=== PATIENT | female | born 1970 | race Caucasian/White ===

== ENCOUNTER 2020-01-25 12:21 | Outpatient (CLI) | payer SELFPAY ==
--- NOTE | 2020-01-25 12:45 | USCV_ITS ---
Oscar Nita Age: 49 Gender: F : 1970 Exam Date: 01/25/2020 13:13 Ordering Phys: Gerardo Zepeda Technologist: MARIAMA PARK [place]am [place] [facility] [place] Indication: right calf pain PROCEDURES: Venous duplex imaging was performed in only the right lower extremity. The following venous structures were evaluated: common femoral vein, profunda vein, proximal portion of the greater saphenous vein, superficial femoral vein, and the popliteal vein. In addition, the posterior tibial and peroneal trunk were evaluated. Serial compression, augmentation maneuvers, and spectral Doppler flow evaluation were performed. FINDINGS: Normal 2-D Doppler and augmentation and compressibility throughout the lower extremity venous structures. Additional imaging through the proximal calf veins also reveals no thrombus. Limited evaluation of the greater saphenous vein is patent with no thrombus.. A fluid appearing area is noted on the medial right calf. No increased vascularity to this area is visualized at this time. CONCLUSIONS Negative right lower extremity deep venous ultrasound. Dr. Roxanne Nolasco MD (Electronically Signed) Final Date: 26 January 2020 09:36 S
== END 2020-01-25 12:22 | disposition home or self-care (01) ==
LOC: RAD 12:29
PROVIDERS: Family Provider Nurse Practitioner; PCP Nurse Practitioner; Visit Provider Nurse Practitioner
DX: M79.661 Pain in right lower leg (principal)
CPT/HCPCS: 93971

== ENCOUNTER → 2020-02-10 10:07 | Outpatient (BNVA) | payer SELFPAY | PROVIDERS: Family Provider Nurse Practitioner; PCP Nurse Practitioner; Visit Provider Nurse Practitioner Family | DX: L03.115 Cellulitis of right lower limb (principal); R60.0 Localized edema; M79.604 Pain in right leg; M79.89 Other specified soft tissue disorders; S89.91XD Unspecified injury of right lower leg, subsequent encounter | CPT/HCPCS: 80053 ==

== ENCOUNTER → 2020-06-18 11:38 | Outpatient (BNVA) | payer OTHER, SELFPAY | PROVIDERS: Family Provider Nurse Practitioner; PCP Nurse Practitioner; Visit Provider Nurse Practitioner Family | DX: Z11.59 Encounter for screening for other viral diseases (principal) | CPT/HCPCS: 87635 ==

== ENCOUNTER → 2020-09-05 10:09 | Outpatient (BNVA) | payer OTHER, SELFPAY | PROVIDERS: Family Provider Nurse Practitioner; PCP Nurse Practitioner; Visit Provider Nurse Practitioner Family | DX: N95.0 Postmenopausal bleeding (principal); N30.01 Acute cystitis with hematuria; R60.0 Localized edema; J30.89 Other allergic rhinitis | CPT/HCPCS: 81003 ==

== ENCOUNTER → 2021-02-28 11:00 | Outpatient (BNVA) | payer OTHER, SELFPAY | PROVIDERS: Family Provider Nurse Practitioner; PCP Nurse Practitioner; Visit Provider Nurse Practitioner Family | DX: Z20.822 Contact with and (suspected) exposure to COVID-19 (principal) | CPT/HCPCS: 87635 ==

== ENCOUNTER → 2021-04-08 10:51 | Outpatient (BNVA) | payer MEDICAID, SELFPAY | PROVIDERS: Family Provider Nurse Practitioner; PCP Nurse Practitioner; Visit Provider Nurse Practitioner | DX: R60.0 Localized edema (principal); Z87.891 Personal history of nicotine dependence | CPT/HCPCS: 80053; 85025 ==

== ENCOUNTER → 2021-04-10 13:45 | Outpatient (BNVA) | payer MEDICAID, SELFPAY | PROVIDERS: Family Provider Nurse Practitioner; PCP Nurse Practitioner; Visit Provider Nurse Practitioner | DX: R05 Cough (principal); R60.0 Localized edema; Z87.891 Personal history of nicotine dependence; J98.01 Acute bronchospasm | CPT/HCPCS: 71046 ==

== ENCOUNTER 2021-04-25 14:01 | Outpatient (CLI) | payer OTHER, MEDICAID, SELFPAY ==
--- NOTE | 2021-04-25 14:30 | CT_ITS ---
WS: [id number] CT CHEST WITH INTRAVENOUS CONTRAST HISTORY: R91.8 - Other nonspecific abnormal finding of lung field, short of breath and pain. TECHNIQUE: Contiguous 5 mm axial imaging performed on the thorax. Coronal and sagittal reformats are submitted. All CT scans at [facility] use at least one of these dose optimization techniques: automated exposure control; mA and/or kV adjustment per patient size (includes targeted exams where dose is matched to clinical indication); or iterative reconstruction. CONTRAST: Omnipaque 300; 95 mL IV. DLP: 923.09 mGycm COMPARISON: None available. Lungs and central airway: Lung volumes are decreased. Diffuse haziness over both lungs probably from respiratory bronchiolitis related to smoking. Emphysema is moderate. Solid mass in the posterior RIGH T upper lobe abuts the superior major fissure. Mass extends over length of 3.2 cm. Transverse diamete r 3.9 and interposed in diameter 2.9 cm. There is central cavitation. Margins are irregular. Pleura: Normal. No pleural effusion. Heart and pericardium: Normal size heart with no pericardial effusion. Mediastinum and [place]: Small bilateral axillary lymph nodes. Confluent cluster of adenopathy begins in the RIGHT paratracheal location and extends contiguously inferior to the RIGHT hilum. Low-attenuatio n cluster of lymph nodes extends over length of 5.6 cm and transversely by 3.6 cm anterior posterior by 3.2 cm. Lymph nodes extend along the RIGHT central bronchus. Smaller subcarinal lymph node. No con tralateral nodes identified. Vessels: Normal size aortic and pulmonary artery. No coronary artery calcifications. Chest wall and lower neck: No soft tissue masses. Upper abdomen: Marked low attenuation throughout the liver from hepatic steatosis. No bile duct dilat ation. Slightly contracted gallbladder. No adrenal mass. Osseous structures: Mild thoracic spondylosis. CT/CT chest w con* [id number] IMPRESSION: 1. Solid mass with central cavitation in the posterior RIGHT upper lobe measur es 3.9 x 2.9 cm and extends over a length of 3.2 cm. Highly suspicious for prim bridget pulmonary neoplasm. 2. Confluent cluster of contiguous lymph nodes along the RIGHT paratracheal an d RIGHT hilum. Consistent with adenopathy. No contralateral lymphadenopathy cathleen ntified. 3. No adrenal mass. 4. Hepatic steatosis. The entire liver is not imaged but in the visualized por tion no metastatic sites are identified. 5. Moderate emphysema.
[2021-04-25] MEDS: iohexol 300 mg/mL 100 mL Btl IV (14:42)
== END 2021-04-25 14:02 | disposition home or self-care (01) ==
PROVIDERS: PCP Nurse Practitioner; Visit Provider Nurse Practitioner
DX: R91.8 Other nonspecific abnormal finding of lung field (principal); J43.9 Emphysema, unspecified; K76.0 Fatty (change of) liver, not elsewhere classified
CPT/HCPCS: 71260; Q9967

== ENCOUNTER → 2021-05-03 11:09 | Outpatient (BNVA) | payer OTHER, SELFPAY | PROVIDERS: PCP Nurse Practitioner; Visit Provider Internal Medicine Pulmonary Disease | DX: Z20.822 Contact with and (suspected) exposure to COVID-19 (principal); R91.8 Other nonspecific abnormal finding of lung field | CPT/HCPCS: 87635 ==

== ENCOUNTER 2021-05-10 06:00 | Day surgery (SDC) | payer OTHER, MEDICAID, SELFPAY ==
[2021-05-06 11:38] VITALS: BMI 32.5
[2021-05-10] VITALS (15 sets, daily range): BP systolic 97–128; BP diastolic 65–92; PULSE 86–112; RESP 16–26; TEMP 36.1–36.4; O2SAT 88–100
[2021-05-10] MEDS: sodium chloride 0.9% 1,000 ML 30 ML IV (06:24)
--- NOTE | 2021-05-10 06:55 | ANES.PREANE2 ---
Pre-Anesthetic Assessment Pre-Anesthetic Assessment: Height/Weight: Height 1.57 m Weight 80.739 kg Temp Pulse Resp BP Pulse Ox 97.5 F L 97 18 118/92 94 05/10/21 06:23 05/10/21 06:23 05/10/21 06:23 05/10/21 06:23 05/10/21 06:23 Preop Diagnosis: lung mass Proposed Procedure: Operation Date: 05/10/21 07:10 Proposed Procedures p Ebus 57322 [id number] R91.8(Not Applicable) - Mohamud Sr MD Was Beta Julio C taken within 24 hours: N/A Was Clonidine taken within 24 hours: N/A Last intake: Intake Last Liquid Date 05/09/21 Last Liquid Time 20:00 Last Solid Date 05/09/21 Last Solid Time 23:45 Last Intake: 22:00 Social: Social History: Tobacco Packs per day: 1-2 Pack years: 30+ Exam: Pre-Anes Outpt Exam: alert, oriented x 3, clear to auscultation bilaterally and regular rate & rhythm Airway: Submandibular: WNL Cervical ROM: WNL MP: 2 Dentition: Loose (very poor decayed loose on bottom) and False (upper) Pulmonary: Pulmonary: COPD, Cough, HOLLOWAY and SOB CV/HEM: CV/HEM: None reported : : None reported Hepatic: Hepatic: None reported GI: GI: GERD (food related) Metabolic: Metabolic: None reported Musc/skel: Musc/skel: Lower Back Pain Neuropsych: Neuropsych: None reported Anesthetic Plan: ASA status: 3 Anesthesia: General Risk of > 500 ml blood loss (7ml/kg in children): No Meds/Allergies Current Medications: Current Medications Generic Name Dose Route Start Last Admin Trade Name Freq PRN Reason Stop Dose Admin Sodium Chloride 1,000 mls @ 30 ml s/hr 05/10/21 06:15 05/10/21 06:24 Sodium Chloride 0.9% IV 05/11/21 06:14 30 mls/hr .Q24H ROSSANA Administration PFSH Anesthesia PFSH: Medical History Anxiety and depression Cigarette smoker Edema, unspecified Personal history of smoking Vitamin D insufficiency Surgical History History of tubal ligation Social History Smoking and tobacco status: current every day smoker cigarettes Packs smoked per day: 2.5 Years cigarettes smoked: 25 Second hand smoke exposure: Yes Smoking risk assessment/counseling performed?: Yes Alcohol intake: unknown Desire information about alcohol rehabilitation?: No Counseling given: No Desire information about substance/drug rehabilitation?: No Counseling given: No Adopted: No Caregiver/support person: No Lives independently: Yes Household members: family Housing: House Marital status: / Number of children: 5 service: No Current occupational status: employed 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
--- NOTE | 2021-05-10 06:59 | W.PM.OPSUD ---
Surgery/Procedure H&P Update DATE OF PROCEDURE: May 10, 2021 DATE H&P PERFORMED: 04/30/21 PLANNED PROCEDURE: Operation Date: 05/10/21 07:10 Proposed Procedures p Ebus [id number] R91.8(Not Applicable) - Mohamud Sr MD CHIEF COMPLAINT/INDICATIONFOR SURGICAL PROCEDURE: Right upper lobe cavitary mass and right paratracheal and hilar lymphadenopathy in a chronic smoker PREOP DIAGNOSIS: Lung cancer PLANNED PROCEDRUE: Bronchoscopy with inspection of the airway, possible endobronchial biopsy, endobronchial ultrasound-guided transbronchial needle aspiration of lymph nodes and control of bleeding This is a 50-year-old female with past medical history of post COVID-04 March 2021, anxiety, depression, cigarette smoker, COPD, referred by Marya Zepeda [facility] for lung mass on 04/25/[address] 04/25/2021 showed solid mass with central cavitation and posterior right upper lobe measuring 3.9 x 2.9 cm and complaint cluster of contiguous lymph nodes along the right paratracheal and right hilum consistent with adenopathy and no contralateral lymphadenopathy identified. The patient currently smoking cigarettes 2-2.5 ppd for last 20 to 25 years. Pertinent Exam Findings General: alert, NAD HEENT: conj clear, EOMI, PERRL, mmm, Neck: supple, no meningismus Heme: no cervical LAP Pulmonary: CTAB, no wheezing, rhonchi, crackles Cardiovascular: rrr, nl s1s2, no mrg Abdomen: soft, nt, nd, no r/g, bs+ Extremities: pulses +, no edema, no c/c : no CVA tenderness Skin: intact, no rash MSK: no back or neck pain Neurologic: grossly intact # 4cm cavitary right upper lobe lesion with right paratracheal and hilar lymphadenopathy on CT 04/25/2021-highly suspicious for lung cancer in patient with significant smoking history 2 to 3 packs/day for last 20 to 25 years - Schedule for EBUS 05/10/2021 and will do bronchoscopic examination of airways for endobronchial lesions and obtaining BAL samples from right upper posterior lobe. Followed by Endobronchial ultrasound guided FNA C samples of right paratracheal and hilar lymph nodes - Scheduled to obtain PET/CT on 05/04/2021 - but pt did not go. -completed course of Augmentin
[2021-05-10] MEDS: lidocaine 1% INJ 20 mL XX (07:13)
--- NOTE | 2021-05-10 08:29 | PM.OP ---
Operative Report Date of procedure: Date of procedure: May 10, 2021 Pre-op Diagnosis: Lung cancer Post-op diagnosis: same Brief History: This is a 50-year-old female with past medical history of post COVID-04 March 2021, anxiety, depression, cigarette smoker, COPD, referred by Marya Zepeda [employer]ACH[employer]PER[employer] for lung mass on 04/25/[address] 04/25/2021 showed solid mass with central cavitation and posterior right upper lobe measuring 3.9 x 2.9 cm and complaint cluster of contiguous lymph nodes along the right paratracheal and right hilum consistent with adenopathy and no contralateral lymphadenopathy identified. The patient currently smoking cigarettes 2-2.5 ppd for last 20 to 25 years. Procedure: Name of the procedure: Bronchoscopy with inspection of the airway, bronchoalveolar lavage, endobronchial biopsies, endobronchial ultrasound-guided transbronchial needle aspiration of lymph nodes and control of bleeding. Indication: Suspected lung cancer Anesthesia: General anesthesia. Local anesthesia: The aniya in the right and left mainstem bronchi were anesthetized with 1% lidocaine, 3 mL. Description of the procedure: The procedure was explained to the patient and the consent was obtained. The patient was brought to the OR. The patient underwent LMA placement for general anesthesia. Following induction of general anesthesia, the bronchoscope was advanced through the LMA. The lower trachea appeared to be normal. the aniya was sharp. The aniya, the right and left mainstem bronchi are anesthetized with 1% lidocaine. In a systematic manner bilateral bronchial tree was then examined. The bronchoscope was advanced into the Right mainstem bronchus. The anterior segment of the right upper lobe revealed complete occlusion from possible external compression. Bronchoscope could not be advanced into the anterior segment of the right upper lobe. The other subsegmental bronchi nad right middle lobe and right lower lobe were examined and noted to have edematous mucosa. The bronchoscope was then introduced into the left mainstem bronchus. The left upper lobe, lingula and left lower lobe bronchi were examined up to the third subsegmental level and no abnormalities were identified. Endobronchial biopsies were performed from the right upper lobe. 5 specimens were obtained. Bronchoalveolar lavage was performed from the right upper lobe. 60 mL of saline was instilled, fluid return was 10 mL. The fluid was bloody. The endobronchial ultrasound was introduced through the ET tube. Mediastinal and hilar lymphadenopathy was identified with the ultrasound. TB NA was performed from station 4R and 7. Samples: 1. Bronchoalveolar lavage specimen from right upper lobe was sent for cytology, Gram stain and microbiology culture, MARTHA prep and fungal cultures, AFB and mycobacterial cultures. 2. The endobronchial biopsies from right upper lobe are sent for histopathology. 3. The transbronchial needle aspiration of the aforementioned lymph node groups (station 4R and station 7) were sent for histopathology. Complications: There was no immediate complications. Pre-op Diagnosis: lung mass Associated Problem List Diagnoses (1) Cigarette smoker: (2) Mass of right lung: (3) Mediastinal lymphadenopathy:
--- NOTE | 2021-05-10 08:38 | XR_ITS ---
WS: [id number] Portable AP upright chest, 05/10/2021 Clinical Data: post bronchoscopy and Ebus Comparison: PA and lateral chest, 04/10/2021. Findings: The right hilar mass has increased slightly in size compared to the previous study. Left ashwin ng is clear. The pulmonary vascularity is not increased. No pneumonia or pneumothorax is seen. The he art is normal. There are monitor leads on the chest wall. XR/XR chest 1V portable [id number] Impression: 1. Slight increase in size of right hilar mass consistent with cancer of the ashwin ng. 2. No other masses or nodules are seen.
--- NOTE | 2021-05-10 10:11 | ANE.PACU2 ---
Inpatient post-anesthesia follow up: Airway intact: Yes Vital signs: Temperature 97.2 F Pulse Rate 94 Respiratory Rate 19 Blood Pressure 109/65 Pulse Oximetry 96 Oxygen Delivery Me thod Room Air Oxygen Flow Rate 1 Fraction of Inspir ed Oxygen Hydration adequate: Yes Nausea and vomiting: No Pain level: 2 Mental status: Baseline
[2021-05-16 09:08] LABS: PD-L1 (Clone 22C3) by IHC BBPL See Report
[2021-05-17 18:38] LABS: Aspergillus AG,EIA NOT DETECTED; Aspergillus AG,EIA, Index <0.50
== END 2021-05-10 10:11 | disposition home or self-care (01) ==
PROVIDERS: PCP Nurse Practitioner; Visit Provider Internal Medicine Pulmonary Disease
PROC: BB4BZZZ Ultrasonography of Pleura (ICD-10-PCS; principal; 2021-05-10 07:00)
PROC: 0BJ08ZZ Inspection of Tracheobronchial Tree, Via Natural or Artificial Opening Endoscopic (ICD-10-PCS; CPT 31622; 2021-05-10 07:00)
DX: C34.90 Malignant neoplasm of unspecified part of unspecified bronchus or lung (principal); Z86.16 Personal history of COVID-19; F41.9 Anxiety disorder, unspecified; F32.9 Major depressive disorder, single episode, unspecified; F17.210 Nicotine dependence, cigarettes, uncomplicated; J44.9 Chronic obstructive pulmonary disease, unspecified
CPT/HCPCS: 31624; 31625; 31652; 71045; 80500; 87015; 87070; 87102; 87116; 87205; 87206; 87305; 87801; 88112; 88305; 88309; 88342; 94640; 96360; 96361; J1100; J2405; J2704; J3010; J7030; J7611

== ENCOUNTER 2021-05-15 10:13 | Outpatient (CLI) | payer OTHER, MEDICAID, SELFPAY ==
--- NOTE | 2021-05-15 12:26 | ONC CON_ITS ---
Dr. Lilly New Patient Note Patient: Nita Moore Unit #: [id number]: 1970 Dicatated By: Braulio Lilly M.D.Date of Visit: May 15, 2021 Onc MED New Patient/Consult Referring Physician: Mohamud Sr Chief Complaint: Lung cancer. 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 She was diagnosed with COVID-19 virus infection in February 2021. She noted some increase in pre-existing cough with that illness, and she also became more short of breath. Chest x-ray on 04/10/2021 showed us 4 cm suprahilar pulmonary density consistent with focal pneumonia or a mass. Further evaluation with chest CT on 04/25/2021 showed a solid mass with central cavitation in the posterior right upper lobe measuring 3.9 x 2.9 x 3.2 cm. The appearance was highly suspicious for primary pulmonary neoplasm. A confluent cluster of lymph nodes along the right paratracheal and right hilar region measured 5.6 x 3.6 x 3.2 cm. Lymph nodes were also noted to extend along the right central bronchus. Also noted were smaller subcarinal lymph nodes. There were no contralateral nodes identified. Marked low attenuation throughout the liver appeared consistent with hepatic steatosis. There is no adrenal mass identified. She had pulmonary consultation with Dr. Sr. Her bronchoscopy/EBUS on 05/10/2021 showed complete occlusion of the anterior segment right upper lobe bronchus from suspected external compression. Right upper lobe endobronchial biopsy was positive for squamous cell carcinoma. Mediastinal and hilar lymphadenopathy was identified by endobronchial ultrasound. FNA biopsy of station 4R lymph node was positive for metastatic squamous cell carcinoma. FNA biopsy of station 7 lymph node was negative. She is seen now for further management. At this point she continues to have some shortness of breath and cough productive of clear sputum. She has had a little pain in her chest which goes through to her back. She has had no hemoptysis other than transiently following the bronchoscopy procedure. She has fatigue, but she is on the go all the time, and she is still working. ECOG score is 0. Her appetite has been okay. Her weight has been stable. She has not had fever. She occasionally has sweating at night. She reports having some sinus congestion. She has not had sore throat or difficulty swallowing. She has no GI or complaints. She has no significant joint or bone pain. She has had some pain on the right side of her neck rating up to the back of her head. She has no focal neurologic symptoms. Past Medical History: Her medical history includes anxiety, chronic obstructive pulmonary disease, depression, Viamin D insufficiency, and COVID-19 virus infection in 2020. Past Surgical History: She underwent bronchoscopy/EBUS on 05/10/2021. Her only other surgery was a tubal ligation. Medications: Albuterol Sulfate 1 Inhalation (of (2.5 mg/3ml) 0.083%) Nebulization solution Inhalation q 6 hours, Amoxicillin-Pot Clavulanate 1 Tablet (of 875-125 mg) Oral b.i.d., Aspirin 1 Tablet (of 325 mg) Tablet, enteric coated Oral daily, Budesonide-Formoterol Fumarate 2 Puff(s) (of 160-4.5 mcg/act) Aerosol Inhalation b.i.d., Furosemide 1 Tablet (of 20 mg) Oral daily, Potassium Chloride Jessica ER 1 Tablet (of 10 meq) Tablet, controlled release Oral daily, Vitamin D2 1 Tablet (of 10 mcg ) Oral daily Allergies: Codeine Sulfate and Sulfa Antibiotics. Social History: Ms. Moore is . She has a history of smoking 1-1/2 to 2 packs of cigarettes daily for more than 30 years. She does not drink alcohol. Family History: She does not know what happened to her father. Her mother with heart disease. One sister is , cause unknown to the patient. Four other siblings are living, but she does not know about their health. A son with SIDS. Review Of Symptoms: Constitutional - She has some fatigue, but she is on the go all the time, and she is still working. Her appetite has been okay. Her weight is stable. She has not had fever. She occasionally has sweating at night. ECOG score is 0, Eyes - No change in vision, ENMT - No hearing loss or tinnitus. She has sinus congestion. No mouth sores. No sore throat or difficulty swallowing, Hematologic/Lymphatic - No abnormal bruising or bleeding, Respiratory - She has shortness of breath. She has cough productive of clear sputum. No pleuritic pain or hemoptysis, Cardiovascular - She has had a little bit of chest pain which radiates through to the back. No palpitations, Gastrointestinal - No nausea or vomiting. No heartburn or acid reflux. No diarrhea or constipation. No blood in the stool or black stools, Genitourinary (F) - No dysuria or hematuria. No urinary frequency. No urgency or incontinence, Musculoskeletal - No joint or bone pain, Integumentary - No skin rash or other skin changes, Neurologic - She has been having some pain in the right neck rating up to the back of her head. No dizziness. No numbness or tingling. No other focal neurologic symptoms, Psychiatric - She has a history of anxiety and depression, but currently not requiring medication. No insomnia. Vital Signs: Height is 62 inches and weight 177 pounds. Blood pressure 118/78, pulse 101, respirations 18, temp 98.2 degrees, and oxygen saturation 95%. Physical Examination: Constitutional - She appears to be in good general health, Eyes - Sclerae nonicteric. Conjunctivae clear, ENMT - Teeth are in poor repair, but there are no lesions noted in the oral cavity, Neck - No mass or thyromegaly, Hematologic/Lymphatic - No cervical, clavicular, or axillary adenopathy, Respiratory - Lungs sound clear with diminished air movement bilaterally, Cardiovascular - Heart rhythm is regular. There is no murmur, gallop, or rub noted, Abdomen - Soft and non-tender. Liver and spleen are not enlarged. There is no abdominal mass or ascites noted and there is no inguinal adenopathy, Back/Spine - No spine or CVA tenderness noted, Extremities - Mild edema. Pedal pulses are palpable bilaterally, Integumentary - No rashes. No suspicious skin lesions noted, Neurologic - No focal neurologic deficits noted. Problem List: 1. Squamous cell carcinoma involving the upper lobe of the right lung by clinical evaluation stage IIIA (T2a, N2, M0). 2. COPD. 3. Anxiety/depression, currently not requiring medication. 4. Vitamin D deficiency. 5. History of COVID-19 virus infection in February 2021. Problems Addressed with this Encounter and Plan: Patient with squamous cell carcinoma involving the upper lobe of the right lung by clinical evaluation stage IIIA (T2a, N2, M0). She underwent bronchoscopy/EBUS on 05/10/2021. Endobronchial biopsy from the right upper lobe and FNA biopsy of station 4R lymph node were both positive for squamous cell carcinoma. She was supposed to have a staging PET/CT, but that apparently never got scheduled. The CT findings and images were reviewed with the patient and her daughter, and we also discussed the pathology results and clinical implications. 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 With the lymph node involvement, her disease is inoperable. In the absence of any other metastatic disease, the recommended treatment will be radiation concurrently with weekly carboplatin/paclitaxel chemotherapy with the potential for maintenance immunotherapy, depending on her response to the chemoradiation. She does need to complete her staging evaluation with PET/CT and with brain MRI, and those will both be scheduled now. She will also be scheduled to see Dr. Wallace for radiation oncology consultation, and I will arrange for her to see one of the surgeons for placement of Port-A-Cath venous access device. She will have a follow-up visit prior to starting chemotherapy. In the meantime, she also has advised that she needs to stop smoking, as statistically it does improve treatment outcomes. I offered her the option to try nicotine patch or Chantix. She is going to discuss it with her daughter. Signed By: Braulio Lilly M.D. <<Signature on File>>
== END 2021-05-15 10:14 | disposition home or self-care (01) ==
LOC: ONCMED 10:15
PROVIDERS: PCP Nurse Practitioner; Visit Provider Internal Medicine Medical Oncology
DX: C34.11 Malignant neoplasm of upper lobe, right bronchus or lung (principal); C77.1 Secondary and unspecified malignant neoplasm of intrathoracic lymph nodes; J44.9 Chronic obstructive pulmonary disease, unspecified; F41.8 Other specified anxiety disorders; E55.9 Vitamin D deficiency, unspecified; Z86.16 Personal history of COVID-19; F17.210 Nicotine dependence, cigarettes, uncomplicated; Z79.899 Other long term (current) drug therapy
CPT/HCPCS: 99205

== ENCOUNTER 2021-05-24 14:34 | Outpatient (CLI) | payer OTHER, SELFPAY ==
--- NOTE | 2021-05-24 14:30 | MR_ITS ---
WS: [id number] MRI HEAD WITH CONTRAST TECHNIQUE: Sagittal T1, T2 axial, T2 axial FLAIR, axial susceptibility weighted imaging, axial diffus ion weighted images, and coronal T2 images were obtained. Pre and post-T1 axial and post T1 coronal i mages. ADC and FSPGR images. CLINICAL INFORMATION: EVALUATION OF NEW SYMPTOMS;LUNG CANCER COMPARISON: None. FINDINGS: No evidence of restricted diffusion to suggest acute ischemia. Ventricular system and basal cisterns are patent. Mild small vessel changes. Mild parenchymal volume loss. Normal posterior fossa. Normal v ascular flow voids at the skull base. No extra-axial fluid collections. No evidence of mass or mass e ffect. Paranasal sinuses and mastoid air cells are well aerated. No hemosiderin on the susceptibly weighted images. Normal optic chiasm and pituitary infundibulum. Mi ld symmetric atrophy temporal lobes and hippocampal formations. Normal optic chiasm and pituitary inf undibulum. Normal cavernous sinuses and Meckel's cave. No evidence of enhancing intracranial metastatic disease. Incidental enhancing venous angioma in the left frontal lobe. Normal dural venous sinuses. MR/MR head wo/w con [id number] IMPRESSION: 1. No evidence of restricted diffusion to suggest acute ischemia. 2. No evidence of enhancing intracranial metastatic disease. 3. Incidental venous angioma left frontal lobe. 4. Mild small vessel changes with mild parenchymal volume loss. 5. No hemosiderin on susceptibly weighted images.
[2021-05-24] MEDS: gadobenate dimeglumine 20 mL vial IV (15:59)
== END 2021-05-24 14:35 | disposition home or self-care (01) ==
PROVIDERS: PCP Nurse Practitioner; Visit Provider Internal Medicine Medical Oncology
DX: C34.11 Malignant neoplasm of upper lobe, right bronchus or lung (principal); Q28.3 Other malformations of cerebral vessels
CPT/HCPCS: 70553; A9577

== ENCOUNTER 2021-05-30 13:29 | Outpatient (CLI) | payer OTHER, MEDICAID, SELFPAY ==
--- NOTE | 2021-05-30 15:19 | N.ONRAD NP_ITS ---
(Radiation Oncology Consultation Patient Name: Nita Moore Date of : 1970 Date of Service: 05/30/2021 Attending Physician: Prateek Wallace M.D. Nita Moore was seen in consultation this afternoon at the request of Braulio Lilly M.D. for consideration of thoracic radiotherapy in the management of a recently diagnosed non-small cell lung cancer. She was evaluated by her primary care physician in late March for a persistent cough and wheezing. A chest radiograph revealed a 4 cm suprahilar mass. A thoracic CT scan ordered on April 25, 2021 demonstrated a 3.9 cm x 2.9 cm x 3.2 cm posterior right upper lobe mass with central cavitation. Right paratracheal and hilar lymphadenopathy measuring 3.6 cm x 3.2 cm x 5.6 cm were present. A bronchoscopy with endobronchial ultrasound-guided transbronchial needle biopsy was performed by Mohamud Sr M.D. on May 10, 2021. The anterior segment of the right upper lobe was occluded secondary to external compression. Biopsies (the pathology report was personally reviewed in [facility]) obtained from the right upper lobe lesion and station 4R lymph node were positive for squamous cell carcinoma. PD???L1 TPS was more than 5%. A PET CT (independently visualized in [facility]) obtained on May 21, 2021 confirmed metabolic activity within the right upper lobe mass (SUV 17.8), right hilar and mediastinal lymphadenopathy (SUV 23.3), splenic flexure (SUV 20.4), and uterine fundus (SUV 23.7). A MRI of the head did not identify metastatic disease. The patient was evaluated for definitive thoracic radiotherapy. I discussed with Ms. Moore the AJCC clinical stage IIIA (T2bN2) lung cancer corresponding to her disease. I also reviewed the National Comprehensive Cancer Network Guidelines recommending concurrent chemoradiotherapy for the management of locally advanced lung cancer and the classic study, RTOG 9410, comparing sequential versus concurrent chemoradiotherapy that demonstrated an overall survival advantage for the concurrent chemoradiotherapy regimen and established the standard of care. I would endorse a six week course of thoracic radiotherapy. A computed tomographic radiotherapy planning scan with contrast in the treatment position will be acquired and co-registered to the patient's staging PET CT scan to identify the gross tumor volume. The potential toxicities of thoracic radiotherapy were reviewed. The patient has verbalized understanding would like to proceed as recommended. I will also request a colonoscopy and gynecological evaluation to evaluate the PET findings. The patient???s treatment plan was discussed with Braulio Lilly M.D. Signed by: Dr. Prateek Wallace 07/16/2021 1:32:59 PM
== END 2021-05-30 13:30 | disposition home or self-care (01) ==
PROVIDERS: PCP Nurse Practitioner; Visit Provider Radiology Radiation Oncology
DX: C34.11 Malignant neoplasm of upper lobe, right bronchus or lung (principal); C77.8 Secondary and unspecified malignant neoplasm of lymph nodes of multiple regions; Z79.899 Other long term (current) drug therapy
CPT/HCPCS: 87635; 99205

== ENCOUNTER → 2021-05-31 16:01 | Outpatient (BNVA) | payer OTHER, SELFPAY | PROVIDERS: PCP Nurse Practitioner; Visit Provider Obstetrics & Gynecology | DX: N93.9 Abnormal uterine and vaginal bleeding, unspecified (principal) | CPT/HCPCS: 88305; 88341; 88342 ==

== ENCOUNTER 2021-06-04 07:14 | Day surgery (SDC) | payer OTHER, SELFPAY ==
[2021-06-03 12:28] VITALS: BMI 30.5
[2021-06-04] VITALS (9 sets, daily range): BP systolic 101–117; BP diastolic 65–77; PULSE 85–114; RESP 13–24; TEMP 36.2–36.9; O2SAT 85–96
--- NOTE | 2021-06-04 | SCC_ITS ---
Procedure Done: 1-Right internal jugular vein PowerPort placement 2. Fluoroscopic guidance and interpretation for placement of catheter 3. Ultrasound guidance to access the right internal jugular vein 27.9 seconds of fluoroscopic guidance, for a cumulative dose of 5.81 mGy, was provided to Dr. Ramirez by the radiology department. C-arm images of the chest were saved for the patient's permanent record. [facility]
--- NOTE | 2021-06-04 07:17 | SC_ITS ---
WS: [id number] INTRAOPERATIVE TECHNIQUE: 2 Spot fluoroscopic images for intraoperative purposes. FLUOROSCOPY TIME: 27.9 seconds CLINICAL INFORMATION: Powerport Placement COMPARISON: None. FINDINGS: Right Port-A-Cath with tip in the distal SVC. No visualized pneumothorax. SC/C-arm FL for CVA [id number] IMPRESSION: Images obtained for intraoperative purposes.
[2021-06-04] MEDS: sodium chloride 0.9% 1,000 ML 30 ML IV (07:43)
--- NOTE | 2021-06-04 08:14 | ANES.PREANE2 ---
Pre-Anesthetic Assessment Pre-Anesthetic Assessment: Height/Weight: Height 1.57 m Weight 75.75 kg Temp Pulse Resp BP Pulse Ox 98.5 F 114 H 20 H 113/73 93 06/04/21 07:21 06/04/21 07:21 06/04/21 07:21 06/04/21 07:21 06/04/21 07:21 Preop Diagnosis: Lung cancer Proposed Procedure: Operation Date: 06/04/21 08:45 Proposed Procedures p Portacath Placement 31349 R59.0(Not Applicable) - Santos Ramirez MD Was Beta Julio C taken within 24 hours: N/A Was Clonidine taken within 24 hours: N/A Last intake: Intake Last Liquid Date 06/03/21 Last Liquid Time 21:30 Last Solid Date 06/03/21 Last Solid Time 20:00 Social: Social History: Tobacco and No alcohol Exam: Pre-Anes Outpt Exam: alert, oriented x 3 and regular rate & rhythm Additional Exam Findings (including area of procedure): Rhonchi Airway: Submandibular: WNL Cervical ROM: WNL MP: 2 Dentition: Chipped and Loose Additional comments: Very poor dentition Pulmonary: Pulmonary: COPD GI: GI: GERD Neuropsych: Neuropsych: Anxiety and Depression Anesthetic Plan: ASA status: 3 Anesthesia: MAC Risk of > 500 ml blood loss (7ml/kg in children): No Meds/Allergies Current Medications: Current Medications Generic Name Dose Route Start Last Admin Trade Name Freq PRN Reason Stop Dose Admin Sodium Chloride 1,000 mls @ 30 ml s/hr 06/04/21 07:30 06/04/21 07:43 Sodium Chloride 0.9% IV 06/05/21 07:29 30 mls/hr .Q24H ROSSANA Administration PFSH Anesthesia PFSH: Medical History Anxiety and depression Cigarette smoker Edema, unspecified Personal history of smoking Vitamin D insufficiency Surgical History History of tubal ligation Family History (Updated 05/31/21 @ 15:32 by Ekta Mendez LPN) Sister Diabetes Mother Diabetes Hypertension Stroke Daughter Thyroid disease Denies family history of CAD (coronary artery disease) Clotting disorder Hyperlipidemia Chronic kidney disease (CKD) Bleeding disorder Cancer Social History Smoking and tobacco status: current every day smoker cigarettes Packs smoked per day: 2.5 Years cigarettes smoked: 25 Second hand smoke exposure: Yes Smoking risk assessment/counseling performed?: Yes Alcohol intake: unknown Desire information about alcohol rehabilitation?: No Counseling given: No Desire information about substance/drug rehabilitation?: No Counseling given: No Adopted: No Caregiver/support person: No Lives independently: Yes Household members: family Housing: House Marital status: / Number of children: 5 service: No Current occupational status: employed 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
--- NOTE | 2021-06-04 08:57 | W.PM.OPSUD ---
Surgery/Procedure H&P Update DATE OF PROCEDURE: June 04, 2021 DATE H&P PERFORMED: 05/23/21 H&P UPDATE INFORMATION: I have reviewed H&P completed within last 30 days, I have examined patient prior to procedure and No changes to prior documentation PREOP DIAGNOSIS: Lung cancer PRIMARY INDICATION FOR PROCEDURE: The same PLANNED PROCEDURE: Operation Date: 06/04/21 08:45 Proposed Procedures p Portacath Placement 32077 R59.0(Not Applicable) - Santos Ramirez MD
[2021-06-04] MEDS: lidocaine 2% INJ 20 mL INJECTION (09:40)
[2021-06-04] MEDS: heparin, porcine 1,000 unit/mL INJ 10 mL 10000 UNIT INJECTION (09:45)
--- NOTE | 2021-06-04 10:07 | PM.OP ---
Operative Report Date of procedure: June 04, 2021 Pre-op Diagnosis: Lung cancer Post-op diagnosis: same Procedure Done: 1. Right internal jugular vein PowerPort placement 2. Fluoroscopic guidance and interpretation for placement of catheter 3. Ultrasound guidance to access the right internal jugular vein Implants: Right internal jugular vein PowerPort placed Surgeon: Santos Ramirez Emergency Room Physician Assistant: Surgical jesus Dubose Circulating nurse Chela Downey Anesthesia: MAC (line runner José Miguel) Estimated blood loss (mL): 10 Condition: stable Brief History: Lung cancer Procedure: Patient was identified in the holding area and taken to the operative room and placed in supine position IV propofol was given by the anesthesia provider ,both arms were tucked,Time-out was done verifying the patient's name/date of /planned procedure and destination after the procedure, all were in agreement. SCDs confirmed to be functioning, preoperative antibiotics administered per protocol, and beta zhou protocol was confirmed, appropriate positioning of the patient was done by me. Medications were reviewed to assess for anticoagulant usage. Risks and benefits and prevention of central line associated blood stream infection (CLABSI) were discussed with the patient/CPOA, and a consent was obtained. Monitors were in place and monitored throughout the procedure. All necessary supplies were available prior to start. Hand hygiene was completed prior to starting. Maximum barrier technique was utilized including a sterile gown, sterile gloves with a hat and mask. Site was was prepped with [chlorhexidine] and a full body drape was placed. 5 mL of 2% lidocaine was injected into the skin with a 25 gauge needle. Prep& drape was done under the usual sterile technique, lidocaine 2% was injected at the site of the stick, started by right subclavian vein and a wire was threaded but tended to go towards the right internal jugular vein. After couple of attempts I aborted and I did deviate my attention towards the right internal jugular vein. Right internal Juglar vein stick that retrieved venous blood was obtained from the first stick under ultrasound guidance and there was no evidence of intraluminal thrombosis, interpretation was done by me through the whole entire procedure, a guidewire was then threaded and under the guidance of fluoroscopy position was confirmed to be in the IVC and my interpretation, there was no PVC changes, at that point the guidewire was secured to the drapes with a hemostat and the needle was taken out. Attention was then deviated towards creation of a pocket for the port were lidocaine 2% was injected using an 15 blade knife skin incision was created at the right upper Chest ,dissection using the Bovie to create a pocket for the Port-A-Cath to be accommodated, hemostasis was secured, after the port being appropriately flushed it was inserted into the pocket and a tunneler was used to accommodate the catheter of the port cath to be delivered through the incision first created at the site of the stick. I was able to retrieve the catheter at the index site of the stick. At that point under fluoroscopy an estimated length was measured for the catheter and was cut at the designed level, followed by that a dilator with the sheath introduced onto the guidewire the dilator and the wire were retrieved and the catheter of the port was introduced via the sheath where it was peeled off and the catheter maintained to be in the SVC that was confirmed with fluoroscopy, and the fluoroscopy interpretation was done by me throughout the entire procedure. Multiple flushes of the port was done by diluted heparin and I was able to retrieve without difficulty venous blood as well as appropriate flushing was achieved. The port was kept in its pocket.3-0 Vicryl deep subdermal interrupted sutures, skin was then closed by 4-0 Monocryl as subcuticular closure. The port was appropriately flushed with heparin and venous blood was withdrawn without difficulty The stick site was closed by 4-0 Monocryl and Dermabond was used followed by dressing. Patient tolerated the procedure well was taken to the recovery area Count was correct at the end of the procedure I was present for the whole entire procedure
--- NOTE | 2021-06-04 10:20 | XRR_ITS ---
PROCEDURE INFORMATION: Exam: XR Chest Exam date and time: 06/04/2021 10:20 AM Age: 50 years old Clinical indication: Device placement; Other: Right internal jugular vein powerport; Additional info: Status post right internal jugular vein powerport TECHNIQUE: Imaging protocol: XR of the chest. Views: 1 view. COMPARISON: CR XR chest 1V portable [id number] 05/10/2021 8:41 AM FINDINGS: Tubes, catheters and devices: Chest port/Mediport has been placed via the right jugular approach with the tip in the superior vena cava. Lungs: Lungs are well aerated without a focal area of consolidation. Pleural spaces: Unremarkable. No pleural effusion. No pneumothorax. Heart/Mediastinum: Unremarkable. No cardiomegaly. Dense right hilum Bones/joints: Unremarkable. XR/XR chest 1V portable [id number] IMPRESSION: Lungs are well aerated without a focal area of consolidation. Dense right hilum Radiation Dose CTDIVOL = (mGy): DLP = (mGy-cm)
--- NOTE | 2021-06-04 10:23 | P.PCN_ITS ---
PACU note PACU note: VSS, Good respiratory effort, report to ICING AND GLAZE MAKER Post-Anesthesia Exam: awake
--- NOTE | 2021-06-04 10:23 | PM.PACU ---
PACU note PACU note: VSS, Good respiratory effort, report to FRANCHISE SALES REPRESENTATIVE Post-Anesthesia Exam: awake
--- NOTE | 2021-06-04 10:44 | SUR.PHASEI ---
1038 PT AWAKES TO VOICE HOB AT 40 DEGREES DRESSING D/I X RAY DONE AT BEDSIDE PT TAKING ICE CHIPS PT TO OPS HANDOFF AT BEDSIDE PT REQUESTS COKE TO DRINK.
--- NOTE | 2021-06-04 14:22 | ANE.PACU2 ---
Inpatient post-anesthesia follow up: Airway intact: Yes Vital signs: Temperature 97.1 F Pulse Rate 93 Respiratory Rate 18 Blood Pressure 101/72 Pulse Oximetry 93 Oxygen Delivery Me thod Room Air Oxygen Flow Rate 3 Fraction of Inspir ed Oxygen Hydration adequate: Yes Nausea and vomiting: No Pain level: 2 Mental status: Baseline
== END 2021-06-04 11:55 | disposition home or self-care (01) ==
PROVIDERS: PCP Nurse Practitioner; Visit Provider Surgery
PROC: (CPT 36561; principal; 2021-06-04 08:45)
DX: C34.90 Malignant neoplasm of unspecified part of unspecified bronchus or lung (principal); J44.9 Chronic obstructive pulmonary disease, unspecified; K21.9 Gastro-esophageal reflux disease without esophagitis; F41.9 Anxiety disorder, unspecified; F32.9 Major depressive disorder, single episode, unspecified; E55.9 Vitamin D deficiency, unspecified; Z82.49 Family history of ischemic heart disease and other diseases of the circulatory system; Z83.3 Family history of diabetes mellitus; F17.210 Nicotine dependence, cigarettes, uncomplicated
CPT/HCPCS: 36561; 71045; 77001; 94640; C1788; J1644; J2704; J3010; J7030

== ENCOUNTER 2021-06-05 07:55 | Outpatient (CLI) | payer OTHER, SELFPAY ==
--- NOTE | 2021-06-05 10:44 | PFTS_ITS ---
Date of Study:06/05/21 Date of Dictation: MECHANICS: Forced vital capacity (FVC) is reduced. Forced expiratory volume in one second (FEV1) is reduced. FEV1/FVC is reduced. FLOW VOLUME LOOP: Reduced flow at all lung volumes with scooping. LUNG VOLUMES: Total lung capacity (TLC) is normal. Residual volume (RV) is increased. DIFFUSING CAPACITY FOR CARBON MONOXIDE: Moderately reduced. INTERPRETATION: The postbronchodilator spirometry is consistent with moderate airflow obstruction. There is a significant postbronchodilator response. Lung volumes are consistent with air trapping. Gas exchange (DLCO) is moderately reduced. MTDD
== END 2021-06-05 07:56 | disposition home or self-care (01) ==
PROVIDERS: PCP Nurse Practitioner; Visit Provider Internal Medicine Pulmonary Disease
DX: J44.9 Chronic obstructive pulmonary disease, unspecified (principal)
CPT/HCPCS: 94060; 94618; 94726; 94729; J7611

== ENCOUNTER 2021-06-06 06:29 | Outpatient (RCR) | payer OTHER, SELFPAY ==
[2021-06-05 09:21] LABS: Basophils % 0.3 %; Eosinophils # 0.1 10^3/uL (0.0-0.8); Eosinophils % 0.9 %; Hematocrit 40.4 % (37.0-47.0); Hemoglobin 13.1 g/dL (11.5-15.3); Lymphocytes % 21.8 %; Mean Corpuscular HGB Conc 32.4 g/dL (30.0-36.0); Mean Corpuscular Hemoglobin 31.3 pg (28.0-34.0); Mean Corpuscular Volume 96.7 fl (81-99); Mean Platelet Volume 9.7 fL (7.4-10.4); Monocytes # 0.6 10^3/uL (0.2-0.9); Monocytes % 6.2 %; Neutrophils # 6.56 10^3/uL (1.8-7.7); Neutrophils % 70.4 %; Nucleated Red Blood Cells % 0 %; Platelet Count 300 10^3/cmm (130-400); Red Blood Count 4.18 10^6/uL (4.1-5.3); Red Cell Distribution Width 12.3 % (12.1-15.1); White Blood Count 9.3 10^3/uL (4.0-10.0)
[2021-06-05 09:40] LABS: Alanine Aminotransferase 20 U/L (0-33); Albumin Level 3.7 g/dL (3.5-5.2); Alkaline Phosphatase 94 IU/L (35-105); Anion Gap 13.2 (5-19); Aspartate Amino Transferase 20 U/L (0-32); Blood Urea Nitrogen 10 mg/dL (6-20); Calcium 9.2 mg/dL (8.5-10.5); Carbon Dioxide 28 mmol/L (22-29); Chloride 99 mmol/L (98-107); Globulin 3.6 g/dL (1.3-4.6); Glomerular Filtration Rate 105.4 mL/min (90-130); Glucose 101 mg/dL (65-115); Osmolality Calculated 281 mOsm/kg (285-295); Potassium 4.2 mmol/L (3.5-5.1); Sodium 136 mmol/L (136-145); Total Bilirubin 0.3 mg/dL (0.15-1.2); Total Protein 7.3 g/dL (6.6-8.7)
--- NOTE | 2021-06-06 | CT_ITS ---
Radiation Therapy Planning CT images; total exam DLP: 728.75 mGy-cm MTDD
== END 2021-06-16 23:59 | disposition home or self-care (01) ==
LOC: ONCMED 06:29
PROVIDERS: PCP Nurse Practitioner; Visit Provider Radiology Radiation Oncology
DX: Z51.0 Encounter for antineoplastic radiation therapy (principal); C34.11 Malignant neoplasm of upper lobe, right bronchus or lung
CPT/HCPCS: 36415; 77300; 77301; 77334; 77338; 77470; 80053; 85025; Q9967

== ENCOUNTER → 2021-06-07 09:36 | Outpatient (BNVA) | payer OTHER, SELFPAY | PROVIDERS: PCP Nurse Practitioner; Visit Provider Obstetrics & Gynecology | DX: N95.0 Postmenopausal bleeding (principal) | CPT/HCPCS: 76830 ==

== ENCOUNTER → 2021-06-10 11:17 | Outpatient (BNVA) | payer OTHER, SELFPAY | PROVIDERS: PCP Nurse Practitioner; Visit Provider Surgery | DX: Z11.52 Encounter for screening for COVID-19 (principal); Z20.822 Contact with and (suspected) exposure to COVID-19 | CPT/HCPCS: 87635 ==

== ENCOUNTER 2021-06-12 09:56 | Day surgery (SDC) | payer OTHER, MEDICAID, SELFPAY ==
[2021-06-10 09:19] VITALS: BMI 32.1
--- NOTE | 2021-06-12 10:09 | P.ANESASSM_ITS ---
Pre-Anesthetic Assessment Pre-Anesthetic Assessment: Height/Weight: Height 1.57 m Weight 79.832 kg Preop Diagnosis: Lung cancer Proposed Procedure: Operation Date: 06/12/21 11:15 Proposed Procedures p Colonoscopy 74126 Z12.11(Not Applicable) - Santos Ramirez MD Was Beta Julio C taken within 24 hours: N/A Was Clonidine taken within 24 hours: N/A Social: Social History: Tobacco and No alcohol Exam: Pre-Anes Outpt Exam: alert, oriented x 3 and regular rate & rhythm Airway: Submandibular: WNL Cervical ROM: WNL MP: 2 Dentition: Loose Additional comments: Very poor dentition, missing most Pulmonary: Pulmonary: COPD Comments: Lung mass CV/HEM: CV/HEM: HTN GI: GI: GERD Metabolic: Metabolic: Morbid obesity Neuropsych: Neuropsych: Anxiety and Depression Anesthetic Plan: ASA status: 3 Anesthesia: MAC Risk of > 500 ml blood loss (7ml/kg in children): No PFSH Anesthesia PFSH: Medical History Anxiety and depression Cigarette smoker Edema, unspecified Personal history of smoking Vitamin D insufficiency Surgical History History of tubal ligation Family History Sister Diabetes Mother Diabetes Hypertension Stroke Daughter Thyroid disease Denies family history of CAD (coronary artery disease) Clotting disorder Hyperlipidemia Chronic kidney disease (CKD) Bleeding disorder Cancer Social History Smoking and tobacco status: current every day smoker cigarettes Packs smoked per day: 2.5 Years cigarettes smoked: 25 Second hand smoke exposure: Yes Smoking risk assessment/counseling performed?: Yes Alcohol intake: unknown Desire information about alcohol rehabilitation?: No Counseling given: No Desire information about substance/drug rehabilitation?: No Counseling given: No Adopted: No Caregiver/support person: No Lives independently: Yes Household members: family Housing: House Marital status: / Number of children: 5 service: No Current occupational status: employed 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
[2021-06-12 10:52] VITALS: BP 109/86; PULSE 95; RESP 18; TEMP 36.6; O2SAT 95
[2021-06-12] MEDS: sodium chloride 0.9% 1,000 ML 30 ML IV (11:16)
--- NOTE | 2021-06-12 11:30 | W.PM.OPSUD ---
Surgery/Procedure H&P Update DATE OF PROCEDURE: June 12, 2021 DATE H&P PERFORMED: 05/23/21 H&P UPDATE INFORMATION: I have reviewed H&P completed within last 30 days, I have examined patient prior to procedure and Changes to prior documentation as noted here CHANGES TO PREVIOUS DOCUMENTATION: Appearance of activity at the splenic flexure on PET CT scan. PREOP DIAGNOSIS: Lung cancer/abnormal PET CT/endometrial cancer PRIMARY INDICATION FOR PROCEDURE: The same PLANNED PROCEDURE: Operation Date: 06/12/21 11:15 Proposed Procedures p Colonoscopy 09550 Z12.11(Not Applicable) - Santos Ramirez MD
[2021-06-12 14:35] VITALS: BP 106/68; PULSE 86; RESP 18; TEMP 36.1; O2SAT 98
== END 2021-06-12 15:25 | disposition home or self-care (01) ==
PROVIDERS: PCP Nurse Practitioner; Visit Provider Surgery
PROC: 0DJD8ZZ Inspection of Lower Intestinal Tract, Via Natural or Artificial Opening Endoscopic (ICD-10-PCS; CPT 45378; principal; 2021-06-12 11:15)
DX: Z12.11 Encounter for screening for malignant neoplasm of colon (principal); D12.4 Benign neoplasm of descending colon; K57.30 Diverticulosis of large intestine without perforation or abscess without bleeding; J44.9 Chronic obstructive pulmonary disease, unspecified; I10 Essential (primary) hypertension; K21.9 Gastro-esophageal reflux disease without esophagitis; E66.01 Morbid (severe) obesity due to excess calories; Z68.32 Body mass index [BMI] 32.0-32.9, adult; F41.9 Anxiety disorder, unspecified; F32.9 Major depressive disorder, single episode, unspecified; F17.210 Nicotine dependence, cigarettes, uncomplicated; Z82.49 Family history of ischemic heart disease and other diseases of the circulatory system; Z83.3 Family history of diabetes mellitus; Z82.3 Family history of stroke; Z79.82 Long term (current) use of aspirin
CPT/HCPCS: 45381; 45385; 88305; 96360; 96361; J2704; J7030

== ENCOUNTER 2021-06-28 06:17 | Outpatient (RCR) | payer OTHER, SELFPAY ==
[2021-06-17 08:23] LABS: Basophils % 0.1 %; Hematocrit 41.8 % (37.0-47.0); Hemoglobin 13.5 g/dL (11.5-15.3); Lymphocytes # 1.4 10^3/uL (0.8-4.8); Lymphocytes % 16.9 %; Mean Corpuscular HGB Conc 32.3 g/dL (30.0-36.0); Mean Corpuscular Hemoglobin 30.6 pg (28.0-34.0); Mean Corpuscular Volume 94.8 fl (81-99); Mean Platelet Volume 9.7 fL (7.4-10.4); Monocytes # 0.1 10^3/uL (0.2-0.9); Monocytes % 1.6 %; Neutrophils # 6.67 10^3/uL (1.8-7.7); Neutrophils % 81.2 %; Nucleated Red Blood Cells % 0 %; Platelet Count 404 10^3/cmm (130-400); Red Blood Count 4.41 10^6/uL (4.1-5.3); Red Cell Distribution Width 12.3 % (12.1-15.1); White Blood Count 8.2 10^3/uL (4.0-10.0)
[2021-06-17 08:42] LABS: Anion Gap 13.9 (5-19); Blood Urea Nitrogen 12 mg/dL (6-20); Carbon Dioxide 28 mmol/L (22-29); Chloride 100 mmol/L (98-107); Potassium 3.9 mmol/L (3.5-5.1); Sodium 138 mmol/L (136-145)
[2021-06-17 08:43] LABS: Alanine Aminotransferase 25 U/L (0-33); Albumin Level 3.7 g/dL (3.5-5.2); Alkaline Phosphatase 98 IU/L (35-105); Aspartate Amino Transferase 22 U/L (0-32); Calcium 9.7 mg/dL (8.5-10.5); Glomerular Filtration Rate 88.2 mL/min (90-130); Glucose 175 mg/dL (65-115); Osmolality Calculated 290 mOsm/kg (285-295); Total Bilirubin 0.2 mg/dL (0.15-1.2); Total Protein 7.7 g/dL (6.6-8.7)
[2021-06-17] MEDS: sodium chloride 0.9% 250 ML 75 ML IV (09:55)
[2021-06-17] MEDS: palonosetron 0.25 mg/5 mL SDV IV (09:55)
[2021-06-17] MEDS: famotidine 20 mg/2 mL INJ IVP (09:56)
[2021-06-17] MEDS: diphenhydrAMINE 50 mg/mL SDV 1mL 25 MG IV (09:58)
--- NOTE | 2021-06-17 14:18 | ONCRAD TMN_ITS ---
Radiation Oncology Weekly Treatment Management Patient: Oscar Moya> MR#: [id number] : 1970> Attending Physician: Dr. Hammad Lange Date of Service: 06/17/2021 Referring Physician(s) : Braulio Lilly M.D. Diagnosis: C34.11 - Malignant neoplasm of upper lobe, right bronchus or lung, Diagnosed 05/15/2021 (Active) Stage IIIA, T2a, N2, M0 Radiotherapy to date: None. Treatment delayed until 06/18/2021. Reason for visit: The patient is being seen today as part of their regularly scheduled weekly on treatment visits to assess for acute toxicities from radiotherapy. Review of Systems: She did well with chemo today. Eating ok. Living with brother and [id number]. She was smoking 2ppd now less than 1 ppd. Vital Signs: Performed on 06/17/2021 9:14 AM Height - 62.00 in, Weight - 168.6 lbs (low), BSA - 1.78 sq.m, BMI - 30.84 (high), Temperature - 97.5 f (low), Pulse - 88 /min, Respiration - 20 /min, O2 Sat - 93 % (low), Pain - 6, Fatigue - 8 and BP - 113/ 74 mm(hg). Physical Exam: omitted Imaging: Radiation therapy imaging related to accurate target localization (i.e. KV, MV and CBCT) was reviewed. Appropriate changes, if any, were made to ensure treatment accuracy. Plan: Good tolerance of initial chemo. Will begin chest treatment 06/18/2021. Following this she will also undergo hysterectomy for incidentally noted uterine carcinoma. Discussed value of complete smoking cessation. Signed by: Dr. Hammad Lange 06/17/2021 2:17:08 PM
--- NOTE | 2021-06-21 06:50 | ONC FU_ITS ---
Dr. Lilly Patient Follow-Up Note Patient: Nita Moore Unit #: [id number]: 1970 Dicatated By: Braulio Lilly M.D.Date of Visit:Jun 17, 2021 Onc Med Follow-up/Prog Note Chief Complaint: Lung cancer. 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 She was diagnosed with COVID-19 virus infection in February 2021. She noted some increase in pre-existing cough with that illness, and she also became more short of breath. Chest x-ray on 04/10/2021 showed a 4 cm suprahilar pulmonary density consistent with focal pneumonia or a mass. Further evaluation with chest CT on 04/25/2021 showed a solid mass with central cavitation in the posterior right upper lobe measuring 3.9 x 2.9 x 3.2 cm. The appearance was highly suspicious for primary pulmonary neoplasm. A confluent cluster of lymph nodes along the right paratracheal and right hilar region measured 5.6 x 3.6 x 3.2 cm. Lymph nodes were also noted to extend along the right central bronchus. Also noted were smaller subcarinal lymph nodes. There were no contralateral nodes identified. Marked low attenuation throughout the liver appeared consistent with hepatic steatosis. There was no adrenal mass identified. She had pulmonary consultation with Dr. Sr. Her bronchoscopy/EBUS on 05/10/2021 showed complete occlusion of the anterior segment right upper lobe bronchus from suspected external compression. Right upper lobe endobronchial biopsy was positive for squamous cell carcinoma. Mediastinal and hilar lymphadenopathy was identified by endobronchial ultrasound. FNA biopsy of station 4R lymph node was positive for metastatic squamous cell carcinoma. FNA biopsy of station 7 lymph node was negative. I had seen her initially on 05/15/2021. Staging PET/CT on 05/21/2021 showed FDG avid posterior right upper lobe lung mass with SUV 17.84, consistent with malignancy. There was associated FDG adenopathy in the right hilum with extension into the contiguous mediastinum, SUV up to 23.33. Adenopathy was noted to extend superiorly into the mediastinum to the right to above the level of the aortic arch, SUV 21.06. There was no FDG adenopathy noted in the left hilum or AP window or prevascular space. There was diffuse hepatic steatosis, no metastatic involvement was noted in the liver or adrenal glands. There was a relatively intense focus of increased activity in the colon at the splenic flexure, SUV 20.44, possibly representing malignancy. Also noted with intense activity in the uterine fundus with maximum SUV 23.74, also suspicious for malignancy. Abdominal and pelvic lymph nodes demonstrated physiologic levels of activity. Her head MRI on 05/24/2021 showed no evidence of metastatic disease. With those findings, she had [facility] evaluation with Dr. Deepti Estevez, and she underwent endometrial sampling on 05/31/2021. Pathology showed endometrial adenocarcinoma, FIGO grade 2. Analysis of mismatch repair proteins showed loss of nuclear expression of PMS2 with intact nuclear expression of MLH1, MSH2, and MSH6. In the meantime, she also had been seen seen by Dr. Ramirez, and she underwent placement of PowerPort on 06/04/2021. Her colonoscopy on 06/12/2021 showed an adenomatous appearing semipedunculated polyp in the proximal descending colon measuring 7 x 7 mm and a semipedunculated polyp measuring 8 x 6 mm in the distal descending colon. Also noted was a 5 mm lipoma in the mid ascending colon. Pathology on the distal descending colon polyp showed tubular adenoma with no high-grade dysplasia identified. The proximal descending colon polyp showed tubular adenoma with focal high-grade dysplasia. There is no evidence of invasive carcinoma. In the setting of stage IIIA non-small cell lung carcinoma, she was recommended to proceed with standard chemoradiation utilizing weekly carboplatin/paclitaxel for chemosensitization. On further pathologic evaluation, her lung tumor was found to be positive for PD-L1 expression at 5%. Her other medical illnesses include COPD, vitamin D deficiency, and anxiety/depression. She has a history of smoking 1-1/2 to 2 packs of cigarettes daily for more than 30 years. INTERIM HISTORY: She is seen today for her week 1 chemotherapy. Since her initial visit, there has been decline in her performance status. She complains that she is tired all the time. Her ECOG score is 2. Her appetite is not good, which she is eating. Her weight is down 8 or 9 pounds. She does not have fever. She sometimes has sweating at night. She has a little bit of sore throat. She continues to have cough. She reports having some shortness of breath and she is having some pain on the right side of her chest. She is having some pain in the lower abdominal area with coughing. She does not complain of nausea or acid reflux. Bowel and bladder function remain adequate. She has no other joint or bone pain. She does report having some headaches. She occasionally has dizziness. She has no focal neurologic symptoms. Medications: Albuterol Sulfate 1 Inhalation (of (2.5 mg/3ml) 0.083%) Nebulization solution Inhalation q 6 hours, Aspirin 1 Tablet (of 325 mg) Tablet, enteric coated Oral daily, Budesonide-Formoterol Fumarate 2 Puff(s) (of 160-4.5 mcg/act) Aerosol Inhalation b.i.d., Cholecalciferol 1 Tablet (of 125 mcg ) Oral daily, Dexamethasone (4 mg) Tablet Oral Take as Directed, Furosemide 1 Tablet (of 20 mg) Oral daily, Omeprazole 1 Tablet (of 20 mg) Capsule Delayed Release Oral daily, Potassium Chloride Jessica ER 1 Tablet (of 10 meq) Tablet, controlled release Oral daily Allergies: Codeine Sulfate and Sulfa Antibiotics. Vital Signs: Performed on Jun 17, 2021 13:16 Height - 62.00 in Weight - 168.6 lbs Temperature - 97.5 F Pulse - 85 /min Respiration - 20 /min BP - 113/74 mm(hg) O2 Sat - 95 % (LOW) Pain - 2 Performed on Jun 17, 2021 13:16 BMI - 30.838 kg/m2 (HIGH) Performed on Jun 17, 2021 09:14 Height - 62.00 in Weight - 168.6 lbs (LOW) BSA - 1.78 sq.m BMI - 30.84 (HIGH) Temperature - 97.5 F (LOW) Pulse - 88 /min Respiration - 20 /min BP - 113/74 mm(hg) O2 Sat - 93 % (LOW) Pain - 6 Fatigue - 8 Physical Examination: Constitutional - She appears somewhat weak generally, Eyes - Sclerae nonicteric. Conjunctivae clear, ENMT - Teeth are in poor repair, but there are no lesions noted in the oral cavity, Hematologic/Lymphatic - No cervical, clavicular, or axillary adenopathy, Respiratory - Lungs sound clear with diminished air movement bilaterally, Cardiovascular - Heart rhythm is regular. There is no murmur, gallop, or rub noted, Abdomen - Soft. Liver and spleen are not enlarged. There is no abdominal mass or ascites noted and there is no inguinal adenopathy, Extremities - No edema, Neurologic - No focal neurologic deficits noted. Lab/Imaging: Test performed on Jun 17, 2021 09:17 Creatinine 0.7 mg/dL Cr Clearance (Est) 114.79 mL/min Test performed on Jun 17, 2021 08:15 Sodium 138 mmol/L Potassium 3.9 mmol/L Chloride 100 mmol/L CO2 28 mmol/L Anion Gap 13.9 BUN 12 mg/dL eGFR 88.2 mL/min Glucose 175 mg/dL Osmolality - Calculated 290 mOsm/kg Calcium 9.7 mg/dL Protein, Total 7.7 g/dL Albumin 3.7 g/dL Globulin 4.0 g/dL Bilirubin, Total 0.2 mg/dL ALT (SGPT) 25 U/L AST (SGOT) 22 U/L Alkaline Phosphatase 98 IU/L WBC 8.2 10 3/uL RBC 4.41 10 6/uL HGB 13.5 g/dL HCT 41.8 % MCV 94.8 fl MCH 30.6 pg MCHC 32.3 g/dL RDW 12.3 % Platelet Count 404 10 3/cmm MPV 9.7 fL Neutrophils 6.67 10 3/uL Lymphocytes 1.4 10 3/uL Monocytes 0.1 10 3/uL Eosinophils 0.0 10 3/uL Basophils 0.0 10 3/uL Neutrophil % 81.2 % Lymphocyte % 16.9 % Monocyte % 1.6 % Eosinophil % 0.0 % Basophils % 0.1 % NRBC % 0 % Problem List: 1. Squamous cell carcinoma involving the upper lobe of the right lung, by clinical evaluation stage IIIA (T2a, N2, M0). 2. Adenocarcinoma of the endometrium, FIGO grade 2, MMR deficient. 3. Multiple colonic polyps, including an adenomatous polyp in the proximal descending colon with focal high-grade dysplasia. 4. COPD. 5. Anxiety/depression, currently not requiring medication. 6. Vitamin D deficiency. 7. History of COVID-19 virus infection in February 2021. Problems Addressed with this Encounter and Plan: 1. Patient with squamous cell carcinoma involving the upper lobe of the right lung by clinical evaluation stage IIIA (T2a, N2, M0). She underwent bronchoscopy/EBUS on 05/10/2021. Endobronchial biopsy from the right upper lobe and FNA biopsy of station 4R lymph node were both positive for squamous cell carcinoma.\ By staging PET/CT her lung cancer appeared to be confined to the primary lesion in the right upper lobe and involved hilar/mediastinal lymph nodes, but there were focal sites of uptake noted in the uterus and colon which were suspicious for other sites of primary malignancy. The setting of stage IIIA non-small cell lung carcinoma, she is recommended to proceed with standard chemoradiation utilizing weekly carboplatin/paclitaxel for chemosensitization. She will begin her week 1 chemotherapy today. I reviewed potential side effects including nausea/vomiting, alopecia, fatigue, low blood counts, and neuropathy, among others. She is scheduled to begin radiation today. She will have a follow-up visit in 1 week. 2. Her endometrial sampling on 05/31/2021 showed FIGO grade 2 adenocarcinoma of the endometrium, MMR deficient. She has been referred to [facility] and she will presumably be undergoing hysterectomy, but I think that should be deferred until after she completes primary treatment for the lung cancer. She also will require genetic screening. 3. She was found on colonoscopy to have multiple adenomatous polyps, including an adenomatous polyp with high-grade dysplasia involving the distal descending colon. It is being managed by Dr. Ramirez. Signed By: Braulio Lilly M.D. <<Signature on File>>
[2021-06-24 08:44] LABS: Basophils % 0.2 %; Hematocrit 39.8 % (37.0-47.0); Hemoglobin 12.9 g/dL (11.5-15.3); Lymphocytes # 0.5 10^3/uL (0.8-4.8); Lymphocytes % 9.6 %; Mean Corpuscular HGB Conc 32.4 g/dL (30.0-36.0); Mean Corpuscular Hemoglobin 30.3 pg (28.0-34.0); Mean Corpuscular Volume 93.4 fl (81-99); Mean Platelet Volume 10.1 fL (7.4-10.4); Monocytes # 0.1 10^3/uL (0.2-0.9); Monocytes % 1.4 %; Nucleated Red Blood Cells % 0 %; Platelet Count 341 10^3/cmm (130-400); Red Blood Count 4.26 10^6/uL (4.1-5.3); Red Cell Distribution Width 12.2 % (12.1-15.1)
[2021-06-24 08:59] LABS: Alanine Aminotransferase 29 U/L (0-33); Albumin Level 3.7 g/dL (3.5-5.2); Alkaline Phosphatase 98 IU/L (35-105); Anion Gap 14.8 (5-19); Aspartate Amino Transferase 24 U/L (0-32); Blood Urea Nitrogen 12 mg/dL (6-20); Calcium 9.5 mg/dL (8.5-10.5); Carbon Dioxide 28 mmol/L (22-29); Chloride 97 mmol/L (98-107); Globulin 4.1 g/dL (1.3-4.6); Glomerular Filtration Rate 105.4 mL/min (90-130); Glucose 181 mg/dL (65-115); Osmolality Calculated 286 mOsm/kg (285-295); Potassium 3.8 mmol/L (3.5-5.1); Sodium 136 mmol/L (136-145); Total Bilirubin 0.3 mg/dL (0.15-1.2); Total Protein 7.8 g/dL (6.6-8.7)
[2021-06-24] MEDS: sodium chloride 0.9% 250 ML 75 ML IV (10:40)
[2021-06-24] MEDS: palonosetron 0.25 mg/5 mL SDV IV (10:40)
[2021-06-24] MEDS: famotidine 20 mg/2 mL INJ IVP (10:41)
[2021-06-24] MEDS: diphenhydrAMINE 50 mg/mL SDV 1mL 25 MG IV (10:43)
--- NOTE | 2021-06-24 18:11 | ONC FU_ITS ---
Dr. Lilly Patient Follow-Up Note Patient: Nita Moore Unit #: [id number]: 1970 Dicatated By: Braulio Lilly M.D.Date of Visit:Jun 24, 2021 Onc Med Follow-up/Prog Note Chief Complaint: Lung cancer. 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 She was diagnosed with COVID-19 virus infection in February 2021. She noted some increase in pre-existing cough with that illness, and she also became more short of breath. Chest x-ray on 04/10/2021 showed a 4 cm suprahilar pulmonary density consistent with focal pneumonia or a mass. Further evaluation with chest CT on 04/25/2021 showed a solid mass with central cavitation in the posterior right upper lobe measuring 3.9 x 2.9 x 3.2 cm. The appearance was highly suspicious for primary pulmonary neoplasm. A confluent cluster of lymph nodes along the right paratracheal and right hilar region measured 5.6 x 3.6 x 3.2 cm. Lymph nodes were also noted to extend along the right central bronchus. Also noted were smaller subcarinal lymph nodes. There were no contralateral nodes identified. Marked low attenuation throughout the liver appeared consistent with hepatic steatosis. There was no adrenal mass identified. She had pulmonary consultation with Dr. Sr. Her bronchoscopy/EBUS on 05/10/2021 showed complete occlusion of the anterior segment right upper lobe bronchus from suspected external compression. Right upper lobe endobronchial biopsy was positive for squamous cell carcinoma. Mediastinal and hilar lymphadenopathy was identified by endobronchial ultrasound. FNA biopsy of station 4R lymph node was positive for metastatic squamous cell carcinoma. FNA biopsy of station 7 lymph node was negative. I had seen her initially on 05/15/2021. Staging PET/CT on 05/21/2021 showed FDG avid posterior right upper lobe lung mass with SUV 17.84, consistent with malignancy. There was associated FDG adenopathy in the right hilum with extension into the contiguous mediastinum, SUV up to 23.33. Adenopathy was noted to extend superiorly into the mediastinum to the right to above the level of the aortic arch, SUV 21.06. There was no FDG adenopathy noted in the left hilum or AP window or prevascular space. There was diffuse hepatic steatosis, no metastatic involvement was noted in the liver or adrenal glands. There was a relatively intense focus of increased activity in the colon at the splenic flexure, SUV 20.44, possibly representing malignancy. Also noted with intense activity in the uterine fundus with maximum SUV 23.74, also suspicious for malignancy. Abdominal and pelvic lymph nodes demonstrated physiologic levels of activity. Her head MRI on 05/24/2021 showed no evidence of metastatic disease. With those findings, she had [facility] evaluation with Dr. Deepti Estevez, and she underwent endometrial sampling on 05/31/2021. Pathology showed endometrial adenocarcinoma, FIGO grade 2. Analysis of mismatch repair proteins showed loss of nuclear expression of PMS2 with intact nuclear expression of MLH1, MSH2, and MSH6. In the meantime, she also had been seen seen by Dr. Ramirez, and she underwent placement of PowerPort on 06/04/2021. Her colonoscopy on 06/12/2021 showed an adenomatous appearing semipedunculated polyp in the proximal descending colon measuring 7 x 7 mm and a semipedunculated polyp measuring 8 x 6 mm in the distal descending colon. Also noted was a 5 mm lipoma in the mid ascending colon. Pathology on the distal descending colon polyp showed tubular adenoma with no high-grade dysplasia identified. The proximal descending colon polyp showed tubular adenoma with focal high-grade dysplasia. There is no evidence of invasive carcinoma. In the setting of stage IIIA non-small cell lung carcinoma, she was recommended to proceed with standard chemoradiation utilizing weekly carboplatin/paclitaxel for chemosensitization. On further pathologic evaluation, her lung tumor was found to be positive for PD-L1 expression at 5%. Her other medical illnesses include COPD, vitamin D deficiency, and anxiety/depression. She has a history of smoking 1-1/2 to 2 packs of cigarettes daily for more than 30 years. INTERIM HISTORY: She began week 1 carboplatin/paclitaxel on 06/17/2021. She tolerated the initial infusion with no acute toxicity. She is seen for a scheduled visit. She has had some further decline in her energy/activity tolerance. Some of that may just be due to depression. Her ECOG score is 2. Her appetite is not very good. She has not had fever or night sweats. She occasionally has sore throat. She has not had any mouth sores. She has cough and she continues to have some shortness of breath, though she says her breathing is usually okay. She does not complain of chest pain. She occasionally has nausea. She has had some constipation. Bladder function remains adequate. She does complain of having pain in both legs, and she also has been having some pain in the area behind her right ear. She does not complain of dizziness. She has no numbness/paresthesia or other focal neurologic symptoms. Medications: Albuterol Sulfate 1 Inhalation (of (2.5 mg/3ml) 0.083%) Nebulization solution Inhalation q 6 hours, Aspirin 1 Tablet (of 325 mg) Tablet, enteric coated Oral daily, Budesonide-Formoterol Fumarate 2 Puff(s) (of 160-4.5 mcg/act) Aerosol Inhalation b.i.d., Cholecalciferol 1 Tablet (of 125 mcg ) Oral daily, Dexamethasone (4 mg) Tablet Oral Take as Directed, Furosemide 1 Tablet (of 20 mg) Oral daily, Omeprazole 1 Tablet (of 20 mg) Capsule Delayed Release Oral daily, Potassium Chloride Jessica ER 1 Tablet (of 10 meq) Tablet, controlled release Oral daily Allergies: Codeine Sulfate and Sulfa Antibiotics. Vital Signs: Performed on Jun 24, 2021 10:13 Height - 62.00 in Weight - 165.6 lbs (LOW) BSA - 1.76 sq.m BMI - 30.29 (HIGH) Temperature - 97.3 F (LOW) Pulse - 87 /min Respiration - 18 /min BP - 119/83 mm(hg) O2 Sat - 95 % (LOW) Pain - 1 Fatigue - 7 Physical Examination: Constitutional - She appears somewhat weak generally. She is emotionally labile, Eyes - Sclerae nonicteric. Conjunctivae clear, ENMT - There are no lesions noted in the oral cavity. TMs are noninflamed, Hematologic/Lymphatic - No cervical, clavicular, or axillary adenopathy, Respiratory - Lungs sound clear with diminished air movement bilaterally, Cardiovascular - Heart rhythm is regular. There is no murmur, gallop, or rub noted, Abdomen - Soft. Liver and spleen are not enlarged. There is no abdominal mass or ascites noted and there is no inguinal adenopathy, Extremities - Mild edema, Neurologic - No focal neurologic deficits noted. Lab/Imaging: Test performed on Jun 24, 2021 10:24 Creatinine 0.6 mg/dL Cr Clearance (Est) 133.92 mL/min Test performed on Jun 24, 2021 08:20 Sodium 136 mmol/L Potassium 3.8 mmol/L Chloride 97 mmol/L CO2 28 mmol/L Anion Gap 14.8 BUN 12 mg/dL eGFR 105.4 mL/min Glucose 181 mg/dL Osmolality - Calculated 286 mOsm/kg Calcium 9.5 mg/dL Protein, Total 7.8 g/dL Albumin 3.7 g/dL Globulin 4.1 g/dL Bilirubin, Total 0.3 mg/dL ALT (SGPT) 29 U/L AST (SGOT) 24 U/L Alkaline Phosphatase 98 IU/L WBC 5.0 10 3/uL RBC 4.26 10 6/uL HGB 12.9 g/dL HCT 39.8 % MCV 93.4 fl MCH 30.3 pg MCHC 32.4 g/dL RDW 12.2 % Platelet Count 341 10 3/cmm MPV 10.1 fL Neutrophils 4.40 10 3/uL Lymphocytes 0.5 10 3/uL Monocytes 0.1 10 3/uL Eosinophils 0.0 10 3/uL Basophils 0.0 10 3/uL Neutrophil % 88.0 % Lymphocyte % 9.6 % Monocyte % 1.4 % Eosinophil % 0.0 % Basophils % 0.2 % NRBC % 0 % Problem List: 1. Squamous cell carcinoma involving the upper lobe of the right lung, by clinical evaluation stage IIIA (T2a, N2, M0). 2. Adenocarcinoma of the endometrium, FIGO grade 2, MMR deficient. 3. Multiple colonic polyps, including an adenomatous polyp in the proximal descending colon with focal high-grade dysplasia. 4. COPD. 5. Anxiety/depression, currently not requiring medication. 6. Vitamin D deficiency. 7. History of COVID-19 virus infection in February 2021. Problems Addressed with this Encounter and Plan: 1. Patient with squamous cell carcinoma involving the upper lobe of the right lung by clinical evaluation stage IIIA (T2a, N2, M0). She underwent bronchoscopy/EBUS on 05/10/2021. Endobronchial biopsy from the right upper lobe and FNA biopsy of station 4R lymph node were both positive for squamous cell carcinoma. By staging PET/CT her lung cancer appeared to be confined to the primary lesion in the right upper lobe and involved hilar/mediastinal lymph nodes, but there were focal sites of uptake noted in the uterus and colon which were suspicious for other sites of primary malignancy. In the setting of stage IIIA non-small cell lung carcinoma, she was recommended to proceed with standard chemoradiation. She began week 1 of carboplatin/paclitaxel on 06/17/2021. She tolerated it with no significant adverse effects. She will proceed now with week 2 carboplatin/paclitaxel. The dosages remain the same. She is also continuing her radiation. She will be scheduled for a return visit in 1 week. 2. She is having significant depression. She will start citalopram 20 mg daily. 3. Her endometrial sampling on 05/31/2021 showed FIGO grade 2 adenocarcinoma of the endometrium, MMR deficient. She has been referred to [facility] and she will presumably be undergoing hysterectomy, but I think that should be deferred until after she completes primary treatment for the lung cancer. She also will require genetic screening. 4. She was found on colonoscopy to have multiple adenomatous polyps, including an adenomatous polyp with high-grade dysplasia involving the distal descending colon. It is being managed by Dr. Ramirez. Signed By: Braulio Lilly M.D. <<Signature on File>>
--- NOTE | 2021-06-25 13:40 | ONCRAD TMN_ITS ---
Radiation Oncology Treatment Management Note Patient Name: Nita Moore Date of : 1970 Date of Service: 06/25/2021 Attending Physician: Prateke Wallace M.D. 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 She was evaluated by her primary care physician in late March for a persistent cough and wheezing. A chest radiograph revealed a 4 cm suprahilar mass. A thoracic CT scan ordered on April 25, 2021 demonstrated a 3.9 cm x 2.9 cm x 3.2 cm posterior right upper lobe mass with central cavitation. Right paratracheal and hilar lymphadenopathy measuring 3.6 cm x 3.2 cm x 5.6 cm was present. A bronchoscopy with endobronchial ultrasound-guided transbronchial needle biopsy was performed by Mohamud Sr M.D. on May 10, 2021. The anterior segment of the right upper lobe was occluded secondary to external compression. Biopsies obtained from the right upper lobe lesion and station 4R lymph node were positive for squamous cell carcinoma. PD???L1 TPS was more than 5%. A PET CT obtained on May 21, 2021 confirmed metabolic activity within the right upper lobe mass (SUV 17.8), right hilar and mediastinal lymphadenopathy (SUV 23.3), splenic flexure (SUV 20.4), and uterine fundus (SUV 23.7). A MRI of the head did not identify metastatic disease. The patient has received 10 Gy of a prescribed 60 Tobias with an intensity modulated radiotherapy plan utilizing a step and shoot treatment technique. She has been prescribed carboplatin (AUC 2) and paclitaxel (50 mg/m???) weekly during therapy. Upon review of systems, she denied pulmonary symptoms. On physical examination, the patient weighed 169 lbs. Her temperature was 98.7 ???F and the blood pressure was 117/77 mmHg. The pulse was 92 bpm and her respiratory rate was 20. Oxygen saturation while breathing room air was 99%. There was no erythema within the treatment hammond. Auscultation of the posterior lung hammond identified bilateral decreased breath sounds. Continue thoracic radiotherapy as prescribed. Signed by: Dr. Prateek Wallace 06/25/2021 1:37:58 PM
[2021-06-27] MEDS: sodium chloride 0.9% 1,000 ML 999 ML IV (15:00)
[2021-06-28 10:59] LABS: Basophils % 0.2 %; Eosinophils % 0.2 %; Hematocrit 35.5 % (37.0-47.0); Hemoglobin 11.6 g/dL (11.5-15.3); Lymphocytes # 0.6 10^3/uL (0.8-4.8); Lymphocytes % 12.5 %; Mean Corpuscular HGB Conc 32.7 g/dL (30.0-36.0); Mean Corpuscular Hemoglobin 30.1 pg (28.0-34.0); Mean Platelet Volume 9.8 fL (7.4-10.4); Monocytes # 0.3 10^3/uL (0.2-0.9); Neutrophils # 3.72 10^3/uL (1.8-7.7); Neutrophils % 80.2 %; Nucleated Red Blood Cells % 0 %; Platelet Count 231 10^3/cmm (130-400); Red Blood Count 3.86 10^6/uL (4.1-5.3); Red Cell Distribution Width 12.1 % (12.1-15.1); White Blood Count 4.6 10^3/uL (4.0-10.0)
[2021-06-28 11:09] LABS: Alanine Aminotransferase 15 U/L (0-33); Albumin Level 3.4 g/dL (3.5-5.2); Alkaline Phosphatase 76 IU/L (35-105); Anion Gap 12.8 (5-19); Aspartate Amino Transferase 10 U/L (0-32); Blood Urea Nitrogen 10 mg/dL (6-20); Calcium 8.5 mg/dL (8.5-10.5); Carbon Dioxide 30 mmol/L (22-29); Chloride 93 mmol/L (98-107); Globulin 3.3 g/dL (1.3-4.6); Glomerular Filtration Rate 105.4 mL/min (90-130); Glucose 102 mg/dL (65-115); Osmolality Calculated 273 mOsm/kg (285-295); Potassium 3.8 mmol/L (3.5-5.1); Sodium 132 mmol/L (136-145); Total Bilirubin 0.7 mg/dL (0.15-1.2); Total Protein 6.7 g/dL (6.6-8.7)
[2021-06-28 11:48] LABS: Bilirubin Urine 1+ (Negative); Blood Urine 2+ (Negative); Glucose Urine UA Norm (Normal); Ketones Urine Negative (Negative); Nitrate Urine Negative (Negative); Protein Urine 1+ (Negative); Specific Gravity, Urine 1.005 (1.005-1.030); Urine Appearance SL Hazy (CLEAR); Urine Color Yellow (Yellow); pH Urine 5 (5-7)
[2021-06-28 11:49] LABS: Add Urine Culture? Yes; Add Urine Microscopic? YES; Bacteria Urine 1+ /hpf; Leukocyte Esterase Urine 1+ (Negative); Squamous Epithelial Cell Urine 0-4 /hpf (0-5); Urobilinogen Urine 4 mg/dL (Negative); WBC Urine 15-25 /hpf (0-5)
== END 2021-06-29 21:00 | disposition home or self-care (01) ==
LOC: ONCMED 06:17
PROVIDERS: Internal Medicine Medical Oncology; Absent Provider Radiology Radiation Oncology; PCP Nurse Practitioner; Visit Provider Radiology Radiation Oncology
DX: Z51.0 Encounter for antineoplastic radiation therapy (principal); Z51.11 Encounter for antineoplastic chemotherapy; C34.11 Malignant neoplasm of upper lobe, right bronchus or lung; C79.82 Secondary malignant neoplasm of genital organs; C78.5 Secondary malignant neoplasm of large intestine and rectum; K63.5 Polyp of colon; J44.9 Chronic obstructive pulmonary disease, unspecified; F41.9 Anxiety disorder, unspecified; F32.9 Major depressive disorder, single episode, unspecified; E55.9 Vitamin D deficiency, unspecified; Z86.16 Personal history of COVID-19; Z79.899 Other long term (current) drug therapy
CPT/HCPCS: 36591; 77336; 77386; 80053; 81001; 85025; 87086; 96360; 96367; 96375; 96413; 96417; 99215; J1100; J1200; J2469; J3490; J7030; J7040; J7050; J9045; J9267

== ENCOUNTER 2021-06-29 22:23 | Emergency (ER) | payer OTHER, SELFPAY ==
[2021-06-29 22:43] VITALS: BP 113/63; PULSE 94; RESP 18; TEMP 36.7; O2SAT 95; BMI 30.2
--- NOTE | 2021-06-29 22:44 | W.ED.ABDPA2 ---
HPI - Abdominal Pain General: Chief Complaint: Abdominal Pain Stated Complaint: Abdominal pain, poss dehydration Time Seen by Provider: 06/29/21 22:43 History of Present Illness: HPI narrative: 50-year-old female comes in tonight with complaints of nausea and vomiting starting yesterday. Patient reports poor appetite and oral intake. Patient does have lung cancer and presently under chemotherapy. Patient states she takes chemotherapy weekly. Patient appears mildly unwell but not toxic. Patient appears in no pain. Associated Symptoms: Reports nausea and vomiting Review of Systems General: Reports: 10 or more systems reviewed and unremarkable except in HPI and below GI: Reports: nausea and vomiting PFSH ED PFSH: Medical History Anxiety and depression Cigarette smoker Edema, unspecified Personal history of smoking Vitamin D insufficiency Surgical History History of tubal ligation Family History Sister Diabetes Mother Diabetes Hypertension Stroke Daughter Thyroid disease Denies family history of CAD (coronary artery disease) Clotting disorder Hyperlipidemia Chronic kidney disease (CKD) Bleeding disorder Cancer Social History Second hand smoke exposure: Yes Smoking risk assessment/counseling performed?: Yes Alcohol intake: unknown Desire information about alcohol rehabilitation?: No Counseling given: No Desire information about substance/drug rehabilitation?: No Counseling given: No Adopted: No Caregiver/support person: No Lives independently: Yes Household members: family Housing: House Marital status: / Number of children: 5 service: No Current occupational status: employed 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 History of recent travel: No Current gender identity: Female Physical Exam Const: COMMON NORMALS: no acute distress and patient oriented x3 GENERAL APPEARANCE: cooperative HENMT: COMMON NORMALS: normocephalic and Normal external nose present HEAD & SCALP: normal to inspection and normocephalic NOSE: Normal external nose present MOUTH: Normal oral and palatal mucosa present THROAT: posterior oropharynx normal Eye: GENERAL EYE: appearance normal, both eyes and all related structures Neck/C-Spine: COMMON NORMALS: full ROM Lymph: LYMPHATIC: no lymphadenopathy noted Chest: COMMONS NORMALS: normal inspection of the chest Resp: COMMON NORMALS: normal respiratory effort EFFORT & INSPECTION: Yes able to speak in complete sentences Cardio: COMMON NORMALS: regular rate and regular rhythm RATE: regular rate RHYTHM: regular rhythm GI: COMMON NORMALS: non-tender : COMMON NORMALS: Yes no CVA tenderness BLADDER/KIDNEY EXAM: Yes no CVA tenderness Back/Pelvis: COMMON NORMALS: no CVA tenderness and thoracic and lumbar spine normal to inspection Extremity: COMMON NORMALS: normal to inspection Neuro: COMMON NORMALS: patient oriented x3 and moves all extremities Psych: COMMON NORMALS: mental status grossly normal and cooperative Skin: COMMON NORMALS: no rashes or lesions noted GENERAL SKIN EXAM: no rashes or lesions noted Course ED course: 0250. Patient was given a GI cocktail was able to hold it down without any difficulty. Reviewed labs with patient recommended continuing with a clear liquid diet. Patient was written for some Zofran dissolvable tablets to help with nausea and vomiting. Patient was recommended to follow-up with primary care in 2 days or return to the ER for worsening symptoms such as high fever, blood in vomit or stool, or new concerns. Vital Signs: Vital signs: Vital Signs Temperature 98.0 F 06/29/21 22:43 Pulse Rate 88 06/30/21 00:15 Respiratory Rate 18 06/30/21 00:15 Blood Pressure 97/56 06/30/21 00:15 Pulse Oximetry 96 06/30/21 00:15 MDM - Abdominal Pain MDM Narrative: Medical decision making narrative: Patient comes in today for complaints of nausea and vomiting. On exam abdomen is soft and bowel sounds were present. Skin was warm and dry. Vital signs were normal. Differential diagnosis include gastritis, gastroenteritis, adverse effect of chemotherapy. CBC noted some mild anemia with a 10 hemoglobin, mild leukopenia with white blood cell count 3.2, CMP noted a sodium 133 and chloride of 95, and urinalysis had some red blood cells noted and that was remarkable. Patient is on amoxicillin at this time for urinary tract infection. I think patient's nausea and vomiting is more related to her chemotherapy treatment. Patient was treated for some mild dehydration with 2 L of IV fluid. Patient was recommended to go home and continue with clear liquid diet until pain and nausea is improved. Patient was recommended to use ondansetron disintegrating tablets to help with her nausea and vomiting better. Recommended patient talk with her oncologist regarding further treatment for nausea and vomiting. Patient should return to the ER for worsening symptoms. Patient reported understanding of care plan and need for follow-up or return to the ER. Lab Data: Labs: Lab Results 06/29/21 06/29/21 06/30/21 23:55 23:55 01:45 WBC 3.2 10^3/uL L 10^ 3/uL (4.0-10.0) RBC 3.59 10^6/uL L 10 ^6/uL (4.1-5.3) Hgb 10.9 g/dL L g/dL (11.5-15.3) Hct 33.4 % L % (37.0-47.0) MCV 93.0 fl fl (81-99) MCH 30.4 pg pg (28.0-34.0) MCHC 32.6 g/dL g/dL (30.0-36.0) RDW 12.3 % % (12.1-15.1) Plt Count 209 10^3/cmm 10^3 /cmm (130-400) MPV 9.9 fL fL (7.4-10.4) Neut % (Auto) 73.3 % % Lymph % (Auto) 14.0 % % Weston % (Auto) 11.5 % % Eos % (Auto) 0.3 % % Baso % (Auto) 0.3 % % Neut # (Auto) 2.36 10^3/uL 10^3 /uL (1.8-7.7) Lymph # (Auto) 0.5 10^3/uL L 10^ 3/uL (0.8-4.8) Weston # (Auto) 0.4 10^3/uL 10^3/ uL (0.2-0.9) Eos # (Auto) 0.0 10^3/uL 10^3/ uL (0.0-0.8) Baso # (Auto) 0.0 10^3/uL 10^3/ uL (0.0-0.1) Nucleated RBC % (a uto) 0 % % Nucleated RBCs # 0.0 /100WBC /100W BC Sodium 133 mmol/L L mmol /L (136-145) Potassium 3.5 mmol/L mmol/L (3.5-5.1) Chloride 95 mmol/L L mmol/ L (98-107) Carbon Dioxide 27 mmol/L mmol/L (22-29) Anion Gap 14.5 (5-19) BUN 10 mg/dL mg/dL (6-20) Creatinine 0.5 mg/dL mg/dL (0.5-0.9) GFR Calculation 130.1 mL/min H mL /min (90-130) Glucose 98 mg/dL mg/dL (65-115) Calculated Osmolal ity 275 mOsm/kg L mOs m/kg (285-295) Calcium 8.6 mg/dL mg/dL (8.5-10.5) Total Bilirubin 0.4 mg/dL mg/dL (0.15-1.2) AST 12 U/L U/L (0-32) ALT 17 U/L U/L (0-33) Alkaline Phosphata se 85 IU/L IU/L (35-105) Total Protein 6.6 g/dL g/dL (6.6-8.7) Albumin 3.0 g/dL L g/dL (3.5-5.2) Globulin 3.6 g/dL g/dL (1.3-4.6) Lipase 19 U/L U/L (13-60) Urine Color Yellow (Yellow) Urine Appearance Clear (CLEAR) Urine pH 5 (5-7) Ur Specific Gravit y 1.020 (1.005-1.030) Urine Protein Neg (Negative) Urine Glucose (UA) Norm (Normal) Urine Ketones 2+ H (Negative) Urine Blood 2+ H (Negative) Urine Nitrate Negative (Negative) Urine Bilirubin Neg (Negative) Urine Urobilinogen 1 mg/dL H mg/dL (Negative) Ur Leukocyte [place] ase Negative (Negative) Urine RBC 10-15 /hpf H /hpf (0-2) Urine WBC 0-4 /hpf H /hpf (0-5) Ur Squamous Epith Cells 0-4 /hpf H /hpf (0-5) Amorphous Sediment Not Reportable Urine Bacteria Trace /hpf /hpf (NONE) Urine Mucus 4+ /hpf /hpf Discharge Plan Discharge Patient Disposition: Home Clinical Impression: Nausea & vomiting Qualifiers: Vomiting type: unspecified Vomiting Intractability: non-intractable Qualified Code(s): R11.2 - Nausea with vomiting, unspecified Condition: Stable Prescriptions: New ondansetron 4 mg tablet,disintegrating 4 mg PO Q8H PRN (Reason: nausea and vomiting) Qty: 10 RF: 0 No Action nicotine 21-14-7 mg/24 hr patch, TD daily, sequential See Rx Instructions transdermal .COMPLEX Qty: 56 RF: 0 omeprazole 20 mg capsule,delayed release(DR/EC) 20 mg PO DAILY RF: 0 ergocalciferol (vitamin D2) 50,000 unit tablet 1 unit PO DAILY RF: 0 aspirin 325 mg tablet,delayed release (DR/EC) 325 mg PO DAILY Qty: 30 RF: 0 Hold Instructions: Resume on 06/17/21. furosemide [Lasix] 20 mg tablet 20 mg PO DAILY Qty: 90 RF: 1 potassium chloride 10 mEq capsule, extended release 10 meq PO DAILY Qty: 90 RF: 1 Trelegy Ellipta 100-62.5-25 mcg blister with device 1 inh inhalation DAILY Qty: 60 RF: 3 hydrocodone-acetaminophen 5-325 mg tablet 1 tab PO Q6H PRN (Reason: pain) Qty: 14 RF: 0 albuterol sulfate 2.5 mg /3 mL (0.083 %) solution for nebulization 2.5 mg INHALATION Q6H PRN (Reason: Shortness Of Breath) RF: 0 Discharge Orders: Discharge ED (Routine); Ordered 06/30/21 Ordered By: Jerardo Grullon Referrals: Gerardo Zepeda, [employer] [Primary Care Provider] - Discharge Diet: Advance as tolerated Discharge Activity: Increase activity as tolerated Patient Instructions: Acute Nausea and Vomiting (ED), Opioid Safety Activity Restrictions/Additional Instructions: Home and rest. Encourage plenty of fluids. Drink sips of fluid frequently. Use Zofran as needed for nausea and vomiting. Follow-up with primary care in 2 days for recheck. Return to the ER for worsening symptoms such as high fever greater than 100.4, blood in vomit and stool, or uncontrolled abdominal pain. Coding Level of Care Code ED Pulmonologist Intensivist for [place] Fwd Exam Comprehensive
[2021-06-29] MEDS: ondansetron 2 mg/ML SDV 2 mL 4 MG IVP (23:10)
[2021-06-29] MEDS: sodium chloride 0.9% 1,000 ML 999 ML IV (23:10)
[2021-06-30 00:08] LABS: Basophils % 0.3 %; Eosinophils % 0.3 %; Hematocrit 33.4 % (37.0-47.0); Hemoglobin 10.9 g/dL (11.5-15.3); Lymphocytes # 0.5 10^3/uL (0.8-4.8); Mean Corpuscular HGB Conc 32.6 g/dL (30.0-36.0); Mean Corpuscular Hemoglobin 30.4 pg (28.0-34.0); Mean Platelet Volume 9.9 fL (7.4-10.4); Monocytes # 0.4 10^3/uL (0.2-0.9); Monocytes % 11.5 %; Neutrophils # 2.36 10^3/uL (1.8-7.7); Neutrophils % 73.3 %; Nucleated Red Blood Cells % 0 %; Platelet Count 209 10^3/cmm (130-400); Red Blood Count 3.59 10^6/uL (4.1-5.3); Red Cell Distribution Width 12.3 % (12.1-15.1); White Blood Count 3.2 10^3/uL (4.0-10.0)
[2021-06-30 00:15] VITALS: BP 97/56; PULSE 88; RESP 18; O2SAT 96
[2021-06-30 00:28] LABS: Alanine Aminotransferase 17 U/L (0-33); Alkaline Phosphatase 85 IU/L (35-105); Anion Gap 14.5 (5-19); Aspartate Amino Transferase 12 U/L (0-32); Blood Urea Nitrogen 10 mg/dL (6-20); Calcium 8.6 mg/dL (8.5-10.5); Carbon Dioxide 27 mmol/L (22-29); Chloride 95 mmol/L (98-107); Globulin 3.6 g/dL (1.3-4.6); Glomerular Filtration Rate 130.1 mL/min (90-130); Glucose 98 mg/dL (65-115); Lipase 19 U/L (13-60); Osmolality Calculated 275 mOsm/kg (285-295); Potassium 3.5 mmol/L (3.5-5.1); Sodium 133 mmol/L (136-145); Total Bilirubin 0.4 mg/dL (0.15-1.2); Total Protein 6.6 g/dL (6.6-8.7)
[2021-06-30] MEDS: metoclopramide 5 mg/mL SDV 2 mL 10 MG IVP (01:20)
[2021-06-30] MEDS: sodium chloride 0.9% 1,000 ML 999 ML IV (01:20)
[2021-06-30 02:36] LABS: Glucose Urine UA Norm (Normal); Ketones Urine 2+ (Negative); Protein Urine Neg (Negative); Urine Appearance Clear (CLEAR); Urine Color Yellow (Yellow); pH Urine 5 (5-7)
[2021-06-30 02:37] LABS: Add Urine Microscopic? YES; Bacteria Urine TRACE /hpf; Bilirubin Urine Neg (Negative); Blood Urine 2+ (Negative); Leukocyte Esterase Urine Negative (Negative); Mucus Urine 4+ /hpf; Nitrate Urine Negative (Negative); Squamous Epithelial Cell Urine 0-4 /hpf (0-5); Urobilinogen Urine 1 mg/dL (Negative); WBC Urine 0-4 /hpf (0-5)
[2021-06-30 02:38] LABS: Add Urine Culture? Yes
[2021-06-30] MEDS: lidocaine 2% viscous 15 ML, aluminum-mag hydrox-simethicon 30 ML, sucralfate oral liq 1 GM PO (02:42)
[2021-06-30 03:13] VITALS: BP 117/84; PULSE 96; RESP 16; O2SAT 92
== END 2021-06-30 03:14 | disposition home or self-care (01) ==
PROVIDERS: Emergency Provider Nurse Practitioner Family; PCP Nurse Practitioner
DX: R11.2 Nausea with vomiting, unspecified (principal); Z79.82 Long term (current) use of aspirin; Z77.22 Contact with and (suspected) exposure to environmental tobacco smoke (acute) (chronic)
CPT/HCPCS: 80053; 81001; 83690; 85025; 87086; 96361; 96374; 96375; 99283; J2405; J2765; J7030

== ENCOUNTER 2021-07-16 12:47 | Outpatient (RCR) | payer OTHER, MEDICAID, SELFPAY ==
[2021-07-01 08:20] LABS: Hemoglobin 11.2 g/dL (11.5-15.3); Lymphocytes # 0.2 10^3/uL (0.8-4.8); Lymphocytes % 10.1 %; Mean Corpuscular HGB Conc 32.9 g/dL (30.0-36.0); Mean Corpuscular Hemoglobin 30.8 pg (28.0-34.0); Mean Corpuscular Volume 93.4 fl (81-99); Mean Platelet Volume 9.7 fL (7.4-10.4); Monocytes # 0.1 10^3/uL (0.2-0.9); Neutrophils # 1.72 10^3/uL (1.8-7.7); Neutrophils % 86.4 %; Nucleated Red Blood Cells % 0 %; Platelet Count 271 10^3/cmm (130-400); Red Blood Count 3.64 10^6/uL (4.1-5.3); Red Cell Distribution Width 12.3 % (12.1-15.1)
[2021-07-01 08:41] LABS: Alanine Aminotransferase 24 U/L (0-33); Albumin Level 3.1 g/dL (3.5-5.2); Alkaline Phosphatase 92 IU/L (35-105); Anion Gap 13.6 (5-19); Aspartate Amino Transferase 19 U/L (0-32); Blood Urea Nitrogen 9 mg/dL (6-20); Calcium 8.6 mg/dL (8.5-10.5); Carbon Dioxide 29 mmol/L (22-29); Chloride 98 mmol/L (98-107); Globulin 3.8 g/dL (1.3-4.6); Glomerular Filtration Rate 130.1 mL/min (90-130); Glucose 191 mg/dL (65-115); Osmolality Calculated 288 mOsm/kg (285-295); Potassium 3.6 mmol/L (3.5-5.1); Sodium 137 mmol/L (136-145); Total Bilirubin 0.2 mg/dL (0.15-1.2); Total Protein 6.9 g/dL (6.6-8.7)
[2021-07-01] MEDS: famotidine 20 mg/2 mL INJ IVP (10:14)
[2021-07-01] MEDS: ondansetron 2 mg/ML SDV 2 mL 8 MG IV (10:16)
[2021-07-01] MEDS: sodium chloride 0.9% 1,000 ML 999 ML IV (10:37)
--- NOTE | 2021-07-02 13:36 | ONCRAD TMN_ITS ---
Radiation Oncology Treatment Management Note Patient Name: Nita Moore Date of : 1970 Date of Service: 07/02/2021 Attending Physician: Prateek Wallace M.D. 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 She was evaluated by her primary care physician in late March for a persistent cough and wheezing. A chest radiograph revealed a 4 cm suprahilar mass. A thoracic CT scan ordered on April 25, 2021 demonstrated a 3.9 cm x 2.9 cm x 3.2 cm posterior right upper lobe mass with central cavitation. Right paratracheal and hilar lymphadenopathy measuring 3.6 cm x 3.2 cm x 5.6 cm was present. A bronchoscopy with endobronchial ultrasound-guided transbronchial needle biopsy was performed by Mohamud Sr M.D. on May 10, 2021. The anterior segment of the right upper lobe was occluded secondary to external compression. Biopsies obtained from the right upper lobe lesion and station 4R lymph node were positive for squamous cell carcinoma. PD???L1 TPS was more than 5%. A PET CT obtained on May 21, 2021 confirmed metabolic activity within the right upper lobe mass (SUV 17.8), right hilar and mediastinal lymphadenopathy (SUV 23.3), splenic flexure (SUV 20.4), and uterine fundus (SUV 23.7). A MRI of the head did not identify metastatic disease. The patient has received 20 Gy of a prescribed 60 Tobias with an intensity modulated radiotherapy plan utilizing a step and shoot treatment technique. She has been prescribed carboplatin (AUC 2) and paclitaxel (50 mg/m???) weekly during therapy. Upon review of systems, she denied pulmonary symptoms but did describe diarrhea. On physical examination, the patient weighed 168 lbs. Her temperature was 97.5 ???F and the blood pressure was 103/69 mmHg. The pulse was 78 bpm and her respiratory rate was 20. Oxygen saturation while breathing room air was 97%. There was no erythema within the treatment hammond. Auscultation of the posterior lung hammond identified bilateral decreased expiratory breath sounds. Continue thoracic radiotherapy as planned. I will prescribe Lomotil for her complaint of diarrhea. Signed by: Dr. Prateek Wallace 07/02/2021 1:35:55 PM
[2021-07-08 08:39] LABS: Basophils % 0.3 %; Hemoglobin 13.4 g/dL (11.5-15.3); Lymphocytes # 0.3 10^3/uL (0.8-4.8); Lymphocytes % 7.9 %; Mean Corpuscular HGB Conc 34.4 g/dL (30.0-36.0); Mean Corpuscular Hemoglobin 30.9 pg (28.0-34.0); Mean Corpuscular Volume 89.9 fl (81-99); Mean Platelet Volume 9.8 fL (7.4-10.4); Monocytes # 0.1 10^3/uL (0.2-0.9); Monocytes % 1.3 %; Neutrophils # 3.43 10^3/uL (1.8-7.7); Neutrophils % 89.7 %; Nucleated Red Blood Cells % 0 %; Platelet Count 236 10^3/cmm (130-400); Red Blood Count 4.34 10^6/uL (4.1-5.3); White Blood Count 3.8 10^3/uL (4.0-10.0)
[2021-07-08 09:08] LABS: Alanine Aminotransferase 19 U/L (0-33); Albumin Level 3.8 g/dL (3.5-5.2); Alkaline Phosphatase 93 IU/L (35-105); Aspartate Amino Transferase 16 U/L (0-32); Blood Urea Nitrogen 14 mg/dL (6-20); Carbon Dioxide 28 mmol/L (22-29); Chloride 100 mmol/L (98-107); Globulin 3.6 g/dL (1.3-4.6); Glomerular Filtration Rate 105.4 mL/min (90-130); Glucose 210 mg/dL (65-115); Osmolality Calculated 295 mOsm/kg (285-295); Sodium 139 mmol/L (136-145); Total Bilirubin 0.2 mg/dL (0.15-1.2); Total Protein 7.4 g/dL (6.6-8.7)
[2021-07-08] MEDS: sodium chloride 0.9% 250 ML 75 ML IV (10:30)
[2021-07-08] MEDS: palonosetron 0.25 mg/5 mL SDV IV (10:30)
[2021-07-08] MEDS: diphenhydrAMINE 50 mg/mL SDV 1mL 25 MG IV (10:31)
[2021-07-08] MEDS: famotidine 20 mg/2 mL INJ IVP (10:33)
--- NOTE | 2021-07-09 07:15 | ONC FU_ITS ---
Dr. Lilly Patient Follow-Up Note Patient: Nita Moore Unit #: [id number]: 1970 Dicatated By: Braulio Lilly M.D.Date of Visit:Jul 08, 2021 Onc Med Follow-up/Prog Note Chief Complaint: Lung cancer. 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 She was diagnosed with COVID-19 virus infection in February 2021. She noted some increase in pre-existing cough with that illness, and she also became more short of breath. Chest x-ray on 04/10/2021 showed a 4 cm suprahilar pulmonary density consistent with focal pneumonia or a mass. Further evaluation with chest CT on 04/25/2021 showed a solid mass with central cavitation in the posterior right upper lobe measuring 3.9 x 2.9 x 3.2 cm. The appearance was highly suspicious for primary pulmonary neoplasm. A confluent cluster of lymph nodes along the right paratracheal and right hilar region measured 5.6 x 3.6 x 3.2 cm. Lymph nodes were also noted to extend along the right central bronchus. Also noted were smaller subcarinal lymph nodes. There were no contralateral nodes identified. Marked low attenuation throughout the liver appeared consistent with hepatic steatosis. There was no adrenal mass identified. She had pulmonary consultation with Dr. Sr. Her bronchoscopy/EBUS on 05/10/2021 showed complete occlusion of the anterior segment right upper lobe bronchus from suspected external compression. Right upper lobe endobronchial biopsy was positive for squamous cell carcinoma. Mediastinal and hilar lymphadenopathy was identified by endobronchial ultrasound. FNA biopsy of station 4R lymph node was positive for metastatic squamous cell carcinoma. FNA biopsy of station 7 lymph node was negative. I had seen her initially on 05/15/2021. Staging PET/CT on 05/21/2021 showed FDG avid posterior right upper lobe lung mass with SUV 17.84, consistent with malignancy. There was associated FDG adenopathy in the right hilum with extension into the contiguous mediastinum, SUV up to 23.33. Adenopathy was noted to extend superiorly into the mediastinum to the right to above the level of the aortic arch, SUV 21.06. There was no FDG adenopathy noted in the left hilum or AP window or prevascular space. There was diffuse hepatic steatosis, no metastatic involvement was noted in the liver or adrenal glands. There was a relatively intense focus of increased activity in the colon at the splenic flexure, SUV 20.44, possibly representing malignancy. Also noted with intense activity in the uterine fundus with maximum SUV 23.74, also suspicious for malignancy. Abdominal and pelvic lymph nodes demonstrated physiologic levels of activity. Her head MRI on 05/24/2021 showed no evidence of metastatic disease. With those findings, she had [employer] evaluation with Dr. Deepti Estevez, and she underwent endometrial sampling on 05/31/2021. Pathology showed endometrial adenocarcinoma, FIGO grade 2. Analysis of mismatch repair proteins showed loss of nuclear expression of PMS2 with intact nuclear expression of MLH1, MSH2, and MSH6. In the meantime, she also had been seen seen by Dr. Ramirez, and she underwent placement of PowerPort on 06/04/2021. Her colonoscopy on 06/12/2021 showed an adenomatous appearing semipedunculated polyp in the proximal descending colon measuring 7 x 7 mm and a semipedunculated polyp measuring 8 x 6 mm in the distal descending colon. Also noted was a 5 mm lipoma in the mid ascending colon. Pathology on the distal descending colon polyp showed tubular adenoma with no high-grade dysplasia identified. The proximal descending colon polyp showed tubular adenoma with focal high-grade dysplasia. There is no evidence of invasive carcinoma. In the setting of stage IIIA non-small cell lung carcinoma, she was recommended to proceed with standard chemoradiation utilizing weekly carboplatin/paclitaxel for chemosensitization. On further pathologic evaluation, her lung tumor was found to be positive for PD-L1 expression at 5%. Her other medical illnesses include COPD, vitamin D deficiency, and anxiety/depression. She has a history of smoking 1-1/2 to 2 packs of cigarettes daily for more than 30 years. INTERIM HISTORY: She began week 1 carboplatin/paclitaxel on 06/17/2021. She tolerated the initial infusion with no acute toxicity. She continued with week 2 on 06/24/2021. Her week 3 treatment was deferred due to neutropenia, ANC 1700. She did continue with her radiation. She is seen for a scheduled visit. She has been feeling okay. Following her last visit, she had started citalopram for depression, and had does seem to be helping. She continues, though, to have very limited activity. Her ECOG score is 2. She does not have good appetite, but she does eat. She does not have fever or night sweats. She has had no mouth sores, and she has sore throat just occasionally. She also has just occasional cough. She does have shortness of breath, but she says her breathing is not too bad. She does not complain of chest pain. She occasionally has nausea, usually in association with coughing. Bowel and bladder function remain adequate. She has no significant joint or bone pain. She occasionally has headache. She has no numbness/paresthesia or other neuropathy symptoms. Medications: Albuterol Sulfate 1 Inhalation (of (2.5 mg/3ml) 0.083%) Nebulization solution Inhalation q 6 hours, Aspirin 1 Tablet (of 325 mg) Tablet, enteric coated Oral daily, Budesonide-Formoterol Fumarate 2 Puff(s) (of 160-4.5 mcg/act) Aerosol Inhalation b.i.d., Cholecalciferol 1 Tablet (of 125 mcg ) Oral daily, Dexamethasone (4 mg) Tablet Oral Take as Directed, Furosemide 1 Tablet (of 20 mg) Oral daily, Omeprazole 1 Tablet (of 20 mg) Capsule Delayed Release Oral daily, Potassium Chloride Jessica ER 1 Tablet (of 10 meq) Tablet, controlled release Oral daily Allergies: Codeine Sulfate and Sulfa Antibiotics. Vital Signs: Performed on Jul 08, 2021 13:38 Height - 62.00 in Temperature - 97.3 F (LOW) Pulse - 94 /min Respiration - 18 /min BP - 114/75 mm(hg) O2 Sat - 91 % (LOW) Performed on Jul 08, 2021 11:38 Height - 62.00 in Weight - 160.4 lbs (LOW) BSA - 1.74 sq.m BMI - 29.34 Temperature - 97.5 F (LOW) Pulse - 92 /min Respiration - 18 /min BP - 117/75 mm(hg) O2 Sat - 93 % (LOW) Pain - 0 Fatigue - 3 Physical Examination: Constitutional - She appears somewhat weak generally, Eyes - Sclerae nonicteric. Conjunctivae clear, ENMT - There are no lesions noted in the oral cavity, but her lower teeth are in very poor repair, Hematologic/Lymphatic - No cervical, clavicular, or axillary adenopathy, Respiratory - Lungs sound clear with diminished air movement bilaterally, Cardiovascular - Heart rhythm is regular. There is no murmur, gallop, or rub noted, Abdomen - Mildly distended. Liver and spleen are not enlarged. There is no abdominal mass or ascites noted and there is no inguinal adenopathy, Extremities - No edema, Neurologic - No focal neurologic deficits noted. Lab/Imaging: Test performed on Jul 08, 2021 08:15 Sodium 139 mmol/L Potassium 4.0 mmol/L Chloride 100 mmol/L CO2 28 mmol/L Anion Gap 15.0 BUN 14 mg/dL Creatinine 0.6 mg/dL Cr Clearance (Est) 133.9200 mL/min eGFR 105.4 mL/min Glucose 210 mg/dL Osmolality - Calculated 295 mOsm/kg Calcium 9.0 mg/dL Protein, Total 7.4 g/dL Albumin 3.8 g/dL Globulin 3.6 g/dL Bilirubin, Total 0.2 mg/dL ALT (SGPT) 19 U/L AST (SGOT) 16 U/L Alkaline Phosphatase 93 IU/L WBC 3.8 10 3/uL RBC 4.34 10 6/uL HGB 13.4 g/dL HCT 39.0 % MCV 89.9 fl MCH 30.9 pg MCHC 34.4 g/dL RDW 13.0 % Platelet Count 236 10 3/cmm MPV 9.8 fL Neutrophils 3.43 10 3/uL Lymphocytes 0.3 10 3/uL Monocytes 0.1 10 3/uL Eosinophils 0.0 10 3/uL Basophils 0.0 10 3/uL Neutrophil % 89.7 % Lymphocyte % 7.9 % Monocyte % 1.3 % Eosinophil % 0.0 % Basophils % 0.3 % NRBC % 0 % Problem List: 1. Squamous cell carcinoma involving the upper lobe of the right lung, by clinical evaluation stage IIIA (T2a, N2, M0). 2. Adenocarcinoma of the endometrium, FIGO grade 2, MMR deficient. 3. Multiple colonic polyps, including an adenomatous polyp in the proximal descending colon with focal high-grade dysplasia. 4. COPD. 5. Anxiety/depression, currently not requiring medication. 6. Vitamin D deficiency. 7. History of COVID-19 virus infection in February 2021. Problems Addressed with this Encounter and Plan: 1. Patient with squamous cell carcinoma involving the upper lobe of the right lung by clinical evaluation stage IIIA (T2a, N2, M0). She underwent bronchoscopy/EBUS on 05/10/2021. Endobronchial biopsy from the right upper lobe and FNA biopsy of station 4R lymph node were both positive for squamous cell carcinoma. By staging PET/CT her lung cancer appeared to be confined to the primary lesion in the right upper lobe and involved hilar/mediastinal lymph nodes, but there were focal sites of uptake noted in the uterus and colon which were suspicious for other sites of primary malignancy. In the setting of stage IIIA non-small cell lung carcinoma, she was recommended to proceed with standard chemoradiation. She began week 1 of carboplatin/paclitaxel on 06/17/2021. She tolerated it with no significant adverse effects. She continued with week 2 chemotherapy on 06/24/2021. Her further chemotherapy was delayed due to neutropenia. At this point she has had adequate recovery, though she remains mildly neutropenic. She will proceed now with week 3 carboplatin/paclitaxel. Dosages remain the same. I will see her again in 1 week. 2. She was having significant depression, but she does appear to be showing improvement with citalopram. 3. Her endometrial sampling on 05/31/2021 showed FIGO grade 2 adenocarcinoma of the endometrium, MMR deficient. She has been referred to [facility] oncology and she will presumably be undergoing hysterectomy, but I think that should be deferred until after she completes primary treatment for the lung cancer. She also will require genetic screening. 4. She was found on colonoscopy to have multiple adenomatous polyps, including an adenomatous polyp with high-grade dysplasia involving the distal descending colon. It is being managed by Dr. Ramirez. Signed By: Braulio Lilly M.D. <<Signature on File>>
--- NOTE | 2021-07-09 13:47 | ONCRAD TMN_ITS ---
Radiation Oncology Treatment Management Note Patient Name: Nita Moore Date of : 1970 Date of Service: 07/09/2021 Attending Physician: Prateek Wallace M.D. 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 She was evaluated by her primary care physician in late March for a persistent cough and wheezing. A chest radiograph revealed a 4 cm suprahilar mass. A thoracic CT scan ordered on April 25, 2021 demonstrated a 3.9 cm x 2.9 cm x 3.2 cm posterior right upper lobe mass with central cavitation. Right paratracheal and hilar lymphadenopathy measuring 3.6 cm x 3.2 cm x 5.6 cm was present. A bronchoscopy with endobronchial ultrasound-guided transbronchial needle biopsy was performed by Mohamud Sr M.D. on May 10, 2021. The anterior segment of the right upper lobe was occluded secondary to external compression. Biopsies obtained from the right upper lobe lesion and station 4R lymph node were positive for squamous cell carcinoma. PD???L1 TPS was more than 5%. A PET CT obtained on May 21, 2021 confirmed metabolic activity within the right upper lobe mass (SUV 17.8), right hilar and mediastinal lymphadenopathy (SUV 23.3), splenic flexure (SUV 20.4), and uterine fundus (SUV 23.7). A MRI of the head did not identify metastatic disease. The patient has received 30 Gy of a prescribed 60 Tobias with an intensity modulated radiotherapy plan utilizing a step and shoot treatment technique. She has been prescribed carboplatin (AUC 2) and paclitaxel (50 mg/m???) weekly during therapy. Upon review of systems, she denied pulmonary symptoms On physical examination, the patient weighed 163 lbs. Her temperature was 97.8 ???F and the blood pressure was 103/73 mmHg. The pulse was 82 bpm and her respiratory rate was 18. Oxygen saturation while breathing room air was 97%. There was no erythema within the treatment hammond. Decreased breath sounds were auscultated. Continue thoracic radiotherapy as prescribed. Signed by: Dr. Prateek Wallace 07/09/2021 1:45:29 PM
--- NOTE | 2021-07-14 18:41 | ONC FU_ITS ---
[facility] Patient Note Patient: Nita Moore Unit #: [id number]: 1970 Dictated By: Saeid YoussefDate of Visit: Jul 01, 2021 Onc MED Follow-Up/Prog Note Chief Complaint: Lung cancer. 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 She was diagnosed with COVID-19 virus infection in February 2021. She noted some increase in pre-existing cough with that illness, and she also became more short of breath. Chest x-ray on 04/10/2021 showed a 4 cm suprahilar pulmonary density consistent with focal pneumonia or a mass. Further evaluation with chest CT on 04/25/2021 showed a solid mass with central cavitation in the posterior right upper lobe measuring 3.9 x 2.9 x 3.2 cm. The appearance was highly suspicious for primary pulmonary neoplasm. A confluent cluster of lymph nodes along the right paratracheal and right hilar region measured 5.6 x 3.6 x 3.2 cm. Lymph nodes were also noted to extend along the right central bronchus. Also noted were smaller subcarinal lymph nodes. There were no contralateral nodes identified. Marked low attenuation throughout the liver appeared consistent with hepatic steatosis. There was no adrenal mass identified. She had pulmonary consultation with Dr. Sr. Her bronchoscopy/EBUS on 05/10/2021 showed complete occlusion of the anterior segment right upper lobe bronchus from suspected external compression. Right upper lobe endobronchial biopsy was positive for squamous cell carcinoma. Mediastinal and hilar lymphadenopathy was identified by endobronchial ultrasound. FNA biopsy of station 4R lymph node was positive for metastatic squamous cell carcinoma. FNA biopsy of station [address] Lilly had seen her initially on 05/15/2021. Staging PET/CT on 05/21/2021 showed FDG avid posterior right upper lobe lung mass with SUV 17.84, consistent with malignancy. There was associated FDG adenopathy in the right hilum with extension into the contiguous mediastinum, SUV up to 23.33. Adenopathy was noted to extend superiorly into the mediastinum to the right to above the level of the aortic arch, SUV 21.06. There was no FDG adenopathy noted in the left hilum or AP window or prevascular space. There was diffuse hepatic steatosis, no metastatic involvement was noted in the liver or adrenal glands. There was a relatively intense focus of increased activity in the colon at the splenic flexure, SUV 20.44, possibly representing malignancy. Also noted with intense activity in the uterine fundus with maximum SUV 23.74, also suspicious for malignancy. Abdominal and pelvic lymph nodes demonstrated physiologic levels of activity. Her head MRI on 05/24/2021 showed no evidence of metastatic disease. With those findings, she had [facility] [employer] [facility] evaluation with Dr. Deepti Estevez, and she underwent endometrial sampling on 05/31/2021. Pathology showed endometrial adenocarcinoma, FIGO grade 2. Analysis of mismatch repair proteins showed loss of nuclear expression of PMS2 with intact nuclear expression of MLH1, MSH2, and MSH6. In the meantime, she also had been seen seen by Dr. Ramirez, and she underwent placement of PowerPort on 06/04/2021. Her colonoscopy on 06/12/2021 showed an adenomatous appearing semipedunculated polyp in the proximal descending colon measuring 7 x 7 mm and a semipedunculated polyp measuring 8 x 6 mm in the distal descending colon. Also noted was a 5 mm lipoma in the mid ascending colon. Pathology on the distal descending colon polyp showed tubular adenoma with no high-grade dysplasia identified. The proximal descending colon polyp showed tubular adenoma with focal high-grade dysplasia. There is no evidence of invasive carcinoma. In the setting of stage IIIA non-small cell lung carcinoma, she was recommended to proceed with standard chemoradiation utilizing weekly carboplatin/paclitaxel for chemosensitization. On further pathologic evaluation, her lung tumor was found to be positive for PD-L1 expression at 5%. Her other medical illnesses include COPD, vitamin D deficiency, and anxiety/depression. She has a history of smoking 1-1/2 to 2 packs of cigarettes daily for more than 30 years. INTERIM HISTORY: She began week 1 carboplatin/paclitaxel on 06/17/2021. She tolerated the initial infusion with no acute toxicity. She continued with week 2 on 06/24/2021. Her week 3 treatment was deferred due to neutropenia, ANC 1700. She did continue with her radiation. Ms. Moore is here today for follow-up and consideration of delayed week 3 carboplatin paclitaxel. She has taken her steroids for premeds. She states overall she is feeling better. She states that she cannot tell if her UTI is better or not but recently was evaluated in the emergency room and was told it was better . She states her appetite just are getting better last night. She states she has not been drinking well overall just because she just does not have taste for it. She states she has been more draggy and little bit more tired overall. She denies any fever or chills. She states she has not had any nausea or vomiting. Her peripheral neuropathy has not been an issue. She states overall it is a little numbness and tingling right after treatment but that subsides within a couple of days. She had some intermittent headaches but cannot associate them particularly with treatment. My concern would be the palonosetron premed if she is having persistent headaches treatment related. She denies any new pain. She denies any vaginal or rectal bleeding. Her ECOG is 1. Past Medical History: Anxiety Chronic obstructive pulmonary disease Depression Viamin D insufficiency COVID-19 virus infection in 2020 Past Surgical History: Colonoscopy Tubal ligation Bronchoscopy/EBUS in 2020 Allergies: Codeine Sulfate and Sulfa Antibiotics. Medications: Albuterol Sulfate 1 Inhalation (of (2.5 mg/3ml) 0.083%) Nebulization solution Inhalation q 6 hours Aspirin 1 Tablet (of 325 mg) Tablet, enteric coated Oral daily Budesonide-Formoterol Fumarate 2 Puff(s) (of 160-4.5 mcg/act) Aerosol Inhalation b.i.d. Cholecalciferol 1 Tablet (of 125 mcg ) Oral daily Dexamethasone (4 mg) Tablet Oral Take as Directed Furosemide 1 Tablet (of 20 mg) Oral daily Omeprazole 1 Tablet (of 20 mg) Capsule Delayed Release Oral daily Potassium Chloride Jessica ER 1 Tablet (of 10 meq) Tablet, controlled release Oral daily Family History: She does not know what happened to her father. Her mother with heart disease. One sister is , cause unknown to the patient. Four other siblings are living, but she does not know about their health. A son with SIDS. Social History: Ms. Moore is . She is a daily smoker who has smoked 2.0 packs/day for 23 years. She has indicated exposure to the following products: cigarettes. She has a history of smoking 1-1/2 to 2 packs of cigarettes daily for more than 30 years. She does not drink alcohol. Review Of Symptoms: <See Above> Vital Signs: Performed on Jul 01, 2021 09:17 Height - 62.00 in Weight - 165 lbs (LOW) BSA - 1.76 sq.m BMI - 30.18 (HIGH) Temperature - 96.9 F (LOW) Pulse - 92 /min Respiration - 18 /min BP - 119/78 mm(hg) O2 Sat - 96 % Pain - 5 Fatigue - 4,1 - No physically strenuous activity, but ambulatory and able to carry out light or sedentary work (e.g. office work, light house work). (ECOG) Physical Examination: Constitutional Alert, oriented, no acute distress. Skin pink, warm and dry. Head Normocephalic; atraumatic. Eyes Conjunctivae and sclerae are clear and without icterus. Pupils are reactive and equal. ENMT No oral exudates, ulcers, masses, thrush or mucositis. Oropharynx clear. Tongue normal. Neck Supple without masses or thyromegaly. No jugular venous distension. Hematologic/Lymphatic No petechiae or purpura. No tender or palpable lymph nodes in the cervical or supraclavicular areas. Respiratory Lungs are clear to auscultation without rhonchi or wheezing. Cardiovascular Regular rate and rhythm of heart without murmurs,clicks, gallops or rubs. Abdomen Non-tender, non-distended, no masses or ascites. Good bowel sounds noted in all quads. No guarding or rebound tenderness. No pulsatile masses. Back/Spine Non-tender to palpation. Extremities No visible deformities, no cyanosis, clubbing or edema. Musculoskeletal No tenderness or swelling, normal range of motion without obvious weakness. Integumentary No rashes or lesions. Neurologic No sensory or motor deficits, normal cerebellar function, normal gait. Psychiatric Alert and oriented times three. Coherent speech. Verbalizes understanding of our discussions today. Laboratory:Test performed on Jul 08, 2021 08:15 Sodium 139 mmol/L Potassium 4.0 mmol/L Chloride 100 mmol/L CO2 28 mmol/L Anion Gap 15.0 BUN 14 mg/dL Creatinine 0.6 mg/dL Cr Clearance (Est) 133.9200 mL/min eGFR 105.4 mL/min Glucose 210 mg/dL Osmolality - Calculated 295 mOsm/kg Calcium 9.0 mg/dL Protein, Total 7.4 g/dL Albumin 3.8 g/dL Globulin 3.6 g/dL Bilirubin, Total 0.2 mg/dL ALT (SGPT) 19 U/L AST (SGOT) 16 U/L Alkaline Phosphatase 93 IU/L WBC 3.8 10 3/uL RBC 4.34 10 6/uL HGB 13.4 g/dL HCT 39.0 % MCV 89.9 fl MCH 30.9 pg MCHC 34.4 g/dL RDW 13.0 % Platelet Count 236 10 3/cmm MPV 9.8 fL Neutrophils 3.43 10 3/uL Lymphocytes 0.3 10 3/uL Monocytes 0.1 10 3/uL Eosinophils 0.0 10 3/uL Basophils 0.0 10 3/uL Neutrophil % 89.7 % Lymphocyte % 7.9 % Monocyte % 1.3 % Eosinophil % 0.0 % Basophils % 0.3 % NRBC % 0 % Test performed on Jun 28, 2021 10:51 Ua Color Yellow Ua Appearance SL Hazy Ua Glucose Norm Ua Bilirubin 1+ Ua Ketones Negative Ua Specific [place] 1.005 Ua Blood 2+ Ua pH 5 Ua Protein 1+ Ua Urobilinogen 4 mg/dL Ua Nitrites Negative Ua Leukocyte Esterase 1+ Ua Micro: WBC 15-25 /hpf Urine Culture 10,000-20,000 COLS/ML MIXED SUPERFICIAL KARELY ON DAY 2. PROBABLE CONTAMINANTS. Ua Micro: RBC 5-10 /hpf Ua Micro: Squam Epith Cells 0-4 /hpf Ua Micro: Bacteria 1+ /hpf Impression: 1. Squamous cell carcinoma involving the upper lobe of the right lung, by clinical evaluation stage IIIA (T2a, N2, M0). 2. Adenocarcinoma of the endometrium, FIGO grade 2, MMR deficient. 3. Multiple colonic polyps, including an adenomatous polyp in the proximal descending colon with focal high-grade dysplasia. 4. COPD. 5. Anxiety/depression, currently not requiring medication. 6. Vitamin D deficiency. 7. History of COVID-19 virus infection in February 2021. Plan/Problems Addressed at this Visit: 1. Squamous cell carcinoma involving the upper lobe of the right lung by clinical evaluation stage IIIA (T2a, N2, M0). She underwent bronchoscopy/EBUS on 05/10/2021. Endobronchial biopsy from the right upper lobe and FNA biopsy of station 4R lymph node were both positive for squamous cell carcinoma. By staging PET/CT her lung cancer appeared to be confined to the primary lesion in the right upper lobe and involved hilar/mediastinal lymph nodes, but there were focal sites of uptake noted in the uterus and colon which were suspicious for other sites of primary malignancy. In the setting of stage IIIA non-small cell lung carcinoma, she was recommended to proceed with standard chemoradiation. She began week 1 of carboplatin/paclitaxel on 06/17/2021. She tolerated it with no significant adverse effects. She continued with week 2 chemotherapy on 06/24/2021. Her further chemotherapy was delayed due to neutropenia. A. We will hold her chemotherapy again this week due to an ANC today of 1700. She also has marginal performance status and was in the emergency room on 06/29/2021. She is not eating or drinking well and states I do started getting better today . B. She may have supportive care as needed with hydration and antiemetics as warranted. C. Today's labs reviewed in detail discussed with Ms. Moore and we did discuss them in comparison with her June 28, 2021 labs. Her WBC today is 2.0, hemoglobin 11.2, platelets 20 71,000, ANC is 1720. Potassium 3.9 glucose 191 steroid-induced, creatinine 0.5 and LFTs are normal weight is stable at 165 pounds. D. We will plan to see her back in 1 week with CBC CMP for reassessment of continuation of her chemotherapy. She continues with daily radiation. E. Mrs. Moore was instructed to contact us in interim should questions or problems arise. 2. She was having significant depression, but she does appear to be showing improvement with citalopram. 3. Her endometrial sampling on 05/31/2021 showed FIGO grade 2 adenocarcinoma of the endometrium, MMR deficient. She has been referred to [facility] oncology and she will presumably be undergoing hysterectomy, but I think that should be deferred until after she completes primary treatment for the lung cancer. She also will require genetic screening. 4. She was found on colonoscopy to have multiple adenomatous polyps, including an adenomatous polyp with high-grade dysplasia involving the distal descending colon. It is being managed by Dr. Ramirez. Signed By: Saeid Youssef-, AOCNP Braulio Lilly MD <<Signature on File>>
[2021-07-15] MEDS: alteplase 1 mg/mL SDV 2 mL 2 MG IV (09:10)
[2021-07-15 09:45] LABS: Basophils % 0.3 %; Hematocrit 36.9 % (37.0-47.0); Hemoglobin 12.7 g/dL (11.5-15.3); Lymphocytes # 0.2 10^3/uL (0.8-4.8); Lymphocytes % 6.2 %; Mean Corpuscular HGB Conc 34.4 g/dL (30.0-36.0); Mean Corpuscular Hemoglobin 30.6 pg (28.0-34.0); Mean Corpuscular Volume 88.9 fl (81-99); Mean Platelet Volume 10.2 fL (7.4-10.4); Monocytes # 0.1 10^3/uL (0.2-0.9); Monocytes % 1.6 %; Neutrophils # 2.94 10^3/uL (1.8-7.7); Neutrophils % 91.3 %; Nucleated Red Blood Cells % 0 %; Platelet Count 148 10^3/cmm (130-400); Red Blood Count 4.15 10^6/uL (4.1-5.3); Red Cell Distribution Width 12.9 % (12.1-15.1); White Blood Count 3.2 10^3/uL (4.0-10.0)
[2021-07-15 10:05] LABS: Alanine Aminotransferase 25 U/L (0-33); Alkaline Phosphatase 95 IU/L (35-105); Anion Gap 17.3 (5-19); Aspartate Amino Transferase 18 U/L (0-32); Blood Urea Nitrogen 13 mg/dL (6-20); Calcium 8.9 mg/dL (8.5-10.5); Carbon Dioxide 23 mmol/L (22-29); Chloride 101 mmol/L (98-107); Glomerular Filtration Rate 105.4 mL/min (90-130); Glucose 159 mg/dL (65-115); Osmolality Calculated 287 mOsm/kg (285-295); Potassium 4.3 mmol/L (3.5-5.1); Sodium 137 mmol/L (136-145); Total Bilirubin 0.3 mg/dL (0.15-1.2)
[2021-07-15] MEDS: sodium chloride 0.9% 250 ML 75 ML IV (11:20)
[2021-07-15] MEDS: famotidine 20 mg/2 mL INJ IVP (11:21)
[2021-07-15] MEDS: diphenhydrAMINE 50 mg/mL SDV 1mL 25 MG IV (11:23)
[2021-07-15] MEDS: palonosetron 0.25 mg/5 mL SDV IV (11:25)
--- NOTE | 2021-07-16 13:43 | ONCRAD TMN_ITS ---
Radiation Oncology Treatment Management Note Patient Name: Nita Moore Date of : 1970 Date of Service: 07/16/2021 Attending Physician: Prateek Wallace M.D. 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 She was evaluated by her primary care physician in late March for a persistent cough and wheezing. A chest radiograph revealed a 4 cm suprahilar mass. A thoracic CT scan ordered on April 25, 2021 demonstrated a 3.9 cm x 2.9 cm x 3.2 cm posterior right upper lobe mass with central cavitation. Right paratracheal and hilar lymphadenopathy measuring 3.6 cm x 3.2 cm x 5.6 cm were present. A bronchoscopy with endobronchial ultrasound-guided transbronchial needle biopsy was performed by Mohamud Sr M.D. on May 10, 2021. The anterior segment of the right upper lobe was occluded secondary to external compression. Biopsies obtained from the right upper lobe lesion and station 4R lymph node were positive for squamous cell carcinoma. PD???L1 TPS was more than 5%. A PET CT obtained on May 21, 2021 confirmed metabolic activity within the right upper lobe mass (SUV 17.8), right hilar and mediastinal lymphadenopathy (SUV 23.3), splenic flexure (SUV 20.4), and uterine fundus (SUV 23.7). A MRI of the head did not identify metastatic disease. The patient has received 36 Gy of a prescribed 60 Tobias with an intensity modulated radiotherapy plan utilizing a step and shoot treatment technique. She has been prescribed carboplatin (AUC 2) and paclitaxel (50 mg/m???) weekly during therapy. Upon review of systems, she denied pulmonary symptoms On physical examination, the patient weighed 165 lbs. Her temperature was 97.4 ???F and the blood pressure was 111/77 mmHg. The pulse was 78 bpm and her respiratory rate was 18. Oxygen saturation while breathing room air was 98%. There was no erythema within the treatment hammond. Bronchial breath sounds were auscultated. Continue thoracic radiotherapy as planned. Signed by: Dr. Prateek Wallace 07/16/2021 1:41:16 PM
--- NOTE | 2021-07-19 17:30 | ONC FU_ITS ---
Dr. Lilly Patient Follow-Up Note Patient: Nita Moore Unit #: [id number]: 1970 Dicatated By: Braulio Lilly M.D.Date of Visit:Jul 15, 2021 Onc Med Follow-up/Prog Note Chief Complaint: Lung cancer. 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 She was diagnosed with COVID-19 virus infection in February 2021. She noted some increase in pre-existing cough with that illness, and she also became more short of breath. Chest x-ray on 04/10/2021 showed a 4 cm suprahilar pulmonary density consistent with focal pneumonia or a mass. Further evaluation with chest CT on 04/25/2021 showed a solid mass with central cavitation in the posterior right upper lobe measuring 3.9 x 2.9 x 3.2 cm. The appearance was highly suspicious for primary pulmonary neoplasm. A confluent cluster of lymph nodes along the right paratracheal and right hilar region measured 5.6 x 3.6 x 3.2 cm. Lymph nodes were also noted to extend along the right central bronchus. Also noted were smaller subcarinal lymph nodes. There were no contralateral nodes identified. Marked low attenuation throughout the liver appeared consistent with hepatic steatosis. There was no adrenal mass identified. She had pulmonary consultation with Dr. Sr. Her bronchoscopy/EBUS on 05/10/2021 showed complete occlusion of the anterior segment right upper lobe bronchus from suspected external compression. Right upper lobe endobronchial biopsy was positive for squamous cell carcinoma. Mediastinal and hilar lymphadenopathy was identified by endobronchial ultrasound. FNA biopsy of station 4R lymph node was positive for metastatic squamous cell carcinoma. FNA biopsy of station 7 lymph node was negative. I had seen her initially on 05/15/2021. Staging PET/CT on 05/21/2021 showed FDG avid posterior right upper lobe lung mass with SUV 17.84, consistent with malignancy. There was associated FDG adenopathy in the right hilum with extension into the contiguous mediastinum, SUV up to 23.33. Adenopathy was noted to extend superiorly into the mediastinum to the right to above the level of the aortic arch, SUV 21.06. There was no FDG adenopathy noted in the left hilum or AP window or prevascular space. There was diffuse hepatic steatosis, no metastatic involvement was noted in the liver or adrenal glands. There was a relatively intense focus of increased activity in the colon at the splenic flexure, SUV 20.44, possibly representing malignancy. Also noted with intense activity in the uterine fundus with maximum SUV 23.74, also suspicious for malignancy. Abdominal and pelvic lymph nodes demonstrated physiologic levels of activity. Her head MRI on 05/24/2021 showed no evidence of metastatic disease. With those findings, she had [employer] evaluation with Dr. Deepti Estevez, and she underwent endometrial sampling on 05/31/2021. Pathology showed endometrial adenocarcinoma, FIGO grade 2. Analysis of mismatch repair proteins showed loss of nuclear expression of PMS2 with intact nuclear expression of MLH1, MSH2, and MSH6. In the meantime, she also had been seen seen by Dr. Ramirez, and she underwent placement of PowerPort on 06/04/2021. Her colonoscopy on 06/12/2021 showed an adenomatous appearing semipedunculated polyp in the proximal descending colon measuring 7 x 7 mm and a semipedunculated polyp measuring 8 x 6 mm in the distal descending colon. Also noted was a 5 mm lipoma in the mid ascending colon. Pathology on the distal descending colon polyp showed tubular adenoma with no high-grade dysplasia identified. The proximal descending colon polyp showed tubular adenoma with focal high-grade dysplasia. There is no evidence of invasive carcinoma. In the setting of stage IIIA non-small cell lung carcinoma, she was recommended to proceed with standard chemoradiation utilizing weekly carboplatin/paclitaxel for chemosensitization. On further pathologic evaluation, her lung tumor was found to be positive for PD-L1 expression at 5%. Her other medical illnesses include COPD, vitamin D deficiency, and anxiety/depression. She has a history of smoking 1-1/2 to 2 packs of cigarettes daily for more than 30 years. INTERIM HISTORY: She began week 1 carboplatin/paclitaxel on 06/17/2021. She tolerated the initial infusion with no acute toxicity. She continued with week 2 on 06/24/2021. Her week 3 treatment was delayed due to neutropenia, ANC 1700. She continued with her radiation and she was then able to proceed with week 3 carboplatin/paclitaxel on 07/08/2021. She is seen for a scheduled visit. She has limited activity tolerance. She is able to do very little bit of light work at home. ECOG score is 2. Appetite is variable, but generally not good. She has not had fever. She has a little bit of sweating. She has not had mouth sores, she sometimes has sore throat. She has cough and she also has shortness of breath with activity. She does not complain of chest pain. She has nausea occasionally, mainly in association with coughing. Bowel and bladder function remain adequate. She has no significant joint or bone pain. She has been having some headaches, but lately not as many. She sometimes has lightheadedness, usually in the mornings. She has no numbness/paresthesia or other neuropathy symptoms. Her anxiety/depression has improved with medication. Medications: Albuterol Sulfate 1 Inhalation (of (2.5 mg/3ml) 0.083%) Nebulization solution Inhalation q 6 hours, Aspirin 1 Tablet (of 325 mg) Tablet, enteric coated Oral daily, Budesonide-Formoterol Fumarate 2 Puff(s) (of 160-4.5 mcg/act) Aerosol Inhalation b.i.d., Cholecalciferol 1 Tablet (of 125 mcg ) Oral daily, Dexamethasone (4 mg) Tablet Oral Take as Directed, Furosemide 1 Tablet (of 20 mg) Oral daily, Omeprazole 1 Tablet (of 20 mg) Capsule Delayed Release Oral daily, Potassium Chloride Jessica ER 1 Tablet (of 10 meq) Tablet, controlled release Oral daily Allergies: Codeine Sulfate and Sulfa Antibiotics. Vital Signs: Performed on Jul 15, 2021 11:08 Height - 62.00 in Weight - 159.6 lbs (LOW) BSA - 1.74 sq.m BMI - 29.19 Temperature - 97.2 F (LOW) Pulse - 96 /min Respiration - 18 /min BP - 121/80 mm(hg) O2 Sat - 96 % Pain - 0 Fatigue - 2 Physical Examination: Constitutional - She appears somewhat weak generally, Eyes - Sclerae nonicteric. Conjunctivae clear, ENMT - No lesions noted in the oral cavity, Hematologic/Lymphatic - No cervical, clavicular, or axillary adenopathy, Respiratory - Lungs sound clear with diminished air movement bilaterally, Cardiovascular - Heart rhythm is regular. There is no murmur, gallop, or rub noted, Abdomen - Mildly distended. Liver and spleen are not enlarged. There is no abdominal mass or ascites noted and there is no inguinal adenopathy, Extremities - No edema, Neurologic - No focal neurologic deficits noted. Lab/Imaging: Test performed on Jul 15, 2021 10:43 Creatinine 0.6 mg/dL Cr Clearance (Est) 126.7700 mL/min Test performed on Jul 15, 2021 09:03 Sodium 137 mmol/L Potassium 4.3 mmol/L Chloride 101 mmol/L CO2 23 mmol/L Anion Gap 17.3 BUN 13 mg/dL eGFR 105.4 mL/min Glucose 159 mg/dL Osmolality - Calculated 287 mOsm/kg Calcium 8.9 mg/dL Protein, Total 7.0 g/dL Albumin 4.0 g/dL Globulin 3.0 g/dL Bilirubin, Total 0.3 mg/dL ALT (SGPT) 25 U/L AST (SGOT) 18 U/L Alkaline Phosphatase 95 IU/L WBC 3.2 10 3/uL RBC 4.15 10 6/uL HGB 12.7 g/dL HCT 36.9 % MCV 88.9 fl MCH 30.6 pg MCHC 34.4 g/dL RDW 12.9 % Platelet Count 148 10 3/cmm MPV 10.2 fL Neutrophils 2.94 10 3/uL Lymphocytes 0.2 10 3/uL Monocytes 0.1 10 3/uL Eosinophils 0.0 10 3/uL Basophils 0.0 10 3/uL Neutrophil % 91.3 % Lymphocyte % 6.2 % Monocyte % 1.6 % Eosinophil % 0.0 % Basophils % 0.3 % NRBC % 0 % Problem List: 1. Squamous cell carcinoma involving the upper lobe of the right lung, by clinical evaluation stage IIIA (T2a, N2, M0). 2. Adenocarcinoma of the endometrium, FIGO grade 2, MMR deficient. 3. Multiple colonic polyps, including an adenomatous polyp in the proximal descending colon with focal high-grade dysplasia. 4. COPD. 5. Anxiety/depression, currently not requiring medication. 6. Vitamin D deficiency. 7. History of COVID-19 virus infection in February 2021. Problems Addressed with this Encounter and Plan: 1. Patient with squamous cell carcinoma involving the upper lobe of the right lung by clinical evaluation stage IIIA (T2a, N2, M0). She underwent bronchoscopy/EBUS on 05/10/2021. Endobronchial biopsy from the right upper lobe and FNA biopsy of station 4R lymph node were both positive for squamous cell carcinoma. By staging PET/CT her lung cancer appeared to be confined to the primary lesion in the right upper lobe and involved hilar/mediastinal lymph nodes, but there were focal sites of uptake noted in the uterus and colon which were suspicious for other sites of primary malignancy. In the setting of stage IIIA non-small cell lung carcinoma, she was recommended to proceed with standard chemoradiation. She began week 1 of carboplatin/paclitaxel on 06/17/2021. She tolerated it with no significant adverse effects. She continued with week 2 chemotherapy on 06/24/2021. Her further chemotherapy was delayed due to neutropenia, but she was able to continue with week 3 carboplatin/paclitaxel on 07/08/2021. At this point she still has mild neutropenia, but she otherwise appears to be tolerating treatment well. She will proceed now with week 4 carboplatin/paclitaxel. Dosages remain the same. She will be scheduled for a follow-up visit in 1 week. 2. Her endometrial sampling on 05/31/2021 showed FIGO grade 2 adenocarcinoma of the endometrium, MMR deficient. She has been referred to [facility] [employer] oncology and she will presumably be undergoing hysterectomy, but I think that should be deferred until after she completes primary treatment for the lung cancer. She also will require genetic screening. 3. She was found on colonoscopy to have multiple adenomatous polyps, including an adenomatous polyp with high-grade dysplasia involving the distal descending colon. It is being managed by Dr. Ramirez. Signed By: Braulio Llily M.D. <<Signature on File>>
== END 2021-07-16 23:59 | disposition home or self-care (01) ==
LOC: ONCMED 12:47
PROVIDERS: Nurse Practitioner; Absent Provider Radiology Radiation Oncology; PCP Nurse Practitioner; Visit Provider Internal Medicine Medical Oncology
DX: Z51.0 Encounter for antineoplastic radiation therapy (principal); Z51.11 Encounter for antineoplastic chemotherapy; C34.11 Malignant neoplasm of upper lobe, right bronchus or lung; C54.1 Malignant neoplasm of endometrium; K63.5 Polyp of colon; J44.9 Chronic obstructive pulmonary disease, unspecified; F41.9 Anxiety disorder, unspecified; F32.9 Major depressive disorder, single episode, unspecified; E55.9 Vitamin D deficiency, unspecified; Z86.16 Personal history of COVID-19; Z79.899 Other long term (current) drug therapy
CPT/HCPCS: 36593; 77336; 77386; 80053; 85025; 96361; 96365; 96367; 96375; 96413; 96417; 99215; J1100; J1200; J2405; J2469; J2997; J3490; J7030; J7040; J7050; J9045; J9267

== ENCOUNTER 2021-08-01 06:26 | Outpatient (RCR) | payer OTHER, MEDICAID, SELFPAY ==
[2021-07-22 09:46] LABS: Alanine Aminotransferase 23 U/L (0-33); Alkaline Phosphatase 100 IU/L (35-105); Anion Gap 20.7 (5-19); Aspartate Amino Transferase 17 U/L (0-32); Blood Urea Nitrogen 10 mg/dL (6-20); Calcium 8.6 mg/dL (8.5-10.5); Carbon Dioxide 24 mmol/L (22-29); Chloride 99 mmol/L (98-107); Globulin 2.7 g/dL (1.3-4.6); Glomerular Filtration Rate 87.9 mL/min (90-130); Glucose 194 mg/dL (65-115); Osmolality Calculated 294 mOsm/kg (285-295); Potassium 3.7 mmol/L (3.5-5.1); Sodium 140 mmol/L (136-145); Total Bilirubin 0.3 mg/dL (0.15-1.2); Total Protein 6.7 g/dL (6.6-8.7)
[2021-07-22 09:49] LABS: Basophils % 0.7 %; Hemoglobin 12.2 g/dL (11.5-15.3); Lymphocytes # 0.3 10^3/uL (0.8-4.8); Lymphocytes % 18.3 %; Mean Corpuscular HGB Conc 34.9 g/dL (30.0-36.0); Mean Corpuscular Hemoglobin 31.9 pg (28.0-34.0); Mean Corpuscular Volume 91.4 fl (81-99); Mean Platelet Volume 10.4 fL (7.4-10.4); Monocytes % 2.1 %; Neutrophils # 1.11 10^3/uL (1.8-7.7); Neutrophils % 78.2 %; Nucleated Red Blood Cells % 0 %; Platelet Count 160 10^3/cmm (130-400); Red Blood Count 3.83 10^6/uL (4.1-5.3); Red Cell Distribution Width 13.3 % (12.1-15.1); White Blood Count 1.4 10^3/uL (4.0-10.0)
--- NOTE | 2021-07-23 10:02 | ONCRAD TMN_ITS ---
Radiation Oncology Treatment Management Note Patient Name: Nita Moore Date of : 1970 Date of Service: 07/23/2021 Attending Physician: Prateek Wallace M.D. 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 She was evaluated by her primary care physician in late March for a persistent cough and wheezing. A chest radiograph revealed a 4 cm suprahilar mass. A thoracic CT scan ordered on April 25, 2021 demonstrated a 3.9 cm x 2.9 cm x 3.2 cm posterior right upper lobe mass with central cavitation. Right paratracheal and hilar lymphadenopathy measuring 3.6 cm x 3.2 cm x 5.6 cm were present. A bronchoscopy with endobronchial ultrasound-guided transbronchial needle biopsy was performed by Mohamud Sr M.D. on May 10, 2021. The anterior segment of the right upper lobe was occluded secondary to external compression. Biopsies obtained from the right upper lobe lesion and station 4R lymph node were positive for squamous cell carcinoma. PD???L1 TPS was more than 5%. A PET CT obtained on May 21, 2021 confirmed metabolic activity within the right upper lobe mass (SUV 17.8), right hilar and mediastinal lymphadenopathy (SUV 23.3), splenic flexure (SUV 20.4), and uterine fundus (SUV 23.7). A MRI of the head did not identify metastatic disease. The patient has received 46 Gy of a prescribed 60 Tobias with an intensity modulated radiotherapy plan utilizing a step and shoot treatment technique. She has been prescribed carboplatin (AUC 2) and paclitaxel (50 mg/m???) weekly during therapy. Upon review of systems, she denied pulmonary symptoms. On physical examination, the patient weighed 159 lbs. Her temperature was 97.8 ???F and the blood pressure was 105/73 mmHg. The pulse was 85 bpm and her respiratory rate was 18. Oxygen saturation while breathing room air was 98%. There was no erythema within the treatment hammond. Bronchial breath sounds were noted. Continue thoracic radiotherapy as prescribed. Signed by: Dr. Prateek Wallace 07/23/2021 10:00:29 AM
[2021-07-29 08:33] LABS: Hemoglobin 12.2 g/dL (11.5-15.3); Lymphocytes # 0.2 10^3/uL (0.8-4.8); Lymphocytes % 11.6 %; Mean Corpuscular HGB Conc 33.9 g/dL (30.0-36.0); Mean Corpuscular Hemoglobin 31.1 pg (28.0-34.0); Mean Corpuscular Volume 91.8 fl (81-99); Mean Platelet Volume 9.8 fL (7.4-10.4); Monocytes # 0.1 10^3/uL (0.2-0.9); Monocytes % 5.6 %; Neutrophils # 1.62 10^3/uL (1.8-7.7); Neutrophils % 81.8 %; Nucleated Red Blood Cells % 0 %; Platelet Count 199 10^3/cmm (130-400); Red Blood Count 3.92 10^6/uL (4.1-5.3); Red Cell Distribution Width 14.5 % (12.1-15.1)
[2021-07-29 08:46] LABS: Alanine Aminotransferase 26 U/L (0-33); Albumin Level 4.1 g/dL (3.5-5.2); Alkaline Phosphatase 95 IU/L (35-105); Anion Gap 15.3 (5-19); Aspartate Amino Transferase 23 U/L (0-32); Blood Urea Nitrogen 11 mg/dL (6-20); Calcium 8.9 mg/dL (8.5-10.5); Carbon Dioxide 27 mmol/L (22-29); Chloride 98 mmol/L (98-107); Globulin 2.9 g/dL (1.3-4.6); Glucose 151 mg/dL (65-115); Osmolality Calculated 284 mOsm/kg (285-295); Potassium 4.3 mmol/L (3.5-5.1); Sodium 136 mmol/L (136-145); Total Bilirubin 0.3 mg/dL (0.15-1.2)
[2021-07-29] MEDS: palonosetron 0.25 mg/5 mL SDV IV (09:55)
[2021-07-29] MEDS: sodium chloride 0.9% 250 ML 75 ML IV (09:55)
[2021-07-29] MEDS: famotidine 20 mg/2 mL INJ IVP (09:56)
[2021-07-29] MEDS: diphenhydrAMINE 50 mg/mL SDV 1mL 25 MG IV (09:58)
--- NOTE | 2021-07-30 13:33 | ONCRAD TMN_ITS ---
Radiation Oncology Treatment Management Note Patient Name: Nita Moore Date of : 1970 Date of Service: 07/30/2021 Attending Physician: Prateek Wallace M.D. 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 She was evaluated by her primary care physician in late March for a persistent cough and wheezing. A chest radiograph revealed a 4 cm suprahilar mass. A thoracic CT scan ordered on April 25, 2021 demonstrated a 3.9 cm x 2.9 cm x 3.2 cm posterior right upper lobe mass with central cavitation. Right paratracheal and hilar lymphadenopathy measuring 3.6 cm x 3.2 cm x 5.6 cm were present. A bronchoscopy with endobronchial ultrasound-guided transbronchial needle biopsy was performed by Mohamud Sr M.D. on May 10, 2021. The anterior segment of the right upper lobe was occluded secondary to external compression. Biopsies obtained from the right upper lobe lesion and station 4R lymph node were positive for squamous cell carcinoma. PD???L1 TPS was more than 5%. A PET CT obtained on May 21, 2021 confirmed metabolic activity within the right upper lobe mass (SUV 17.8), right hilar and mediastinal lymphadenopathy (SUV 23.3), splenic flexure (SUV 20.4), and uterine fundus (SUV 23.7). A MRI of the head did not identify metastatic disease. The patient has received 56 Gy of a prescribed 60 Tobias with an intensity modulated radiotherapy plan utilizing a step and shoot treatment technique. She has been prescribed carboplatin (AUC 2) and paclitaxel (50 mg/m???) weekly during therapy. Upon review of systems, she denied pulmonary symptoms but reported odynophagia. On physical examination, the patient weighed 156 lbs. Her temperature was 98 ???F and the blood pressure was 98/66 mmHg. The pulse was 97 bpm and her respiratory rate was 20. Oxygen saturation while breathing room air was 97%. There was no erythema within the treatment hammond. Bronchial breath sounds were auscultated. Continue thoracic radiotherapy as planned. Signed by: Dr. Prateek Wallace 07/30/2021 1:31:37 PM
--- NOTE | 2021-08-01 13:04 | N.ONRD TS_ITS ---
Radiation OncologyTreatment Summary Patient Name: Nita Moore Date of : 1970 Date of Service: 08/01/2021 Attending Physician: Prateek Wallace M.D. Nita Moore has completed definitive thoracic radiotherapy for the management of a clinical stage IIIA (T2bN2) squamous cell carcinoma of the right upper-lobe of the lung. She was evaluated by her primary care physician in late March for a persistent cough and wheezing. A chest radiograph revealed a 4 cm suprahilar mass. A thoracic CT scan ordered on April 25, 2021 demonstrated a 3.9 cm x 2.9 cm x 3.2 cm posterior right upper lobe mass with central cavitation. Right paratracheal and hilar lymphadenopathy measuring 3.6 cm x 3.2 cm x 5.6 cm were present. A bronchoscopy with endobronchial ultrasound-guided transbronchial needle biopsy was performed by Mohamud Sr M.D. on May 10, 2021. The anterior segment of the right upper lobe was occluded secondary to external compression. Biopsies obtained from the right upper lobe lesion and station 4R lymph node were positive for squamous cell carcinoma. PD???L1 TPS was more than 5%. A PET CT obtained on May 21, 2021 confirmed metabolic activity within the right upper lobe mass (SUV 17.8), right hilar and mediastinal lymphadenopathy (SUV 23.3), splenic flexure (SUV 20.4), and uterine fundus (SUV 23.7). A MRI of the head did not identify metastatic disease. Thoracic radiation therapy was delivered between the dates of June 19, 2021 through August 01, 2021. A prescribed dose of 60 Gy was delivered in 30 fractions encompassing 43 elapsed days. The left lower-lobe mass and thoracic lymphadenopathy were treated utilizing an intensity modulated radiotherapy plan with a step and shoot treatment technique. The plan required seven gantry angles (0???, 35???, 185???, 220???, 255???, 290???, and 325???) replicating a partial arc. The collimator rotation 0???. The field sizes spanned between 12.5 cm x 13 cm to 17.1 cm x 13.5 cm. The SSDs measured a minimum of 82.7 cm to a maximum of 89.4 cm. The ports delivered 226 MU, 137 MU, 229 MU, 116 MU, 199 MU, 195 MU, and 250 MU corresponding to the gantry angles described. All treatments were performed with the [employer] linear accelerator and an isocentric technique. The dose was calculated by Anisotropic Analytic Algorithm. A photon energy of 6 MV was prescribed with the plan normalized to deliver 100% of the prescription dose to 95% of the planning target volume. She was prescribed Carboplatin (AUC 2) and Paclitaxel (50 mg/m???) weekly (June 17, 2021 through July 29, 2021) during radiotherapy under the supervision of Braulio Lilly M.D Signed by: Dr. Prateek Wallace 08/01/2021 1:03:02 PM
== END 2021-08-16 23:59 | disposition home or self-care (01) ==
LOC: ONCMED 06:26
PROVIDERS: Internal Medicine Medical Oncology; Absent Provider Radiology Radiation Oncology; PCP Nurse Practitioner; Visit Provider Radiology Radiation Oncology
DX: Z51.0 Encounter for antineoplastic radiation therapy (principal); Z51.11 Encounter for antineoplastic chemotherapy; C34.11 Malignant neoplasm of upper lobe, right bronchus or lung; C54.1 Malignant neoplasm of endometrium; D12.4 Benign neoplasm of descending colon; J44.9 Chronic obstructive pulmonary disease, unspecified; F41.9 Anxiety disorder, unspecified; F32.9 Major depressive disorder, single episode, unspecified; E55.9 Vitamin D deficiency, unspecified; D70.1 Agranulocytosis secondary to cancer chemotherapy; T45.1X5A Adverse effect of antineoplastic and immunosuppressive drugs, initial encounter; Z86.16 Personal history of COVID-19; Z79.899 Other long term (current) drug therapy
CPT/HCPCS: 36591; 77014; 77336; 77386; 77427; 80053; 85025; 96367; 96375; 96413; 96417; 99215; J1100; J1200; J2469; J3490; J7030; J7040; J7050; J9045; J9267

== ENCOUNTER 2021-08-03 21:48 | Observation (INO) | payer OTHER, MEDICAID, SELFPAY ==
[2021-08-03 21:52] VITALS: BP 114/88; PULSE 107; RESP 18; TEMP 36.6; O2SAT 92; BMI 27.6
--- NOTE | 2021-08-03 22:08 | ED_ITS ---
HPI - Weakness General: Chief complaint: Weakness Stated complaint: WEAKNESS Time Seen by Provider: 08/03/21 21:57 History of Present Illness: HPI Narrative: 51-year-old female presenting with generalized weakness. She has a history of lung cancer for which she has been getting chemotherapy and radiation therapy. Her last chemotherapy treatment she says was on 07/29. She denies any fever. She has a cough. No sputum production. No vomiting. No diarrhea. She has been having a headache when she coughs especially. Complaint: generalized weakness Onset (ago): day(s) Duration: constant and progressively worsening Location: generalized Migration: none Quality: aching Relieving factors: none Exacerbating factors: none Context: recent illness and other Associated symptoms: Reports decreased appetite, headache(s), myalgias, nausea and short of breath; Denies chest pain, chills, confusion, diaphoresis, dysuria, fever(s), rash or vomiting Review of Systems Const: Denies: fever(s), chills or diaphoresis Card: Denies: chest pain GI: Reports: nausea; Denies: vomiting : Denies: dysuria Neuro: Reports: headache(s); Denies: confusion PFSH ED PFSH: Medical History Anxiety and depression Cigarette smoker Edema, unspecified Personal history of smoking Vitamin D insufficiency Surgical History History of tubal ligation Family History Sister Diabetes Mother Diabetes Hypertension Stroke Daughter Thyroid disease Denies family history of CAD (coronary artery disease) Clotting disorder Hyperlipidemia Chronic kidney disease (CKD) Bleeding disorder Cancer Social History Smoking and tobacco status: current every day smoker cigarettes Packs smoked per day: 2.5 Years cigarettes smoked: 25 Second hand smoke exposure: Yes Smoking risk assessment/counseling performed?: Yes Alcohol intake: unknown Desire information about alcohol rehabilitation?: No Counseling given: No Desire information about substance/drug rehabilitation?: No Counseling given: No Adopted: No Caregiver/support person: No Lives independently: Yes Household members: family Housing: House Marital status: / Number of children: 5 service: No Current occupational status: employed 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 History of recent travel: No Current gender identity: Female Physical Exam Const: COMMON NORMALS: patient oriented x3 and alert GENERAL APPEARANCE: ill appearing and frail appearing ORIENTATION/CONSCIOUSNESS: Yes awake, Yes oriented to person, Yes oriented to place and Yes oriented to time HENMT: COMMON NORMALS: normocephalic HEAD & SCALP: normocephalic Eye: COMMON NORMALS: Equal, round and reactive pupils present and EOMs intact bilaterally PUPIL: Yes Equal, round and reactive pupils present Chest: COMMONS NORMALS: normal inspection of the chest Resp: EFFORT & INSPECTION: Yes symmetric chest movement and Yes tachypneic AUSCULTATION: rhonchi, wheezes and diminished lung sounds Cardio: COMMON NORMALS: regular rhythm RATE: tachycardic RHYTHM: regular rhythm GI: COMMON NORMALS: Normal to inspection, nondistended, normoactive bowel sounds present and Soft to palpation PALPATION: Yes Soft to palpation Neuro: COMMON NORMALS: patient oriented x3 SENSORIUM/ORIENTATION: Yes alert, Yes oriented to person, Yes oriented to place and Yes oriented to time Course Consultations: Consultation #1: trena Time: 02:17 Vital Signs: Vital signs: Vital Signs Temperature 97.8 F 08/03/21 21:52 Pulse Rate 93 08/04/21 00:28 Respiratory Rate 18 08/04/21 00:28 Blood Pressure 103/57 08/04/21 00:28 Pulse Oximetry 94 08/04/21 00:28 MDM - Weakness MDM Narrative: Medical decision making narrative: 51-year-old female with generalized weakness and shortness of breath. She has a history of COPD. She is hypoxic, requiring oxygen. Her white blood cell count is 2.2, which is similar to prior. Her sodium is 134 creatinine 0.6. Her D-dimer is elevated. CTA of the chest shows some lessening of tumor load in the chest, but more diffuse infiltrative process. Does not necessarily appear to be infectious. Considering radiation pneumonitis to some degree. She has gotten steroids and duo nebs with some improvement, but still requiring oxygen. She'll be observed. Lab Data: Labs: Lab Results 08/03/21 08/03/21 08/03/21 23:00 23:00 23:00 WBC 2.2 10^3/uL L 10^ 3/uL (4.0-10.0) RBC 3.82 10^6/uL L 10 ^6/uL (4.1-5.3) Hgb 11.9 g/dL g/dL (11.5-15.3) Hct 34.7 % L % (37.0-47.0) MCV 90.8 fl fl (81-99) MCH 31.2 pg pg (28.0-34.0) MCHC 34.3 g/dL g/dL (30.0-36.0) RDW 14.6 % % (12.1-15.1) Plt Count 160 10^3/cmm 10^3 /cmm (130-400) MPV 10.1 fL fL (7.4-10.4) Neut % (Auto) 81.4 % % Lymph % (Auto) 7.7 % % [place] % (Auto) 8.1 % % Eos % (Auto) 0.5 % % Baso % (Auto) 0.5 % % Neut # (Auto) 1.80 10^3/uL 10^3 /uL (1.8-7.7) Lymph # (Auto) 0.2 10^3/uL L 10^ 3/uL (0.8-4.8) [place] # (Auto) 0.2 10^3/uL 10^3/ uL (0.2-0.9) Eos # (Auto) 0.0 10^3/uL 10^3/ uL (0.0-0.8) Baso # (Auto) 0.0 10^3/uL 10^3/ uL (0.0-0.1) Nucleated RBC % (a uto) 0 % % Nucleated RBCs # 0.0 /100WBC /100W BC PT 13.30 SECONDS SEC ONDS (12.1-14.9) INR 0.98 (0.8-1.2) APTT 28.0 SECONDS SECO NDS (23.9-36.7) D-Dimer 2.15 ug/mIFEU H u g/mIFEU (0-0.59) Specimen Type Sample Site ABG pH ABG pCO2 ABG pO2 ABG HCO3 ABG Base Excess Sunil Test Hematocrit O2 Delivery Device O2 Liters/Min Putty Glazer ID Sodium 134 mmol/L L mmol /L (136-145) Potassium 3.5 mmol/L mmol/L (3.5-5.1) Chloride 92 mmol/L L mmol/ L (98-107) Carbon Dioxide 24 mmol/L mmol/L (22-29) Anion Gap 21.5 H (5-19) BUN 17 mg/dL mg/dL (6-20) Creatinine 0.6 mg/dL mg/dL (0.5-0.9) GFR Calculation 105.0 mL/min mL/m in (90-130) Glucose 81 mg/dL mg/dL (65-115) Calculated Osmolal ity 279 mOsm/kg L mOs m/kg (285-295) Lactate Calcium 8.9 mg/dL mg/dL (8.5-10.5) Total Bilirubin 0.4 mg/dL mg/dL (0.15-1.2) AST 20 U/L U/L (0-32) ALT 23 U/L U/L (0-33) Alkaline Phosphata se 79 IU/L IU/L (35-105) C-Reactive Protein 192.0 mg/L H mg/L (0.0-4.9) NT-Pro-B Natriuret Pep 76 pg/mL pg/mL (0-125) Total Protein 7.1 g/dL g/dL (6.6-8.7) Albumin 4.0 g/dL g/dL (3.5-5.2) Globulin 3.1 g/dL g/dL (1.3-4.6) Procalcitonin 0.23 ng/mL ng/mL (0-0.5) Urine Color Urine Appearance Urine pH Ur Specific Gravit y Urine Protein Urine Glucose (UA) Urine Ketones Urine Blood Urine Nitrate Urine Bilirubin Urine Urobilinogen Ur Leukocyte [place] ase Urine RBC Urine WBC Ur Squamous Epith Cells Amorphous Sediment Urine Bacteria Urine Mucus Blood Type Rho(D) Type Antibody Screen 08/03/21 08/03/21 08/03/21 23:00 23:10 23:12 WBC RBC Hgb Hct MCV MCH MCHC RDW Plt Count MPV Neut % (Auto) Lymph % (Auto) [place] % (Auto) Eos % (Auto) Baso % (Auto) Neut # (Auto) Lymph # (Auto) [place] # (Auto) Eos # (Auto) Baso # (Auto) Nucleated RBC % (a uto) Nucleated RBCs # PT INR APTT D-Dimer Specimen Type Arterial Sample Site Radial, left ABG pH 7.44 (7.35-7.45) ABG pCO2 43.1 mmHg mmHg (35-45) ABG pO2 63.6 mmHg L mmHg (80.0-100.0) ABG HCO3 29.3 mmol/L H mmo l/L (22-26) ABG Base Excess 4.7 mmol/L H mmol /L (-2.0-2.0) Sunil Test Pos Hematocrit 34.5 % L % (37-47) O2 Delivery Device Nc O2 Liters/Min 2.0 % % Putty Glazer ID [email or web address] Sodium Potassium Chloride Carbon Dioxide Anion Gap BUN Creatinine GFR Calculation Glucose Calculated Osmolal ity Lactate 0.9 mmol/L mmol/L (0.5-2.2) Calcium Total Bilirubin AST ALT Alkaline Phosphata se C-Reactive Protein NT-Pro-B Natriuret Pep Total Protein Albumin Globulin Procalcitonin Urine Color Urine Appearance Urine pH Ur Specific Gravit y Urine Protein Urine Glucose (UA) Urine Ketones Urine Blood Urine Nitrate Urine Bilirubin Urine Urobilinogen Ur Leukocyte [place] ase Urine RBC Urine WBC Ur Squamous Epith Cells Amorphous Sediment Urine Bacteria Urine Mucus Blood Type B Positive Rho(D) Type Positive Antibody Screen Negative 08/03/21 23:45 WBC RBC Hgb Hct MCV MCH MCHC RDW Plt Count MPV Neut % (Auto) Lymph % (Auto) [place] % (Auto) Eos % (Auto) Baso % (Auto) Neut # (Auto) Lymph # (Auto) [place] # (Auto) Eos # (Auto) Baso # (Auto) Nucleated RBC % (a uto) Nucleated RBCs # PT INR APTT D-Dimer Specimen Type Sample Site ABG pH ABG pCO2 ABG pO2 ABG HCO3 ABG Base Excess Sunil Test Hematocrit O2 Delivery Device O2 Liters/Min Putty Glazer ID Sodium Potassium Chloride Carbon Dioxide Anion Gap BUN Creatinine GFR Calculation Glucose Calculated Osmolal ity Lactate Calcium Total Bilirubin AST ALT Alkaline Phosphata se C-Reactive Protein NT-Pro-B Natriuret Pep Total Protein Albumin Globulin Procalcitonin Urine Color Yellow (Yellow) Urine Appearance Clear (CLEAR) Urine pH 5 (5-7) Ur Specific Gravit y 1.020 (1.005-1.030) Urine Protein Neg (Negative) Urine Glucose (UA) Norm (Normal) Urine Ketones 2+ H (Negative) Urine Blood 2+ H (Negative) Urine Nitrate Negative (Negative) Urine Bilirubin 1+ H (Negative) Urine Urobilinogen 1 mg/dL H mg/dL (Negative) Ur Leukocyte [place] a[place] Negative (Negative) Urine RBC 5-10 /hpf H /hpf (0-2) Urine WBC 0-4 /hpf H /hpf (0-5) Ur Squamous Epith Cells 25-40 /hpf H /hpf (0-5) Amorphous Sediment Not Reportable Urine Bacteria 2+ /hpf H /hpf (NONE) Urine Mucus 4+ /hpf /hpf Blood Type Rho(D) Type Antibody Screen Discharge Plan Discharge Patient Disposition: Placed in Observation Clinical Impression: Acute exacerbation of chronic obstructive pulmonary disease Coding Level of Care Code ED [employer] Professional for Lashawn Fwd Exam Detailed
[2021-08-03 22:19] VITALS: BP 103/80; PULSE 100; RESP 18; O2SAT 93
--- NOTE | 2021-08-03 22:28 | XRR_ITS ---
PROCEDURE INFORMATION: Exam: XR Chest Exam date and time: 08/03/2021 10:28 PM Age: 51 years old Clinical indication: Other: Weakness; Prior surgery; Surgery date: 1-6 months; Surgery type: Port TECHNIQUE: Imaging protocol: XR of the chest. Views: 1 view. COMPARISON: CR XR chest 1V portable [id number] 06/04/2021 10:16 AM FINDINGS: Tubes, catheters and devices: Right chest tunneled Port-A-Cath terminates mid SVC. Lungs: Mild diffuse reticular interstitial changes. No consolidation. Pleural spaces: Unremarkable. No pleural effusion. No pneumothorax. Heart/Mediastinum: Unremarkable. No cardiomegaly. Bones/joints: Unremarkable. XR/XR chest 1V portable [id number] IMPRESSION: No acute chest abnormality.
--- NOTE | 2021-08-03 22:29 | ECG_ITS ---
[facility] Test Date: 2021-08-03 Pat Name: Nita Moore Department: Room: Gender: Female Talent Acquisition Manager: : 1970 Requested By: Tyson Zavala Order Number: [id number] Kj MD: CANDE PEÑA Measurements Intervals [place] Rate: 98 P: 62 MT: 173 QRS: 53 QRSD: 71 T: 63 QT: 326 QTc: 417 Interpretive Statements SINUS RHYTHM POSSIBLE LEFT ATRIAL ENLARGEMENT [-0.1mV P-WAVE IN V1/V2] No previous ECG available for comparison Electronically Signed On 08-04-2021 19:58:32 HOGSHEAD INSPECTOR by CANDE PEÑA [id number]
[2021-08-03] MEDS: sodium chloride 0.9% 1,000 ML 999 ML IV (22:30)
[2021-08-03] MEDS: ondansetron 2 mg/ML SDV 2 mL 4 MG IVP (22:30)
[2021-08-03 23:07] VITALS: BP 94/54; PULSE 103; RESP 18; O2SAT 93
[2021-08-03 23:08] LABS: Basophils % 0.5 %; Eosinophils % 0.5 %; Hematocrit 34.7 % (37.0-47.0); Hemoglobin 11.9 g/dL (11.5-15.3); Lymphocytes # 0.2 10^3/uL (0.8-4.8); Lymphocytes % 7.7 %; Mean Corpuscular HGB Conc 34.3 g/dL (30.0-36.0); Mean Corpuscular Hemoglobin 31.2 pg (28.0-34.0); Mean Corpuscular Volume 90.8 fl (81-99); Mean Platelet Volume 10.1 fL (7.4-10.4); Monocytes # 0.2 10^3/uL (0.2-0.9); Monocytes % 8.1 %; Neutrophils % 81.4 %; Nucleated Red Blood Cells % 0 %; Platelet Count 160 10^3/cmm (130-400); Red Blood Count 3.82 10^6/uL (4.1-5.3); Red Cell Distribution Width 14.6 % (12.1-15.1); White Blood Count 2.2 10^3/uL (4.0-10.0)
[2021-08-03 23:18] LABS: INR 0.98 (0.8-1.2)
[2021-08-03 23:21] LABS: D Dimer 2.15 ug/mIFEU (0-0.59)
[2021-08-03 23:24] LABS: ABG PCO2 43.1 mmHg (35-45); ABG PH Result 7.44 (7.35-7.45); Arterial Blood Gas Hematocrit 34.5 % (37-47); Base Excess ABG 4.7 mmol/L (-2.0-2.0); Blood Gas Allen Test Pos; Blood Gas Sample Site Radial, left; Blood Gas Sample Type Arterial; HCO3 ABG 29.3 mmol/L (22-26); Oxygen Device NC; PO2 ABG 63.6 mmHg (80.0-100.0)
[2021-08-03 23:25] LABS: Lactate (Lactic Acid level) 0.9 mmol/L (0.5-2.2)
[2021-08-03 23:35] LABS: NT Pro B Type Natriuretic Pept 76 pg/mL (0-125); Procalcitonin 0.23 ng/mL (0-0.5)
[2021-08-03 23:46] LABS: Alanine Aminotransferase 23 U/L (0-33); Alkaline Phosphatase 79 IU/L (35-105); Anion Gap 21.5 (5-19); Aspartate Amino Transferase 20 U/L (0-32); Blood Urea Nitrogen 17 mg/dL (6-20); Calcium 8.9 mg/dL (8.5-10.5); Carbon Dioxide 24 mmol/L (22-29); Chloride 92 mmol/L (98-107); Globulin 3.1 g/dL (1.3-4.6); Glucose 81 mg/dL (65-115); Osmolality Calculated 279 mOsm/kg (285-295); Potassium 3.5 mmol/L (3.5-5.1); Sodium 134 mmol/L (136-145); Total Bilirubin 0.4 mg/dL (0.15-1.2); Total Protein 7.1 g/dL (6.6-8.7)
--- NOTE | 2021-08-03 23:46 | CTR_ITS ---
PROCEDURE INFORMATION: Exam: CTA Chest With Contrast Exam date and time: 08/03/2021 11:46 PM Age: 51 years old Clinical indication: Cough and shortness of breath; Chest pressure; Prior surgery; Surgery type: Chest port; Patient HX: Chest pain with SOB and general weakness. Elevated d dimer. History of lung cancer. On active chemotherapy; Additional info: Chest pain weakness TECHNIQUE: Imaging protocol: Computed tomographic angiography of the chest with contrast. 3D rendering (Not supervised by radiologist): MIP and/or 3D reconstructed images were created by the technologist. Radiation optimization: All CT scans at this facility use at least one of these dose optimization techniques: automated exposure control; mA and/or kV adjustment per patient size (includes targeted exams where dose is matched to clinical indication); or iterative reconstruction. Contrast material: OMNI 350; Contrast volume: 52 ml; Contrast route: INTRAVENOUS (IV); COMPARISON: CT chest w con* [id number] 04/25/2021 2:35 PM RADIATION DOSE METRICS: Total DLP (mGy-cm): 512 FINDINGS: Tubes, catheters and devices: Right chest tunnel Port-A-Cath terminates in the distal superior vena cava. Pulmonary arteries: Normal. No pulmonary emboli. Aorta: Unremarkable. No aortic aneurysm. No aortic dissection. Lungs: Severe centrilobular emphysema. Left upper lobe calcified granuloma. Hyperinflated lungs. Pleural spaces: Spiculated mass spans the superior margin of the right major fissure involves both posterior right upper lobe and anterior lower lobe. Significant reduction in volume of mass. Difficult to accurately measure. Central areas of cavitation redemonstrated. Heart: Unremarkable. No cardiomegaly. No pericardial effusion. Mediastinal space: Infiltrative mass of the right mediastinum. Decrease in size of right paratracheal lymphadenopathy. However, increased soft tissue density of right hilum and soft tissue density surrounding right mainstem bronchus and right upper lobe bronchus. Lymph nodes: Mild right paratracheal lymphadenopathy reduced from comparison. Bones/joints: Unremarkable. No acute fracture. Soft tissues: Unremarkable. CT/CT angio chest PE protcl [id number] IMPRESSION: 1. Negative for pulmonary embolism. 2. Reduced size of right lung mass. 3. Reduced size of right paratracheal lymphadenopathy. 4. There is some general increase in infiltrative soft tissue density of the right lateral mediastinum and hilum encasing the right mainstem bronchus and right upper lobe bronchus.
[2021-08-04] VITALS (13 sets, daily range): BP systolic 93–112; BP diastolic 52–74; PULSE 75–101; RESP 16–20; TEMP 36.7; O2SAT 89–97; BMI 27.6
[2021-08-04] MEDS: iohexol 350 mg/mL 100 mL Btl IV (00:02)
[2021-08-04 00:15] LABS: Add Urine Microscopic? YES; Bilirubin Urine 1+ (Negative); Blood Urine 2+ (Negative); Glucose Urine UA Norm (Normal); Ketones Urine 2+ (Negative); Leukocyte Esterase Urine Negative (Negative); Nitrate Urine Negative (Negative); Protein Urine Neg (Negative); Urine Appearance Clear (CLEAR); Urine Color Yellow (Yellow); Urobilinogen Urine 1 mg/dL (Negative); pH Urine 5 (5-7)
[2021-08-04 00:20] LABS: Add Urine Culture? No; Bacteria Urine 2+ /hpf; Mucus Urine 4+ /hpf; Squamous Epithelial Cell Urine 25-40 /hpf (0-5); WBC Urine 0-4 /hpf (0-5)
[2021-08-04] MEDS: ipratropium-albuterol 3 mL Neb INHALATION ×3 (02:40→20:33)
[2021-08-04] MEDS: enoxaparin 40 mg/0.4 mL Syringe SUBCUT (04:27)
[2021-08-04] MEDS: cefTRIAXone 1,000 MG in sodium chloride 0.9% (plus) 50 ML 100 MG IV (04:27)
[2021-08-04 04:34] LABS: Procalcitonin 0.18 ng/mL (0-0.5)
--- NOTE | 2021-08-04 06:46 | P.HP_ITS ---
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 No URI symptoms, no Nausea, vomitng, diarrhea. NEw 02 requirement of 3lpm today. New 02 requirement of 3lpm. Right side chest pain+ Review of Systems General: Reports: 10 or more systems reviewed and unremarkable except in HPI and below Const: Denies: fever(s), chills or body aches Eyes: Denies: change in vision, blurry vision or photophobia ENMT: Reports: hoarseness; Denies: throat pain, enlarged tonsils, odynophagia or nasal congestion Card: Denies: chest pain, palpitations, irregular heart rhythm, edema, swelling of feet/ankles, lightheadedness, pre-syncope, dyspnea on exertion or orthopnea Resp: Denies: dyspnea, productive cough, non-productive cough, wheezing, stridor, pain on inspiration, change in phlegm color, hemoptysis or chest c ongestion GI: Denies: abdominal pain, nausea, vomiting, hematemesis, coffee ground emesis, dysphagia, heartburn, diarrhea, constipation, GI cramping, change in stool character, hematochezia or melena : Denies: flank pain, difficulty voiding, dysuria, urinary frequency, urinary urgency, urinary hesitancy or hematuria Musc: Denies: neck pain, back pain, extremity pain, joint swelling, joint warmth or deformity Neuro: Denies: headache(s), numbness in extremities, weakness in extremities, sensory changes, difficulty walking, frequent falls, dizziness, vertigo, behavioral changes, Slurred speech present or seizure-like activity Psych: Denies: anxiety, depression, suicidal ideation or homicidal ideation Endo: Denies: polyuria, polydipsia, tired all the time, cold intolerance or hot flashes [place]/Lymph: Denies: easy bruising or easy bleeding Medications/Allergies Home Medications Medication Instructions Recorded Confirmed Last Taken Type ergocalciferol (vitamin D2) 50,000 1 unit PO DAILY 11/07/19 07/25/21 06/07/21 History unit tablet aspirin 325 mg tablet,delayed 325 mg PO DAILY #30 tab 01/27/20 07/25/21 06/07/21 Rx release furosemide 20 mg tablet 20 mg PO DAILY #90 tab 04/08/21 07/25/21 06/07/21 Rx potassium chloride 10 mEq 10 meq PO DAILY #90 cap 04/08/21 07/25/21 06/07/21 Rx capsule,extended release nicotine See Rx Instructions TRANSDERMAL 05/29/21 07/25/21 Unknown Rx 21mg/24hr-14mg/24hr-7mg/24hr daily .COMPLEX #56 patch transderm patches,sequentl omeprazole 20 mg capsule,delayed 20 mg PO DAILY 05/31/21 07/25/21 06/07/21 History release fluticasone fur. 100 mcg-umeclid 1 inh INHALATION DAILY #60 ea 06/04/21 07/25/21 06/08/21 Rx 62.5 mcg-vilant 25 mcg inhalat.powder hydrocodone-acetaminophen 1 tab PO Q6H PRN #14 tab 06/04/21 07/25/21 06/06/21 Rx albuterol sulfate 2.5 mg INHALATION Q6H PRN 06/10/21 07/25/21 06/09/21 History ondansetron 4 mg PO Q8H PRN #10 tab 06/30/21 07/25/21 Unknown Rx Allergies Allergy/AdvReac Type Severity Reaction Status Date / Time codeine Allergy Unknown Verified 08/03/21 21:59 Sulfa (Sulfonamide Allergy Unknown Verified 08/03/21 21:59 Antibiotics) PFSH Acute PFSH: Medical History Anxiety and depression Cigarette smoker Edema, unspecified Personal history of smoking Vitamin D insufficiency Surgical History History of tubal ligation Family History Sister Diabetes Mother Diabetes Hypertension Stroke Daughter Thyroid disease Denies family history of CAD (coronary artery disease) Clotting disorder Hyperlipidemia Chronic kidney disease (CKD) Bleeding disorder Cancer Social History Smoking and tobacco status: current every day smoker cigarettes Packs smoked per day: 2.5 Years cigarettes smoked: 25 Second hand smoke exposure: Yes Smoking risk assessment/counseling performed?: Yes Alcohol intake: unknown Desire information about alcohol rehabilitation?: No Counseling given: No Desire information about substance/drug rehabilitation?: No Counseling given: No Adopted: No Caregiver/support person: No Lives independently: Yes Household members: family Housing: House Marital status: / Number of children: 5 service: No Current occupational status: employed 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 History of recent travel: No Current gender identity: Female Vitals/I&O/Wt Last Vital Signs Temp 97.8 F 08/03/21 21:52 Pulse 93 08/04/21 04:30 Resp 18 08/04/21 02:52 BP 93/59 08/04/21 04:30 Pulse Ox 92 08/04/21 04:30 08/03/21 08/03/21 08/04/21 14:59 22:59 06:59 Intake Total 1050 / 1050 Balance 1050 / 1050 Weight last 48 hrs Weight 68.492 kg Physical Exam Narrative: EXAM NARRATIVE: General: No acute distress, AO x3 HEENT: PERRLA, pupils bilaterally equal and reactive, pallors not present Chest: wheezing to auscultation B/L CVS: S1-S2 regular, no murmurs, no tachycardia, no gallops, no rubs Abdomen: Soft, nontender, no organomegaly, bowel sounds present Neuro: No focal deficits, no facial deformity, AO x3, power 5/5 in all limbs Data : 08/03/21 23:00 08/03/21 23:00 Micro: Microbiology 08/03/21 23:00 Blood Culture - Preliminary Blood SPECIMEN COLLECTED 08/03/21 23:00 Blood Culture - Preliminary Blood SPECIMEN COLLECTED Attestation for Other Data: I personally reviewed and interpreted the following: Other data: Laboratory Results WBC 2.2 10^3/uL (4.0-10.0) L 08/03/21 23:00 RBC 3.82 10^6/uL (4.1-5.3) L 08/03/21 23:00 Hgb 11.9 g/dL (11.5-15.3) 08/03/21 23:00 Hct 34.7 % (37.0-47.0) L 08/03/21 23:00 MCV 90.8 fl (81-99) 08/03/21 23:00 MCH 31.2 pg (28.0-34.0) 08/03/21 23:00 MCHC 34.3 g/dL (30.0-36.0) 08/03/21 23:00 RDW 14.6 % (12.1-15.1) 08/03/21 23:00 Plt Count 160 10^3/cmm (130-400) 08/03/21 23:00 MPV 10.1 fL (7.4-10.4) 08/03/21 23:00 Neut % (Auto) 81.4 % 08/03/21 23:00 Lymph % (Auto) 7.7 % 08/03/21 23:00 [place] % (Auto) 8.1 % 08/03/21 23:00 Eos % (Auto) 0.5 % 08/03/21 23:00 Baso % (Auto) 0.5 % 08/03/21 23:00 Neut # (Auto) 1.80 10^3/uL (1.8-7.7) 08/03/21 23:00 Lymph # (Auto) 0.2 10^3/uL (0.8-4.8) L 08/03/21 23:00 [place] # (Auto) 0.2 10^3/uL (0.2-0.9) 08/03/21 23:00 Eos # (Auto) 0.0 10^3/uL (0.0-0.8) 08/03/21 23:00 Baso # (Auto) 0.0 10^3/uL (0.0-0.1) 08/03/21 23:00 Nucleated RBC % (auto) 0 % 08/03/21 23:00 Nucleated RBCs # 0.0 /100WBC 08/03/21 23:00 PT 13.30 SECONDS (12.1-14.9) 08/03/21 23:00 INR 0.98 (0.8-1.2) 08/03/21 23:00 APTT 28.0 SECONDS (23.9-36.7) 08/03/21 23:00 D-Dimer 2.15 ug/mIFEU (0-0.59) H 12/18/21 23:00 Specimen Type Arterial 08/03/21 23:12 Sample Site Radial, left 08/03/21 23:12 ABG pH 7.44 (7.35-7.45) 08/03/21 23:12 ABG pCO2 43.1 mmHg (35-45) 08/03/21 23:12 ABG pO2 63.6 mmHg (80.0-100.0) L 08/03/21 23:12 ABG HCO3 29.3 mmol/L (22-26) H 08/03/21 23:12 ABG Base Excess 4.7 mmol/L (-2.0-2.0) H 08/03/21 23:12 Sunil Test Pos 08/03/21 23:12 Hematocrit 34.5 % (37-47) L 08/03/21 23:12 O2 Delivery Device Nc 08/03/21 23:12 O2 Liters/Min 2.0 % 08/03/21 23:12 Pharmacy Affairs Assistant ID [email or web address] 08/03/21 23:12 Sodium 134 mmol/L (136-145) L 08/03/21 23:00 Potassium 3.5 mmol/L (3.5-5.1) 08/03/21 23:00 Chloride 92 mmol/L (98-107) L 08/03/21 23:00 Carbon Dioxide 24 mmol/L (22-29) 08/03/21 23:00 Anion Gap 21.5 (5-19) H 08/03/21 23:00 BUN 17 mg/dL (6-20) 08/03/21 23:00 Creatinine 0.6 mg/dL (0.5-0.9) 08/03/21 23:00 GFR Calculation 105.0 mL/min (90-130) 08/03/21 23:00 Glucose 81 mg/dL (65-115) 08/03/21 23:00 Calculated Osmolality 279 mOsm/kg (285-295) L 08/03/21 23:00 Lactate 0.9 mmol/L (0.5-2.2) 08/03/21 23:00 Calcium 8.9 mg/dL (8.5-10.5) 08/03/21 23:00 Total Bilirubin 0.4 mg/dL (0.15-1.2) 08/03/21 23:00 AST 20 U/L (0-32) 08/03/21 23:00 ALT 23 U/L (0-33) 08/03/21 23:00 Alkaline Phosphatase 79 IU/L (35-105) 08/03/21 23:00 C-Reactive Protein 192.0 mg/L (0.0-4.9) H 08/03/21 23:00 NT-Pro-B Natriuret Pep 76 pg/mL (0-125) 08/03/21 23:00 Total Protein 7.1 g/dL (6.6-8.7) 08/03/21 23:00 Albumin 4.0 g/dL (3.5-5.2) 08/03/21 23:00 Globulin 3.1 g/dL (1.3-4.6) 08/03/21 23:00 Procalcitonin 0.18 ng/mL (0-0.5) 08/04/21 03:51 Urine Color Yellow (Yellow) 08/03/21 23:45 Urine Appearance Clear (CLEAR) 08/03/21 23:45 Urine pH 5 (5-7) 08/03/21 23:45 Ur Specific [place] 1.020 (1.005-1.030) 08/03/21 23:45 Urine Protein Neg (Negative) 08/03/21 23:45 Urine Glucose (UA) Norm (Normal) 08/03/21 23:45 Urine Ketones 2+ (Negative) H 08/03/21 23:45 Urine Blood 2+ (Negative) H 08/03/21 23:45 Urine Nitrate Negative (Negative) 08/03/21 23:45 Urine Bilirubin 1+ (Negative) H 08/03/21 23:45 Urine Urobilinogen 1 mg/dL (Negative) H 08/03/21 23:45 Ur Leukocyte Esterase Negative (Negative) 08/03/21 23:45 Urine RBC 5-10 /hpf (0-2) H 08/03/21 23:45 Urine WBC 0-4 /hpf (0-5) H 08/03/21 23:45 Ur Squamous Epith Cells 25-40 /hpf (0-5) H 08/03/21 23:45 Amorphous Sediment Not Reportable 08/03/21 23:45 Urine Bacteria 2+ /hpf (NONE) H 08/03/21 23:45 Urine Mucus 4+ /hpf 08/03/21 23:45 Blood Type B Positive 08/03/21 23:10 Rho(D) Type Positive 08/03/21 23:10 Antibody Screen Negative 08/03/21 23:10 Impressions Chest X-Ray 08/03/21 22:28 IMPRESSION: No acute chest abnormality. Chest CTA 08/03/21 23:46 IMPRESSION: 1. Negative for pulmonary embolism. 2. Reduced size of right lung mass. 3. Reduced size of right paratracheal lymphadenopathy. 4. There is some general increase in infiltrative soft tissue density of the right lateral mediastinum and hilum encasing the right mainstem bronchus and right upper lobe bronchus. A&P Assessment and plan (1) Acute exacerbation of chronic obstructive pulmonary disease: Status: Acute (2) Metastatic squamous cell carcinoma: Status: Acute Additional A&P Information 51F with sq cell ca of lung currently on chemoradiation, p/w dyspnea, cough likely related to COPD exacerbation and known lung malignancy Duoneb and budesonide scheduled inhalation Methylprednisone 40mg iv q8h supplemental 02 to keep sat >92% leukopenia likely related to ongoing chemotherapy, no consolidation on CT chest CTA negative for PE Attestations Medical Necessity Statement*: less than 2 midnight admission anticipated for COPD exacerbation Coding Level of Care Code Acute Tennis Coach for Lashawn Hines Diagnoses Acute exacerbation of chronic obstructive pulmonary disease J44.1 Metastatic squamous cell carcinoma C79.9
[2021-08-04 07:24] LABS: SARS Covid-2 Antigen Negative (Negative)
--- NOTE | 2021-08-04 08:24 | PC.NURSE ---
Recieved report form RN, rounded on pt and brought a breakfast tray. Pt assisted with sitting up in bed, denies any further needs
--- NOTE | 2021-08-04 08:39 | PC.NURSE ---
Daughter Crystal calling for update, will check back a little later. [phone]
[2021-08-04] MEDS: aspirin 325 mg EC Tablet PO (08:53)
[2021-08-04] MEDS: pantoprazole DR 40 mg Tablet PO (08:54)
[2021-08-04] MEDS: piperacillin-tazobactam 3.375 GM in sodium chloride 0.9% (plus) 50 ML IV ×2 (08:58→16:53)
[2021-08-04] MEDS: budesonide 0.5 mg/2 mL Neb INHALATION ×2 (09:30→20:33)
[2021-08-04] MEDS: FUROsemide 20 mg Tablet PO (09:45)
[2021-08-04] MEDS: FUROsemide 40 mg Tablet 20 MG PO (10:37)
--- NOTE | 2021-08-04 14:31 | P.PN_ITS ---
Subjective Subjective: Interval history: Patient was seen this morning, she tells me she is feeling better, no chest pain, palpitations, no shortness of breath, is on 3 L Vitals/I&O/Wt Last Vital Signs Temp 97.8 F 08/03/21 21:52 Pulse 101 H 08/04/21 09:40 Resp 18 08/04/21 09:40 BP 108/72 08/04/21 08:23 Pulse Ox 92 08/04/21 09:40 08/03/21 08/04/21 08/04/21 22:59 06:59 14:59 Intake Total 1050 / 1050 6.667 / 6.667 Balance 1050 / 1050 6.667 / 6.667 Weight last 48 hrs Weight 68.492 kg Physical Exam Const: COMMON NORMALS: no acute distress and patient oriented x3 Resp: COMMON NORMALS: normal respiratory effort, No retractions and No use of accessory muscles AUSCULTATION: wheezes Cardio: COMMON NORMALS: regular rate, regular rhythm, S1 normal heart sound present and S2 normal heart sound present RATE: regular rate RHYTHM: regular rhythm HEART SOUNDS: S1 normal heart sound present and S2 normal heart sound present GI: COMMON NORMALS: Normal to inspection, nondistended, normoactive bowel so unds present, Soft to palpation and non-tender PALPATION: Yes Soft to palpation Extremity: COMMON NORMALS: no pedal edema Neuro: COMMON NORMALS: patient oriented x3 Psych: COMMON NORMALS: mental status grossly normal Data : 08/03/21 23:00 08/03/21 23:00 Micro: Microbiology 08/03/21 23:00 Blood Culture - Preliminary Blood SPECIMEN COLLECTED 08/03/21 23:00 Blood Culture - Preliminary Blood SPECIMEN COLLECTED A&P Assessment and plan (1) Acute exacerbation of chronic obstructive pulmonary disease: Status: Acute (2) Metastatic squamous cell carcinoma: Status: Acute Additional A&P Information 51F with sq cell ca of lung currently on chemoradiation, p/w dyspnea, cough likely related to COPD exacerbation and known lung malignancy Duoneb and budesonide scheduled inhalation Methylprednisone 40mg iv q8h Zosyn for antibiotic coverage, given leukopenia supplemental 02 to keep sat >92% leukopenia likely related to ongoing chemotherapy CTA negative for PE Covid PCR pending Attestations Medical Necessity Statement*: Patient requires hospitalization for COPD exacerbation Coding Level of Care Code Acute Convenience Store Manager for g Fwd Diagnoses Acute exacerbation of chronic obstructive pulmonary disease J44.1 Metastatic squamous cell carcinoma C79.9
--- NOTE | 2021-08-04 15:55 | PC.NURSE ---
Report called to floor, given to Sergei Royal.
[2021-08-05] VITALS (10 sets, daily range): BP systolic 96–106; BP diastolic 62–69; PULSE 84–99; RESP 14–20; TEMP 36.6–36.9; O2SAT 93–95
[2021-08-05] MEDS: piperacillin-tazobactam 3.375 GM in sodium chloride 0.9% (plus) 50 ML IV ×2 (01:08→07:54)
[2021-08-05] MEDS: ipratropium-albuterol 3 mL Neb INHALATION ×2 (02:58→09:55)
[2021-08-05] MEDS: enoxaparin 40 mg/0.4 mL Syringe SUBCUT (04:12)
[2021-08-05] MEDS: FUROsemide 40 mg Tablet 20 MG PO (07:53)
[2021-08-05] MEDS: aspirin 325 mg EC Tablet PO (07:53)
[2021-08-05] MEDS: pantoprazole DR 40 mg Tablet PO (07:54)
--- NOTE | 2021-08-05 09:33 | PC.CHAP ---
Pastoral Care Encounter/Spiritual Assessment Type of Contact [] Declined adjunct professor of voice visit [] Patient/Family/Request visit [] Outpatient visit [] Follow-up visit [] Physician referral [] Code/Alert [x] Routine visit [] Staff referral [] Actively dying [] Patient sleeping [] Family support [] [] Out of room [] Palliative care [] [] Receiving care in room [] Pre-surgical visit [] Trauma [] Long length of stay [] ICU visit [] Other: Relational/Emotional Strength [x] Patient feels connected with others/family/visitors/staff [] Distress [] Loneliness/isolation [] Abandonment Spirituality of Patient []x Person of Aleksandra [] Attends Jainism of their Aleksandra [x] Believes in Prayer [] Reads Bible or Oriental Orthodox materials [] There are Spiritual issues to be addressed School Aide Interventions [x] Prayer x] Active listening x[] Non-anxious presence [] Spiritual/emotional support [] Crisis/trauma care [] Spiritual counseling [] Bereavement support [] Provided bereavement packet [] Provided Bible/devotional materials [] Provided toy/stuffed animal, coloring book to patient or family member [] Provided Communion [] Anointing/[place] [] Salvation [x] Completed spiritual assessment [] Other: Impact on Illness or Injury [] Angry [] Fearful [] Anxious [] Often cries [] Exhaustion [] Unable to work [] Unable to attend zoroastrianism [] Unable to walk/stand [] Unable to read [] Unable to drive [] Unable to eat/drink [] Unable to sleep [] Unable to be with family [] Patient intubated [] Other: Summary Time spent with patient 10 mi n
[2021-08-05] MEDS: budesonide 0.5 mg/2 mL Neb INHALATION (09:58)
--- NOTE | 2021-08-05 12:32 | PC.NURSE ---
Called patient's daughter Jazmine [phone], left message. Called patient's daughter Sera [phone], she said she will get ahold of Jazmine or come get patient.
--- NOTE | 2021-08-05 14:32 | PC.NURSE ---
discharge instructions given to patient and patient verbalized understanding of instructions. patient taken to private vehicle via wheelchair by staff.
[2021-08-05 15:00] LABS: Coronavirus Test Green County Not Detected
--- NOTE | 2021-08-05 15:45 | PM.DCS ---
Discharge Providers Date of Admission: 08/04/21 02:22 Date of Discharge: August 05, 2021 Attending Provider at Admission: Heaven Sevilla MD Attending Provider at Discharge: Servando Yip MD Primary Care Provider: TAPAN Marcus Diagnoses at Discharge Discharge Diagnosis (1) Acute exacerbation of chronic obstructive pulmonary disease: Status: Acute (2) Metastatic squamous cell carcinoma: Status: Acute Reason for Visit Reason for Visit: WEAKNESS Hospital Course Hospital Course 51 year old female squamous cell carcinoma of the right upper-lobe of the lung, COPD, p/w cough and shortness of breath over the past 4-5 days. Upon arrival in the ER she was worked up for above-mentioned complaint CTA chest: Negative for pulmonary embolism. Reduced size of right lung mass. Reduced size of right paratracheal lymphadenopathy. There is some general increase in infiltrative soft tissue density of the right lateral mediastinum and hilum encasing the right mainstem bronchus and right upper lobe bronchus. She was admitted for the management of COPD exacerbation: She was kept on nebs Solu-Medrol, inhalers, empirically on antibiotics, Covid PCR was negative ,she responded well to above medical management, she was discharged on p.o. Augmentin as well as levofloxacin given her immunocompromised status, and possibility of underlying pneumonia, as well as on prednisone. At the time of discharge she did not qualified for any home oxygen.She responded well to above medical management and was discharged in stable condition to home. She will continue to follow with her primary care physician as an outpatient. Physical Exam Const: COMMON NORMALS: patient oriented x3 HENMT: COMMON NORMALS: normocephalic and atraumatic HEAD & SCALP: normocephalic and atraumatic Resp: COMMON NORMALS: clear to auscultation bilaterally EFFORT & INSPECTION: Yes symmetric chest movement AUSCULTATION: clear to auscultation bilaterally Cardio: COMMON NORMALS: regular rate, regular rhythm, S1 normal heart sound present, S2 normal heart sound present, No gallops present (Cardio), No murmurs present (Cardio), No rub (Cardio) and Peripheral pulses 2+ throughout RATE: regular rate RHYTHM: regular rhythm HEART SOUNDS: S1 normal heart sound present and S2 normal heart sound present PERIPHERAL PULSES: Peripheral pulses 2+ throughout GI: COMMON NORMALS: Normal to inspection, nondistended, normoactive bowel sounds present, Soft to palpation, non-tender, No hepatosplenomegaly present and no masses AUSCULTATION: Yes normoactive bowel sounds PALPATION: Yes Soft to palpation and Yes No hepatosplenomegaly present RECTAL EXAM: deferred Extremity: COMMON NORMALS: no clubbing, cyanosis or edema and no pedal edema Neuro: COMMON NORMALS: patient oriented x3 Discharge Data Data Completed and Pending: Completed Studies During Hospitalization Category Date Time Status CT angio chest PE protcl [id number] Urge nt Cat Scan 08/03/21 23:46 Completed XR chest 1V sagrario ble [id number] Urgent Exams 08/03/21 22:28 Completed Pending at discharge Category Date Time Status Blood Culture Sta t Lab 08/03/21 23:00 Results Labs from last 24 hours 08/05/21 04:15 Nasal/Oral COVID-1 9 PCR Not detected Vitals: Last Vital Signs Temp 98.0 F 08/05/21 14:33 Pulse 99 08/05/21 14:33 Resp 16 08/05/21 14:33 BP 103/69 08/05/21 14:33 Pulse Ox 94 08/05/21 14:33 Discharge Plan Discharge Patient Disposition: Home Condition: Stable Prescriptions: New levofloxacin 750 mg tablet 750 mg PO DAILY 10 Days Qty: 10 RF: 0 Augmentin 500-125 mg tablet 1 tab PO BID 7 Days Qty: 14 RF: 0 prednisone 20 mg tablet 40 mg PO DAILY Qty: 5 RF: 0 Continued nicotine 21-14-7 mg/24 hr patch, TD daily, sequential See Rx Instructions transdermal .COMPLEX Qty: 56 RF: 0 omeprazole 20 mg capsule,delayed release(DR/EC) 20 mg PO DAILY RF: 0 aspirin 325 mg tablet,delayed release (DR/EC) 325 mg PO DAILY Qty: 30 RF: 0 Hold Instructions: Resume on 06/08/21. potassium chloride 10 mEq capsule, extended release 10 meq PO DAILY Qty: 90 RF: 1 Trelegy Ellipta 100-62.5-25 mcg blister with device 1 inh inhalation DAILY Qty: 60 RF: 3 hydrocodone-acetaminophen 5-325 mg tablet 1 tab PO Q6H PRN (Reason: pain) Qty: 14 RF: 0 albuterol sulfate 2.5 mg /3 mL (0.083 %) solution for nebulization 2.5 mg INHALATION Q6H PRN (Reason: Shortness Of Breath) RF: 0 ondansetron 4 mg tablet,disintegrating 4 mg PO Q8H PRN (Reason: nausea and vomiting) Qty: 10 RF: 0 citalopram 20 mg Tablet 20 mg PO DAILY RF: 0 dexamethasone 4 mg Tablet See Rx Instructions .ROUTE .COMPLEX RF: 0 Vitamin D3 25 mcg (1,000 unit) Capsule 25 mcg PO DAILY RF: 0 Held furosemide [Lasix] 20 mg tablet 20 mg PO DAILY Qty: 90 RF: 1 Hold Instructions: Resume on 08/12/21. Discharge Orders: Discharge Order (Routine); Ordered 08/05/21 Ordered By: Servando Yip Referrals: Gerardo Zepeda, DAIRY FARMWORKERAudeliaC [Primary Care Provider] - 1 week (Follow up appointment scheduled August 08 at 9:30am.) Patient Instructions: COPD, Prednisone (By mouth), Amoxicillin/Clavulanate Potassium (By mouth), Levofloxacin (By mouth), COPD Stoplight, Opioid Safety Discharge Attestations Time Spent in Discharge Care*: less than 30 min Specific Discharge Activities: educating patient, educating and/or supporting family/caregiver, discussing with pcp/other providers, discussing with human services case manager/social workers/dc planners, documenting/other paperwork and evaluating patient/reviewing data Status at Discharge: Cognitive status at discharge: cognitively intact, Behavioral status at discharge: cooperative, Functional status at discharge: independent ambulation Overall status at discharge: patient is back to baseline Quality Metrics Clinical Quality Measures During this hospital stay, did patient experience: None Coding Level of Care Code Acute Chg FW DC note Exam Detailed Diagnoses Acute exacerbation of chronic obstructive pulmonary disease J44.1 Metastatic squamous cell carcinoma C79.9
== END 2021-08-05 14:34 | disposition home or self-care (01) ==
LOC: ER 08-04 02:17 → ER IP 08-04 03:00 → MEDSURG 08-04 15:51
PROVIDERS: Family Medicine; Admitting Provider Student in an Organized Health Care Education/Training Program; Emergency Provider Emergency Medicine; PCP Nurse Practitioner; Visit Provider Internal Medicine
DX: J44.1 Chronic obstructive pulmonary disease with (acute) exacerbation (principal); C79.9 Secondary malignant neoplasm of unspecified site; Z79.82 Long term (current) use of aspirin; F41.9 Anxiety disorder, unspecified; F32.9 Major depressive disorder, single episode, unspecified; F17.210 Nicotine dependence, cigarettes, uncomplicated; E55.9 Vitamin D deficiency, unspecified; Z82.49 Family history of ischemic heart disease and other diseases of the circulatory system; Z83.3 Family history of diabetes mellitus; Z82.3 Family history of stroke
CPT/HCPCS: 36415; 71045; 71275; 80053; 81001; 82803; 83605; 83880; 84145; 85025; 85378; 85610; 85730; 86140; 86850; 86900; 87040; 87426; 87635; 93005; 94640; 96365; 96366; 96367; 96372; 96375; 96376; 99291; G0378; J0696; J1650; J2405; J2543; J2920; J2930; J7030; J7626; Q9967

== ENCOUNTER 2021-08-27 07:50 | Outpatient (CLI) | payer OTHER, MEDICAID, SELFPAY ==
--- NOTE | 2021-08-27 | CT_ITS ---
WS: [id number] CT CHEST WITH INTRAVENOUS CONTRAST HISTORY: MALIGNANT NEOPLASM LUNG, RIGHT upper lobe cancer. Persistent cough. TECHNIQUE: Contiguous 5 mm axial imaging performed on the thorax. Coronal and sagittal reformats are submitted. All CT scans at [facility] use at least one of these dose optimization techniques: automated exposure control; mA and/or kV adjustment per patient size (includes targeted exams where dose is matched to clinical indication); or iterative reconstruction. CONTRAST: Omnipaque 300; 95 mL IV. DLP: 852.94 mGycm COMPARISON: 08/04/2021 Lungs and central airway: Soft tissue mass with central cavitation and adjacent interstitial thickeni ng and stranding in the RIGHT upper lobe measures 3.7 x 1.3 cm. Not significantly changed since 08/04 but decreased in size as compared to 04/25/2021. There is mild thickening along the superior RIGH T major fissure which is unchanged. There is interstitial thickening towards the RIGHT apex and a dif fuse manner which is unchanged. There are a few nodular components to the interstitial thickening. Th lauren are also unchanged. Benign granuloma LEFT upper lobe. Pleura: Normal. No pleural effusion. Heart and pericardium: Normal size heart. Very small amount of pericardial thickening is unchanged. Mediastinum and [place]: There is extensive low attenuation, cystic appearing lymph nodes in the RIGHT p aratracheal and RIGHT hilar distributions. These lymph nodes have improved in size and appearance sin ce 04/25/2021 but are unchanged as compared to 08/04/2021. Largest RIGHT paratracheal lymph node is 2.2 cm in diameter. Confluent adenopathy extends into the RIGHT hilar region with the largest lymph node s measuring up to 2.0 cm. There is bronchial thickening and encasement on the RIGHT extending into th e proximal RIGHT upper lower lobe bronchi. Smaller subcarinal lymph node. Vessels: Pulmonary arteries equal size to the aorta. Mild atherosclerosis aorta. Chest wall and lower neck: No soft tissue masses. Upper abdomen: Diffuse mild hepatic steatosis. Adrenal glands are normal. Visualized liver and upper abdominal structures are negative for acute process. No adenopathy. Osseous structures: No destructive process. CT/CT chest w con* [id number] IMPRESSION: 1. Solid mass RIGHT upper lobe with partial cavitation measures 3.7 x 1.3 cm a nd has not significantly changed since 08/04/2021 but moderately improved since 04/25/2021. There is additional interstitial reticular nodular thickening in the RIGHT upper lobe. This may be post radiation change. Lymphangitic spread of tu mor is a consideration but unchanged since the most recent study. 2. RIGHT paratracheal and RIGHT hilar lymphadenopathy stable since 08/04/2021 but improved since 04/25/2021. 3. No metastatic disease within the liver or adrenal glands.
[2021-08-27] MEDS: iohexol 300 mg/mL 100 mL Btl IV (14:35)
== END 2021-08-27 07:51 | disposition home or self-care (01) ==
PROVIDERS: PCP Nurse Practitioner; Visit Provider Nurse Practitioner Family
DX: C34.11 Malignant neoplasm of upper lobe, right bronchus or lung (principal); R05.9 Cough, unspecified
CPT/HCPCS: 71260; Q9967

== ENCOUNTER 2021-08-30 09:55 | Outpatient (CLI) | payer MEDICAID, SELFPAY | END 2021-08-30 09:56 | disposition home or self-care (01) | LOC: ONCMED 10:05 | PROVIDERS: PCP Nurse Practitioner; Visit Provider Radiology Radiation Oncology | DX: C34.11 Malignant neoplasm of upper lobe, right bronchus or lung (principal); Z92.21 Personal history of antineoplastic chemotherapy; Z92.3 Personal history of irradiation | CPT/HCPCS: 99024 ==

== ENCOUNTER → 2021-09-09 00:01 | Outpatient (BNVA) | payer MEDICAID, SELFPAY | PROVIDERS: PCP Nurse Practitioner; Visit Provider Internal Medicine Pulmonary Disease | DX: Z20.822 Contact with and (suspected) exposure to COVID-19 (principal) | CPT/HCPCS: 87635 ==

== ENCOUNTER 2021-09-11 08:50 | Outpatient (RCR) | payer MEDICAID, SELFPAY ==
--- NOTE | 2021-08-30 10:32 | ONCRAD EPV_ITS ---
Radiation Oncology Follow-Up Note Patient Name: Nita Moore Date of : 1970 Date of Service: 08/30/2021 Attending Physician: Prateek Wallace M.D. Nita Moore returned to my office this morning for a routinely scheduled follow-up appointment. She completed thoracic radiotherapy in July for the management of a clinical stage IIIA (T2bN2) squamous cell carcinoma of the right upper-lobe of the lung. She was evaluated by her primary care physician in late March for a persistent cough and wheezing. A chest radiograph revealed a 4 cm suprahilar mass. A thoracic CT scan ordered on April 25, 2021 demonstrated a 3.9 cm x 2.9 cm x 3.2 cm posterior right upper lobe mass with central cavitation. Right paratracheal and hilar lymphadenopathy measuring 3.6 cm x 3.2 cm x 5.6 cm were present. A bronchoscopy with endobronchial ultrasound-guided transbronchial needle biopsy was performed by Mohamud Sr M.D. on May 10, 2021. The anterior segment of the right upper lobe was occluded secondary to external compression. Biopsies obtained from the right upper lobe lesion and station 4R lymph node were positive for squamous cell carcinoma. PD???L1 TPS was more than 5%. A PET CT obtained on May 21, 2021 confirmed metabolic activity within the right upper lobe mass (SUV 17.8), right hilar and mediastinal lymphadenopathy (SUV 23.3), splenic flexure (SUV 20.4), and uterine fundus (SUV 23.7). A MRI of the head did not identify metastatic disease. Thoracic radiation therapy was delivered between the dates of June 19, 2021 through August 01, 2021. A prescribed dose of 60 Gy was delivered in 30 fractions encompassing 43 elapsed days. She was prescribed Carboplatin (AUC 2) and Paclitaxel (50 mg/m???) weekly (June 17, 2021 through July 29, 2021) during radiotherapy under the supervision of Braulio Lilly M.D On review of systems, she described a cough. On physical examination, she weighed 153 lbs and her temperature was 97.1???F. Her blood pressure was 107/72 mmHg. The pulse was 89 bpm and the respiratory rate was 19 breaths per minute. Her oxygen saturation while breathing ambient air was 95%. Auscultation of the posterior lung hammond identified bronchial breath sounds. In summary, Ms. Moore returned for a routine post-radiotherapy follow-up. There were no significant sequelae from radiotherapy. She will continue follow-up as scheduled with her medical oncologist. I will prescribe Tessalon for the complaint of cough. Signed by: Dr. Prateek Wallace 08/30/2021 10:31:21 AM
[2021-09-11 09:26] LABS: Basophils % 0.3 %; Eosinophils # 0.1 10^3/uL (0.0-0.8); Eosinophils % 4.2 %; Hematocrit 31.4 % (37.0-47.0); Hemoglobin 10.6 g/dL (11.5-15.3); Lymphocytes # 0.7 10^3/uL (0.8-4.8); Lymphocytes % 23.1 %; Mean Corpuscular HGB Conc 33.8 g/dL (30.0-36.0); Mean Corpuscular Hemoglobin 33.2 pg (28.0-34.0); Mean Corpuscular Volume 98.4 fl (81-99); Mean Platelet Volume 9.6 fL (7.4-10.4); Monocytes # 0.4 10^3/uL (0.2-0.9); Monocytes % 12.3 %; Neutrophils # 1.84 10^3/uL (1.8-7.7); Neutrophils % 59.8 %; Nucleated Red Blood Cells % 0 %; Platelet Count 244 10^3/cmm (130-400); Red Blood Count 3.19 10^6/uL (4.1-5.3); Red Cell Distribution Width 15.9 % (12.1-15.1); White Blood Count 3.1 10^3/uL (4.0-10.0)
[2021-09-11 09:59] LABS: Alanine Aminotransferase 16 U/L (0-33); Albumin Level 3.9 g/dL (3.5-5.2); Alkaline Phosphatase 87 IU/L (35-105); Anion Gap 14.8 (5-19); Aspartate Amino Transferase 16 U/L (0-32); Blood Urea Nitrogen 11 mg/dL (6-20); Calcium 9.5 mg/dL (8.5-10.5); Carbon Dioxide 24 mmol/L (22-29); Chloride 102 mmol/L (98-107); Glucose 85 mg/dL (65-115); Osmolality Calculated 283 mOsm/kg (285-295); Potassium 3.8 mmol/L (3.5-5.1); Sodium 137 mmol/L (136-145); Thyroid Stimulating Hormone 3.03 uIU/mL (0.27-4.20); Total Bilirubin 0.3 mg/dL (0.15-1.2); Total Protein 6.9 g/dL (6.6-8.7)
[2021-09-11 13:34] LABS: Hepatitis A Antibody IgM Non-Reactive (Nonreactive); Hepatitis B Core AB, Total Equivocal (Nonreactive); Hepatitis B Surface AB 3.5 (11.5-1000); Hepatitis B Surface Antigen Non-Reactive (Nonreactive); Hepatitis C Virus Antibody Non-Reactive (Nonreactive)
== END 2021-09-16 23:59 | disposition home or self-care (01) ==
LOC: ONCMED 08:50
PROVIDERS: PCP Nurse Practitioner; Visit Provider Nurse Practitioner Family
DX: Z51.12 Encounter for antineoplastic immunotherapy (principal); C34.11 Malignant neoplasm of upper lobe, right bronchus or lung; C77.8 Secondary and unspecified malignant neoplasm of lymph nodes of multiple regions; C54.1 Malignant neoplasm of endometrium; D12.4 Benign neoplasm of descending colon; J44.9 Chronic obstructive pulmonary disease, unspecified; F41.9 Anxiety disorder, unspecified; F32.9 Major depressive disorder, single episode, unspecified; E55.9 Vitamin D deficiency, unspecified; Z86.16 Personal history of COVID-19; Z79.899 Other long term (current) drug therapy; Z20.5 Contact with and (suspected) exposure to viral hepatitis; Z01.89 Encounter for other specified special examinations
CPT/HCPCS: 80053; 84443; 85025; 86705; 86706; 86709; 86803; 87340; 96413; 99215; J7050; J9173

== ENCOUNTER 2021-09-17 13:08 | Outpatient (CLI) | payer MEDICAID, SELFPAY ==
--- NOTE | 2021-09-17 14:07 | PFTS_ITS ---
Date of Study:09/17/21 Date of Dictation: 09/17/21 MECHANICS: Postbronchodilator forced vital capacity (FVC) is normal . Postbronchodilator forced expiratory volume in one second (FEV1) is moderately reduced. FEV1/FVC is reduced. There is no no significant response to bronchodilators FLOW VOLUME LOOP: Sloping of expiratory limb suggestive of airway obstruction . LUNG VOLUMES: Total lung capacity (TLC) is . Residual volume (RV) is increased suggestive of air trapping DIFFUSING CAPACITY FOR CARBON MONOXIDE: Moderately reduced 58% . INTERPRETATION: The spirometry consistent with moderate obstruction. Lung volumes suggestive of moderate air trapping. Gas transfer moderately reduced. Constellation of findings consistent with obstructive lung disease such as emphysema. However clinical correlation recommended. MTDD
== END 2021-09-17 13:09 | disposition home or self-care (01) ==
LOC: RT 13:10
PROVIDERS: PCP Nurse Practitioner; Visit Provider Internal Medicine Pulmonary Disease
DX: J44.9 Chronic obstructive pulmonary disease, unspecified (principal)
CPT/HCPCS: 94060; 94618; 94726; 94729; J7611

== ENCOUNTER 2021-10-09 08:23 | Outpatient (RCR) | payer MEDICAID, SELFPAY ==
[2021-10-09] MEDS: alteplase 1 mg/mL SDV 2 mL 2 MG IV (08:58)
[2021-10-09 09:58] LABS: Basophils % 0.6 %; Eosinophils # 0.3 10^3/uL (0.0-0.8); Eosinophils % 4.9 %; Hematocrit 35.9 % (37.0-47.0); Hemoglobin 11.2 g/dL (11.5-15.3); Lymphocytes # 0.9 10^3/uL (0.8-4.8); Lymphocytes % 13.4 %; Mean Corpuscular HGB Conc 31.2 g/dL (30.0-36.0); Mean Corpuscular Hemoglobin 32.5 pg (28.0-34.0); Mean Corpuscular Volume 104.1 fl (81-99); Monocytes # 0.6 10^3/uL (0.2-0.9); Monocytes % 8.7 %; Neutrophils # 4.58 10^3/uL (1.8-7.7); Neutrophils % 72.1 %; Nucleated Red Blood Cells % 0 %; Platelet Count 287 10^3/cmm (130-400); Red Blood Count 3.45 10^6/uL (4.1-5.3); Red Cell Distribution Width 12.6 % (12.1-15.1); White Blood Count 6.4 10^3/uL (4.0-10.0)
[2021-10-09 10:30] LABS: Alanine Aminotransferase 17 U/L (0-33); Albumin Level 3.5 g/dL (3.5-5.2); Alkaline Phosphatase 77 IU/L (35-105); Anion Gap 12.9 (5-19); Aspartate Amino Transferase 20 U/L (0-32); Blood Urea Nitrogen 11 mg/dL (6-20); Carbon Dioxide 24 mmol/L (22-29); Chloride 105 mmol/L (98-107); Globulin 3.5 g/dL (1.3-4.6); Glomerular Filtration Rate 129.6 mL/min (90-130); Glucose 82 mg/dL (65-115); Osmolality Calculated 284 mOsm/kg (285-295); Potassium 3.9 mmol/L (3.5-5.1); Sodium 138 mmol/L (136-145); Total Bilirubin 0.2 mg/dL (0.15-1.2)
[2021-10-09 10:37] LABS: Lactate Dehydrogenase 168 U/L (135-214)
--- NOTE | 2021-10-09 13:27 | ONC FU_ITS ---
Anne Erazo Progress Note Patient: Nita Moore Unit #: [id number]: 1970 Dicatated By: Anne Erazo N.P.Date of Visit:Oct 09, 2021 Onc MED Follow-up/Prog Note Chief Complaint: Lung cancer. 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 She was diagnosed with COVID-19 virus infection in February 2021. She noted some increase in pre-existing cough with that illness, and she also became more short of breath. Chest x-ray on 04/10/2021 showed a 4 cm suprahilar pulmonary density consistent with focal pneumonia or a mass. Further evaluation with chest CT on 04/25/2021 showed a solid mass with central cavitation in the posterior right upper lobe measuring 3.9 x 2.9 x 3.2 cm. The appearance was highly suspicious for primary pulmonary neoplasm. A confluent cluster of lymph nodes along the right paratracheal and right hilar region measured 5.6 x 3.6 x 3.2 cm. Lymph nodes were also noted to extend along the right central bronchus. Also noted were smaller subcarinal lymph nodes. There were no contralateral nodes identified. Marked low attenuation throughout the liver appeared consistent with hepatic steatosis. There was no adrenal mass identified. She had pulmonary consultation with Dr. Sr. Her bronchoscopy/EBUS on 05/10/2021 showed complete occlusion of the anterior segment right upper lobe bronchus from suspected external compression. Right upper lobe endobronchial biopsy was positive for squamous cell carcinoma. Mediastinal and hilar lymphadenopathy was identified by endobronchial ultrasound. FNA biopsy of station 4R lymph node was positive for metastatic squamous cell carcinoma. FNA biopsy of station [address] node [address] Lilly had seen her initially on 05/15/2021. Staging PET/CT on 05/21/2021 showed FDG avid posterior right upper lobe lung mass with SUV 17.84, consistent with malignancy. There was associated FDG adenopathy in the right hilum with extension into the contiguous mediastinum, SUV up to 23.33. Adenopathy was noted to extend superiorly into the mediastinum to the right to above the level of the aortic arch, SUV 21.06. There was no FDG adenopathy noted in the left hilum or AP window or prevascular space. There was diffuse hepatic steatosis, no metastatic involvement was noted in the liver or adrenal glands. There was a relatively intense focus of increased activity in the colon at the splenic flexure, SUV 20.44, possibly representing malignancy. Also noted with intense activity in the uterine fundus with maximum SUV 23.74, also suspicious for malignancy. Abdominal and pelvic lymph nodes demonstrated physiologic levels of activity. Her head MRI on 05/24/2021 showed no evidence of metastatic disease. With those findings, she had DENTAL SECRETARY evaluation with Dr. Deepti Estevez, and she underwent endometrial sampling on 05/31/2021. Pathology showed endometrial adenocarcinoma, FIGO grade 2. Analysis of mismatch repair proteins showed loss of nuclear expression of PMS2 with intact nuclear expression of MLH1, MSH2, and MSH6. In the meantime, she also had been seen seen by Dr. Ramirez, and she underwent placement of PowerPort on 06/04/2021. Her colonoscopy on 06/12/2021 showed an adenomatous appearing semipedunculated polyp in the proximal descending colon measuring 7 x 7 mm and a semipedunculated polyp measuring 8 x 6 mm in the distal descending colon. Also noted was a 5 mm lipoma in the mid ascending colon. Pathology on the distal descending colon polyp showed tubular adenoma with no high-grade dysplasia identified. The proximal descending colon polyp showed tubular adenoma with focal high-grade dysplasia. There is no evidence of invasive carcinoma. In the setting of stage IIIA non-small cell lung carcinoma, she was recommended to proceed with standard chemoradiation utilizing weekly carboplatin/paclitaxel for chemosensitization. On further pathologic evaluation, her lung tumor was found to be positive for PD-L1 expression at 5%. Her other medical illnesses include COPD, vitamin D deficiency, and anxiety/depression. She has a history of smoking 1-1/2 to 2 packs of cigarettes daily for more than 30 years. INTERIM HISTORY: She began week 1 carboplatin/paclitaxel on 06/17/2021. She tolerated the initial infusion with no acute toxicity. She continued with week 2 on 06/24/2021. Her week 3 treatment was delayed due to neutropenia, ANC 1700. She continued with her radiation and she was then able to proceed with week 3 carboplatin/paclitaxel on 07/08/2021. Week 4 Carboplatin/paclitaxel was completed on 07/15/2021. Patient presents today for follow-up. She states that she has been feeling well and she is tolerating durvalumab well. She states her appetite has been good she denies fever, chills, night sweats. She has not had any shortness of breath, cough, chest pain. No nausea or vomiting, no diarrhea or constipation. She had laparoscopic hysterectomy on 09/24/2021. She has incisions to her abdomen that are dry and intact. She is recovering well. Review Of Symptoms: See above. Past Medical History: Anxiety Chronic obstructive pulmonary disease Depression Viamin D insufficiency COVID-19 virus infection in 2020 Past Surgical History: Colonoscopy Tubal ligation Bronchoscopy/EBUS in 2020 Allergies: Codeine Sulfate and Sulfa Antibiotics. Medications: Albuterol Sulfate 1 Inhalation (of (2.5 mg/3ml) 0.083%) Nebulization solution Inhalation q 6 hours Aspirin 1 Tablet (of 325 mg) Tablet, enteric coated Oral daily Benzonatate 200 mg (of 200 mg) Capsule Oral t.i.d. Budesonide-Formoterol Fumarate 2 Puff(s) (of 160-4.5 mcg/act) Aerosol Inhalation b.i.d. Cholecalciferol 1 Tablet (of 125 mcg ) Oral daily Dexamethasone (4 mg) Tablet Oral Take as Directed Furosemide 1 Tablet (of 20 mg) Oral daily Omeprazole 1 Tablet (of 20 mg) Capsule Delayed Release Oral daily Potassium Chloride Jessica ER 1 Tablet (of 10 meq) Tablet, controlled release Oral daily Family History: She does not know what happened to her father. Her mother with heart disease. One sister is , cause unknown to the patient. Four other siblings are living, but she does not know about their health. A son with SIDS. Social History: Ms. Moore is . She is a daily smoker who has smoked 1.0 pack/day for 24 years. She has indicated exposure to the following products: cigarettes. She has a history of smoking 1-1/2 to 2 packs of cigarettes daily for more than 30 years. She does not drink alcohol. Physical Examination: Performed on Oct 09, 2021 10:02: Height - 62.00 in, Weight - 152.2 lbs (HIGH), BSA - 1.70 sq.m, BMI - 27.84, Temperature - 97.4 F (LOW), Pulse - 107 /min (HIGH), Respiration - 18 /min, BP - 123/83 mm(hg), O2 Sat - 96 %, Pain - 0, and Fatigue - 2. Performance Status: ECOG 1. Constitutional Alert, cooperative, oriented. Mood and affect appropriate. Appears close to chronological age. Well nourished. Well developed. Head Normocephalic; no scars. Respiratory Lungs are clear to auscultation without rhonchi or wheezing. Cardiovascular Regular rate and rhythm of heart without murmurs, gallops or rubs. Abdomen Non-tender, non-distended, no masses, ascites or hepatosplenomegaly. Good bowel sounds. No guarding or rebound tenderness. Incisions to abdomen dry and intact Extremities No visible deformities, no cyanosis, clubbing or edema. Pulses 3+ and equal bilaterally. Psychiatric Alert and oriented times three. Coherent speech. Verbalizes understanding of our discussions today. Laboratory: Test performed on Oct 09, 2021 09:35 LDH (Total) 168 U/L Sodium 138 mmol/L Potassium 3.9 mmol/L Chloride 105 mmol/L CO2 24 mmol/L Anion Gap 12.9 BUN 11 mg/dL Creatinine 0.5 mg/dL Cr Clearance (Est) 143.4500 mL/min eGFR 129.6 mL/min Glucose 82 mg/dL Osmolality - Calculated 284 mOsm/kg Calcium 9.0 mg/dL Protein, Total 7.0 g/dL Albumin 3.5 g/dL Globulin 3.5 g/dL Bilirubin, Total 0.2 mg/dL ALT (SGPT) 17 U/L AST (SGOT) 20 U/L Alkaline Phosphatase 77 IU/L WBC 6.4 10 3/uL RBC 3.45 10 6/uL HGB 11.2 g/dL HCT 35.9 % MCV 104.1 fl MCH 32.5 pg MCHC 31.2 g/dL RDW 12.6 % Platelet Count 287 10 3/cmm MPV 10.0 fL Neutrophils 4.58 10 3/uL Lymphocytes 0.9 10 3/uL Monocytes 0.6 10 3/uL Eosinophils 0.3 10 3/uL Basophils 0.0 10 3/uL Neutrophil % 72.1 % Lymphocyte % 13.4 % Monocyte % 8.7 % Eosinophil % 4.9 % Basophils % 0.6 % NRBC % 0 % Test performed on Sep 11, 2021 10:43 TSH 3.03 uU/mL Test performed on Sep 11, 2021 10:39 Manual Segs 59.8 % Manual Lymphocytes 23.1 % Manual Monocytes 12.3 % Manual Eosinophils 4.2 % Manual Basophils 0.3 % NRBCs 0 /100 WBC Test performed on Jun 28, 2021 10:51 Ua Color Yellow Ua Appearance SL Hazy Ua Glucose Norm Ua Bilirubin 1+ Ua Ketones Negative Ua Specific Galt 1.005 Ua Blood 2+ Ua pH 5 Ua Protein 1+ Ua Urobilinogen 4 mg/dL Ua Nitrites Negative Ua Leukocyte Esterase 1+ Ua Micro: WBC 15-25 /hpf Urine Culture 10,000-20,000 COLS/ML MIXED SUPERFICIAL KARELY ON DAY 2. PROBABLE CONTAMINANTS. Ua Micro: RBC 5-10 /hpf Ua Micro: Squam Epith Cells 0-4 /hpf Ua Micro: Bacteria 1+ /hpf Impression: 1. Squamous cell carcinoma involving the upper lobe of the right lung, by clinical evaluation stage IIIA (T2a, N2, M0). 2. Adenocarcinoma of the endometrium, FIGO grade 2, MMR deficient. 3. Multiple colonic polyps, including an adenomatous polyp in the proximal descending colon with focal high-grade dysplasia. 4. COPD. 5. Anxiety/depression, currently not requiring medication. 6. Vitamin D deficiency. 7. History of COVID-19 virus infection in February 2021. Plan: 1. Patient with squamous cell carcinoma involving the upper lobe of the right lung by clinical evaluation stage IIIA (T2a, N2, M0). She underwent bronchoscopy/EBUS on 05/10/2021. Endobronchial biopsy from the right upper lobe and FNA biopsy of station 4R lymph node were both positive for squamous cell carcinoma. By staging PET/CT her lung cancer appeared to be confined to the primary lesion in the right upper lobe and involved hilar/mediastinal lymph nodes, but there were focal sites of uptake noted in the uterus and colon which were suspicious for other sites of primary malignancy. In the setting of stage IIIA non-small cell lung carcinoma, she was recommended to proceed with standard chemoradiation. She began week 1 of carboplatin/paclitaxel on 06/17/2021. She tolerated it with no significant adverse effects. She continued with week 2 chemotherapy on 06/24/2021. Her further chemotherapy was delayed due to neutropenia, but she was able to continue with week 3 carboplatin/paclitaxel on and 07/15/2021. Patient completed radiation therapy on 08/01/2021. She presents today to start durvalumab. Education along with handouts were provided to the patient including indications for use, side effects which include thyroiditis, colitis and symptoms to monitor. She will have her first treatment today and then will receive treatment every 4 weeks. 2. Her endometrial sampling on 05/31/2021 showed FIGO grade 2 adenocarcinoma of the endometrium, MMR deficient. She had hysterectomy on September 24, 2021 in [place]. She is recovering well from surgery. Genetic testing that was performed in the clinic is still pending. 3. She was found on colonoscopy to have multiple adenomatous polyps, including an adenomatous polyp with high-grade dysplasia involving the distal descending colon. It is being managed by Dr. Ramirez. 4. She will receive her second cycle of durvalumab today and follow-up as scheduled in 4 weeks with CBC, CMP, and TSH. Signed By: Anne Erazo N.P. <<Signature on File>>
== END 2021-10-14 23:59 | disposition home or self-care (01) ==
LOC: ONCMED 08:23
PROVIDERS: PCP Nurse Practitioner; Visit Provider Nurse Practitioner Family
DX: Z51.12 Encounter for antineoplastic immunotherapy (principal); C34.11 Malignant neoplasm of upper lobe, right bronchus or lung; C54.1 Malignant neoplasm of endometrium; D12.4 Benign neoplasm of descending colon; J44.9 Chronic obstructive pulmonary disease, unspecified; F41.9 Anxiety disorder, unspecified; F32.9 Major depressive disorder, single episode, unspecified; E55.9 Vitamin D deficiency, unspecified; Z86.16 Personal history of COVID-19; Z79.899 Other long term (current) drug therapy
CPT/HCPCS: 36415; 36593; 80053; 83615; 85025; 96375; 96413; 99215; J2997; J7050; J9173

== ENCOUNTER 2021-11-07 08:32 | Outpatient (RCR) | payer MEDICAID, SELFPAY ==
[2021-11-07] MEDS: alteplase 1 mg/mL SDV 2 mL 2 MG IV ×2 (09:10→10:50)
[2021-11-07 09:26] LABS: Basophils % 0.4 %; Eosinophils # 0.3 10^3/uL (0.0-0.8); Eosinophils % 4.7 %; Hematocrit 39.2 % (37.0-47.0); Hemoglobin 13.2 g/dL (11.5-15.3); Lymphocytes % 18.8 %; Mean Corpuscular HGB Conc 33.7 g/dL (30.0-36.0); Mean Corpuscular Hemoglobin 32.1 pg (28.0-34.0); Mean Corpuscular Volume 95.4 fl (81-99); Mean Platelet Volume 9.8 fL (7.4-10.4); Monocytes # 0.4 10^3/uL (0.2-0.9); Monocytes % 6.3 %; Neutrophils # 3.84 10^3/uL (1.8-7.7); Neutrophils % 69.4 %; Nucleated Red Blood Cells % 0 %; Platelet Count 205 10^3/cmm (130-400); Red Blood Count 4.11 10^6/uL (4.1-5.3); Red Cell Distribution Width 12.2 % (12.1-15.1); White Blood Count 5.5 10^3/uL (4.0-10.0)
[2021-11-07 09:53] LABS: Alanine Aminotransferase 15 U/L (0-33); Albumin Level 4.1 g/dL (3.5-5.2); Alkaline Phosphatase 83 IU/L (35-105); Anion Gap 14.8 (5-19); Aspartate Amino Transferase 14 U/L (0-32); Blood Urea Nitrogen 15 mg/dL (6-20); Calcium 9.5 mg/dL (8.5-10.5); Carbon Dioxide 24 mmol/L (22-29); Chloride 102 mmol/L (98-107); Globulin 3.1 g/dL (1.3-4.6); Glucose 86 mg/dL (65-115); Osmolality Calculated 284 mOsm/kg (285-295); Potassium 3.8 mmol/L (3.5-5.1); Sodium 137 mmol/L (136-145); Thyroid Stimulating Hormone 2.58 uIU/mL (0.27-4.20); Total Bilirubin 0.2 mg/dL (0.15-1.2); Total Protein 7.2 g/dL (6.6-8.7)
[2021-11-07] MEDS: sodium chloride 0.9% 250 ML IV (11:25)
--- NOTE | 2021-11-07 13:06 | IR_ITS ---
WS: [id number] Injection right Port-A-Cath, 11/07/2021 Clinical Data: CHECK FOR PATENCY-NO BLOOD RETURNS- 2 X CATH FLOW ATTEMPTED Comparison: None. Fluoroscopy time: .6 minutes. Findings: The right Port-A-Cath has advanced into the right internal jugular vein and there is a sharp bend wh ich prevents injection of contrast. The distal portion of the catheter is barely within the superior vena cava and probably ends at the junction of the right subclavian vein and right internal jugular v ein. IR/[place] [id number] Impression: Kinking and retreating of the right Port-A-Cath.
[2021-11-07] MEDS: iohexol 300 mg/mL 50 mL Btl IV (14:26)
--- NOTE | 2021-11-08 08:31 | ONC FU_ITS ---
Dr. Lilly Patient Follow-Up Note Patient: Nita Moore Unit #: [id number]: 1970 Dicatated By: Braulio Lilly M.D.Date of Visit:Nov 07, 2021 Onc Med Follow-up/Prog Note Chief Complaint: Lung cancer. 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 She was diagnosed with COVID-19 virus infection in February 2021. She noted some increase in pre-existing cough with that illness, and she also became more short of breath. Chest x-ray on 04/10/2021 showed a 4 cm suprahilar pulmonary density consistent with focal pneumonia or a mass. Further evaluation with chest CT on 04/25/2021 showed a solid mass with central cavitation in the posterior right upper lobe measuring 3.9 x 2.9 x 3.2 cm. The appearance was highly suspicious for primary pulmonary neoplasm. A confluent cluster of lymph nodes along the right paratracheal and right hilar region measured 5.6 x 3.6 x 3.2 cm. Lymph nodes were also noted to extend along the right central bronchus. Also noted were smaller subcarinal lymph nodes. There were no contralateral nodes identified. Marked low attenuation throughout the liver appeared consistent with hepatic steatosis. There was no adrenal mass identified. She had pulmonary consultation with Dr. Sr. Her bronchoscopy/EBUS on 05/10/2021 showed complete occlusion of the anterior segment right upper lobe bronchus from suspected external compression. Right upper lobe endobronchial biopsy was positive for squamous cell carcinoma. Mediastinal and hilar lymphadenopathy was identified by endobronchial ultrasound. FNA biopsy of station 4R lymph node was positive for metastatic squamous cell carcinoma. FNA biopsy of station 7 lymph node was negative. Staging PET/CT on 05/21/2021 showed FDG avid posterior right upper lobe lung mass with SUV 17.84, consistent with malignancy. There was associated FDG adenopathy in the right hilum with extension into the contiguous mediastinum, SUV up to 23.33. Adenopathy was noted to extend superiorly into the mediastinum to the right to above the level of the aortic arch, SUV 21.06. There was no FDG adenopathy noted in the left hilum or AP window or prevascular space. There was diffuse hepatic steatosis, no metastatic involvement was noted in the liver or adrenal glands. There was a relatively intense focus of increased activity in the colon at the splenic flexure, SUV 20.44, possibly representing malignancy. Also noted with intense activity in the uterine fundus with maximum SUV 23.74, also suspicious for malignancy. Abdominal and pelvic lymph nodes demonstrated physiologic levels of activity. Her head MRI on 05/24/2021 showed no evidence of metastatic disease. With those findings, she had [employer] evaluation with Dr. Deepti Estevez, and she underwent endometrial sampling on 05/31/2021. Pathology showed endometrial adenocarcinoma, FIGO grade 2. Analysis of mismatch repair proteins showed loss of nuclear expression of PMS2 with intact nuclear expression of MLH1, MSH2, and MSH6. In the meantime, she also had been seen seen by Dr. Ramirez, and she underwent placement of PowerPort on 06/04/2021. Her colonoscopy on 06/12/2021 showed an adenomatous appearing semipedunculated polyp in the proximal descending colon measuring 7 x 7 mm and a semipedunculated polyp measuring 8 x 6 mm in the distal descending colon. Also noted was a 5 mm lipoma in the mid ascending colon. Pathology on the distal descending colon polyp showed tubular adenoma with no high-grade dysplasia identified. The proximal descending colon polyp showed tubular adenoma with focal high-grade dysplasia. There was no evidence of invasive carcinoma. In the setting of stage IIIA non-small cell lung carcinoma, she was recommended to proceed with standard chemoradiation utilizing weekly carboplatin/paclitaxel for chemosensitization. On further pathologic evaluation, her lung tumor was found to be positive for PD-L1 expression at 5%. She began week 1 carboplatin/paclitaxel on 06/17/2021. She tolerated the initial infusion with no acute toxicity. She continued with week 2 on 06/24/2021. Her week 3 treatment was delayed due to neutropenia, ANC 1700. She continued with her radiation and she was then able continue with weekly carboplatin/paclitaxel on 07/08/2021. She completed her 6th and final infusion of carboplatin/paclitaxel 07/29/2021. She completed radiation on 08/01/2021 to a total dose of 6000 cGy administered in 30 fractions. Her restaging chest CT on 08/27/2021 showed right upper lobe mass measuring 3.7 x 1.3 cm, stable compared to the 08/04/2021 study but improved compared to 04/25/2021. Right paratracheal and right hilar lymphadenopathy also appeared stable compared to July 2021. There was no evidence of disease progression. With those findings she was recommended to begin maintenance immunotherapy with durvalumab. Her other medical illnesses include COPD, vitamin D deficiency, and anxiety/depression. She has a history of smoking 1-1/2 to 2 packs of cigarettes daily for more than 30 years. INTERIM HISTORY: She began cycle 1 of maintenance durvalumab on 09/11/2021. Her screening hepatitis profile showed equivocal hepatitis B core total antibody with a negative hepatitis Bs antibody at 3.5. The hepatitis Bs antigen was nonreactive and she also had nonreactive serology for hepatitis C antibody. Her liver enzymes were normal. She tolerated the initial infusion of durvalumab with no significant toxicity, and she continued with cycle 2 on 10/09/2021. She is seen for a follow-up visit. She says her energy is about the same. She has limited activity. ECOG score is 2. Her appetite is good. She does not have fever or night sweats. For the past week or so she has been having pain in the upper back on the right side. It is a sharp pain with a pleuritic component. She has cough which is productive clear sputum, though sometimes yellowish or greenish. She has not had hemoptysis. She does have some shortness of breath. She has no GI/ complaints other than occasional diarrhea, controlled with Imodium. She also complains that her legs ache and hurt. She does not complain of headache or dizziness, and she has no focal neurologic symptoms. Medications: Albuterol Sulfate 1 Inhalation (of (2.5 mg/3ml) 0.083%) Nebulization solution Inhalation q 6 hours, Aspirin 1 Tablet (of 325 mg) Tablet, enteric coated Oral daily, Benzonatate 200 mg (of 200 mg) Capsule Oral t.i.d., Budesonide-Formoterol Fumarate 2 Puff(s) (of 160-4.5 mcg/act) Aerosol Inhalation b.i.d., Cholecalciferol 1 Tablet (of 125 mcg ) Oral daily, Furosemide 1 Tablet (of 20 mg) Oral daily, Omeprazole 1 Tablet (of 20 mg) Capsule Delayed Release Oral daily, Potassium Chloride Jessica ER 1 Tablet (of 10 meq) Tablet, controlled release Oral daily Allergies: Codeine Sulfate and Sulfa Antibiotics. Vital Signs: Performed on Nov 07, 2021 10:47 Height - 62.00 in Weight - 147.4 lbs (LOW) BSA - 1.68 sq.m BMI - 26.96 Temperature - 97.6 F (LOW) Pulse - 97 /min Respiration - 16 /min BP - 106/73 mm(hg) O2 Sat - 97 % Pain - 4 Fatigue - 2 Physical Examination: Constitutional - She appears somewhat weak generally, Eyes - Sclerae nonicteric. Conjunctivae clear, ENMT - No lesions noted in the oral cavity, Hematologic/Lymphatic - No cervical, clavicular, or axillary adenopathy, Respiratory - Lungs show diminished air movement bilaterally. There are a few scattered rales present, Cardiovascular - Heart rhythm is regular. There is no murmur, gallop, or rub noted, Abdomen - Soft. Liver and spleen are not enlarged. There is no abdominal mass or ascites noted and there is no inguinal adenopathy, Extremities - No edema, Neurologic - No focal neurologic deficits noted. Lab/Imaging: Test performed on Nov 07, 2021 09:10 Sodium 137 mmol/L TSH 2.58 uIU/mL Potassium 3.8 mmol/L Chloride 102 mmol/L CO2 24 mmol/L Anion Gap 14.8 BUN 15 mg/dL Creatinine 0.6 mg/dL Cr Clearance (Est) 115.77 mL/min eGFR 105.0 mL/min Glucose 86 mg/dL Osmolality - Calculated 284 mOsm/kg Calcium 9.5 mg/dL Protein, Total 7.2 g/dL Albumin 4.1 g/dL Globulin 3.1 g/dL Bilirubin, Total 0.2 mg/dL ALT (SGPT) 15 U/L AST (SGOT) 14 U/L Alkaline Phosphatase 83 IU/L WBC 5.5 10 3/uL RBC 4.11 10 6/uL HGB 13.2 g/dL HCT 39.2 % MCV 95.4 fl MCH 32.1 pg MCHC 33.7 g/dL RDW 12.2 % Platelet Count 205 10 3/cmm MPV 9.8 fL Neutrophils 3.84 10 3/uL Lymphocytes 1.0 10 3/uL Monocytes 0.4 10 3/uL Eosinophils 0.3 10 3/uL Basophils 0.0 10 3/uL Neutrophil % 69.4 % Lymphocyte % 18.8 % Monocyte % 6.3 % Eosinophil % 4.7 % Basophils % 0.4 % NRBC % 0 % Problem List: 1. Squamous cell carcinoma involving the upper lobe of the right lung, by clinical evaluation stage IIIA (T2a, N2, M0). 2. Adenocarcinoma of the endometrium, FIGO grade 2, MMR deficient. 3. Multiple colonic polyps, including an adenomatous polyp in the proximal descending colon with focal high-grade dysplasia. 4. COPD. 5. Anxiety/depression, currently not requiring medication. 6. Vitamin D deficiency. 7. History of COVID-19 virus infection in February 2021. Problems Addressed with this Encounter and Plan: 1. Patient with squamous cell carcinoma involving the upper lobe of the right lung by clinical evaluation stage IIIA (T2a, N2, M0). She underwent bronchoscopy/EBUS on 05/10/2021. Endobronchial biopsy from the right upper lobe and FNA biopsy of station 4R lymph node were both positive for squamous cell carcinoma. By staging PET/CT her lung cancer appeared to be confined to the primary lesion in the right upper lobe and involved hilar/mediastinal lymph nodes, but there were focal sites of uptake noted in the uterus and colon which were suspicious for other sites of primary malignancy. In the setting of stage IIIA non-small cell lung carcinoma, she was recommended to proceed with standard chemoradiation. She began week 1 of carboplatin/paclitaxel on 06/17/2021. She tolerated it with no significant adverse effects. She continued with week 2 chemotherapy on 06/24/2021. Her further chemotherapy was delayed due to neutropenia, but she was able to continue with weekly carboplatin/paclitaxel on . She completed her 6th and final infusion of carboplatin/paclitaxel 07/29/2021. She completed radiation on 08/01/2021 to a total dose of 6000 cGy administered in 30 fractions. Her restaging chest CT on 08/27/2021 showed right upper lobe mass measuring 3.7 x 1.3 cm, stable compared to the 08/04/2021 study but improved compared to 04/25/2021. Right paratracheal and right hilar lymphadenopathy also appeared stable compared to July 2021. There was no evidence of disease progression. With those findings she then began maintenance immunotherapy with durvalumab, cycle 1 on 09/11/2021. She tolerated it well and she continued with cycle 2 on 10/09/2021. Thus far she appears to be tolerating the maintenance immunotherapy with no significant adverse effects. She has developed pleuritic pain in the right upper back area associated with productive cough, for which she will be given empiric antibiotic coverage with Levaquin. In the absence of any evidence of disease progression, she will continue now with cycle 3 of maintenance durvalumab at 1500 mg by IV infusion. She will be scheduled for follow-up in 4 weeks. She will have restaging chest CT prior to that visit. 2. Her endometrial sampling on 05/31/2021 showed FIGO grade 2 adenocarcinoma of the endometrium, MMR deficient. She had hysterectomy on September 24, 2021 in [place]. She has had uneventful recovering from the surgery. Results of her genetic testing are still pending. 3. She was found on colonoscopy to have multiple adenomatous polyps, including an adenomatous polyp with high-grade dysplasia involving the distal descending colon. It is being managed by Dr. Ramirez. Signed By: Braulio Lilly M.D. <<Signature on File>>
== END 2021-11-14 23:59 | disposition home or self-care (01) ==
LOC: ONCMED 08:32
PROVIDERS: Nurse Practitioner Family; PCP Nurse Practitioner; Visit Provider Internal Medicine Medical Oncology
DX: Z51.12 Encounter for antineoplastic immunotherapy (principal); C34.11 Malignant neoplasm of upper lobe, right bronchus or lung; C54.1 Malignant neoplasm of endometrium; D12.4 Benign neoplasm of descending colon; J44.9 Chronic obstructive pulmonary disease, unspecified; F41.9 Anxiety disorder, unspecified; F32.A Depression, unspecified; E55.9 Vitamin D deficiency, unspecified; Z86.16 Personal history of COVID-19; Z79.899 Other long term (current) drug therapy
CPT/HCPCS: 36593; 36598; 80053; 84443; 85025; 96413; 99215; J2997; J7050; J9173; Q9967

== ENCOUNTER → 2021-11-13 09:41 | Outpatient (BNVA) | payer MEDICAID, SELFPAY | PROVIDERS: PCP Nurse Practitioner; Visit Provider Internal Medicine Pulmonary Disease | DX: K63.5 Polyp of colon (principal); C79.9 Secondary malignant neoplasm of unspecified site; J43.2 Centrilobular emphysema; F17.210 Nicotine dependence, cigarettes, uncomplicated | CPT/HCPCS: 99214 ==

== ENCOUNTER 2021-12-05 11:01 | Outpatient (CLI) | payer MEDICAID, SELFPAY ==
--- NOTE | 2021-12-05 11:14 | CT_ITS ---
WS: [id number] CT CHEST WITH INTRAVENOUS CONTRAST HISTORY: LUNG CANCER TECHNIQUE: Contiguous 5 mm axial imaging performed on the thorax. Coronal and sagittal reformats are submitted. All CT scans at [facility] use at least one of these dose optimization techniques: automated exposure control; mA and/or kV adjustment per patient size (includes targeted exams where dose is matched to clinical indication); or iterative reconstruction. CONTRAST: Omnipaque 350; 95 mL IV. DLP: 729.75 mGy.cm COMPARISON: 08/27/2021 and 08/04/2021 Lungs and central airway: Interval progression of the spiculated solid mass with a tiny central cavit ation in the RIGHT upper lobe which abuts the fissure. Spiculated soft tissue mass measures 4.0 x 1.5 cm. There are new areas of nodularity and interstitial thickening extending into the RIGHT upper lob e which have all increased since the prior study. Increased amount of pleural thickening and nodulari ty in the posterior RIGHT upper lobe. No additional nodules throughout the remaining lobes. Pleura: No pleural effusion. Heart and pericardium: Normal size heart. Focal pericardial thickening anteriorly has significantly p rogressed since the prior study. This is probably pleural fluid measuring 1.5 cm has a [place]oun[place] uni ts are very low. Mediastinum and [place]: Again noted is a low-attenuation lymph nodes along the inferior RIGHT paratrach eal region extending into the suprahilar region. Lymph node burden has probably not significantly karmen nged since the prior examination. Vessels: Normal size aortic and pulmonary artery. No coronary artery calcifications. Chest wall and lower neck: RIGHT IJ Mediport. Upper abdomen: Diffuse hepatic steatosis. No metastatic lesions. Hepatic steatosis along the falcifor m ligament. Adrenal glands are normal. Visualized pancreas is normal. Osseous structures: Increase in thoracic kyphosis. No osteoblastic or osteolytic bone disease. CT/CT chest w con* [id number] IMPRESSION: 1. Increase in size of the spiculated cavitary lesion in the RIGHT upper lobe and also increased in the interstitial nodularity and thickening in the RIGHT u pper lobe and pleural thickening. Because mass measures 4.0 x 1.5 cm. Prior red surement of 3.7 x 1.3 cm. Very slight increase in size but appears overall dens er and more consolidated. This may all be related to treatment but is also high ly suspicious for progression of patient's known lung cancer. 2. The RIGHT paratracheal and RIGHT hilar lymph node burden has not significan tly changed.
[2021-12-05] MEDS: iohexol 350 mg/mL 100 mL Btl IV (11:20)
== END 2021-12-05 11:02 | disposition home or self-care (01) ==
LOC: RAD 11:02
PROVIDERS: PCP Nurse Practitioner; Visit Provider Internal Medicine Medical Oncology
DX: C34.11 Malignant neoplasm of upper lobe, right bronchus or lung (principal)
CPT/HCPCS: 71260

== ENCOUNTER → 2021-12-09 09:29 | Outpatient (BNVA) | payer MEDICAID, SELFPAY | PROVIDERS: PCP Nurse Practitioner; Visit Provider Surgery | DX: Z45.2 Encounter for adjustment and management of vascular access device (principal); K63.5 Polyp of colon; F17.210 Nicotine dependence, cigarettes, uncomplicated | CPT/HCPCS: 99213 ==

== ENCOUNTER 2021-12-12 08:03 | Outpatient (RCR) | payer MEDICAID, SELFPAY ==
[2021-12-12 08:49] LABS: Basophils % 0.5 %; Eosinophils # 0.2 10^3/uL (0.0-0.8); Eosinophils % 3.6 %; Hematocrit 44.5 % (37.0-47.0); Hemoglobin 14.3 g/dL (11.5-15.3); Lymphocytes # 1.2 10^3/uL (0.8-4.8); Lymphocytes % 19.2 %; Mean Corpuscular HGB Conc 32.1 g/dL (30.0-36.0); Mean Corpuscular Hemoglobin 30.5 pg (28.0-34.0); Mean Corpuscular Volume 94.9 fl (81-99); Monocytes # 0.4 10^3/uL (0.2-0.9); Monocytes % 7.2 %; Neutrophils # 4.24 10^3/uL (1.8-7.7); Neutrophils % 69.2 %; Nucleated Red Blood Cells % 0 %; Platelet Count 223 10^3/cmm (130-400); Red Blood Count 4.69 10^6/uL (4.1-5.3); Red Cell Distribution Width 12.6 % (12.1-15.1); White Blood Count 6.1 10^3/uL (4.0-10.0)
[2021-12-12 09:35] LABS: Alanine Aminotransferase 17 U/L (0-33); Albumin Level 3.8 g/dL (3.5-5.2); Alkaline Phosphatase 79 IU/L (35-105); Anion Gap 12.3 (5-19); Aspartate Amino Transferase 25 U/L (0-32); Blood Urea Nitrogen 15 mg/dL (6-20); Carbon Dioxide 27 mmol/L (22-29); Chloride 106 mmol/L (98-107); Globulin 3.3 g/dL (1.3-4.6); Glucose 105 mg/dL (65-115); Osmolality Calculated 293 mOsm/kg (285-295); Potassium 4.3 mmol/L (3.5-5.1); Sodium 141 mmol/L (136-145); Total Bilirubin 0.2 mg/dL (0.15-1.2); Total Protein 7.1 g/dL (6.6-8.7)
[2021-12-12 09:36] LABS: Thyroid Stimulating Hormone 4.26 uIU/mL (0.27-4.20)
[2021-12-12 10:27] LABS: Add Urine Microscopic? NO; Charge for UA Resulting for Rev
[2021-12-12 10:34] LABS: Bilirubin Urine Neg (Negative); Blood Urine Neg (Negative); Glucose Urine UA Norm (Normal); Ketones Urine Negative (Negative); Leukocyte Esterase Urine Negative (Negative); Nitrate Urine Negative (Negative); Protein Urine Neg (Negative); Urine Appearance Clear (CLEAR); Urine Color Straw (Yellow); Urobilinogen Urine Neg (Negative); pH Urine 5 (5-7)
--- NOTE | 2021-12-13 11:54 | ONC FU_ITS ---
Anne Erazo Progress Note Patient: Nita Moore Unit #: [id number]: 1970 Dicatated By: Anne Erazo N.P.Date of Visit:Dec 12, 2021 Onc MED Follow-up/Prog Note Chief Complaint: Lung cancer. 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 She was diagnosed with COVID-19 virus infection in February 2021. She noted some increase in pre-existing cough with that illness, and she also became more short of breath. Chest x-ray on 04/10/2021 showed a 4 cm suprahilar pulmonary density consistent with focal pneumonia or a mass. Further evaluation with chest CT on 04/25/2021 showed a solid mass with central cavitation in the posterior right upper lobe measuring 3.9 x 2.9 x 3.2 cm. The appearance was highly suspicious for primary pulmonary neoplasm. A confluent cluster of lymph nodes along the right paratracheal and right hilar region measured 5.6 x 3.6 x 3.2 cm. Lymph nodes were also noted to extend along the right central bronchus. Also noted were smaller subcarinal lymph nodes. There were no contralateral nodes identified. Marked low attenuation throughout the liver appeared consistent with hepatic steatosis. There was no adrenal mass identified. She had pulmonary consultation with Dr. Sr. Her bronchoscopy/EBUS on 05/10/2021 showed complete occlusion of the anterior segment right upper lobe bronchus from suspected external compression. Right upper lobe endobronchial biopsy was positive for squamous cell carcinoma. Mediastinal and hilar lymphadenopathy was identified by endobronchial ultrasound. FNA biopsy of station 4R lymph node was positive for metastatic squamous cell carcinoma. FNA biopsy of station 7 lymph node was negative. Staging PET/CT on 05/21/2021 showed FDG avid posterior right upper lobe lung mass with SUV 17.84, consistent with malignancy. There was associated FDG adenopathy in the right hilum with extension into the contiguous mediastinum, SUV up to 23.33. Adenopathy was noted to extend superiorly into the mediastinum to the right to above the level of the aortic arch, SUV 21.06. There was no FDG adenopathy noted in the left hilum or AP window or prevascular space. There was diffuse hepatic steatosis, no metastatic involvement was noted in the liver or adrenal glands. There was a relatively intense focus of increased activity in the colon at the splenic flexure, SUV 20.44, possibly representing malignancy. Also noted with intense activity in the uterine fundus with maximum SUV 23.74, also suspicious for malignancy. Abdominal and pelvic lymph nodes demonstrated physiologic levels of activity. Her head MRI on 05/24/2021 showed no evidence of metastatic disease. With those findings, she had [employer] evaluation with Dr. Deepti Estevez, and she underwent endometrial sampling on 05/31/2021. Pathology showed endometrial adenocarcinoma, FIGO grade 2. Analysis of mismatch repair proteins showed loss of nuclear expression of PMS2 with intact nuclear expression of MLH1, MSH2, and MSH6. In the meantime, she also had been seen seen by Dr. Ramirez, and she underwent placement of PowerPort on 06/04/2021. Her colonoscopy on 06/12/2021 showed an adenomatous appearing semipedunculated polyp in the proximal descending colon measuring 7 x 7 mm and a semipedunculated polyp measuring 8 x 6 mm in the distal descending colon. Also noted was a 5 mm lipoma in the mid ascending colon. Pathology on the distal descending colon polyp showed tubular adenoma with no high-grade dysplasia identified. The proximal descending colon polyp showed tubular adenoma with focal high-grade dysplasia. There was no evidence of invasive carcinoma. In the setting of stage IIIA non-small cell lung carcinoma, she was recommended to proceed with standard chemoradiation utilizing weekly carboplatin/paclitaxel for chemosensitization. On further pathologic evaluation, her lung tumor was found to be positive for PD-L1 expression at 5%. She began week 1 carboplatin/paclitaxel on 06/17/2021. She tolerated the initial infusion with no acute toxicity. She continued with week 2 on 06/24/2021. Her week 3 treatment was delayed due to neutropenia, ANC 1700. She continued with her radiation and she was then able continue with weekly carboplatin/paclitaxel on 07/08/2021. She completed her 6th and final infusion of carboplatin/paclitaxel 07/29/2021. She completed radiation on 08/01/2021 to a total dose of 6000 cGy administered in 30 fractions. Her restaging chest CT on 08/27/2021 showed right upper lobe mass measuring 3.7 x 1.3 cm, stable compared to the 08/04/2021 study but improved compared to 04/25/2021. Right paratracheal and right hilar lymphadenopathy also appeared stable compared to July 2021. There was no evidence of disease progression. With those findings she was recommended to begin maintenance immunotherapy with durvalumab. Her other medical illnesses include COPD, vitamin D deficiency, and anxiety/depression. She has a history of smoking 1-1/2 to 2 packs of cigarettes daily for more than 30 years. INTERIM HISTORY: She began cycle 1 of maintenance durvalumab on 09/11/2021. Her screening hepatitis profile showed equivocal hepatitis B core total antibody with a negative hepatitis Bs antibody at 3.5. The hepatitis Bs antigen was nonreactive and she also had nonreactive serology for hepatitis C antibody. Her liver enzymes were normal. She tolerated the initial infusion of durvalumab with no significant toxicity, and she continued with cycle 2 on 10/09/2021. Patient presents today for follow-up. She states she feels pretty good today. She does have some mild fatigue. Her appetite has been good. She denies fever, chills, night sweats. No sinus drainage or mouth sores. She has some shortness of breath with exertion. She has a chronic cough. No GI problems. She is having low back pain but no dysuria. She denies headaches or dizziness. She has had some problems with her Port-A-Cath and it will be replaced on Thursday. She had a hysterectomy by Dr. Wright in [place] on 09/24/2021 and it was recommended that she have a colonoscopy by Dr. Jacob in [place] to evaluate Sanchez syndrome. Patient states that she is not able to go there for a colonoscopy due to lack of transportation. Her last colonoscopy was by Dr. Ramirez on 06/12/2021. She is scheduled to receive cycle 4 of durvalumab today. Review Of Symptoms: See above. Past Medical History: Anxiety Chronic obstructive pulmonary disease Depression Viamin D insufficiency COVID-19 virus infection in 2020 Past Surgical History: Colonoscopy Tubal ligation Bronchoscopy/EBUS in 2020 Allergies: Codeine Sulfate and Sulfa Antibiotics. Medications: Albuterol Sulfate 1 Inhalation (of (2.5 mg/3ml) 0.083%) Nebulization solution Inhalation q 6 hours Aspirin 1 Tablet (of 325 mg) Tablet, enteric coated Oral daily Benzonatate 200 mg (of 200 mg) Capsule Oral t.i.d. Budesonide-Formoterol Fumarate 2 Puff(s) (of 160-4.5 mcg/act) Aerosol Inhalation b.i.d. Cholecalciferol 1 Tablet (of 125 mcg ) Oral daily Furosemide 1 Tablet (of 20 mg) Oral daily Omeprazole 1 Tablet (of 20 mg) Capsule Delayed Release Oral daily Potassium Chloride Jessica ER 1 Tablet (of 10 meq) Tablet, controlled release Oral daily Family History: She does not know what happened to her father. Her mother with heart disease. One sister is , cause unknown to the patient. Four other siblings are living, but she does not know about their health. A son with SIDS. Social History: Ms. Moore is . She is a daily smoker who has smoked 1.0 pack/day for 24 years. She has indicated exposure to the following products: cigarettes. She has a history of smoking 1-1/2 to 2 packs of cigarettes daily for more than 30 years. She does not drink alcohol. Physical Examination: Performed on Dec 12, 2021 09:59: Height - 62.00 in, Weight - 151.4 lbs (HIGH), BSA - 1.70 sq.m, BMI - 27.69, Temperature - 97.9 F (LOW), Pulse - 97 /min, Respiration - 16 /min, BP - 104/72 mm(hg), O2 Sat - 95 % (LOW), Pain - 4, and Fatigue - 3. Performance Status: 1 - No physically strenuous activity, but ambulatory and able to carry out light or sedentary work (e.g. office work, light house work). (ECOG) Constitutional Alert, cooperative, oriented. Mood and affect appropriate. Appears close to chronological age. Well nourished. Well developed. Respiratory Lungs are clear to auscultation without rhonchi or wheezing. Cardiovascular Regular rate and rhythm of heart without murmurs, gallops or rubs. Abdomen Non-tender, non-distended, no masses, ascites or hepatosplenomegaly. Good bowel sounds. No guarding or rebound tenderness. Musculoskeletal No tenderness or swelling, normal range of motion without obvious weakness. Psychiatric Alert and oriented times three. Coherent speech. Verbalizes understanding of our discussions today. Laboratory: Test performed on Dec 12, 2021 10:20 Ua Color Straw Ua Appearance Clear Ua Glucose Norm Ua Bilirubin Neg Ua Ketones Negative Ua Specific [place] 1.010 Ua Blood Neg Ua pH 5 Ua Protein Neg Ua Nitrites Negative Ua Leukocyte Esterase Negative Test performed on Dec 12, 2021 08:39 Sodium 141 mmol/L TSH 4.26 uIU/mL Potassium 4.3 mmol/L Chloride 106 mmol/L CO2 27 mmol/L Anion Gap 12.3 BUN 15 mg/dL Creatinine 0.6 mg/dL Cr Clearance (Est) 118.91 mL/min eGFR 105.0 mL/min Glucose 105 mg/dL Osmolality - Calculated 293 mOsm/kg Calcium 9.0 mg/dL Protein, Total 7.1 g/dL Albumin 3.8 g/dL Globulin 3.3 g/dL Bilirubin, Total 0.2 mg/dL ALT (SGPT) 17 U/L AST (SGOT) 25 U/L Alkaline Phosphatase 79 IU/L WBC 6.1 10 3/uL RBC 4.69 10 6/uL HGB 14.3 g/dL HCT 44.5 % MCV 94.9 fl MCH 30.5 pg MCHC 32.1 g/dL RDW 12.6 % Platelet Count 223 10 3/cmm MPV 10.0 fL Neutrophils 4.24 10 3/uL Lymphocytes 1.2 10 3/uL Monocytes 0.4 10 3/uL Eosinophils 0.2 10 3/uL Basophils 0.0 10 3/uL Neutrophil % 69.2 % Lymphocyte % 19.2 % Monocyte % 7.2 % Eosinophil % 3.6 % Basophils % 0.5 % NRBC % 0 % Test performed on Oct 09, 2021 09:35 LDH (Total) 168 U/L Test performed on Sep 11, 2021 10:39 Manual Segs 59.8 % Manual Lymphocytes 23.1 % Manual Monocytes 12.3 % Manual Eosinophils 4.2 % Manual Basophils 0.3 % NRBCs 0 /100 WBC Test performed on Jun 28, 2021 10:51 Ua Urobilinogen 4 mg/dL Ua Micro: WBC 15-25 /hpf Urine Culture 10,000-20,000 COLS/ML MIXED SUPERFICIAL KARELY ON DAY 2. PROBABLE CONTAMINANTS. Ua Micro: RBC 5-10 /hpf Ua Micro: Squam Epith Cells 0-4 /hpf Ua Micro: Bacteria 1+ /hpf Impression: 1. Squamous cell carcinoma involving the upper lobe of the right lung, by clinical evaluation stage IIIA (T2a, N2, M0). 2. Adenocarcinoma of the endometrium, FIGO grade 2, MMR deficient. 3. Multiple colonic polyps, including an adenomatous polyp in the proximal descending colon with focal high-grade dysplasia. 4. COPD. 5. Anxiety/depression, currently not requiring medication. 6. Vitamin D deficiency. 7. History of COVID-19 virus infection in February 2021. Plan: 1. Patient with squamous cell carcinoma involving the upper lobe of the right lung by clinical evaluation stage IIIA (T2a, N2, M0). She underwent bronchoscopy/EBUS on 05/10/2021. Endobronchial biopsy from the right upper lobe and FNA biopsy of station 4R lymph node were both positive for squamous cell carcinoma. By staging PET/CT her lung cancer appeared to be confined to the primary lesion in the right upper lobe and involved hilar/mediastinal lymph nodes, but there were focal sites of uptake noted in the uterus and colon which were suspicious for other sites of primary malignancy. In the setting of stage IIIA non-small cell lung carcinoma, she was recommended to proceed with standard chemoradiation. She began week 1 of carboplatin/paclitaxel on 06/17/2021. She tolerated it with no significant adverse effects. She continued with week 2 chemotherapy on 06/24/2021. Her further chemotherapy was delayed due to neutropenia, but she was able to continue with weekly carboplatin/paclitaxel on . She completed her 6th and final infusion of carboplatin/paclitaxel 07/29/2021. She completed radiation on 08/01/2021 to a total dose of 6000 cGy administered in 30 fractions. Her restaging chest CT on 08/27/2021 showed right upper lobe mass measuring 3.7 x 1.3 cm, stable compared to the 08/04/2021 study but improved compared to 04/25/2021. Right paratracheal and right hilar lymphadenopathy also appeared stable compared to July 2021. There was no evidence of disease progression. With those findings she then began maintenance immunotherapy with durvalumab, cycle 1 on 09/11/2021. She tolerated it well and she continued with cycle 2 on 10/09/2021. A restaging CT of the chest was performed on 12/05/2021 which indicated an increase in size of the spiculated cavitary lesion in the right upper lobe and also increased in the interstitial nodularity and thickening in the right upper lobe and pleural thickening. Because mass measures 4.0 x 1.5 cm. Prior measurement of 3.7 x 1.3 cm. Very slight increase in size but appears overall denser more consolidated. This may all be related to treatment but it is also highly suspicious for progression of patient's known lung cancer. The right paratracheal and right hilar lymph node burden has not significantly changed. Thus far she appears to be tolerating the maintenance immunotherapy with no significant adverse effects. She will continue now with cycle 4 of maintenance durvalumab at 1500 mg by IV infusion. She will be scheduled for follow-up in 4 weeks. 2. Her endometrial sampling on 05/31/2021 showed FIGO grade 2 adenocarcinoma of the endometrium, MMR deficient. She had hysterectomy on September 24, 2021 in [place]. She has had uneventful recovering from the surgery. 3. She was found on colonoscopy to have multiple adenomatous polyps, including an adenomatous polyp with high-grade dysplasia involving the distal descending colon. It is being managed by Dr. Ramirez. Any further colonoscopies will be performed by Dr. Ramirez at this point. 4. Patient is having low back pain. A UA was obtained to rule out UTI. Results were negative for UTI. 5. Patient is scheduled to have her Port-A-Cath replaced on 12/16/2021. Signed By: Anne Erazo N.P. <<Signature on File>>
== END 2021-12-14 23:59 | disposition home or self-care (01) ==
LOC: ONCMED 08:03
PROVIDERS: Internal Medicine Medical Oncology; PCP Nurse Practitioner; Visit Provider Nurse Practitioner Family
DX: Z51.12 Encounter for antineoplastic immunotherapy (principal); C34.11 Malignant neoplasm of upper lobe, right bronchus or lung; C77.8 Secondary and unspecified malignant neoplasm of lymph nodes of multiple regions; D70.1 Agranulocytosis secondary to cancer chemotherapy; T45.1X5A Adverse effect of antineoplastic and immunosuppressive drugs, initial encounter; Z90.710 Acquired absence of both cervix and uterus; D12.4 Benign neoplasm of descending colon; M54.50 Low back pain, unspecified; Z79.899 Other long term (current) drug therapy; Z92.21 Personal history of antineoplastic chemotherapy; Z92.3 Personal history of irradiation
CPT/HCPCS: 80053; 81003; 84443; 85025; 96413; 99215; J7050; J9173

== ENCOUNTER 2021-12-16 08:45 | Day surgery (SDC) | payer MEDICAID, SELFPAY ==
[2021-12-13 10:49] VITALS: BMI 26.5
[2021-12-16] VITALS (8 sets, daily range): BP systolic 96–119; BP diastolic 73–87; PULSE 86–104; RESP 12–20; TEMP 36.1–36.6; O2SAT 94–99
--- NOTE | 2021-12-16 | SCC_ITS ---
Procedure done: 1. ?Explantation of right internal jugular vein Power 2.? Placement of left subclavian vein PowerPort 3.Fluoroscopic guidance and interpretation for placement of catheter 34.8 seconds of fluoroscopic guidance, for a cumulative dose of 5.47 mGy, was provided to Dr. Ramirez by the radiology department. C-arm images of the chest were saved for the patient's permanent record. [facility]
--- NOTE | 2021-12-16 08:51 | SC_ITS ---
WS: [id number] C-ARM RADIOGRAPHS CHEST; 3 IMAGES HISTORY: Powerport Placement COMPARISON: None available. Intraoperative imaging during power port exchange. On the imaging submitted. Mediport may enter into the jugular vein. Catheter projects over the RIGHT upper thorax and lower neck. SC/C-arm FL for CVA [id number] IMPRESSION: Intraoperative imaging during exchange of the Port-A-Cath.
[2021-12-16] MEDS: sodium chloride 0.9% 1,000 ML 30 ML IV (09:18)
--- NOTE | 2021-12-16 09:29 | W.PM.OPSUD ---
Surgery/Procedure H&P Update DATE OF PROCEDURE: December 16, 2021 DATE H&P PERFORMED: 12/09/21 H&P UPDATE INFORMATION: I have reviewed H&P completed within last 30 days, I have examined patient prior to procedure and No changes to prior documentation PREOP DIAGNOSIS: Lung cancer PRIMARY INDICATION FOR PROCEDURE: The same PLANNED PROCEDURE: Operation Date: 12/16/21 10:10 Proposed Procedures p Portacath exchange /04619/ Z95.828 presence of other vascular implants/grafts(Not Applicable) - Santos Ramirez MD
--- NOTE | 2021-12-16 10:03 | P.ANESASSM_ITS ---
Pre-Anesthetic Assessment Height/Weight: Height 1.57 m Weight 65.771 kg Temp Pulse Resp BP Pulse Ox 97.4 F L 104 H 16 99/73 96 12/16/21 09:09 12/16/21 09:09 12/16/21 09:09 12/16/21 09:09 12/16/21 09:09 Preop Diagnosis: Lung cancer Operation Date: 12/16/21 10:10 Proposed Procedures p Portacath exchange /30893/ Z95.828 presence of other vascular implants/ grafts(Not Applicable) - Santos Ramirez MD Familial anesthetic complications: None Was Beta Julio C taken within 24 hours: N/A Was Clonidine taken within 24 hours: N/A Last intake: Intake Last Liquid Date 12/15/21 Last Liquid Time 21:30 Last Solid Date 12/15/21 Last Solid Time 21:30 Social Tobacco and No alcohol Exam alert, oriented x 3 and regular rate & rhythm Airway Submandibular: within normal limits Cervical ROM: within normal limits Mallampati: Class II Dentition: loose (all lower teeth) and false (upper) Pulmonary Chronic Obstructive Pulmonary Disease lung CA CV/HEM Hypertension GI Gastroesophageal Reflux Disease Neuropsych Anxiety and Depression Anesthetic Plan ASA status: 3 Anesthesia: Choice Medications/Allergies Home Medications Medication Instructions Recorded Confirmed Last Taken Type aspirin 325 mg tablet,delayed 325 mg PO DAILY #30 tab 01/27/20 12/16/21 12/15/21 Rx release furosemide 20 mg tablet (Lasix) 20 mg PO DAILY #90 tab 04/08/21 12/16/21 12/14/21 Rx potassium chloride 10 mEq 10 meq PO DAILY #90 cap 04/08/21 12/13/21 08/03/21 Rx capsule,extended release omeprazole 20 mg capsule,delayed 20 mg PO DAILY 05/31/21 12/13/21 08/03/21 History release fluticasone fur. 100 mcg-umeclid 1 inh INHALATION DAILY #60 ea 06/04/21 12/13/21 06/08/21 Rx 62.5 mcg-vilant 25 mcg inhalat.powder (Trelegy Ellipta) hydrocodone 5 mg-acetaminophen 325 1 tab PO Q6H PRN #14 tab 06/04/21 12/13/21 06/06/21 Rx mg tablet albuterol sulfate 2.5 mg INHALATION Q6H PRN 06/10/21 12/13/21 06/09/21 History ondansetron 4 mg disintegrating 4 mg PO Q8H PRN #10 tab 06/30/21 12/13/21 Unknown Rx tablet cholecalciferol (vitamin D3) 25 25 mcg PO DAILY 08/04/21 12/16/21 12/15/21 History mcg (1,000 unit) capsule (Vitamin D3) citalopram 20 mg tablet 20 mg PO DAILY 08/04/21 12/16/21 12/15/21 History dexamethasone 4 mg tablet See Rx Instructions .ROUTE .COMPLEX 08/04/21 12/13/21 Unknown History albuterol sulfate 2.5 mg (3 mL) INHALATION Q4H PRN 08/08/21 12/13/21 Unknown Rx #300 ml nebulizers #1 ea 08/15/21 12/09/21 Unknown Rx benzonatate 200 mg capsule 200 mg PO TID PRN 11/13/21 12/13/21 Unknown History lorazepam 1 mg tablet 0.5 mg PO TID PRN tab 11/13/21 12/13/21 Unknown History prochlorperazine maleate 10 mg 10 mg PO .q4hrs PRN tab 11/13/21 12/13/21 Unkn own History tablet Allergies Allergy/AdvReac Type Severity Reaction Status Date / Time codeine Allergy Unknown Verified 12/16/21 09:06 Sulfa (Sulfonamide Allergy Unknown Verified 12/16/21 09:06 Antibiotics) Current Medications Generic Name Dose Route Start Last Admin Trade Name Freq PRN Reason Stop Dose Admin Sodium Chloride 1,000 mls @ 30 mls/hr 12/16/21 09:00 12/16/21 09:18 Sodium Chloride 0.9% IV 12/17/21 08:59 30 mls/hr .Q24H ROSSANA Administration PFSH Anesthesia Medical History Acute exacerbation of chronic obstructive pulmonary disease Anxiety and depression Cigarette smoker Edema, unspecified Metastatic squamous cell carcinoma Personal history of smoking Vitamin D insufficiency Surgical History History of tubal ligation Family History Sister Diabetes Mother Diabetes Hypertension Stroke Daughter Thyroid disease Denies family history of CAD (coronary artery disease) Clotting disorder Hyperlipidemia Chronic kidney disease (CKD) Bleeding disorder Cancer Social History Smoking and tobacco status: current every day smoker cigarettes Packs smoked per day: 2.5 Years cigarettes smoked: 25 Second hand smoke exposure: Yes Smoking risk assessment/counseling performed?: Yes Alcohol intake: unknown Desire information about alcohol rehabilitation?: No Counseling given: No Desire information about substance/drug rehabilitation?: No Counseling given: No Adopted: No Caregiver/support person: No Lives independently: Yes Household members: family Housing: House Marital status: / Number of children: 5 service: No Current occupational status: employed 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
[2021-12-16] MEDS: lidocaine 2% INJ 20 mL INJECTION (10:17)
[2021-12-16] MEDS: heparin, porcine 1,000 unit/mL INJ 10 mL 10000 UNIT IRRIGATION (10:18)
--- NOTE | 2021-12-16 10:36 | XRR_ITS ---
PROCEDURE INFORMATION: Exam: XR Chest Exam date and time: 12/16/2021 10:54 AM Age: 51 years old Clinical indication: Placement of left subclavian vein powerport. Post-operative (0-2 days). Status post removal of right IJ Port. TECHNIQUE: Imaging protocol: XR of the chest. Views: 1 view. COMPARISON: CT chest w con* [id number] 12/05/2021 11:39 AM FINDINGS: Tubes, catheters and devices: Left port with tip in the SVC. Lungs: Coarse and masslike opacities in the right upper lobe are again noted. Calcified granuloma on the left. Pleural spaces: No pleural effusion. No pneumothorax. Heart/Mediastinum: The cardiac silhouette is unchanged. No gross evidence of pneumomediastinum. Bones/joints: No gross fracture. XR/XR chest 1V portable [id number] IMPRESSION: 1. Left port with tip in the SVC. 2. Coarse and masslike opacities in the right upper lobe are again noted.
--- NOTE | 2021-12-16 10:36 | P.OP_ITS ---
Operative Report Date of procedure: December 16, 2021 Pre-op diagnosis: Preop Diagnosis Lung cancer Post-op diagnosis: The same Procedure done: 1. ?Explantation of right internal jugular vein Power port 2.? Placement of left subclavian vein PowerPort 3. Fluoroscopic guidance and interpretation for placement of catheter Surgeon: Santos Ramirez MD Bladder Cleaner: Candy Horan Anesthesia: MAC (Carla Abbott and Janak Morris) Estimated blood loss (mL): 5 Procedure: Patient was identified in the holding area and taken to the operative room and placed in supine position IV propofol was given by the anesthesia provider ,both arms were tucked,Time-out was done verifying the patient's name/date of /planned procedure and destination after the procedure, all were in agreement. SCDs confirmed to be functioning, preoperative antibiotics administered per protocol, and beta zhou protocol was confirmed, appropriate positioning of the patient was done by me. Medications were reviewed to assess for anticoagulant usage. Risks and benefits and prevention of central line associated blood stream infection (CLABSI) were discussed with the patient/CPOA, and a consent was obtained. Monitors were in place and monitored throughout the procedure. All necessary supplies were ahsan ilable prior to start. Hand hygiene was completed prior to starting. Maximum barrier technique was utilized including a sterile gown, sterile gloves with a hat and mask. Site was was prepped with [chlorhexidine] and a full body drape was placed. 5 mL of 2% lidocaine was injected into the skin with a 25 gauge needle. Prep& drape was done under the usual sterile technique of both sides of the neck and upper chest. Lidocaine 2% was injected at the site of right upper chest incision where dissection of the right upper chest PowerPort was done and removed without complications and at the same time pressure was held on the right IJ for at least 5 minutes. Copious and thorough irrigation of the wound, the wound was then closed using 3-0 Vicryl followed by 4-0 Monocryl then dry dressing. Attention now was deviated towards the left subclavian region. After injection of lidocaine 2%started by left subclavian stick that retrieved venous blood was obtained from the first stick, a guidewire was then threaded and under the guidance of fluoroscopy position was confirmed to be in the IVC and my interpretation, there was no PVC changes, at that point the guidewire was secured to the drapes with a hemostat and the needle was taken out, attention was then deviated towards creation of a pocket for the port were lidocaine 2% was injected using an 15 blade knife skin incision was created dissection using the Bovie to create a pocket for the Port-A-Cath to be accommodated, hemostasis was secured, after the port being appropriately flushed it was inserted into the pocket and a tunneler was used to accommodate the catheter of the port cath to be delivered through the incision first created at the site of the stick, at that point under fluoroscopy an estimated length was measured for the catheter and was cut at the designed level, followed by that a dilator with the sheath introduced onto the guidewire the dilator and the wire were retrieved and the catheter of the port was introduced via the sheath where it was peeled off and the catheter maintained to be in the SVC that was confirmed with fluoroscopy, and the fluoroscopy interpretation was done by me throughout the entire proce dure. The port was kept in its pocket,3-0 Vicryl deep subdermal interrupted sutures, skin was then closed by 4-0 Monocryl as subcuticular closure. The port was appropriately flushed with heparin only weak and venous blood was withdrawn without difficulty The stick site was closed by 4-0 Monocryl and Dermabond was used followed by dressing. Patient tolerated the procedure well was taken to the recovery area Count was correct at the end of the procedure I was present for the whole entire procedure Position of the catheter was checked with a postoperative chest x-ray and it was in good position without evidence of pneumothorax
[2021-12-16] MEDS: acetaminophen 325 mg Tablet 650 MG PO (11:19)
--- NOTE | 2021-12-16 12:27 | SUR.PHASEI ---
1145 pt dressed and awaiting ride home [facility] call[facility] and spoke with cale and informed of pt's port placement and verbalized understanding
--- NOTE | 2021-12-16 14:21 | ANE.PACU2 ---
Inpatient post-anesthesia follow up: Airway intact: Yes Vital signs: Temperature 98 F Pulse Rate 89 Respiratory Rate 15 Blood Pressure 119/87 Pulse Oximetry 95 Oxygen Delivery Me thod Room Air Oxygen Flow Rate Fraction of Inspir ed Oxygen Hydration adequate: Yes Nausea and vomiting: No Pain level: 1 Mental status: Baseline
== END 2021-12-16 14:07 | disposition home or self-care (01) ==
PROVIDERS: PCP Nurse Practitioner; Visit Provider Surgery
PROC: (CPT 36561; principal; 2021-12-16 10:00)
DX: C34.90 Malignant neoplasm of unspecified part of unspecified bronchus or lung (principal); J44.9 Chronic obstructive pulmonary disease, unspecified; I10 Essential (primary) hypertension; K21.9 Gastro-esophageal reflux disease without esophagitis; F41.9 Anxiety disorder, unspecified; F32.9 Major depressive disorder, single episode, unspecified; Z79.82 Long term (current) use of aspirin; F17.210 Nicotine dependence, cigarettes, uncomplicated; E55.9 Vitamin D deficiency, unspecified
CPT/HCPCS: 36561; 71045; 76000; 77001; C1788; J0690; J1644; J2704; J3010; J7030

== ENCOUNTER → 2021-12-25 10:32 | Outpatient (BNVA) | payer MEDICAID, SELFPAY | PROVIDERS: PCP Nurse Practitioner; Visit Provider Surgery | DX: Z98.890 Other specified postprocedural states (principal); Z45.2 Encounter for adjustment and management of vascular access device; Z86.010 Personal history of colon polyps; K63.5 Polyp of colon ==

== ENCOUNTER → 2022-01-02 08:42 | Outpatient (BNVA) | payer MEDICAID, SELFPAY | PROVIDERS: PCP Nurse Practitioner; Visit Provider Internal Medicine Pulmonary Disease | DX: C34.11 Malignant neoplasm of upper lobe, right bronchus or lung (principal); C79.9 Secondary malignant neoplasm of unspecified site; F17.210 Nicotine dependence, cigarettes, uncomplicated; J43.2 Centrilobular emphysema; K63.5 Polyp of colon; M79.602 Pain in left arm | CPT/HCPCS: 73030; 99214 ==

== ENCOUNTER 2022-01-09 11:28 | Oncology outpatient (recurring) (ONCR) | payer MEDICAID, SELFPAY ==
[2022-01-09 12:13] LABS: Basophils % 0.3 %; Eosinophils # 0.2 10^3/uL (0.0-0.8); Eosinophils % 3.6 %; Hematocrit 37.9 % (37.0-47.0); Hemoglobin 12.7 g/dL (11.5-15.3); Lymphocytes # 1.2 10^3/uL (0.8-4.8); Lymphocytes % 18.7 %; Mean Corpuscular HGB Conc 33.5 g/dL (30.0-36.0); Mean Corpuscular Hemoglobin 30.8 pg (28.0-34.0); Mean Platelet Volume 9.7 fL (7.4-10.4); Monocytes # 0.5 10^3/uL (0.2-0.9); Monocytes % 8.2 %; Neutrophils # 4.43 10^3/uL (1.8-7.7); Neutrophils % 68.9 %; Nucleated Red Blood Cells % 0 %; Platelet Count 244 10^3/cmm (130-400); Red Blood Count 4.12 10^6/uL (4.1-5.3); Red Cell Distribution Width 13.2 % (12.1-15.1); White Blood Count 6.4 10^3/uL (4.0-10.0)
[2022-01-09 12:23] LABS: Alanine Aminotransferase 9 U/L (0-33); Alkaline Phosphatase 87 IU/L (35-105); Aspartate Amino Transferase 12 U/L (0-32); Blood Urea Nitrogen 16 mg/dL (6-20); Calcium 9.1 mg/dL (8.5-10.5); Carbon Dioxide 29 mmol/L (22-29); Chloride 104 mmol/L (98-107); Globulin 3.2 g/dL (1.3-4.6); Glomerular Filtration Rate 87.9 mL/min (90-130); Glucose 88 mg/dL (65-115); Osmolality Calculated 293 mOsm/kg (285-295); Sodium 141 mmol/L (136-145); Total Bilirubin 0.2 mg/dL (0.15-1.2); Total Protein 7.2 g/dL (6.6-8.7)
[2022-01-09] MEDS: sodium chloride 0.9% 250 ML 75 ML IV (14:04)
[2022-01-09] MEDS: durvalumab 1,500 MG in sodium chloride 0.9% 250 ML 280 MG IV (14:24)
[2022-01-09 15:50] VITALS: BP 115/78; PULSE 98; TEMP 36.3; O2SAT 94
== END 2022-01-14 23:59 | disposition home or self-care (01) ==
PROVIDERS: Internal Medicine Medical Oncology; PCP Nurse Practitioner; Visit Provider Nurse Practitioner
DX: Z51.12 Encounter for antineoplastic immunotherapy (principal); C34.11 Malignant neoplasm of upper lobe, right bronchus or lung; C77.8 Secondary and unspecified malignant neoplasm of lymph nodes of multiple regions; C54.1 Malignant neoplasm of endometrium; D12.4 Benign neoplasm of descending colon; Z79.899 Other long term (current) drug therapy; Z45.2 Encounter for adjustment and management of vascular access device
CPT/HCPCS: 80053; 85025; 96413; 99215; J7050; J9173

== ENCOUNTER 2022-01-30 07:09 | Day surgery (SDC) | payer MEDICAID, SELFPAY ==
[2022-01-28 14:22] VITALS: BMI 27.4
[2022-01-30 07:30] VITALS: BP 119/84; PULSE 108; RESP 18; TEMP 36.6; O2SAT 96
[2022-01-30] MEDS: sodium chloride 0.9% 1,000 ML 30 ML IV (07:38)
--- NOTE | 2022-01-30 07:43 | P.ANESASSM_ITS ---
Pre-Anesthetic Assessment Height/Weight: Height 1.57 m Weight 68.039 kg Temp Pulse Resp BP Pulse Ox 97.8 F 108 H 18 119/84 96 01/30/22 07:30 01/30/22 07:30 01/30/22 07:30 01/30/22 07:30 01/30/22 07:30 Preop Diagnosis: Lung cancer Operation Date: 01/30/22 08:30 Proposed Procedures p Colonoscopy 96573/Z86.010(Not Applicable) - Santos Ramirez MD Familial anesthetic complications: none Was Beta Julio C taken within 24 hours: N/A Was Clonidine taken within 24 hours: N/A Last intake: Intake Last Liquid Date 01/29/22 Last Liquid Time 23:50 Last Solid Date 01/28/22 Last Solid Time 18:30 Social Tobacco and No alcohol Exam alert, oriented x 3, clear to auscultation bilaterally and regular rate & rhythm dimished bilaterally Airway Mallampati: Class III Dentition: loose (multiple loose on lower aspect) and partials Pulmonary Chronic Obstructive Pulmonary Disease hx R lung cancer CV/HEM Hypertension GI Gastroesophageal Reflux Disease Anesthetic Plan ASA status: 4 Anesthesia: MAC Risk of > 500 ml blood loss (7ml/kg in children): No Other Pertinent Information Patient states she's out of some of her medicines, unable to tell me which ones she hasn't been taking Medications/Allergies Home Medications Medication Instructions Recorded Confirmed Last Taken Type aspirin 325 mg tablet,delayed 325 mg PO DAILY #30 tab 01/27/20 01/30/22 12/15/21 Rx release furosemide 20 mg tablet (Lasix) 20 mg PO DAILY #90 tab 04/08/21 01/30/22 12/14/21 Rx potassium chloride 10 mEq 10 meq PO DAILY #90 cap 04/08/21 01/30/22 08/03/21 Rx capsule,extended release omeprazole 20 mg capsule,delayed 20 mg PO DAILY 05/31/21 01/30/22 08/03/21 History release fluticasone fur. 100 mcg-umeclid 1 inh INHALATION DAILY #60 ea 06/04/21 01/30/22 06/08/21 Rx 62.5 mcg-vilant 25 mcg inhalat.powder (Trelegy Ellipta) hydrocodone 5 mg-acetaminophen 325 1 tab PO Q6H PRN #14 tab 1001/30/22 06/06/21 Rx mg tablet albuterol sulfate 2.5 mg INHALATION Q6H PRN 06/10/21 01/30/22 06/09/21 History ondansetron 4 mg disintegrating 4 mg PO Q8H PRN #10 tab 06/30/21 01/30/22 Unknown Rx tablet cholecalciferol (vitamin D3) 25 25 mcg PO DAILY 08/04/21 01/30/22 12/15/21 History mcg (1,000 unit) capsule (Vitamin D3) citalopram 20 mg tablet 20 mg PO DAILY 08/04/21 01/30/22 12/15/21 History dexamethasone 4 mg tablet See Rx Instructions .ROUTE .COMPLEX 08/04/21 01/30/22 Unknown History albuterol sulfate 2.5 mg (3 mL) INHALATION Q4H PRN 08/08/21 01/30/22 Unknown Rx #300 ml nebulizers #1 ea 08/15/21 01/09/22 Unknown Rx benzonatate 200 mg capsule 200 mg PO TID PRN 11/13/21 01/30/22 Unknown History lorazepam 1 mg tablet 0.5 mg PO TID PRN tab 11/13/21 01/30/22 Unknown History prochlorperazine maleate 10 mg 10 mg PO .q4hrs PRN tab 11/13/21 01/30/22 Unknown History tablet tramadol 50 mg tablet 50 mg PO Q6H PRN #20 tab 12/16/21 01/30/22 Unknown Rx Allergies Allergy/AdvReac Type Severity Reaction Status Date / Time codeine Allergy Unknown Verified 01/30/22 07:27 Sulfa (Sulfonamide Allergy Unknown Verified 01/30/22 07:27 Antibiotics) Current Medications Generic Name Dose Route Start Last Admin Trade Name Freq PRN Reason Stop Dose Admin Sodium Chloride 1,000 mls @ 30 mls/hr 01/30/22 07:30 01/30/22 07:38 Sodium Chloride 0.9% IV 01/31/22 07:29 30 mls/hr .Q24H ROSSANA Administration PFSH Anesthesia Medical History (Updated 01/09/22 @ 13:22 by Cydney Mas LPN) Acute exacerbation of chronic obstructive pulmonary disease Anxiety and depression Cigarette smoker Edema, unspecified Metastatic squamous cell carcinoma Personal history of smoking Vitamin D insufficiency Surgical History History of tubal ligation Family History (Updated 01/09/22 @ 13:23 by Cydney Mas LPN) Sister Diabetes Mother Diabetes Hypertension Stroke Daughter Thyroid disease Denies family history of CAD (coronary artery disease) Clotting disorder Dementia Hyperlipidemia Psychiatric illness Chronic kidney disease (CKD) Suicide Anesthesia complication Bleeding disorder Lung disease Cancer Social History (Updated 01/09/22 @ 13:23 by Cydney Mas LPN) Smoking and tobacco status: current every day smoker (1 ppd) cigarettes Packs smoked per day: 1 Years cigarettes smoked: 25 Second hand smoke exposure: Yes Smoking risk assessment/counseling performed?: Yes Alcohol intake: never Desire information about alcohol rehabilitation?: No Counseling given: No Desire information about substance/drug rehabilitation?: No Counseling given: No Adopted: No Caregiver/support person: No Lives independently: Yes Household members: family Housing: House Marital status: / Number of children: 5 service: No Current occupational status: employed 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
--- NOTE | 2022-01-30 07:57 | W.PM.OPSFHP ---
Same Day Surgery H&P Indication for Procedure/HPI DATE OF PROCEDURE: January 30, 2022 CHIEF COMPLAINT/INDICATIONFOR SURGICAL PROCEDURE: Colon polyps PREOP DIAGNOSIS: Lung cancer/colon polyps PLANNED PROCEDURE: Operation Date: 01/30/22 08:30 Proposed Procedures p Colonoscopy 52852/Z86.010(Not Applicable) - Santos Ramirez MD This is a pleasant 51 years old female patient comes today for surveillance colonoscopy ROS All systems have been reviewed negative except as for the above or per problem list. Medications/Allergies* Home Medications Medication Instructions Recorded Confirmed Type omeprazole 20 mg capsule,delayed 20 mg PO DAILY 05/31/21 01/30/22 History release albuterol sulfate 2.5 mg INHALATION Q6H PRN 06/10/21 01/30/22 History cholecalciferol (vitamin D3) 25 25 mcg PO DAILY 08/04/21 01/30/22 History mcg (1,000 unit) capsule (Vitamin D3) citalopram 20 mg tablet 20 mg PO DAILY 08/04/21 01/30/22 History dexamethasone 4 mg tablet See Rx Instructions .ROUTE .COMPLEX 08/04/21 01/30/22 History benzonatate 200 mg capsule 200 mg PO TID PRN 11/13/21 01/30/22 History lorazepam 1 mg tablet 0.5 mg PO TID PRN tab 11/13/21 01/30/22 History prochlorperazine maleate 10 mg 10 mg PO .q4hrs PRN tab 11/13/21 01/30/22 History tablet Allergies/Adverse Reactions Allergy/AdvReac Type Severity Reaction Status Date / Time codeine Allergy Unknown Verified 01/30/22 07:58 Sulfa (Sulfonamide Allergy Unknown Verified 01/30/22 07:58 Antibiotics) Current Medications: Generic Name Dose Route Start Last Admin Trade Name Freq PRN Reason Stop Dose Admin Sodium Chloride 1,000 mls @ 30 mls/hr 01/30/22 07:30 01/30/22 07:38 Sodium Chloride 0.9% IV 01/31/22 07:29 30 mls/hr .Q24H ROSSANA Administration Pertinent History/Comorbid Conditions* Medical History (Updated 01/02/22 @ 10:03 by Mohamud Sr MD) Acute exacerbation of chronic obstructive pulmonary disease Anxiety and depression Cigarette smoker Edema, unspecified Metastatic squamous cell carcinoma Personal history of smoking Vitamin D insufficiency Surgical History (Updated 11/07/19 @ 13:42 by TAPAN Marcus) History of tubal ligation Family History (Updated 01/09/22 @ 13:22 by Cydney Mas LPN) Diabetes Sister Mother Hypertension Mother Thyroid disease Daughter Stroke Mother Denies family history of CAD (coronary artery disease) Clotting disorder Dementia Hyperlipidemia Psychiatric illness Chronic kidney disease (CKD) Suicide Anesthesia complication Bleeding disorder Lung disease Cancer Social History Smoking and tobacco status: current every day smoker (1 ppd) cigarettes Packs smoked per day: 1 Years cigarettes smoked: 25 Second hand smoke exposure: Yes Smoking risk assessment/counseling performed?: Yes Alcohol intake: never Desire information about alcohol rehabilitation?: No Counseling given: No Desire information about substance/drug rehabilitation?: No Counseling given: No Adopted: No Caregiver/support person: No Lives independently: Yes Household members: family Housing: House Marital status: / Number of children: 5 service: No Current occupational status: employed 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
[2022-01-30 09:07] VITALS: BP 106/73; PULSE 90; RESP 20; TEMP 36.1; O2SAT 99
[2022-01-30 09:23] VITALS: BP 120/89; PULSE 94; RESP 18; O2SAT 95
[2022-01-30 09:30] VITALS: BP 111/84; PULSE 92; RESP 18; O2SAT 96
--- NOTE | 2022-01-30 16:29 | ANE.PACU2 ---
Inpatient post-anesthesia follow up: Airway intact: Yes Vital signs: Temperature 97 F Pulse Rate 92 Respiratory Rate 18 Blood Pressure 111/84 Pulse Oximetry 96 Oxygen Delivery Me thod Room Air Oxygen Flow Rate Fraction of Inspir ed Oxygen Hydration adequate: Yes Nausea and vomiting: Yes Pain level: 1 Mental status: Baseline
[2022-02-04 10:49] LABS: Miscellaneous Test See Scanned Lab Rpt
== END 2022-01-30 08:48 | disposition home or self-care (01) ==
PROVIDERS: PCP Nurse Practitioner; Visit Provider Surgery
PROC: 0DJD8ZZ Inspection of Lower Intestinal Tract, Via Natural or Artificial Opening Endoscopic (ICD-10-PCS; CPT 45378; principal; 2022-01-30 08:30)
DX: Z12.11 Encounter for screening for malignant neoplasm of colon (principal); Z86.010 Personal history of colon polyps; K57.30 Diverticulosis of large intestine without perforation or abscess without bleeding; D12.4 Benign neoplasm of descending colon; F41.9 Anxiety disorder, unspecified; F32.9 Major depressive disorder, single episode, unspecified; F17.210 Nicotine dependence, cigarettes, uncomplicated; E55.9 Vitamin D deficiency, unspecified; J44.9 Chronic obstructive pulmonary disease, unspecified; Z85.118 Personal history of other malignant neoplasm of bronchus and lung; I10 Essential (primary) hypertension; Z79.82 Long term (current) use of aspirin
CPT/HCPCS: 45380; 88305; 88341; 88342; J2704; J7030

== ENCOUNTER 2022-02-06 09:58 | Oncology outpatient (recurring) (ONCR) | payer MEDICAID, SELFPAY ==
[2022-02-06 10:49] LABS: Basophils % 0.4 %; Eosinophils # 0.2 10^3/uL (0.0-0.8); Eosinophils % 2.4 %; Hematocrit 33.8 % (37.0-47.0); Hemoglobin 11.3 g/dL (11.5-15.3); Lymphocytes # 1.1 10^3/uL (0.8-4.8); Lymphocytes % 15.1 %; Mean Corpuscular HGB Conc 33.4 g/dL (30.0-36.0); Mean Corpuscular Volume 92.6 fl (81-99); Mean Platelet Volume 9.5 fL (7.4-10.4); Monocytes # 0.5 10^3/uL (0.2-0.9); Monocytes % 6.8 %; Neutrophils # 5.21 10^3/uL (1.8-7.7); Nucleated Red Blood Cells % 0 %; Platelet Count 256 10^3/cmm (130-400); Red Blood Count 3.65 10^6/uL (4.1-5.3); Red Cell Distribution Width 12.9 % (12.1-15.1)
[2022-02-06 11:21] LABS: Alanine Aminotransferase 7 U/L (0-33); Albumin Level 3.7 g/dL (3.5-5.2); Alkaline Phosphatase 88 IU/L (35-105); Anion Gap 12.9 (5-19); Aspartate Amino Transferase 10 U/L (0-32); Blood Urea Nitrogen 12 mg/dL (6-20); Calcium 9.1 mg/dL (8.5-10.5); Carbon Dioxide 29 mmol/L (22-29); Chloride 100 mmol/L (98-107); Globulin 3.2 g/dL (1.3-4.6); Glomerular Filtration Rate 129.6 mL/min (90-130); Glucose 85 mg/dL (65-115); Osmolality Calculated 285 mOsm/kg (285-295); Potassium 3.9 mmol/L (3.5-5.1); Sodium 138 mmol/L (136-145); Thyroid Stimulating Hormone 2.49 uIU/mL (0.27-4.20); Total Bilirubin 0.3 mg/dL (0.15-1.2); Total Protein 6.9 g/dL (6.6-8.7)
[2022-02-06] MEDS: durvalumab 1,500 MG in sodium chloride 0.9% 250 ML 280 MG IV (12:00)
[2022-02-06 13:24] VITALS: BP 98/66; PULSE 89; RESP 16; TEMP 36.8; O2SAT 100
== END 2022-02-13 23:59 | disposition home or self-care (01) ==
PROVIDERS: PCP Nurse Practitioner; Visit Provider Nurse Practitioner
DX: Z51.11 Encounter for antineoplastic chemotherapy (principal); C34.11 Malignant neoplasm of upper lobe, right bronchus or lung; F17.210 Nicotine dependence, cigarettes, uncomplicated; Z95.828 Presence of other vascular implants and grafts; C54.1 Malignant neoplasm of endometrium; K63.5 Polyp of colon
CPT/HCPCS: 80053; 84443; 85025; 96413; 99213; 99214; J7050; J9173

== ENCOUNTER 2022-02-11 12:15 | Inpatient (IN) | payer MEDICAID, SELFPAY ==
[2022-02-06 11:31] LABS: 25 Hydroxy Vitamin D 29 ng/mL (30-100)
[2022-02-10 12:57] VITALS: BMI 27.8
[2022-02-11] VITALS (23 sets, daily range): BP systolic 96–135; BP diastolic 62–92; PULSE 79–116; RESP 14–18; TEMP 36.3–37.1; O2SAT 92–99
--- NOTE | 2022-02-11 07:10 | P.HPUD_ITS ---
Surgery/Procedure H&P Update DATE OF PROCEDURE: February 11, 2022 DATE H&P PERFORMED: 02/06/22 H&P UPDATE INFORMATION: I have reviewed H&P completed within last 30 days, I have examined patient prior to procedure and No changes to prior documentation CHANGES TO PREVIOUS DOCUMENTATION: I did discuss with the patient and her daughter about the importance to realize that she has been on immunotherapy which can potentially create an immunosuppr ession status perioperatively and can create sepsis and prolonged hospitalization. Also potential possibility of increased risk of leak and may require future surgical intervention with stoma formation. Patient and her daughter understand and they would like to proceed accordingly. PREOP DIAGNOSIS: Colon cancer PRIMARY INDICATION FOR PROCEDURE: The same PLANNED PROCEDURE: Operation Date: 02/11/22 07:00 Proposed Procedures p lap poss open left hemicolectomy 74301,K63.89(Left) - Santos Ramirez MD
--- NOTE | 2022-02-11 07:15 | P.ANESASSM_ITS ---
Pre-Anesthetic Assessment Height/Weight: Height 1.57 m Weight 68.946 kg Temp Pulse Resp BP Pulse Ox 98.6 F 116 H 18 96/71 95 02/11/22 07:07 02/11/22 07:07 02/11/22 07:07 02/11/22 07:07 02/11/22 07:07 Preop Diagnosis: Colon cancer Operation Date: 02/11/22 07:00 Proposed Procedures p lap poss open left hemicolectomy 30987,K63.89(Left) - Santos Rmairez MD Familial anesthetic complications: none Was Beta Julio C taken within 24 hours: N/A Was Clonidine taken within 24 hours: N/A Social Tobacco and No alcohol Exam alert, oriented x 3 and regular rate & rhythm b/l breath sounds diminished Airway Submandibular: within normal limits Cervical ROM: within normal limits Mallampati: Class I Comments: Comments: Missing many teeth, front lower teeth very loose Pulmonary Chronic Obstructive Pulmonary Disease and Exertional Dyspnea Mediastinal lymphadenopathy Right lung mass CT 12/05/21 CT/CT chest w con* [id number] IMPRESSION: ? 1.? Increase in size of the spiculated cavitary lesion in the RIGHT upper lobe and also increased in the interstitial nodularity and thickening in the RIGHT upper lobe and pleural thickening. Because mass measures 4.0 x 1.5 cm. Prior measurement of 3.7 x 1.3 cm. Very slight increase in size but appears overall denser and more consolidated. This may all be related to treatment but is also highly suspicious for progression of patient's known lung cancer. 2.? The RIGHT paratracheal and RIGHT hilar lymph node burden has not significantly changed. ? ? CV/HEM Anemia METS > 4 EKG 07/2021 Interpretive Statements SINUS RHYTHM POSSIBLE LEFT ATRIAL ENLARGEMENT? [-0.1mV P-WAVE IN V1/V2] No previous ECG available for comparison Electronically Signed On 08-04-2021 19:58:32 TERRITORY SUPERVISOR by CANDE PEÑA [email or web address] None reported Hepatic None reported GI Gastroesophageal Reflux Disease (Well controlled ) Colon cancer Metabolic None reported Musc/skel Osteoarthritis/DJD Neuropsych Anxiety and Depression Anesthetic Plan ASA status: 3 (51 year old female with metatstatic cancer with lung mass and long hx of smoking ) Anesthesia: Anesthesia Evaluation and General Other: We discussed risk and benefits of general anesthesia including PONV, sore throat (sometimes severe), corneal abrasion, positioning and peripheral nerve injuries, life threatening allergic reaction, post operative ICU admission requiring prolonged intubation, aspiration, stroke, heart attack, , and rare incidences of recall. Patient consents to proceed with general anesthesia. Plan GETA, 2 PIV, blakely catheter, limiting fluid resuscitation to 0.5 ml/kg/hour of urine output We discussed possibility of removal of teeth in OR and increased risk of going to ICU intubated given lung exam and history Risk of > 500 ml blood loss (7ml/kg in children): No Medications/Allergies Home Medications Medication Instructions Recorded Confirmed Last Taken Type aspirin 325 mg tablet,delayed 325 mg PO DAILY #30 tab 01/27/20 02/11/22 02/04/22 Rx release fluticasone fur. 100 mcg-umeclid 1 inh INHALATION DAILY #60 ea 06/04/21 02/11/22 06/08/21 Rx 62.5 mcg-vilant 25 mcg inhalat.powder (Trelegy Ellipta) albuterol sulfate 2.5 mg INHALATION Q6H PRN 06/10/21 02/11/22 06/09/21 History dexamethasone 4 mg tablet See Rx Instructions .ROUTE .COMPLEX 08/04/21 02/11/22 Unknown History nebulizers #1 ea 08/15/21 02/07/22 Unknown Rx benzonatate 200 mg capsule 200 mg PO TID PRN 11/13/21 02/11/22 Unknown History prochlorperazine maleate 10 mg 10 mg PO .q4hrs PRN tab 11/13/21 02/11/22 Unknown History tablet (Compazine) tramadol 50 mg tablet 50 mg PO Q6H PRN #20 tab 12/16/21 02/11/22 Unknown Rx cholecalciferol (vitamin D3) 25 25 mcg PO DAILY #30 cap 01/30/22 02/11/22 Unknown Rx mcg (1,000 unit) capsule (Vitamin D3) citalopram 20 mg tablet 20 mg PO DAILY #90 tab 01/30/22 02/11/22 Unknown Rx furosemide 20 mg tablet (Lasix) 20 mg PO DAILY #90 tab 01/30/22 02/11/22 Unknown Rx omeprazole 20 mg capsule,delayed 20 mg PO DAILY #90 cap 01/30/22 02/11/22 Unknown Rx release potassium chloride 10 mEq 10 meq PO DAILY #90 cap 01/30/22 02/11/22 Unknown Rx capsule,extended release erythromycin 500 mg tablet 500 mg PO ONCE #3 tab 02/06/22 02/11/22 Unknown Rx lorazepam 1 mg tablet 0.5 mg PO TID PRN #45 tab 02/06/22 02/11/22 Unknown Rx erythromycin ethylsuccinate 200 400 mg (10 mL) PO DAILY #100 ml 02/07/22 02/11/22 Unknown Rx mg/5 mL oral powder for suspension neomycin 500 mg tablet 1 g PO ONCE #6 tab 02/07/22 02/11/22 Unknown Rx Allergies Allergy/AdvReac Type Severity Reaction Status Date / Time codeine Allergy Unknown Verified 02/07/22 16:52 Sulfa (Sulfonamide Allergy Unknown Verified 02/07/22 16:52 Antibiotics) [facility], [facility] Anesthesia Medical History Acid reflux Acute exacerbation of chronic obstructive pulmonary disease Anxiety and depression Cigarette smoker Edema, unspecified Metastatic squamous cell carcinoma Personal history of smoking Port-A-Cath in place Vitamin D insufficiency Surgical History History of hysterectomy 2021 History of tubal ligation Family History Sister Diabetes Mother Diabetes Hypertension Stroke Daughter Thyroid disease Denies family history of CAD (coronary artery disease) Clotting disorder Dementia Hyperlipidemia Psychiatric illness Chronic kidney disease (CKD) Suicide Anesthesia complication Bleeding disorder Lung disease Cancer Social History Smoking and tobacco status: current every day smoker cigarettes Packs smoked p er day: 1 Years cigarettes smoked: 25 Second hand smoke exposure: Yes Smoking risk assessment/counseling performed?: Yes Alcohol intake: never Desire information about alcohol rehabilitation?: No Counseling given: No Desire information about substance/drug rehabilitation?: No Counseling given: No Adopted: No Caregiver/support person: No Lives independently: Yes Household members: family Housing: House Marital status: / Number of children: 5 service: No Current occupational status: employed 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
[2022-02-11] MEDS: sodium chloride 0.9% 1,000 ML 30 ML IV (07:23)
[2022-02-11] MEDS: acetaminophen 1,000 MG/100 ML PIGGYBACK 400 MG IV (07:24)
[2022-02-11] MEDS: heparin 5,000 unit/mL INJ 1 mL 3000 UNIT SUBCUT (07:24)
[2022-02-11] MEDS: scopolamine 1.5 Patch 1 PATCH TRANSDERMA (07:30)
[2022-02-11] MEDS: piperacillin-tazobactam 3.375 GM in sodium chloride 0.9% (plus) 50 ML IV ×3 (07:41→23:24)
[2022-02-11 08:44] LABS: Carcinoembryonic Antigen 5.2 ng/mL (0.0-4.7)
--- NOTE | 2022-02-11 11:37 | PM.OP ---
Operative Report Date of procedure: February 11, 2022 Pre-op diagnosis: Preop Diagnosis Colon cancer Post-op diagnosis: Splenic flexure colon can Post-op findings: Extensive omental adhesions towards the splenic flexure Procedure done: 1-Laparoscopic left hemicolectomy with colocolic anastomosis [id number] 2-Extensive adhesiolysis Implants: Pieces of Surgicel towards the upper border of the spleen Specimens removed/disposition: Left hemicolectomy sutures marked proximal Surgeon: Santos Ramirez MD Director Of Recruitment And Admissions: Surgical jesus Horan and [facility] Circulating nurse Aby Anesthesia: General (CHELI Chow and Dr. Meredith) Estimated blood loss (mL): 100 IV fluids (mL): 1,200 Procedure: The patient was brought to the operating room and was placed in a supine position on the operating room table. General endotracheal anesthesia was induced. Time-out was done verifying the patient's name/date of /planned procedure and destination after the procedure, all were in agreement. SCDs confirmed to be functioning, preoperative antibiotics administered per protocol, and beta zhou protocol was confirmed. Prophylactic heparin subcu was given on-call to the OR.Parnell catheter was inserted revealing clear urine. The patient maintained to be in supine position.after insertion, all pressure points were padded and patient was appropriately secured to the bed. Started by longitudinal skin incision transverse infraumbilical going through a previous scar, using a Mcclain trocar technique safe entry to the abdominal cavity was achieved verified by using 10 mm zero degree laparoscopy, switched to a 30? scope, a 5 mm trocar was inserted at the right lower direct visualization,followed by a 5 mm trocar was inserted at the right upper quadrant under direct visualization and another 5 mm trocar was inserted to the left side of the abdomen under direct visualization. Noticed no evidence of ascites or peritoneal carcinomatosis and the liver showed no evidence of gross pathology. Noticed that the patient had a lot of omental adhesions towards the splenic flexure. Extensive adhesiolysis exceeded 1 hour of the operative time of the omental adhesions. I started by mobilizing the descending colon, including the inked portion that signifies the distal site of the cancer ,through the line of Toldt using the LigaSure device, I noticed the distal transverse/splenic flexure mass was having lots of omental adhesions towards the the lateral upper abdominal wall muscles and was encased by omentum but there was no gross involvement of the abdominal wall muscles or extraluminal extension of cancer I was able to use sharp dissection to mobilize the descending colon, with the countertraction was achieved I was able to have appropriate control of the vascular supply using LigaSure device, the main vessels were very attenuated for vascular stapler to be implemented. At that point I continued dissection and mobilizing the left side of the colon up to the splenic flexure and distal transverse colon by opening the lesser sac I added an additional 5 mm trocar towards the left side of the mid abdomen to facilitate dissection. At that point dissection was continued towards the proximal sigmoid colon, left ureter and retroperitoneal vasculature were intact. and I was able to free the splenic flexure completely yet there was an inadvertent superficial tear of the anterior surface of the spleen that was not actively bleeding, Surgicel was applied. At that point I did perform a midline incision to deliver the specimen with the proximal and distal healthier colon segment, blue load JASSON 75 mm staplers were used to divide proximal and distal to the tumor with appropriate safety margin, 3-0 silk was applied and stay sutures enterotomies were created and a JASSON 75 mm blue load was used to create [id number] tension-free anastomosis between the distal transverse and the proximal sigmoid colon, the edges were grabbed after noticing that there is no bleeding within the colon yet the edges were healthy and had good bleeding points, multiple Allis clamps were applied and another fire of the JASSON 75 blue load was applied and followed by multiple 3-0 silk sutures seromuscular were applied at the bleeding points as well as the crotch between both limbs. In the interim there was some bleeding from the mesentery towards the proximal sigmoid colon and that was managed by using a stick tie to silk after application of right angle clamp. Without compromising the blood supply of the colon. The specimen was passed to the circulating nurse and gloves were changed with sutures marked proximal. At that point the colon was delivered back to the abdominal cavity and we had a good seal. I elected to close the mesenteric rent using laparoscopic suture 2-0 silk to prevent future internal herniation. The upper abdomen and pelvis, appropriate hemostasis was secured towards the left lateral abdominal wall where the mass was encasing the abdominal in a large piece of Surgicel was placed in addition to multiple 5 mm clips were applied for potential future radiation if indicated and at the bed of the splenic flexure area towards the spleen 5 mm clips were applied for addition hemostasis as well. Additional Floseal was injected at the site of the superficial splenic tear for completion hemostasis. There was no evidence of injuries or bleeding or succus Bilateral TAP (transversus abdominous plain peripheral nerve block )block using Exparel 20 mL Exparel 40 ml Normal saline 20 ml bupivacaine 0.25% 30 mL on each side injected 20 mL injected the port sites All trochars were taken out under direct visualization. Midline closure was achieved under direct visualization using #1PDS which are followed by thorough irrigation of the subcutaneous layer then a 2-0 Vicryl followed by skin jacki of all skin incisions. Appropriate counts of sponges,needles and instruments were completed at the end of the procedure. Patient tolerated the procedure well and got extubated and was taken to the recovery area I was present for the whole entire procedure.
--- NOTE | 2022-02-11 13:47 | ANE.PACU2 ---
Inpatient post-anesthesia follow up: Airway intact: Yes Vital signs: Temperature 97.3 F Pulse Rate 97 Respiratory Rate 16 Blood Pressure 101/66 Pulse Oximetry 97 Oxygen Delivery Me thod Room Air Oxygen Flow Rate 2 Fraction of Inspir ed Oxygen Hydration adequate: Yes Nausea and vomiting: No Pain level: 1 Mental status: Baseline
[2022-02-11] MEDS: sodium chloride 0.9% 1,000 ML 100 ML IV ×2 (14:28→23:28)
[2022-02-12] VITALS (15 sets, daily range): BP systolic 88–105; BP diastolic 58–69; PULSE 84–105; RESP 16–20; TEMP 36.4–37; O2SAT 91–100
--- NOTE | 2022-02-12 06:13 | PM.PN ---
Subjective Subjective: Patient seems to be doing well and pain is under control. No acute events overnight. Adequate urine output. Medications: Reviewed: Yes Vitals/I&O/Wt Last Vital Signs Temp 98.6 F 02/12/22 04:21 Pulse 105 H 02/12/22 06:00 Resp 16 02/12/22 05:40 BP 100/68 02/12/22 05:40 Pulse Ox 95 02/12/22 05:40 02/11/22 02/11/22 02/12/22 14:59 22:59 06:59 Intake Total 450 / 450 50 / 500 950 / 1450 Output Total 300 / 300 150 / 450 1250 / 1700 Balance 150 / 150 -100 / 50 -300 / -250 Weight last 48 hrs Weight 152 lb Physical Exam Narrative: Patient is conscious alert oriented X3 No apparent distress BMI 28 Head and neck examination PERRLA no masses no cervical lymphadenopathy no jaundice Cardiac examination audible S1-S2 no murmurs no gallops no arrhythmias Chest is clear bilateral,abscence of Rhonchi or wheezes,no surgical emphysema Abdomen nontender nondistended soft no organomegaly guarding or rigidity/no signs of peritonitis Parnell catheter in place with clear urine Extremities no cyanosis no clubbing no edema Urinary Catheter Management: Parnell: Cath Placed During This Visit: yes Reason for Continuing Indwelling Catheter: Perioperative Use in Selected Surgeries Urinary Catheter Date of Insertion: 02/11/22 Urinary Catheter Time of Insertion: 07:55 Data : 02/13/22 05:33 02/12/22 06:09 A&P Assessment and plan (1) Status post laparoscopic colectomy: Assessment 51 years old female patient status post laparoscopic left hemicolectomy 02/11/2022 Plan Incentive spirometer every hour Encourage ambulation with assistance Wean off O2 Continue cardiac monitoring We will hold of the and morning dose of heparin due to slight drift of H&H Continue Parnell catheter for appropriate monitoring of urine output Strict I's and O's Resume albuterol sulfate as home medication Assurance and education All questions have been answered and all concerns have been addressed to patient's satisfaction. Status: Acute Attestations Medical Necessity Statement*: Requiring inpatient hospitalization passing 2 midnights to resume function status post laparoscopic left hemicolectomy Time Spent in Patient Care: 16 - 35 minutes Coding Level of Care Code Acute Merchandising Assistant for Chg Fwd Diagnoses Status post laparoscopic colectomy Z90.49
[2022-02-12 06:32] LABS: Hematocrit 28.8 % (37.0-47.0); Hemoglobin 9.8 g/dL (11.5-15.3)
[2022-02-12 07:07] LABS: Anion Gap 14.1 (5-19); Blood Urea Nitrogen 9 mg/dL (6-20); Calcium 8.1 mg/dL (8.5-10.5); Carbon Dioxide 24 mmol/L (22-29); Chloride 104 mmol/L (98-107); Glomerular Filtration Rate 87.9 mL/min (90-130); Glucose 87 mg/dL (65-115); Osmolality Calculated 284 mOsm/kg (285-295); Potassium 4.1 mmol/L (3.5-5.1); Sodium 138 mmol/L (136-145)
[2022-02-12] MEDS: piperacillin-tazobactam 3.375 GM in sodium chloride 0.9% (plus) 50 ML IV ×2 (08:44→16:52)
[2022-02-12] MEDS: sodium chloride 0.9% 1,000 ML 100 ML IV ×2 (08:44→16:52)
[2022-02-12] MEDS: acetaminophen 1,000 MG/100 ML PIGGYBACK 400 MG IV (10:04)
[2022-02-12] MEDS: ipratropium-albuterol 3 mL Neb INHALATION ×2 (13:47→22:02)
[2022-02-12] MEDS: enoxaparin 30 mg/0.3 mL Syringe SUBCUT (16:52)
--- NOTE | 2022-02-12 18:11 | PC.NURSE ---
PATIENT HAS DONE WELL TODAY. STILL HAS HYPOACTIVE BOWEL SOUNDS, NOT PASSING GAS AT THIS TIME. DRAINAGE ON SURGICAL SITE IS UNCHANGED. PATIENT HAS WALKED A LAP IN THE REED AND BEEN UP TO THE CHAIR TWICE. GOOD URINE OUTPUT. ABLE TO HAVE A FEW ICE CHIPS PER DR. GOODRICH. CURRENTLY ON ROOM AIR.
[2022-02-12] MEDS: budesonide 0.5 mg/2 mL Neb INHALATION (22:01)
[2022-02-12] MEDS: HYDROmorphone 1 mg/mL INJ 1 mL IVP (22:51)
[2022-02-13] VITALS (14 sets, daily range): BP systolic 90–105; BP diastolic 53–72; PULSE 102–117; RESP 13–20; TEMP 36.3–37.1; O2SAT 90–100
[2022-02-13] MEDS: piperacillin-tazobactam 3.375 GM in sodium chloride 0.9% (plus) 50 ML IV ×3 (01:07→15:25)
[2022-02-13] MEDS: sodium chloride 0.9% 1,000 ML 100 ML IV ×2 (02:24→15:24)
--- NOTE | 2022-02-13 05:05 | PC.NURSE ---
Assumed pt care at this time, pt resting in bed with eyes closed.
[2022-02-13 05:39] LABS: Hematocrit 26.7 % (37.0-47.0); Hemoglobin 9.1 g/dL (11.5-15.3)
--- NOTE | 2022-02-13 05:48 | P.PN_ITS ---
Subjective Subjective: Patient seems to be doing well. Did not pass gas yet. Working progress with RT. Still requiring 1 L of O2. Stable H&H yet slight drift. Started Lovenox 30 mg subcutaneous daily instead of heparin. Pain is under control. Adequate urine output. Medications: Reviewed: Yes Vitals/I&O/Wt Last Vital Signs Temp 98.7 F 02/13/22 04:00 Pulse 109 H 02/13/22 05:28 Resp 17 02/13/22 05:28 BP 90/53 02/13/22 04:00 Pulse Ox 94 02/13/22 05:28 02/12/22 02/12/22 02/13/22 14:59 22:59 06:59 Intake Total 976.667 / 976.667 963.333 / 1940.000 953.333 / 2893.333 Output Total 500 / 500 1600 / 2100 Balance 976.667 / 976.667 463.333 / 1440.000 -646.667 / 793.333 Physical Exam Narrative: Patient is conscious alert oriented X3 No apparent distress BMI 28 Head and neck examination PERRLA no masses no cervical lymphadenopathy no jaundice Nasal cannula requiring 1 L of oxygen Cardiac examination audible S1-S2 no murmurs no gallops no arrhythmias Chest is clear bilateral,abscence of Rhonchi or wheezes,no surgical emphysema Abdomen nontender except at the incision site. Dressing was taken down and incisions are clean dry and intact, skin jacki in place. Otherwise nondistended soft no organomegaly guarding or rigidity/no signs of peritonitis. Parnell catheter in place with clear urine. Extremities no cyanosis no clubbing no edema Urinary Catheter Management: Parnell: Cath Placed During This Visit: yes Reason for Continuing Indwelling Catheter: Perioperative Use in Selected Surgeries Urinary Catheter Date of Insertion: 02/11/22 Urinary Catheter Time of Insertion: 07:55 Data : 02/13/22 05:33 02/13/22 05:33 A&P Assessment and plan (1) Status post laparoscopic colectomy: Assessment 51 years old female patient status post laparoscopic left hemicolectomy 02/11/2022 Plan Continue incentive spirometer every hour Encourage ambulation with assistance Wean off O2 DC IV antibiotics Continue cardiac monitoring Awaiting bowel functions once patient starts passing gas we will start slowly on clear liquid Continue Parnell catheter for appropriate monitoring of urine output Strict I's and O's Resume albuterol sulfate as home medication Awaiting pathology. Assurance and education All questions have been answered and all concerns have been addressed to patient's satisfaction. Status: Acute Attestations Medical Necessity Statement*: Patient requiring inpatient hospitalization passing 2 midnights for perioperative care and resuming bowel functions Coding Level of Care Code Acute Certified Ski Patroller for Chg Fwd Diagnoses Status post laparoscopic colectomy Z90.49
[2022-02-13 05:55] LABS: Anion Gap 15.7 (5-19); Blood Urea Nitrogen 7 mg/dL (6-20); Calcium 8.2 mg/dL (8.5-10.5); Carbon Dioxide 23 mmol/L (22-29); Chloride 99 mmol/L (98-107); Glucose 71 mg/dL (65-115); Osmolality Calculated 274 mOsm/kg (285-295); Potassium 3.7 mmol/L (3.5-5.1); Sodium 134 mmol/L (136-145)
[2022-02-13] MEDS: budesonide 0.5 mg/2 mL Neb INHALATION ×2 (09:04→20:48)
[2022-02-13] MEDS: ipratropium-albuterol 3 mL Neb INHALATION ×3 (09:04→20:48)
[2022-02-13] MEDS: LORazepam 0.5 mg Tablet PO (09:13)
[2022-02-14] VITALS (16 sets, daily range): BP systolic 92–115; BP diastolic 61–72; PULSE 100–128; RESP 14–24; TEMP 36.9–37.7; O2SAT 88–96
[2022-02-14 02:28] LABS: Blood Urea Nitrogen 5 mg/dL (6-20); Calcium 8.6 mg/dL (8.5-10.5); Carbon Dioxide 25 mmol/L (22-29); Chloride 95 mmol/L (98-107); Glomerular Filtration Rate 129.6 mL/min (90-130); Glucose 85 mg/dL (65-115); Osmolality Calculated 273 mOsm/kg (285-295); Sodium 133 mmol/L (136-145)
[2022-02-14 02:30] LABS: Anion Gap 16.5 (5-19); Potassium 3.5 mmol/L (3.5-5.1)
[2022-02-14] MEDS: ipratropium-albuterol 3 mL Neb INHALATION ×3 (03:50→15:24)
[2022-02-14] MEDS: sodium chloride 0.9% 1,000 ML 75 ML IV (04:50)
--- NOTE | 2022-02-14 06:25 | P.PN_ITS ---
Subjective Subjective: Started passing gas, did well overnight and her pain is under appropriate control. Yet she is tachycardic ,she seems to be anxious and she coughs quite a bit. Denies any abdominal pain or distention. Stable H&H and developed low-grade temp. Adequate urine output Pathology came back shows Final Diagnosis Left hemicolectomy:? 1. Invasive moderately to poorly differentiated adenocarcinoma with invasion through muscularis propria and focal superficial invasion into surrounding antonio-colonic adipose tissue ? 2. There is no evidence of regional lymph node metastasis (0 out of 14 lymph nodes examined) ? 3. The proximal, distal and circumferential margins are uninvolved ? 4. Circumferential margin to closest area of invasion is 12 mm ? 5. According to AJCC criteria the TMN stage is: T3 N0 M (Clinical correlation for this determination is essential) ? 6. Microsatellite instability and KRAS mutation analyses have been referred and these results will be reported by separate report. Medications: Reviewed: Yes Vitals/I&O/Wt Last Vital Signs Temp 99.9 F H 02/14/22 04:00 Pulse 118 H 02/14/22 04:00 Resp 16 02/14/22 04:00 BP 101/67 02/14/22 04:00 Pulse Ox 96 02/14/22 04:00 02/13/22 02/13/22 02/14/22 14:59 22:59 06:59 Intake Total 1050 / 1050 250 / 1300 1000 / 2300 Output Total 1740 / 1740 Balance 1050 / 1050 -1490 / -440 1000 / 560 Physical Exam Narrative: Patient is conscious alert oriented X3 No apparent distress BMI 28 Head and neck examination PERRLA no masses no cervical lymphadenopathy no jaundice Cardiac examination audible S1-S2 no murmurs no gallops no arrhythmias Chest scattered rhonchi Abdomen nontender except at the incision site. incisions are clean dry and intact, skin jacki in place.? Otherwise nondistended soft no organomegaly guarding or rigidity/no signs of peritonitis. Extremities no cyanosis no clubbing no edema Urinary Catheter Management: Parnell: Cath Placed During This Visit: yes, but has since been removed by the nurse Reason for Continuing Indwelling Catheter: Decision to DC Catheter Urinary Catheter Date of Insertion: 02/11/22 Urinary Catheter Time of Insertion: 07:55 Date Urinary Catheter Removed: 02/13/22 Time Urinary Catheter Discontinued: 16:55 Data : 02/14/22 01:31 02/14/22 01:31 A&P Assessment and plan (1) Status post laparoscopic colectomy: Assessment 51 years old female patient status post laparoscopic left hemicolectomy 02/11/2022 Plan Continue incentive spirometer every hour Encourage ambulation with assistance Wean off O2 We will start the patient slowly on clear liquid diet and protein shakes We will drop the fluids to 50 mL/h Nursing staff about anxiety medication If patient continues to cough we will consult hospitalist Continue cardiac monitoring Strict I's and O's Resume albuterol sulfate as home medication Assurance and education All questions have been answered and all concerns have been addressed to patient's satisfaction. Status: Acute (2) Rhonchi: We will plan to order chest x-ray portable to rule out potential underlying pneumonitis status post laparoscopic left hemicolectomy. Status: Acute Attestations Medical Necessity Statement*: Patient requiring inpatient hospitalization passing 2 midnights for perioperative care Time Spent in Patient Care: 16 - 35 minutes Coding Level of Care Code Acute Steam Train Driver for Chg Fwd Diagnoses Status post laparoscopic colectomy Z90.49 Rhonchi R09.89
[2022-02-14] MEDS: budesonide 0.5 mg/2 mL Neb INHALATION (08:32)
--- NOTE | 2022-02-14 08:35 | XR_ITS ---
WS: [id number] XR chest 1V portable [id number] REASON FOR EXAM: History of lung cancer/scattered rhonchi/requiring oxygen FINDINGS: There is been proximal migration of the catheter from the chemotherapy port in the left chest. The ti p lies at the junction of the innominate vein and superior vena cava. Previously located within the s uperior vena cava at the level of the aniya. Compared to the examination of 12/16/2021 patient has developed complex lung opacity in the right upper lung with focal ill-defined masslike areas, thick reticular interstitial change, volume loss. Possible right pleural effusion. Left lung remains clear. XR/XR chest 1V portable [id number] IMPRESSION: Interval change in the chest as above. If the patient is receiving radiation th erapy, this could account for the findings. Otherwise, progression of tumor or superimposed infection.
[2022-02-14] MEDS: LORazepam 0.5 mg Tablet PO (10:20)
--- NOTE | 2022-02-14 12:08 | ECG_ITS ---
[facility] Test Date: 2022-02-14 Pat Name: Nita Moore Department: Room: 262 Gender: Female Interactive Video Technician: : 1970 Requested By: Jamie Martines Order Number: [id number] Kj MD: Abdiel Romero M.D. Measurements Intervals [place] Rate: 124 P: 43 CT: 176 QRS: 40 QRSD: 69 T: 47 QT: 319 QTc: 459 Interpretive Statements SINUS TACHYCARDIA LOW QRS VOLTAGE IN PRECORDIAL LEADS [QRS DEFLECTION < 1.0 mV IN CHEST LEADS] ABNORMAL RHYTHM ECG Compared to ECG 08/03/2021 22:45:33 Low QRS voltage now present Sinus rhythm no longer present Electronically Signed On 02-15-2022 12:21:17 CDT by Abdiel Romero M.D. [email or web address]
--- NOTE | 2022-02-14 12:10 | USCV_ITS ---
Nita Moore Age: 51 Gender: F : 1970 Exam Date: 02/14/2022 13:07 Ordering Phys: Jamie Martines MD Technologist: Brielle Ellis Exam Location: [facility] [place] Indication: Lung cancer CHF post covid BP: / HR: 119 Rhythm: Sinus Technical Quality: Suboptimal MEASUREMENTS (Male / Female) Normal Values 2D ECHO LV Diastolic Diameter PLAX 4.1 cm 4.2 - 5.9 / 3.9 - 5.3 cm LV Systolic Diameter PLAX 2.8 cm LV Chamber Size 2.4 cm IVS Diastolic Thickness 1.0 cm 0.6 - 1.0 / 0.6 - 0.9 cm IVS Systolic Thickness 1.3 cm LVPW Diastolic Thickness 1.1 cm 0.6 - 1.0 / 0.6 - 0.9 cm LVPW Systolic Thickness 1.3 cm RV Chamber Size 2.6 cm LVOT Diameter 2.0 cm LV Ejection Fraction 2D Teich 60.9 % LV Ejection Fraction MOD 2C 72.1 % LV Ejection Fraction 2C AL 74.2 % LA Diameter 1.9 cm LA Width 2.3 cm LA Height 3.4 cm RA Width 2.6 cm RA Height 3.8 cm Aorta at Sinotubular Diameter 2.8 cm IVC Diameter 1.7 cm M-MODE Aortic Annulus Diameter 1.7 cm LA Ao Ratio MM 0.8 MV E Point Septal Separation 0.4 cm DOPPLER AV Peak Velocity 152.0 cm/s LVOT Peak Velocity 129.0 cm/s AV Area Cont Eq vti 3.4 cm squared AV Area Cont Eq pk 2.8 cm squared MV Area PHT 5.0 cm squared Mitral E to A Ratio 3.1 MV E' Velocity 62.0 cm/s Mitral E to MV E' Ratio 6.0 Mitral E to LV E' Lateral Ratio 5.7 Mitral E to LV E' Septal Ratio 6.4 TR Peak Velocity 233.6 cm/s TR Peak Gradient 21.8 mmHg TR Mean Velocity 156.7 cm/s TR Mean Gradient 11.8 mmHg TR Velocity Time Integral 46.7 cm TV Peak E Velocity 80.0 cm/s Right Atrial Pressure 3.0 mmHg Pulmonary Artery Systolic Pressu 24.8 mmHg PV Peak Velocity 77.0 cm/s RV Acceleration Time 0.1 s RV Ejection Time 0.3 s RV AcT/ET 0.4 FINDINGS Left Ventricle The rhythm is sinus tachycardia.normal left ventricular size, systolic function and wall thickness, with no regional wall motion abnormalities. Grade I/IV diastolic dysfunction (abnormal relaxation filling pattern), normal to mildly elevated filling pressures. Left ventricular ejection fraction is estimated at 65 %. Right Ventricle Normal right ventricular size and systolic function. Normal right ventricular systolic pressure. Right Atrium The right atrium is normal in size. Left Atrium The left atrium is normal in size. Mitral Valve Structurally normal mitral valve without significant stenosis or prolapse. There is no mitral regurgitation. Aortic Valve Structurally normal aortic valve without significant sclerosis or stenosis. There is no aortic regurgitation. Tricuspid Valve Tricuspid valve not well visualized. Trace tricuspid valve regurgitation. Pulmonic Valve Pulmonic valve not well visualized. Pericardium Normal pericardium without effusion. Aorta Normal ascending aorta dimension. IVC Inferior vena cava not visualized. CONCLUSIONS The rhythm is sinus tachycardia.normal left ventricular size, systolic function and wall thickness, with no regional wall motion abnormalities. Grade I/IV diastolic dysfunction (abnormal relaxation filling pattern), normal to mildly elevated filling pressures. Left ventricular ejection fraction is estimated at 65 %. Dr. Abdiel Romero MD (Electronically Signed) Final Date: 14 February 2022 14:27 S
--- NOTE | 2022-02-14 12:12 | CTR_ITS ---
PROCEDURE INFORMATION: Exam: CTA Chest With Contrast Exam date and time: 02/14/2022 2:06 PM Age: 51 years old Clinical indication: Shortness of breath; Prior surgery; Surgery date: 6+ months; Additional info: Post op tachycardia, SOB, h/o lung cancer TECHNIQUE: Imaging protocol: Computed tomographic angiography of the chest with contrast. 3D rendering (Not supervised by radiologist): MIP and/or 3D reconstructed images were created by the technologist. Radiation optimization: All CT scans at this facility use at least one of these dose optimization techniques: automated exposure control; mA and/or kV adjustment per patient size (includes targeted exams where dose is matched to clinical indication); or iterative reconstruction. Contrast material: OMNIPAQUE 350; Contrast volume: 90 ml; Contrast route: INTRAVENOUS (IV); COMPARISON: CT angio chest PE protcl [id number] 08/04/2021 12:01 AM RADIATION DOSE METRICS: Total DLP (mGy-cm): 532.57 FINDINGS: Pulmonary arteries: Normal. No pulmonary emboli. Aorta: Unremarkable. No aortic aneurysm. No aortic dissection. Lungs: Unremarkable. No consolidation. No masses. Pleural spaces: There is a moderate right and a small left pleural effusion. No pneumothorax. Heart: There is a small pericardial effusion. Mediastinal space: There is a 3.7 cm right thoracic hilar mass. There is also right paratracheal mediastinal adenopathy with a short-axis diameter of 1.9 cm and also subcarinal mediastinal adenopathy. Lymph nodes: See Mediastinal space finding. Intraperitoneal space: There is free air in the upper abdomen. Bones/joints: Degenerative change is identified in the spine. There is no evidence for acute fracture or malalignment. Soft tissues: Unremarkable. CT/CT angio chest PE protcl [id number] IMPRESSION: There is no evidence for a pulmonary artery embolus. There is a mass in the right thoracic hilum suspicious for malignancy. There is mediastinal adenopathy suspicious for metastatic disease. There is consolidation in the right upper lobe of the lung most consistent with postobstructive pneumonitis. There are bilateral pleural effusions, right greater than left. There is free air in the upper abdomen, likely secondary to previous surgery. THIS REPORT CONTAINS FINDINGS THAT MAY BE CRITICAL TO PATIENT CARE. The findings were verbally communicated via telephone conference with SIL MARTINEZ at 3:35 PM CDT on 02/14/2022. The findings were acknowledged and understood.
--- NOTE | 2022-02-14 12:13 | PM.CONSULT ---
Providers/Reason For Consult Consulting Physician/Specialty*: Dr. Bobbi MD/internal medicine Reason for Consult*: Persistent tachycardia, cough Requesting Physician: Dr. Ramirez Attending Physician: Santos Ramirez MD Primary Care Provider: Gerardo Zepeda, GEOLOGICAL E LOGGER-C History of Present Illness History of Present Illness Nita Moore is a 51 year old female with past medical history of COVID-04 March 2021, anxiety, depression, chronic smoker, COPD, stage III non-small cell lung cancer on chemoradiation who was admitted to the hospital on 02/11 and underwent laparoscopic hemicolectomy with colocolonic anastomosis [id number], extensive adhesiolysis with estimated blood loss of documented 100 cc Patient has been doing well postoperatively other than episodes of tachycardia along with cough for which hospitalist service was consulted. On chart review patient's hemoglobin has remained stable at around 9.3-9.8, she has received 3-day course of IV Zosyn with last dose on 02/13, patient has not received anticoagulation as she refused Lovenox on 02/13, patient's diet has been advanced to clear liquid diet today. Patient has been passing flatus. As baseline she does not use on any oxygen but is currently on 2 L saturating 96% without any chest pain, nausea, vomiting. Patient states her pain is controlled. Denies any palpitations. States she has history of anxiety and is extremely anxious to go home currently. Patient has had episodes of tachycardia event in the past on review of chart on previous admissions with heart rate going up to 110s. Blood work today shows a hemoglobin of 9.3, CMP done shows sodium of 133, creatinine of 0.5 with blood sugar of 85. Review of Systems General: Reports: 10 or more systems reviewed and unremarkable except in HPI and below Const: Denies: fever(s), chills, body aches, change in appetite, change in weight, malaise, night sweats, diaphoresis, change in sleep pattern, daytime sleepiness or snoring Eyes: Denies: change in vision, blurry vision, photophobia, eye discomfort or eye discharge ENMT: Denies: throat pain, enlarged tonsils, hoarseness, mouth pain, oral sores, dry mouth, tinnitus, nasal congestion or post nasal drip Card: Denies: chest pain, palpitations, irregular heart rhythm, edema, swelling of feet/ankles, lightheadedness, syncope, pre-syncope, dyspnea on exertion, orthopnea, leg pain with exertion or acrocyanosis Resp: Denies: dyspnea, productive cough, non-productive cough, wheezing, stridor, pain on inspiration, change in phlegm color, hemoptysis or chest congestion GI: Denies: abdominal pain, nausea, vomiting, hematemesis, coffee ground emesis, dysphagia, heartburn, diarrhea, constipation, bloating, GI cramping, change in bowel habits, pain on defecation, hematochezia or melena : Denies: flank pain, dysuria, urinary frequency, urinary urgency, urinary hesitancy, nocturia or hematuria Musc: Denies: neck pain, back pain, extremity pain, joint pain, joint swelling, joint redness, joint stiffness or limited range of motion Neuro: Denies: headache(s), numbness in extremities, weakness in extremities, sensory changes, lack of coordination, difficulty walking, frequent falls, dizziness, vertigo, confusion, Slurred speech present, difficulty communicating thoughts or seizure-like activity Psych: Denies: anxiety, depression, mood swings, panic attacks, hopelessness or irritability Endo: Denies: polyuria, polydipsia, tired all the time, cold intolerance, excessive sweating, flushing or heat intolerance Saúl/Lymph: Denies: easy bruising or easy bleeding All/Imm: Denies: tongue swelling, facial swelling or acute wheezing Medications/Allergies Home Medications Medication Instructions Recorded Confirmed Last Taken Type aspirin 325 mg tablet,delayed 325 mg PO DAILY #30 tab 01/27/20 02/12/22 02/04/22 Rx release fluticasone fur. 100 mcg-umeclid 1 inh INHALATION DAILY #60 ea 06/04/21 02/12/22 06/08/21 Rx 62.5 mcg-vilant 25 mcg inhalat.powder (Trelegy Ellipta) albuterol sulfate 2.5 mg INHALATION Q6H PRN 06/10/21 02/12/22 06/09/21 History nebulizers #1 ea 08/15/21 02/12/22 Unknown Rx benzonatate 200 mg capsule 200 mg PO TID PRN 11/13/21 02/12/22 Unknown History prochlorperazine maleate 10 mg 10 mg PO .q4hrs PRN tab 03/30/22 06/28/22 Unknown History tablet (Compazine) tramadol 50 mg tablet 50 mg PO Q6H PRN #20 tab 12/16/21 02/11/22 Unknown Rx cholecalciferol (vitamin D3) 25 25 mcg PO DAILY #30 cap 01/30/22 02/12/22 Unknown Rx mcg (1,000 unit) capsule (Vitamin D3) citalopram 20 mg tablet 20 mg PO DAILY #90 tab 01/30/22 02/12/22 Unknown Rx furosemide 20 mg tablet (Lasix) 20 mg PO DAILY #90 tab 01/30/22 02/12/22 Unknown Rx omeprazole 20 mg capsule,delayed 20 mg PO DAILY #90 cap 01/30/22 02/11/22 Unknown Rx release potassium chloride 10 mEq 10 meq PO DAILY #90 cap 01/30/22 02/11/22 Unknown Rx capsule,extended release lorazepam 1 mg tablet 0.5 mg PO TID PRN #45 tab 02/06/22 02/12/22 Unknown Rx erythromycin ethylsuccinate 200 400 mg (10 mL) PO DAILY #100 ml 02/07/22 02/12/22 Unknown Rx mg/5 mL oral powder for suspension neomycin 500 mg tablet 1 g PO ONCE #6 tab 02/07/22 02/11/22 Unknown Rx Allergies Allergy/AdvReac Type Severity Reaction Status Date / Time codeine Allergy Unknown Verified 02/07/22 16:52 Sulfa (Sulfonamide Allergy Unknown Verified 02/07/22 16:52 Antibiotics) Current Medications Generic Name Dose Route Start Last Admin Trade Name Freq PRN Reason Stop Dose Admin Albuterol/Ipratropium 3 ml 02/12/22 15:00 02/14/22 08:32 Ipratropium-Albuterol 3 Ml Neb INHALATION 3 ml Q6H.RESPIRATORY ROSSANA Administration Budesonide 0.5 mg 02/12/22 20:00 02/14/22 08:32 Budesonide 0.5 Mg/2 Ml Neb INHALATION 0.5 mg BID.RESPIRATORY ROSSANA Administration Enoxaparin Sodium 40 mg 02/13/22 18:00 02/13/22 18:38 Enoxaparin 40 Mg/0.4 Ml Syringe SUBCUT Not Given Q24H ROSSANA Hydromorphone HCl 1 mg 02/11/22 11:45 02/12/22 22:51 Hydromorphone 1 Mg/Ml Inj 1 Ml IVP 1 mg Q4H PRN Administration SEVERE PAIN Sodium Chloride 1,000 mls @ 50 mls/hr 02/11/22 11:45 02/14/22 04:50 Sodium Chloride 0.9% IV 75 mls/hr .Q20H ROSSANA Administration Lorazepam 0.5 mg 02/11/22 16:02 02/14/22 10:20 Lorazepam 0.5 Mg Tablet PO 0.5 mg TID PRN Administration ANXIETY PFSH Acute PFSH: Medical History (Updated 02/14/22 @ 12:16 by Jamie Martines MD) Acid reflux Acute exacerbation of chronic obstructive pulmonary disease Adenocarcinoma of descending colon Anxiety and depression Cigarette smoker Edema, unspecified Endometrial carcinoma Malignant neoplasm of upper lobe, right bronchus or lung Mediastinal lymphadenopathy Metastatic squamous cell carcinoma Personal history of smoking Port-A-Cath in place Omnd-KSIUT-[id number] condition Vitamin D insufficiency Surgical History (Updated 02/12/22 @ 06:45 by Santos Ramirez MD) History of hysterectomy 2021 History of tubal ligation Family History Sister Diabetes Mother Diabetes Hypertension Stroke Daughter Thyroid disease Denies family history of CAD (coronary artery disease) Clotting disorder Dementia Hyperlipidemia Psychiatric illness Chronic kidney disease (CKD) Suicide Anesthesia complication Bleeding disorder Lung disease Cancer Social History Smoking and tobacco status: current every day smoker cigarettes Packs smoked per day: 1 Years cigarettes smoked: 25 Second hand smoke exposure: Yes Smoking risk assessment/counseling performed?: Yes Alcohol intake: never Desire information about alcohol rehabilitation?: No Counseling given: No Desire information about substance/drug rehabilitation?: No Counseling given: No Adopted: No Caregiver/support person: No Lives independently: Yes Household members: family Housing: House Marital status: / Number of children: 5 service: No Current occupational status: employed 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 History of recent travel: No Current gender identity: Female Vitals/I&O/Wt Last Vital Signs Temp 98.7 F 02/14/22 11:36 Pulse 121 H 02/14/22 11:36 Resp 17 07/01/22 11:36 BP 95/62 02/14/22 11:36 Pulse Ox 91 02/14/22 11:36 02/13/22 02/14/22 02/14/22 22:59 06:59 14:59 Intake Total 250 / 1300 1000 / 2300 250 / 250 Output Total 1740 / 1740 1400 / 3140 Balance -1490 / -440 -400 / -840 250 / 250 Physical Exam Narrative: General: No acute distress, AO x3, anxious, laying comfortably in bed in left lateral position on 2 L oxygen supplementation, mild pallor present HEENT: PERRLA, pupils bilaterally equal and reactive Chest: Normal vesicular breath sounds, bronchial breath sounds right middle and upper zone with decreased air entry CVS: S1-S2 regular, no murmurs, tachycardia, no gallops, no rubs Abdomen: Soft, generalized mild tenderness postoperatively, laparoscopic scars healing well, no organomegaly, bowel sounds present Neuro: No focal deficits, no facial deformity, AO x3, power 5/5 in all limbs Urinary Catheter Management: Parnell: Cath Placed During This Visit: yes, but has since been removed by the nurse Reason for Continuing Indwelling Catheter: Decision to DC Catheter Urinary Catheter Date of Insertion: 02/11/22 Urinary Catheter Time of Insertion: 07:55 Date Urinary Catheter Removed: 02/13/22 Time Urinary Catheter Discontinued: 16:55 Data : 02/14/22 02:03 02/14/22 01:31 A&P Assessment and plan (1) Status post laparoscopic colectomy: Status: Acute (2) Encounter for postoperative care: Status: Acute (3) Tachycardia: Status: Acute (4) Adenocarcinoma of descending colon: Status: Acute (5) Malignant neoplasm of upper lobe, right bronchus or lung: Status: Acute (6) Port-A-Cath in place: Status: Chronic (7) COPD (chronic obstructive pulmonary disease): Status: Acute Qualifiers: COPD type: emphysema Emphysema type: centrilobular Qualified Code(s): J43.2 - Centrilobular emphysema (8) Cigarette smoker: Status: Chronic (9) Anxiety and depression: Status: Chronic Plan 51-year-old female with past medical history of lung cancer on chemoradiation, COPD, chronic smoker with anxiety and depression, past history of COVID-19, adenocarcinoma of descending colon who is postoperative day 3 for laparoscopic left hemicolectomy. Patient having persistent cough and tachycardia. Postoperative pain management, diet advancement, anticoagulation as per surgical team. Tachycardia could be secondary to anxiety, pain control, dehydration. Certainly cannot rule out possible PE with a history of lung cancer, infectious cause though unlikely. Could be secondary to [id number] nebulizations with DuoNebs. Check CBC, D-dimer, procalcitonin, MRSA swab, echocardiogram, CTA chest for better visualization of the lung mass and rule out pulmonary embolism, sputum culture, urinalysis Continue gentle IV hydration at 50 cc/h for 1 bag with normal saline. Restart home anxiety medications including Celexa and lorazepam 0.5 3 times daily as needed. Tramadol 50 mg every 12 hourly scheduled. Start patient on nicotine patch. Cough could be secondary to atelectasis. Aggressive pulmonary toilet with incentive spirometry and flutter valve. We will try to avoid chest vest given postoperative status. Out of bed to chair. Stop DuoNebs and budesonide. Start on Advair and Spiriva. Patient takes Trelegy at home. Check echocardiogram, EKG to rule out any ST-T changes or arrhythmias. Telemetry Patient has been afebrile. Will check CBC for white count. For now we will hold off on any further antibiotics. Plan discussed in detail with RN and patient. Thank you for involving us in care of Ms. Moya. Please call with any questions. We will continue to follow. Consult Attestations Medical Necessity Statement: As per primary team. Time Spent in Patient Care: Greater than 35 minutes Coding Level of Care Code Acute Storage Battery Inspector And Tester for Chg Fwd Diagnoses Status post laparoscopic colectomy Z90.49 Encounter for postoperative care Z48.89 Tachycardia R00.0 Adenocarcinoma of descending colon C18.6 Malignant neoplasm of upper lobe, right bronchus or lung C34.11 Port-A-Cath in place Z95.828 COPD (chronic obstructive pulmonary disease) J43.2 COPD type: emphysema Emphysema type: centrilobular Cigarette smoker F17.210 Anxiety and depression F41.9; F32.9
[2022-02-14 12:57] LABS: Hematocrit 26.8 % (37.0-47.0); Hemoglobin 9.2 g/dL (11.5-15.3)
[2022-02-14 13:02] LABS: Basophils % 0.5 %; Eosinophils # 0.1 10^3/uL (0.0-0.8); Eosinophils % 1.4 %; Hematocrit 26.7 % (37.0-47.0); Hemoglobin 9.3 g/dL (11.5-15.3); Lymphocytes # 0.6 10^3/uL (0.8-4.8); Lymphocytes % 11.2 %; Mean Corpuscular HGB Conc 34.8 g/dL (30.0-36.0); Mean Corpuscular Hemoglobin 31.3 pg (28.0-34.0); Mean Corpuscular Volume 89.9 fl (81-99); Mean Platelet Volume 10.5 fL (7.4-10.4); Monocytes # 0.3 10^3/uL (0.2-0.9); Monocytes % 5.9 %; Neutrophils # 4.46 10^3/uL (1.8-7.7); Neutrophils % 80.5 %; Nucleated Red Blood Cells % 0 %; Platelet Count 249 10^3/cmm (130-400); Red Blood Count 2.97 10^6/uL (4.1-5.3); Red Cell Distribution Width 12.7 % (12.1-15.1); White Blood Count 5.6 10^3/uL (4.0-10.0)
[2022-02-14] MEDS: nicotine 14 mg Patch 1 PATCH TRANSDERMA (13:23)
[2022-02-14] MEDS: citalopram 20 mg Tablet PO (13:23)
[2022-02-14 13:27] LABS: Iron 29 ug/dL (37-145)
[2022-02-14 13:31] LABS: Procalcitonin 0.17 ng/mL (0-0.5)
[2022-02-14 13:36] LABS: Percent Saturation 18.2 % (20-50); Total Iron Binding Capacity 159 mcg/dl; Unsaturated Iron Binding 130 ug/dL (112-347)
[2022-02-14] MEDS: iohexol 350 mg/mL 100 mL Btl IV (14:05)
[2022-02-14] MEDS: benzonatate 100 mg Capsule 200 MG PO ×2 (16:00→21:33)
[2022-02-14 16:20] LABS: D Dimer 6.39 ug/mIFEU (0-0.59)
--- NOTE | 2022-02-14 16:27 | USR_ITS ---
PROCEDURE INFORMATION: Exam: US Duplex Lower Extremity Veins, Bilateral Exam date and time: 02/14/2022 4:53 PM Age: 51 years old Clinical indication: Abnormal findings; Abnormal lab test; Elevated d-dimer; Patient HX: Lung cancer. SOB post covid; Additional info: High dimer TECHNIQUE: Imaging protocol: Real-time Duplex ultrasound of the bilateral extremities with 2-D case scale, color Doppler flow and spectral waveform analysis with image documentation. Complete exam focused on the bilateral lower extremity veins. COMPARISON: US transvaginal [id number] 06/07/2021 9:38 AM FINDINGS: Right deep veins: Unremarkable. The common femoral, femoral, proximal profunda femoral and popliteal veins are patent without thrombus. Normal Doppler waveforms. Normal compressibility and/or augmentation response. Right superficial veins: Saphenofemoral junction is patent without thrombus. Left deep veins: Unremarkable. The common femoral, femoral, proximal profunda femoral and popliteal veins are patent without thrombus. Normal Doppler waveforms. Normal compressibility and/or augmentation response. Left superficial veins: Saphenofemoral junction is patent without thrombus. Soft tissues: Unremarkable. US/[place] [id number] IMPRESSION: No evidence of deep vein thrombosis.
[2022-02-14] MEDS: sodium chloride 0.9% 500 ML 50 ML IV (18:01)
[2022-02-14] MEDS: TRAMadol 50 mg Tablet PO (18:02)
[2022-02-14] MEDS: enoxaparin 40 mg/0.4 mL Syringe SUBCUT (18:09)
[2022-02-14 19:45] LABS: Add Urine Microscopic? NO; Charge for UA Resulting for Rev
[2022-02-14 19:56] LABS: Bilirubin Urine Neg (Negative); Blood Urine Neg (Negative); Glucose Urine UA Norm (Normal); Ketones Urine 2+ (Negative); Leukocyte Esterase Urine Negative (Negative); Nitrate Urine Negative (Negative); Protein Urine Neg (Negative); Urine Appearance Clear (CLEAR); Urine Color Yellow (Yellow); Urobilinogen Urine Norm (Negative); pH Urine 5 (5-7)
[2022-02-14] MEDS: metoprolol tartrate 25 mg Tablet PO (21:33)
[2022-02-15] VITALS (12 sets, daily range): BP systolic 93–116; BP diastolic 6–76; PULSE 82–109; RESP 14–18; TEMP 36.6–38.4; O2SAT 86–97
[2022-02-15] MEDS: HYDROcodone-acetaminophen 5-325 mg Tablet 1 TAB PO ×3 (02:53→20:00)
[2022-02-15 04:12] LABS: Basophils % 0.2 %; Eosinophils % 0.5 %; Hematocrit 29.2 % (37.0-47.0); Hemoglobin 9.9 g/dL (11.5-15.3); Lymphocytes # 0.4 10^3/uL (0.8-4.8); Mean Corpuscular HGB Conc 33.9 g/dL (30.0-36.0); Mean Corpuscular Hemoglobin 30.6 pg (28.0-34.0); Mean Corpuscular Volume 90.1 fl (81-99); Mean Platelet Volume 9.9 fL (7.4-10.4); Monocytes # 0.3 10^3/uL (0.2-0.9); Monocytes % 4.8 %; Neutrophils # 5.23 10^3/uL (1.8-7.7); Nucleated Red Blood Cells % 0 %; Platelet Count 290 10^3/cmm (130-400); Red Blood Count 3.24 10^6/uL (4.1-5.3); Red Cell Distribution Width 12.7 % (12.1-15.1)
[2022-02-15] MEDS: TRAMadol 50 mg Tablet PO ×2 (04:30→15:48)
[2022-02-15 04:34] LABS: Alanine Aminotransferase 9 U/L (0-33); Albumin Level 3.2 g/dL (3.5-5.2); Alkaline Phosphatase 78 IU/L (35-105); Anion Gap 14.3 (5-19); Aspartate Amino Transferase 15 U/L (0-32); Blood Urea Nitrogen 4 mg/dL (6-20); Calcium 8.9 mg/dL (8.5-10.5); Carbon Dioxide 28 mmol/L (22-29); Chloride 94 mmol/L (98-107); Globulin 3.5 g/dL (1.3-4.6); Glucose 107 mg/dL (65-115); Osmolality Calculated 273 mOsm/kg (285-295); Potassium 3.3 mmol/L (3.5-5.1); Sodium 133 mmol/L (136-145); Total Bilirubin 0.4 mg/dL (0.15-1.2); Total Protein 6.7 g/dL (6.6-8.7)
[2022-02-15] MEDS: potassium chloride ER 20 mEq Tablet 40 MEQ PO (07:34)
--- NOTE | 2022-02-15 08:47 | P.PN_ITS ---
Subjective Subjective: Patient overall seems to be doing well. Passing gas and having bowel movement nonbloody in nature. Stable hemoglobin 9.9. Adequate urine output. Hospitalist was consulted yesterday for patient's tachycardia and concerning for pneumonia and extensive work-up was done and patient was found to have no pulmonary embolism or DVT also patient was started on beta-zhou and her anxiety medications were resumed. Today developed hypokalemia 3.3 and that was replaced by p.o. potassium chloride. Also patient had spiked a fever of 101.2 at midnight yesterday. She does have some coughing, she denies shortness of breath yet she does require 2 L of oxygen per nasal cannula. CTA was done and showed; There is no evidence for a pulmonary artery embolus. ? There is a mass in the right thoracic hilum suspicious for malignancy.? There is mediastinal adenopathy suspicious for metastatic disease. ? There is consolidation in the right upper lobe of the lung most consistent with postobstructive pneumonitis. ? There are bilateral pleural effusions, right greater than left. Pathology did come back Final Diagnosis Left hemicolectomy:? 1. Invasive moderately to poorly differentiated adenocarcinoma with invasion through muscularis propria and focal superficial invasion into surrounding antonio-colonic adipose tissue ? 2. There is no evidence of regional lymph node metastasis (0 out of 14 lymph nodes examined) ? 3. The proximal, distal and circumferential margins are uninvolved ? 4. Circumferential margin to closest area of invasion is 12 mm ? 5. According to AJCC criteria the TMN stage is: T3 N0 M (Clinical correlation for this determination is essential) ? 6. Microsatellite instability and KRAS mutation analyses have been referred and these results will be reported by separate re port. Vitals/I&O/Wt Last Vital Signs Temp 97.9 F 02/15/22 07:49 Pulse 100 02/15/22 08:00 Resp 16 02/15/22 08:00 BP 95/62 02/15/22 07:49 Pulse Ox 96 02/15/22 08:00 02/14/22 02/15/22 02/15/22 22:59 06:59 14:59 Intake Total 1000 / 1250 174 / 1424 Output Total 0 / 300 1 / 301 Balance 1000 / 950 173 / 1123 Physical Exam Narrative: Patient is conscious alert oriented X3 No apparent distress BMI 28 Head and neck examination PERRLA no masses no cervical lymphadenopathy no jaundice Cardiac examination audible S1-S2 no murmurs no gallops no arrhythmias Chest fair air entry bilateral Left upper chest port in place without complication Abdomen nontender except mildly at the incision sites and skin jacki in place. Nondistended soft no organomegaly guarding or rigidity/no signs of peritonitis. no evidence of erythema or surgical site infection Extremities no cyanosis no clubbing no edema Urinary Catheter Management: Parnell: Cath Placed During This Visit: yes, but has since been removed by the nurse Reason for Continuing Indwelling Catheter: Decision to DC Catheter Urinary Catheter Date of Insertion: 02/11/22 Urinary Catheter Time of Insertion: 07:55 Date Urinary Catheter Removed: 02/13/22 Time Urinary Catheter Discontinued: 16:55 Data : 02/15/22 02:40 02/15/22 02:40 Micro: Microbiology 02/14/22 13:25 Bacterial Antigens - Final Urine Kidney A&P Assessment and plan (1) Status post laparoscopic colectomy: Assessment 51 years old female patient status post laparoscopic left hemicolectomy 02/11/2022 Plan Continue incentive spirometer every hour Encourage ambulation with assistance Will request home for home to evaluate Will advance to full liquid diet and continue protein shake DC IV fluid We will continue coordinating care with hospitalist service Likely the patient would benefit from another 24 hours to make sure that she will not develop more fevers. Continue cardiac monitoring Strict I's and O's Pathology reviewed with the patient and will defer further management to medical oncology as an outpatient Assurance and education All questions have been answered and all concerns have been addressed to patient's satisfaction. Status: Acute (2) Rhonchi: Home oxygen eval Status: Acute (3) Postoperative fever: Concerning patient developed pneumonitis, will defer further medical management to hospitalist service Assurance and education All questions have been answered and all concerns have been addressed to patient's satisfaction. Status: Acute Attestations Medical Necessity Statement*: Patient requiring inpatient admission passing 2 midnights for perioperative care and resolution of fever Time Spent in Patient Care: 16 - 35 minutes Coding Level of Care Code Acute Flooring Installer for Chg Fwd Diagnoses Status post laparoscopic colectomy Z90.49 Rhonchi R09.89 Postoperative fever R50.82
[2022-02-15] MEDS: nicotine 14 mg Patch 1 PATCH TRANSDERMA (09:11)
[2022-02-15] MEDS: benzonatate 100 mg Capsule 200 MG PO ×3 (09:12→20:00)
[2022-02-15] MEDS: citalopram 20 mg Tablet PO (09:12)
[2022-02-15] MEDS: metoprolol tartrate 25 mg Tablet PO ×2 (09:12→20:00)
[2022-02-15] MEDS: vancomycin 1,250 MG/250 ML PIGGYBACK 250 MG IV ×2 (10:29→21:09)
[2022-02-15] MEDS: piperacillin-tazobactam 3.375 GM in sodium chloride 0.9% (plus) 50 ML IV ×2 (12:42→20:01)
--- NOTE | 2022-02-15 16:20 | PM.PN ---
Subjective Subjective: No acute vents overnight. Patient denies any nausea, vomiting, headache. Sitting up in chair today having her food without any difficulty. Working with I-S and Acapella. Had 1 episode of fever last night. T-max 101.2 Fahrenheit. Denies any chest pain, cough. Medications: Reviewed: Yes Vitals/I&O/Wt Last Vital Signs Temp 97.9 F 02/15/22 15:24 Pulse 92 02/15/22 15:24 Resp 16 02/15/22 15:24 BP 97/63 02/15/22 15:24 Pulse Ox 95 02/15/22 15:24 02/15/22 02/15/22 02/15/22 06:59 14:59 22:59 Intake Total 174 / 1424 1176 / 1176 Output Total Balance 173 / 1123 1176 / 1176 Physical Exam Narrative: General: No acute distress, AO x3, anxious, laying comfortably in bed in left lateral position on 2 L oxygen supplementation, mild pallor present HEENT: PERRLA, pupils bilaterally equal and reactive Chest: Normal vesicular breath sounds, bronchial breath sounds right middle and upper zone with decreased air entry CVS: S1-S2 regular, no murmurs, tachycardia, no gallops, no rubs Abdomen: Soft, generalized mild tenderness postoperatively, laparoscopic scars healing well, no organomegaly, bowel sounds present Neuro: No focal deficits, no facial deformity, AO x3, power 5/5 in all limbs Urinary Catheter Management: Parnell: Cath Placed During This Visit: yes, but has since been removed by the nurse Reason for Continuing Indwelling Catheter: Decision to DC Catheter Urinary Catheter Date of Insertion: 02/11/22 Urinary Catheter Time of Insertion: 07:55 Date Urinary Catheter Removed: 02/13/22 Time Urinary Catheter Discontinued: 16:55 Data : 02/15/22 02:40 02/15/22 02:40 Micro: Microbiology 02/14/22 18:00 MRSA Culture - Final Nose 02/15/22 10:28 Blood Culture - Preliminary Blood SPECIMEN COLLECTED 02/15/22 10:24 Blood Culture - Preliminary Blood SPECIMEN COLLECTED 02/14/22 13:25 Bacterial Antigens - Final Urine Kidney A&P Assessment and plan (1) Status post laparoscopic colectomy: Status: Acute (2) Encounter for postoperative care: Status: Acute (3) Tachycardia: Status: Acute (4) Adenocarcinoma of descending colon: Status: Acute (5) Malignant neoplasm of upper lobe, right bronchus or lung: Status: Acute (6) Port-A-Cath in place: Status: Chronic (7) COPD (chronic obstructive pulmonary disease): Status: Acute Qualifiers: COPD type: emphysema Emphysema type: centrilobular Qualified Code(s): J43.2 - Centrilobular emphysema (8) Cigarette smoker: Status: Chronic (9) Anxiety and depression: Status: Chronic Plan 51-year-old female with past medical history of lung cancer on chemoradiation, COPD, chronic smoker with anxiety and depression, past history of COVID-19, adenocarcinoma of descending colon who is postoperative day 3 for laparoscopic left hemicolectomy. Patient having persistent cough and tachycardia. Postoperative pain management, diet advancement, anticoagulation as per surgical team. Febrile episode: Could be secondary to postobstructive pneumonia though unlikely. Most likely secondary to atelectasis in setting of recent surgery. Check blood culture. Pro-Celso, MRSA swab negative. D-dimer elevated but CTA and lower limb Dopplers negative for VTE. No leukocytosis. UA negative for any signs of infection. Check sputum culture, COVID-19 PCR swab. For now start on vancomycin and Zosyn. Blood cultures remain negative and patient remains afebrile within next 24 hours can transition over to oral antibiotics. Tachycardia: Could be secondary to anxiety, pain control, dehydration. Resolving. Continue with Advair, Spiriva. Nicotine patch, home anxiety medications including Celexa, lorazepam, tramadol. Aggressive pulmonary toileting with I-S and Acapella. Appreciate echocardiogram, lower limb Doppler, CT results. Plan discussed in detail with RN and patient. Thank you for involving us in care of Ms. Moya. Please call with any questions. We will continue to follow. Attestations Medical Necessity Statement*: As per primary team. Requires further hospitalization for febrile episode in setting of recent left hemicolectomy. Time Spent in Patient Care: Greater than 35 minutes Coding Level of Care Code Acute Gasoline Dragline Operator for Chg Fwd Diagnoses Status post laparoscopic colectomy Z90.49 Encounter for postoperative care Z48.89 Tachycardia R00.0 Adenocarcinoma of descending colon C18.6 Malignant neoplasm of upper lobe, right bronchus or lung C34.11 Port-A-Cath in place Z95.828 COPD (chronic obstructive pulmonary disease) J43.2 COPD type: emphysema Emphysema type: centrilobular Cigarette smoker F17.210 Anxiety and depression F41.9; F32.9
[2022-02-15] MEDS: enoxaparin 40 mg/0.4 mL Syringe SUBCUT (18:03)
--- NOTE | 2022-02-15 19:35 | PC.NURSE ---
Shift Note Frequent safety and comfort rounds continue. Orders and/or nursing care completed as indicated. Patient monitored for response to intervention and treatment(s). Education provided includes ambulation and IS use for lung exercise. Patient and/or marketing development representative verbalizes understanding. pt had 1 lg loose BM and reported of passing gas this shift and voiding goodx3. Will continue to monitor.
[2022-02-15 20:22] LABS: Adenovirus Not Detected (NOT DETECT); Chlamydia Pneumoniae Not Detected (NOT DETECT); Coronavirus 229E,HKU1,NL63,OC4 Not Detected (NOT DETECT); Human Metapneumovirus Not Detected (NOT DETECT); Human Rhinovirus/Enterovirus Not Detected (NOT DETECT); Influenza A Not Detected (NOT DETECT); Influenza A H1 Not Detected (NOT DETECT); Influenza A H1-2009 Not Detected (NOT DETECT); Influenza A H3 Not Detected (NOT DETECT); Influenza B Not Detected (NOT DETECT); Mycoplasma Pneumoniae Not Detected (NOT DETECT); Parainfluenza Virus Type 1 Not Detected (NOT DETECT); Parainfluenza Virus Type 2 Not Detected (NOT DETECT); Parainfluenza Virus Type 3 Not Detected (NOT DETECT); Parainfluenza Virus Type 4 Not Detected (NOT DETECT); Respiratory Syncytial Virus A Not Detected (NOT DETECT); Respiratory Syncytial Virus B Not Detected (NOT DETECT); SARS-COV-2 Not Detected (NOT DETECT)
[2022-02-16] VITALS: BP 78/59; PULSE 76; RESP 16; TEMP 36.6; O2SAT 98
[2022-02-16 04:00] VITALS: BP 81/47; PULSE 87; RESP 17; TEMP 37.3; O2SAT 93
[2022-02-16 04:25] LABS: Basophils % 0.3 %; Eosinophils # 0.1 10^3/uL (0.0-0.8); Eosinophils % 3.6 %; Hematocrit 27.9 % (37.0-47.0); Lymphocytes # 0.4 10^3/uL (0.8-4.8); Lymphocytes % 10.5 %; Mean Corpuscular HGB Conc 32.3 g/dL (30.0-36.0); Mean Corpuscular Hemoglobin 30.2 pg (28.0-34.0); Mean Corpuscular Volume 93.6 fl (81-99); Mean Platelet Volume 9.9 fL (7.4-10.4); Monocytes # 0.1 10^3/uL (0.2-0.9); Monocytes % 4.2 %; Neutrophils # 2.69 10^3/uL (1.8-7.7); Neutrophils % 80.5 %; Nucleated Red Blood Cells % 0 %; Platelet Count 223 10^3/cmm (130-400); Red Blood Count 2.98 10^6/uL (4.1-5.3); Red Cell Distribution Width 12.8 % (12.1-15.1); White Blood Count 3.3 10^3/uL (4.0-10.0)
[2022-02-16] MEDS: TRAMadol 50 mg Tablet PO (04:28)
[2022-02-16] MEDS: piperacillin-tazobactam 3.375 GM in sodium chloride 0.9% (plus) 50 ML IV (04:28)
[2022-02-16 04:50] LABS: Alanine Aminotransferase 8 U/L (0-33); Albumin Level 2.8 g/dL (3.5-5.2); Alkaline Phosphatase 69 IU/L (35-105); Anion Gap 14.7 (5-19); Aspartate Amino Transferase 15 U/L (0-32); Blood Urea Nitrogen 8 mg/dL (6-20); Calcium 8.5 mg/dL (8.5-10.5); Carbon Dioxide 28 mmol/L (22-29); Chloride 96 mmol/L (98-107); Globulin 3.1 g/dL (1.3-4.6); Glucose 76 mg/dL (65-115); Osmolality Calculated 277 mOsm/kg (285-295); Potassium 3.7 mmol/L (3.5-5.1); Sodium 135 mmol/L (136-145); Total Bilirubin 0.2 mg/dL (0.15-1.2); Total Protein 5.9 g/dL (6.6-8.7)
[2022-02-16 06:00] VITALS: PULSE 92
[2022-02-16 07:38] VITALS: PULSE 90; RESP 16; O2SAT 92
[2022-02-16 08:00] VITALS: BP 92/60; PULSE 97; RESP 13; TEMP 36.6; O2SAT 96
[2022-02-16] MEDS: benzonatate 100 mg Capsule 200 MG PO (08:29)
[2022-02-16] MEDS: nicotine 14 mg Patch 1 PATCH TRANSDERMA (08:29)
[2022-02-16] MEDS: citalopram 20 mg Tablet PO (08:30)
--- NOTE | 2022-02-16 09:16 | P.PN_ITS ---
Subjective Subjective: No acute events overnight except that the patient blood pressure has been the bit softer on beta-blockers and the dose has been adjusted. Slight drift in H&H to 9 g/dL. Potassium shows 3.3. Patient was started yesterday on vancomycin and Zosyn per hospitalist service. Adequate urine output. Patient continues to pass gas and having bowel movements. Home O2 evaluation and recommendation to have 2 L at home. Medications: Reviewed: Yes Vitals/I&O/Wt Last Vital Signs Temp 97.9 F 02/16/22 08:00 Pulse 97 02/16/22 08:00 Resp 13 02/16/22 08:00 BP 92/60 02/16/22 08:00 Pulse Ox 96 02/16/22 08:00 02/15/22 02/16/22 02/16/22 22:59 06:59 14:59 Intake Total 1020 / 2196 50 / 2246 50 / 50 Output Total 350 / 350 Balance 670 / 1846 50 / 1896 50 / 50 Physical Exam Narrative: Patient is conscious alert oriented X3 No apparent distress BMI 28 Head and neck examination PERRLA no masses no cervical lymphadenopathy no jaundice, nasal cannula in place Cardiac examination audible S1-S2 no murmurs no gallops no arrhythmias Chest fair air entry bilateral Left upper chest port in place without complication Abdomen nontender ,skin jacki in place.? Nondistended soft no organomegaly guarding or rigidity/no signs of peritonitis. no evidence of erythema or surgical site infection. Incisions are clean dry and intact. Extremities no cyanosis no clubbing no edema Urinary Catheter Management: Parnell: Cath Placed During This Visit: yes, but has since been removed by the nurse Reason for Continuing Indwelling Catheter: Decision to DC Catheter Urinary Catheter Date of Insertion: 02/11/22 Urinary Catheter Time of Insertion: 07:55 Date Urinary Catheter Removed: 02/13/22 Time Urinary Catheter Discontinued: 16:55 Data : 02/16/22 03:24 02/16/22 03:24 Micro: Microbiology 02/14/22 18:00 MRSA Culture - Final Nose 02/15/22 10:28 Blood Culture - Preliminary Blood SPECIMEN COLLECTED 02/15/22 10:24 Blood Culture - Preliminary Blood SPECIMEN COLLECTED A&P Assessment and plan (1) Status post laparoscopic colectomy: Assessment 51 years old female patient status post laparoscopic left hemicolectomy 02/11/2022 Plan Continue incentive spirometer every hour Encourage ambulation with assistance We will plan to discharge home today We will continue coordinating care with hospitalist service Home O2 arranged for the patient Return to surgery office in 1 week Assurance and education All questions have been answered and all concerns have been addressed to patient's satisfaction. Status: Acute (2) Rhonchi: Continue incentive spirometer and follow on hospitalist recommendation Status: Acute (3) Postoperative fever: Patient will be discharged home on antimicrobial therapy per hospitalist recommendation Assurance and education All questions have been answered and all concerns have been addressed to patient's satisfaction. Status: Acute Attestations Medical Necessity Statement*: Patient required inpatient hospitalization passing 2 midnights for antimicrobial therapy and resuming of bowel functions. 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
[2022-02-16] MEDS: potassium chloride oral liq 20 mEq/15 mL UDC 40 MEQ PO (09:37)
[2022-02-16] MEDS: vancomycin 1,250 MG/250 ML PIGGYBACK 250 MG IV (09:37)
--- NOTE | 2022-02-16 10:44 | P.DS_ITS ---
Discharge Providers Date of Admission: 02/11/22 12:15 Date of Discharge: February 16, 2022 Attending Provider at Admission: Santos Ramirez MD Attending Provider at Discharge: Santos Ramirez MD Consults: Dr Grullon Primary Care Provider: TAPAN Marcus Diagnoses at Discharge Discharge Diagnosis (1) Status post laparoscopic colectomy: Details from hospital stay: Postoperative status, patient is doing well and tolerating p.o. intake. Status: Acute (2) Rhonchi: Details from hospital stay: Patient under medical treatment by hospitalist service for empiric treatment for pneumonia. Status: Acute (3) Postoperative fever: Details from hospital stay: Condition resolved and plan to discharge home today Status: Acute Reason for Visit Reason for Visit: Brief History: This is a pleasant 51 years old female patient was diagnosed with left-sided colon cancer and undergone elective laparoscopic left hemicolectomy with [id number] anastomosis on 02/11/2022. Hospital Course Hospital Course Patient undergone uneventful laparoscopic left hemicolectomy for colon cancer and postoperative course for the most part went smoothly except for low-grade fever and persistent tachycardia which required hospitalist consultation for further evaluation. As patient is well-known with her right upper lung cancer there was a concern about postobstructive pneumonia and undergoing antimicrobial therapy with that regard and also RT has been on board since postoperative period and patient has been working on her incentive spirometer and receiving breathing treatment. From a surgical standpoint of view patient has been passing gas and was placed on clear liquid diet and was advanced to full liquid diet in addition to protein shakes. She also did have nonbloody bowel movements and complaining of no abdominal pain. In the interim a CTA was done by hospitalist service to rule out PE and that was negative also a venous duplex of the lower extremities that did not show DVT. Patient is currently tolerating well p.o. intake, adequate urine output after the catheter is being removed and patient is able to void on her own. Stable vital signs, beta-zhou was initiated by hospitalist service and adjustment of the dose is done accordingly. Patient has been ambulatory without assistance yet she did require oxygen per nasal cannula in the form of 1 to 2 L and RT evaluated the patient for home O2 and she was qualified for home O2 up to 2 L. Patient encountered hypokalemia and potassium was replaced. She continued to be on pharmacologic DVT prophylaxis. And her pain has been adequately controlled. Otherwise patient met the appropriate and safe criteria to discharge home today. Physical Exam Urinary Catheter Management: Parnell: Cath Placed During This Visit: yes, but has since been removed by the nurse Reason for Continuing Indwelling Catheter: Decision to DC Catheter Urinary Catheter Date of Insertion: 02/11/22 Urinary Catheter Time of Insertion: 07:55 Date Urinary Catheter Removed: 02/13/22 Time Urinary Catheter Discontinued: 16:55 Discharge Data Studies Completed and Pending Completed Studies During Hospitalization Category Date Time Status CTA chest [CT angio chest PE protcl [id number]] Routine Cat Scan 02/14/22 12:12 Completed CXRP [XR chest 1V portable [id number]] Urgent Exams 02/14/22 08:35 Completed Pathology: Surgical [PTH] Routine Pth 02/11/22 12:00 [place] [id number] Urgent Ultrasound 02/14/22 16:27 Completed CV. echo complete* [id number] Routine Ultrasound 02/14/22 12:10 Completed Pending at discharge Category Date Time Status ES surgery / GI images Routine Exams 02/11/22 07:17 Taken Blood Culture Stat Lab 02/15/22 10:28 Results Miscellaneous Test Routine Lab 02/11/22 12:00 Received Miscellaneous Test Routine Lab 02/11/22 12:00 Received Sputum Culture and Gram Stain Stat Lab 02/14/22 16:29 Uncollected Vancomycin Trough Timed Lab 02/16/22 20:45 Ordered Radiology Impressions Chest X-Ray 02/14/22 08:35 IMPRESSION: Interval change in the chest as above. If the patient is receiving radiation therapy, this could account for the findings. Otherwise, progression of tumor or superimposed infection. Chest CTA 02/14/22 12:12 IMPRESSION: There is no evidence for a pulmonary artery embolus. There is a mass in the right thoracic hilum suspicious for malignancy. There is mediastinal adenopathy suspicious for metastatic disease. There is consolidation in the right upper lobe of the lung most consistent with postobstructive pneumonitis. There are bilateral pleural effusions, right greater than left. There is free air in the upper abdomen, likely secondary to previous surgery. THIS REPORT CONTAINS FINDINGS THAT MAY BE CRITICAL TO PATIENT CARE. The findings were verbally communicated via telephone conference with SIL MARTINEZ at 3:35 PM CDT on 02/14/2022. The findings were acknowledged and understood. Venous Duplex 02/14/22 16:27 IMPRESSION: No evidence of deep vein thrombosis. Laboratory Results WBC 3.3 10^3/uL (4.0-10.0) L 02/16/22 03:24 RBC 2.98 10^6/uL (4.1-5.3) L 02/16/22 03:24 Hgb 9.0 g/dL (11.5-15.3) L 02/16/22 03:24 Hct 27.9 % (37.0-47.0) L 02/16/22 03:24 MCV 93.6 fl (81-99) 02/16/22 03:24 MCH 30.2 pg (28.0-34.0) 02/16/22 03:24 MCHC 32.3 g/dL (30.0-36.0) 02/16/22 03:24 RDW 12.8 % (12.1-15.1) 02/16/22 03:24 Plt Count 223 10^3/cmm (130-400) 02/16/22 03:24 MPV 9.9 fL (7.4-10.4) 02/16/22 03:24 Neut % (Auto) 80.5 % 02/16/22 03:24 Lymph % (Auto) 10.5 % 02/16/22 03:24 Sandoval % (Auto) 4.2 % 02/16/22 03:24 Eos % (Auto) 3.6 % 02/16/22 03:24 Baso % (Auto) 0.3 % 02/16/22 03:24 Neut # (Auto) 2.69 10^3/uL (1.8-7.7) 02/16/22 03:24 Lymph # (Auto) 0.4 10^3/uL (0.8-4.8) L 02/16/22 03:24 Sandoval # (Auto) 0.1 10^3/uL (0.2-0.9) L 02/16/22 03:24 Eos # (Auto) 0.1 10^3/uL (0.0-0.8) 02/16/22 03:24 Baso # (Auto) 0.0 10^3/uL (0.0-0.1) 02/16/22 03:24 Nucleated RBC % (auto) 0 % 02/16/22 03:24 Nucleated RBCs # 0.0 /100WBC 02/16/22 03:24 D-Dimer 6.39 ug/mIFEU (0-0.59) H 02/14/22 14:32 Sodium 135 mmol/L (136-145) L 02/16/22 03:24 Potassium 3.7 mmol/L (3.5-5.1) 02/16/22 03:24 Chloride 96 mmol/L (98-107) L 02/16/22 03:24 Carbon Dioxide 28 mmol/L (22-29) 02/16/22 03:24 Anion Gap 14.7 (5-19) 02/16/22 03:24 BUN 8 mg/dL (6-20) 02/16/22 03:24 Creatinine 0.6 mg/dL (0.5-0.9) 02/16/22 03:24 GFR Calculation 105.0 mL/min (90-130) 02/16/22 03:24 Glucose 76 mg/dL (65-115) 02/16/22 03:24 Calculated Osmolality 277 mOsm/kg (285-295) L 02/16/22 03:24 Calcium 8.5 mg/dL (8.5-10.5) 02/16/22 03:24 Iron 29 ug/dL (37-145) L 02/14/22 02:03 TIBC 159 mcg/dl 02/14/22 02:03 % Saturation 18.2 % (20-50) L 02/14/22 02:03 Unsat Iron Binding 130 ug/dL (112-347) 02/14/22 02:03 Total Bilirubin 0.2 mg/dL (0.15-1.2) 02/16/22 03:24 AST 15 U/L (0-32) 02/16/22 03:24 ALT 8 U/L (0-33) 02/16/22 03:24 Alkaline Phosphatase 69 IU/L (35-105) 02/16/22 03:24 Total Protein 5.9 g/dL (6.6-8.7) L 02/16/22 03:24 Albumin 2.8 g/dL (3.5-5.2) L 02/16/22 03:24 Globulin 3.1 g/dL (1.3-4.6) 02/16/22 03:24 Carcinoembryonic Ag 5.2 ng/mL (0.0-4.7) H 02/11/22 07:20 25-OH Vitamin D Total 29 ng/mL (30-100) L 02/06/22 10:30 Procalcitonin 0.17 ng/mL (0-0.5) 02/14/22 02:03 Urine Color Yellow (Yellow) 02/14/22 13:25 Urine Appearance Clear (CLEAR) 02/14/22 13:25 Urine pH 5 (5-7) 02/14/22 13:25 Ur Specific [place] 1.010 (1.005-1.030) 02/14/22 13:25 Urine Protein Neg (Negative) 02/14/22 13:25 Urine Glucose (UA) Norm (Normal) 02/14/22 13:25 Urine Ketones 2+ (Negative) H 02/14/22 13:25 Urine Blood Neg (Negative) 02/14/22 13:25 Urine Nitrate Negative (Negative) 02/14/22 13:25 Urine Bilirubin Neg (Negative) 02/14/22 13:25 Urine Urobilinogen Norm mg/dL (Negative) 02/14/22 13:25 Ur Leukocyte Esterase Negative (Negative) 02/14/22 13:25 Coronavirus 229E (PCR) Not detected (NOT DETECT) 02/15/22 18:12 SARS-CoV-2 (PCR) Not detected (NOT DETECT) 02/15/22 18:12 Additional Data from Hospital Stay Beta-zhou dose is adjusted per hospitalist service. Procedures Performed Operative Report Date of procedure: February 11, 2022 Pre-op diagnosis: Preop Diagnosis ? Colon cancer? Post-op diagnosis: Splenic flexure colon can Post-op findings: Extensive omental adhesions towards the splenic flexure Procedure done: 1-Laparoscopic left hemicolectomy with colocolic anastomosis [id number] 2-Extensive adhesiolysis Implants: Pieces of Surgicel towards the upper border of the spleen Specimens removed/disposition: Left hemicolectomy sutures marked proximal Surgeon: Santos Ramirez MD Nursing Program Coordinator: Surgical techjulio Hameed Circulating nurse Aby Anesthesia: General (CHELI Chow and Dr. Meredith) Estimated blood loss (mL): 100 IV fluids (mL): 1,200 Procedure: The patient was brought to the operating room and was placed in a supine position on the operating room table. General endotracheal anesthesia was induced. Time-out was done verifying the patient's name/date of /planned procedure and destination after the procedure, all were in agreement. SCDs confirmed to be functioning, preoperative antibiotics administered per protocol, and beta zhou protocol was confirmed.? Prophylactic heparin subcu was given on-call to the OR.Parnell catheter was inserted revealing clear urine.? The patient maintained to be in supine position.after insertion, all pressure points were padded and patient was appropriately secured to the bed. Started by longitudinal skin incision transverse infraumbilical going through a previous scar, using a Mcclain trocar technique safe entry to the abdominal cavity was achieved verified by using 10 mm zero degree laparoscopy, switched to a 30? scope, a 5 mm trocar was inserted at the right lower direct visualization,followed by a 5 mm trocar was inserted at the right upper quadrant under direct visualization and another 5 mm trocar was inserted to the left side of the abdomen under direct visualization. Noticed no evidence of ascites or peritoneal carcinomatosis and the liver showed no evidence of gross pathology.? Noticed that the patient had a lot of omental adhesions towards the splenic flexure. Extensive adhesiolysis exceeded 1 hour of the operative time of the omental adhesions. I started by mobilizing the descending colon, including the inked portion that signifies the distal site of the cancer ,through the line of Toldt using the LigaSure device, I noticed the distal transverse/splenic flexure mass was having lots of omental adhesions towards the the lateral upper abdominal wall muscles and was encased by omentum but there was no gross involvement of the abdominal wall muscles or extraluminal extension of cancer I was able to use sharp dissection to mobilize the descending colon, with the countertraction was achieved I was able to have appropriate control of the vascular supply using LigaSure device, the main vessels were very attenuated for vascular stapler to be implemented. At that point I continued dissection and mobilizing the left side of the colon up to the splenic flexure and distal transverse colon by opening the lesser sac I added an additional 5 mm trocar towards the left side of the mid abdomen to facilitate dissection. At that point dissection was continued towards the proximal sigmoid colon, left ureter and retroperitoneal vasculature were intact. and I was able to free the splenic flexure completely yet there was an inadvertent superficial tear of the anterior surface of the spleen that was not actively bleeding, Surgicel was applied. ?At that point I did perform a midline incision to deliver the specimen with the proximal and distal healthier colon segment, blue load JASSON 75 mm staplers were used to divide proximal and distal to the tumor with appropriate safety margin, 3-0 silk was applied and stay sutures enterotomies were created and a JASSON 75 mm blue load was used to create pane-fl-ryow tension-free anastomosis between the distal transverse and the proximal sigmoid colon, the edges were grabbed after noticing that there is no bleeding within the colon yet the edges were healthy and had good bleeding points, multiple Allis clamps were applied and another fire of the JASSON 75 blue load was applied and followed by multiple 3-0 silk sutures seromuscular were applied at the bleeding points as well as the crotch between both limbs. In the interim there was some bleeding from the mesentery towards the proximal sigmoid colon and that was managed by using a stick tie to silk after application of right angle clamp.? Without compromising the blood supply of the colon. The specimen was passed to the circulating nurse and gloves were changed with sutures marked proximal. At that point the colon was delivered back to the abdominal cavity and we had a good seal. I elected to close the mesenteric rent using laparoscopic suture 2-0 silk to prevent future internal herniation. The upper abdomen and pelvis, appropriate hemostasis was secured towards the left lateral abdominal wall where the mass was encasing the abdominal in a large piece of Surgicel was placed in addition to multiple 5 mm clips were applied for potential future radiation if indicated and at the bed of the splenic flexure area towards the spleen 5 mm clips were applied for addition hemostasis as well.? Additional Floseal was injected at the site of the superficial splenic tear for completion hemostasis. There was no evidence of injuries or bleeding or succus Bilateral TAP (transversus abdominous plain peripheral nerve block )block using Exparel 20 mL Exparel 40 ml Normal saline 20 ml bupivacaine 0.25% 30 mL on each side injected 20 mL injected the port sites All trochars were taken out under direct visualization. Midline closure was achieved under direct visualization using #1PDS which are followed by thorough irrigation of the subcutaneous layer then a 2-0 Vicryl followed by skin jacki of all skin incisions. Appropriate counts of sponges,needles and instruments were completed at the end of the procedure. Patient tolerated the procedure well and got extubated and was taken to the recovery area I was present for the whole entire procedure. Dictated By: Santos Ramirez MD Signed By: Santos Ramirez MD Vitals Last Vital Signs Temp 97.9 F 02/16/22 08:00 Pulse 97 02/16/22 08:00 Resp 13 02/16/22 08:00 BP 92/60 02/16/22 08:00 Pulse Ox 96 02/16/22 08:00 Discharge Plan Discharge Patient Disposition: Home Condition: Stable Prescriptions: New hydrocodone-acetaminophen 5-325 mg tablet 1 tab PO Q6H PRN (Reason: pain) Qty: 28 0RF Continued benzonatate 200 mg capsule 200 mg PO TID PRN (Reason: cough) 0RF prochlorperazine maleate [Compazine] 10 mg tablet 10 mg PO .q4hrs PRN (Reason: nausea and vomiting) 0RF aspirin 325 mg tablet,delayed release (DR/EC) 325 mg PO DAILY Qty: 30 0RF Hold Instructions: Resume on 02/05/22. citalopram 20 mg tablet 20 mg PO DAILY Qty: 90 1RF cholecalciferol (vitamin D3) [Vitamin D3] 25 mcg (1,000 unit) capsule 25 mcg PO DAILY Qty: 30 2RF furosemide [Lasix] 20 mg tablet 20 mg PO DAILY Qty: 90 1RF Hold Instructions: Resume on 08/12/21. omeprazole 20 mg capsule,delayed release(DR/EC) 20 mg PO DAILY Qty: 90 0RF potassium chloride 10 mEq capsule, extended release 10 meq PO DAILY Qty: 90 1RF lorazepam 1 mg tablet 0.5 mg PO TID PRN (Reason: Anxiety) Qty: 45 1RF Trelegy Ellipta 100-62.5-25 mcg blister with device 1 inh inhalation DAILY Qty: 60 3RF (DME) nebulizers Misc See Rx Instructions .ROUTE .MEDSUPPLY Qty: 1 0RF Rx Instructions: As directed albuterol sulfate 2.5 mg /3 mL (0.083 %) solution for nebulization 2.5 mg INHALATION Q6H PRN (Reason: Shortness Of Breath) 0RF tramadol 50 mg tablet 50 mg PO Q6H PRN (Reason: pain) Qty: 20 0RF Discontinued erythromycin ethylsuccinate 200 mg/5 mL suspension for reconstitution 400 mg PO DAILY Qty: 100 0RF Rx Instructions: Take 10mL day before surgery at 3PM, 4PM and 10PM neomycin 500 mg tablet 1 g PO ONCE Qty: 6 0RF Rx Instructions: Take 2 tablets at 3PM, 4PM, and 10PM Discharge Orders: Discharge Order (Routine); Ordered 02/16/22 Ordered By: Santos Ramirez Referrals: Santos Ramirez MD [Physician] - (Return to surgery office in 1 week) Gerardo Zepeda, TRAVEL REGISTERED NURSE ONCOLOGY-C [Primary Care Provider] - (Return to PCP service first available to continue monitoring patient's heart rate and blood pressure.) Braulio Lilly MD [Hospitalist] - (Return to medical oncology service as scheduled) Discharge Diet: Full LIquid Discharge Activity: Limit activity as instructed Patient Instructions: Hydrocodone/Acetaminophen (By mouth), How to Stop Smoking (DC), Colectomy Diet (ED), Laparoscopic Bowel Resection (GEN), Opioid Safety Activity Restrictions/Additional Instructions: Post discharge instructions: 1. Patient can shower after 48 hours from surgery. Do not soak in bathtub, swimming pool or hot tub for 4 weeks after surgery. 2. Leave incisions open to air, do not apply triple antibiotic ointment or medications on the incisions. 3. Up and walking as tolerated Activity 4. Do not lift more than 5 pounds first 2 weeks after surgery and not more than 25 pounds 6 to 8 weeks after surgery. Driving 5. Do not operate heavy machinery or drive while using pain medications Diet Full liquid diet for today and tomorrow start to advance to soft GI diet and focus on protein shakes 3 to 4 cans a day. Pain control Patient was given a prescription for hydrocodone. Nausea Nausea is common after surgery, take nausea medications as needed and stay on a liquid bland diet until nausea resolves. Breathing Patient was encouraged and was given incentive spirometer to use at home 10 times an hour while awake and home 2 education was given to the patient as well. Call the office at [phone] during office hours or go the Emergency Room after hours for - ?Fever to 100.4 or greater ?Shaking chills ?Pain that increases over time ?Redness, warmth, or pus draining from incision sites ?Persistent nausea or inability to take in liquids Discharge Attestations Time Spent in Discharge Care*: greater than 30 min Specific Discharge Activities: educating patient and educating and/or supporting family/caregiver Status at Discharge: Cognitive status at discharge: cognitively intact , Behavioral status at discharge: cooperative , Functional status at discharge: independent ambulation , Overall status at discharge: patient is progressing back to baseline Quality Metrics Clinical Quality Measures [ No reported AMI, CVA or VTE this stay] Coding Level of Care Code Acute Chg FW DC note Diagnoses Status post laparoscopic colectomy Z90.49 Rhonchi R09.89 Postoperative fever R50.82
--- NOTE | 2022-02-16 11:41 | PM.PN ---
Subjective Subjective: No events overnight. Today morning seen with surgical team at bedside. Patient doing better. Tolerating diet well. Still on 1 to 2 L oxygen communication. I saw patient went up being discharged with oxygen and did not need oxygen. He discussed in detail regarding it being safer with home oxygen at home. Patient is agreeable with oxygen for now. T-max last 24 hours 100.6 Fahrenheit. Urine output appropriate. Has remained hemodynamically stable. Medications: Reviewed: Yes Vitals/I&O/Wt Last Vital Signs Temp 97.9 F 02/16/22 08:00 Pulse 97 02/16/22 08:00 Resp 13 02/16/22 08:00 BP 92/60 02/16/22 08:00 Pulse Ox 96 02/16/22 08:00 02/15/22 02/16/22 02/16/22 22:59 06:59 14:59 Intake Total 1020 / 2196 50 / 2246 300 / 300 Output Total 350 / 350 Balance 670 / 1846 50 / 1896 300 / 300 Physical Exam Narrative: General: No acute distress, AO x3, anxious, laying comfortably in bed in left lateral position on 2 L oxygen supplementation, mild pallor present HEENT: PERRLA, pupils bilaterally equal and reactive Chest: Normal vesicular breath sounds, bronchial breath sounds right middle and upper zone with decreased air entry CVS: S1-S2 regular, no murmurs, tachycardia, no gallops, no rubs Abdomen: Soft, generalized mild tenderness postoperatively, laparoscopic scars healing well, no organomegaly, bowel sounds present Neuro: No focal deficits, no facial deformity, AO x3, power 5/5 in all limbs Urinary Catheter Management: Parnell: Cath Placed During This Visit: yes, but has since been removed by the nurse Reason for Continuing Indwelling Catheter: Decision to DC Catheter Urinary Catheter Date of Insertion: 02/11/22 Urinary Catheter Time of Insertion: 07:55 Date Urinary Catheter Removed: 02/13/22 Time Urinary Catheter Discontinued: 16:55 Data : 02/16/22 03:24 02/16/22 03:24 Micro: Microbiology 02/15/22 10:28 Blood Culture - Preliminary Blood NEGATIVE TO DATE 02/15/22 10:24 Blood Culture - Preliminary Blood NEGATIVE TO DATE 02/14/22 18:00 MRSA Culture - Final Nose A&P Assessment and plan (1) Status post laparoscopic colectomy: Status: Acute (2) Encounter for postoperative care: Status: Acute (3) Tachycardia: Status: Acute (4) Adenocarcinoma of descending colon: Status: Acute (5) Malignant neoplasm of upper lobe, right bronchus or lung: Status: Acute (6) Port-A-Cath in place: Status: Chronic (7) COPD (chronic obstructive pulmonary disease): Status: Acute Qualifiers: COPD type: emphysema Emphysema type: centrilobular Qualified Code(s): J43.2 - Centrilobular emphysema (8) Cigarette smoker: Status: Chronic (9) Anxiety and depression: Status: Chronic Plan 51-year-old female with past medical history of lung cancer on chemoradiation, COPD, chronic smoker with anxiety and depression, past history of COVID-19, adenocarcinoma of descending colon who is postoperative day 3 for laparoscopic left hemicolectomy. Patient having persistent cough and tachycardia. Postoperative pain management, diet advancement, anticoagulation as per surgical team. Febrile episode: Could be secondary to postobstructive pneumonia though unlikely. Most likely secondary to atelectasis in setting of recent surgery. Blood cultures so far negative. Pro-Celso, MRSA swab negative. D-dimer elevated but CTA and lower limb Dopplers negative for VTE. No leukocytosis. UA negative for any signs of infection. COVID-19 PCR negative. Patient has been on Zosyn. Vancomycin stopped yesterday for MRSA negative. Blood cultures remain negative and patient remains afebrile within next 24 hours can transition over to oral antibiotics. Tachycardia: Could be secondary to anxiety, pain control, dehydration. Resolved. Continue with Advair, Spiriva. Nicotine patch, home anxiety medications including Celexa, lorazepam, tramadol. Aggressive pulmonary toileting with I-S and Acapella. Appreciate echocardiogram, lower limb Doppler, CT results. Plan discussed in detail with RN and patient. Thank you for involving us in care of Ms. Moya. Please call with any questions. We will continue to follow. Patient being discharged from surgical team. It is safe to discharge patient on oral Levaquin and Augmentin for next 7 days. She is counseled in detail to go home with oxygen as per home O2 evaluation. Patient is agreeable now. Patient was advised in detail regarding use of incentive spirometry at home. Patient is also advised to follow-up with her outpatient health and wellness manager within the next 1 week to 10 days. Danger signs of increased shortness of breath, fever of more than 101 Fahrenheit even after taking Tylenol, increased nausea and vomiting which is making it difficult to maintain oral hydration and take oral medications discussed in detail with the patient. Patient is advised to come to the ER if she had any danger signs. Patient was started on metoprolol 25 mg twice daily. Attestations Medical Necessity Statement*: As per primary team. Time Spent in Patient Care: Greater than 35 minutes Coding Level of Care Code Acute Final Block Press Operator for g Fwd Diagnoses Status post laparoscopic colectomy Z90.49 Encounter for postoperative care Z48.89 Tachycardia R00.0 Adenocarcinoma of descending colon C18.6 Malignant neoplasm of upper lobe, right bronchus or lung C34.11 Port-A-Cath in place Z95.828 COPD (chronic obstructive pulmonary disease) J43.2 COPD type: emphysema Emphysema type: centrilobular Cigarette smoker F17.210 Anxiety and depression F41.9; F32.9
[2022-02-16 13:17] VITALS: BP 92/60; PULSE 97; RESP 13; TEMP 36.6; O2SAT 96
--- NOTE | 2022-02-16 14:01 | PC.NURSE ---
patient verbalized understanding of discharge instructions, home medications, need to make follow up appointments. patient verbalized of understanding of using oxygen, especially when feeling short of breath. encouraged use of IS at home.
--- NOTE | 2022-02-16 18:22 | PC.NURSE ---
Called patient to let her know that Dr. Martines wants her to take 12.5mg metoprolol BID instead of 25mg BID and to keep watch on her blood pressure. Patient verbalized understanding and had no questions for this nurse.
[2022-02-19 10:21] LABS: Miscellaneous Test See Scanned Lab Rpt
[2022-03-24 07:49] LABS: Miscellaneous Test See Scanned Lab Rpt
== END 2022-02-16 14:06 | disposition home or self-care (01) | DRG 330 ==
LOC: MEDSURG 12:16
PROVIDERS: Student in an Organized Health Care Education/Training Program; Admitting Provider Surgery; PCP Nurse Practitioner; Visit Provider Surgery
PROC: 0DTG4ZZ Resection of Left Large Intestine, Percutaneous Endoscopic Approach (ICD-10-PCS; CPT 44204; principal; 2022-02-11 07:00)
DX: C18.6 Malignant neoplasm of descending colon (principal); C34.11 Malignant neoplasm of upper lobe, right bronchus or lung; J95.89 Other postprocedural complications and disorders of respiratory system, not elsewhere classified; J98.11 Atelectasis; F41.9 Anxiety disorder, unspecified; F32.A Depression, unspecified; F17.210 Nicotine dependence, cigarettes, uncomplicated; Z79.82 Long term (current) use of aspirin; Z79.899 Other long term (current) drug therapy; J43.2 Centrilobular emphysema; R50.82 Postprocedural fever; E87.6 Hypokalemia; Y83.8 Other surgical procedures as the cause of abnormal reaction of the patient, or of later complication, without mention of misadventure at the time of the procedure; Z86.16 Personal history of COVID-19; E55.9 Vitamin D deficiency, unspecified
CPT/HCPCS: 36415; 51702; 71045; 71275; 80048; 80053; 81003; 82306; 82378; 83540; 83550; 84145; 85014; 85018; 85025; 85378; 86403; 87040; 87635; 87641; 88309; 88341; 88342; 93005; 93306; 93970; 94640; 96372; C9290; J1100; J1170; J1644; J1650; J2250; J2405; J2543; J2704; J2710; J3010; J3370; J3490; J7030; J7040; J7626; Q9967

== ENCOUNTER → 2022-02-26 13:31 | Outpatient (BNVA) | payer MEDICAID, SELFPAY | PROVIDERS: PCP Nurse Practitioner; Visit Provider Surgery | DX: Z98.890 Other specified postprocedural states (principal) | CPT/HCPCS: 99024 ==

== ENCOUNTER 2022-03-06 09:00 | Oncology outpatient (recurring) (ONCR) | payer MEDICAID, SELFPAY ==
[2022-03-06 09:30] VITALS: BMI 26.3
[2022-03-06] MEDS: alteplase 1 mg/mL SDV 2 mL 2 MG INTRACATH (09:46)
[2022-03-06 10:13] LABS: Basophils % 0.3 %; Eosinophils # 0.2 10^3/uL (0.0-0.8); Eosinophils % 2.6 %; Hematocrit 33.5 % (37.0-47.0); Hemoglobin 10.6 g/dL (11.5-15.3); Lymphocytes # 1.1 10^3/uL (0.8-4.8); Lymphocytes % 16.1 %; Mean Corpuscular HGB Conc 31.6 g/dL (30.0-36.0); Mean Corpuscular Hemoglobin 29.3 pg (28.0-34.0); Mean Corpuscular Volume 92.5 fl (81-99); Mean Platelet Volume 9.6 fL (7.4-10.4); Monocytes # 0.6 10^3/uL (0.2-0.9); Monocytes % 7.8 %; Neutrophils # 5.09 10^3/uL (1.8-7.7); Neutrophils % 72.6 %; Nucleated Red Blood Cells % 0 %; Platelet Count 319 10^3/cmm (130-400); Red Blood Count 3.62 10^6/uL (4.1-5.3); Red Cell Distribution Width 13.4 % (12.1-15.1)
[2022-03-06 10:47] LABS: Alanine Aminotransferase < 5 U/L (0-33); Albumin Level 3.4 g/dL (3.5-5.2); Alkaline Phosphatase 82 IU/L (35-105); Anion Gap 12.9 (5-19); Aspartate Amino Transferase 16 U/L (0-32); Blood Urea Nitrogen 9 mg/dL (6-20); Calcium 9.1 mg/dL (8.5-10.5); Carbon Dioxide 30 mmol/L (22-29); Chloride 99 mmol/L (98-107); Globulin 3.4 g/dL (1.3-4.6); Glucose 93 mg/dL (65-115); Osmolality Calculated 284 mOsm/kg (285-295); Potassium 3.9 mmol/L (3.5-5.1); Sodium 138 mmol/L (136-145); Thyroid Stimulating Hormone 2.14 uIU/mL (0.27-4.20); Total Bilirubin 0.2 mg/dL (0.15-1.2); Total Protein 6.8 g/dL (6.6-8.7)
[2022-03-06] MEDS: sodium chloride 0.9% 250 ML 75 ML IV (11:23)
[2022-03-06] MEDS: durvalumab 1,500 MG in sodium chloride 0.9% 250 ML 280 MG IV (11:40)
[2022-03-06 12:00] LABS: 25 Hydroxy Vitamin D 34 ng/mL (30-100)
[2022-03-06 13:07] VITALS: BP 110/74; PULSE 102; TEMP 36.8; O2SAT 96
== END 2022-03-16 23:59 | disposition home or self-care (01) ==
PROVIDERS: Nurse Practitioner Family; PCP Nurse Practitioner; Visit Provider Nurse Practitioner
DX: Z51.12 Encounter for antineoplastic immunotherapy (principal); C34.11 Malignant neoplasm of upper lobe, right bronchus or lung; F17.210 Nicotine dependence, cigarettes, uncomplicated; Z92.3 Personal history of irradiation; Z85.038 Personal history of other malignant neoplasm of large intestine; Z90.49 Acquired absence of other specified parts of digestive tract
CPT/HCPCS: 36593; 80053; 82306; 84443; 85025; 96413; 99215; J2997; J7050; J9173

== ENCOUNTER → 2022-03-21 11:07 | Outpatient (BNVA) | payer MEDICAID, SELFPAY | PROVIDERS: PCP Nurse Practitioner; Visit Provider Internal Medicine Pulmonary Disease | DX: J18.1 Lobar pneumonia, unspecified organism (principal); J43.2 Centrilobular emphysema; C34.11 Malignant neoplasm of upper lobe, right bronchus or lung; C77.1 Secondary and unspecified malignant neoplasm of intrathoracic lymph nodes; F17.210 Nicotine dependence, cigarettes, uncomplicated; Z92.3 Personal history of irradiation; Z92.21 Personal history of antineoplastic chemotherapy | CPT/HCPCS: 99214 ==

== ENCOUNTER 2022-04-08 06:54 | Day surgery (SDC) | payer MEDICAID, SELFPAY ==
[2022-04-07 11:50] VITALS: BMI 25.2
[2022-04-08] VITALS (13 sets, daily range): BP systolic 86–103; BP diastolic 53–73; PULSE 99–115; RESP 14–18; TEMP 36.7–37.2; O2SAT 87–99
--- NOTE | 2022-04-08 07:13 | P.ANESASSM_ITS ---
Pre-Anesthetic Assessment Height/Weight: Height 1.57 m Weight 62.596 kg Preop Diagnosis: History of colon polyps Operation Date: 04/08/22 08:35 Proposed Procedures p Ebus(Not Applicable) - Mohamud Escalona DatarMD Familial anesthetic complications: none Was Beta Julio C taken within 24 hours: N/A Was Clonidine taken within 24 hours: N/A Social Tobacco and No alcohol Exam alert, oriented x 3 and regular rate & rhythm b/l breath sounds diminished Airway Submandibular: within normal limits Cervical ROM: within normal limits Mallampati: Class III Comments: Comments: Very poor dentition, missing most teeth Pulmonary Chronic Obstructive Pulmonary Disease Lung cancer Has home O2 Rx that she uses on a PRN basis. Able to ascend a flight of stairs w/o CP or significant dyspnea CTA 02/14/22 CT/CT angio chest PE protcl [id number] IMPRESSION: There is no evidence for a pulmonary artery embolus. ? There is a mass in the right thoracic hilum suspicious for malignancy.? There is mediastinal adenopathy suspicious for metastatic disease. ? There is consolidation in the right upper lobe of the lung most consistent with postobstructive pneumonitis. ? There are bilateral pleural effusions, right greater than left. ? There is free air in the upper abdomen, likely secondary to previous surgery. ? THIS REPORT CONTAINS FINDINGS THAT MAY BE CRITICAL TO PATIENT CARE. The findings were verbally communicated via telephone conference with SIL MARTINEZ at 3:35 PM CDT on 02/14/2022. The findings were acknowledged and understood. ? CV/HEM Denies CAD, arrythmia TTE 02/14/22 ?CONCLUSIONS ?The rhythm is sinus tachycardia.normal left ventricular size, ?systolic function and wall thickness, with no regional wall ?motion abnormalities. Grade I/IV diastolic dysfunction (abnormal ?relaxation filling pattern), normal to mildly elevated filling ?pressures. Left ventricular ejection fraction is estimated at 65 ?%. Hepatic Hepatitis (B) GI Gastroesophageal Reflux Disease (Well controlled, no symptoms for several months, no symptoms on an empty stomach ) Adenocarcinoma of colon Metabolic None reported Musc/skel None reported Neuropsych Anxiety and Depression Anesthetic Plan ASA status: 3 Anesthesia: Anesthesia Evaluation and General Other: We discussed risk and benefits of general anesthesia including PONV, sore throat (sometimes severe), corneal abrasion, positioning and peripheral nerve injuries, life threatening allergic reaction, post operative ICU admission requiring prolonged intubation, aspiration, stroke, heart attack, , and rare incidences of recall. Patient consents to proceed with general anesthesia. Risk of > 500 ml blood loss (7ml/kg in children): No Medications/Allergies Home Medications Medication Instructions Recorded Confirmed Last Taken Type aspirin 325 mg tablet,delayed 325 mg PO DAILY #30 tabs 01/27/20 04/08/22 04/07/22 Rx release fluticasone fur. 100 mcg-umeclid 1 inh inhalation DAILY #60 ea 06/04/21 04/08/22 04/06/22 Rx 62.5 mcg-vilant 25 mcg inhalat.powder (Trelegy Ellipta) albuterol sulfate 2.5 mg inhalation Q6H PRN 06/10/21 04/08/22 06/09/21 History Shortness Of Breath nebulizers #1 ea 08/15/21 03/21/22 Unknown Rx benzonatate 200 mg capsule 200 mg PO TID PRN cough 11/13/21 04/08/22 04/07/22 History prochlorperazine maleate 10 mg 10 mg PO .q4hrs PRN nausea and 11/13/21 04/08/22 Unknown History tablet (Compazine) vomiting tramadol 50 mg tablet 50 mg PO Q6H PRN pain #20 tabs 12/16/21 04/08/22 04/07/22 Rx citalopram 20 mg tablet 20 mg PO DAILY #90 tabs 01/30/22 04/08/22 04/07/22 Rx furosemide 20 mg tablet (Lasix) 20 mg PO DAILY edema #90 tabs 01/30/22 04/08/22 04/07/22 Rx potassium chloride 10 mEq 10 meq PO DAILY #90 caps 01/30/22 04/08/22 04/07/22 Rx capsule,extended release lorazepam 1 mg tablet 0.5 mg PO TID PRN Anxiety #45 tabs 02/06/22 04/08/22 Unknown Rx dextromethorphan-guaifenesin 10 10 ml PO Q4H PRN Cough #300 mL 02/16/22 04/08/22 Unknown Rx mg-100 mg/5 mL oral syrup hydrocodone 5 mg-acetaminophen 325 1 tab PO Q6H PRN pain #28 tabs 02/16/22 04/08/22 04/05/22 Rx mg tablet omeprazole 20 mg capsule,delayed 20 mg PO DAILY #90 caps 03/04/22 04/08/22 04/07/22 Rx release ipratropium 0.5 mg-albuterol 3 mg 3 ml inhalation Q6H PRN wheezing 04/03/22 04/08/22 Unknown Rx (2.5 mg base)/3 mL nebulization #90 mL soln Allergies Allergy/AdvReac Type Severity Reaction Status Date / Time codeine Allergy Unknown Verified 04/08/22 07:12 Sulfa (Sulfonamide Allergy Unknown Verified 04/08/22 07:12 Antibiotics) PFSH Anesthesia Medical History Adenocarcinoma of descending colon Anxiety and depression COPD (chronic obstructive pulmonary disease) Endometrial carcinoma GERD (gastroesophageal reflux disease) History of hepatitis B Non-small cell lung cancer Vitamin D insufficiency Surgical History History of hysterectomy 2021 History of tubal ligation Port-A-Cath in place Status post laparoscopic colectomy (02/11/22) Laparoscopic left hemicolectomy Family History Sister Diabetes Mother Diabetes Hypertension Stroke Daughter Thyroid disease Denies family history of CAD (coronary artery disease) Clotting disorder Dementia Hyperlipidemia Psychiatric illness Chronic kidney disease (CKD) Suicide Anesthesia complication Bleeding disorder Lung disease Cancer Social History Smoking and tobacco status: current every day smoker cigarettes Packs smoked per day: 1 Years cigarettes smoked: 25 Second hand smoke exposure: Yes Smoking risk assessment/counseling performed?: Yes Alcohol intake: never Desire information about alcohol rehabilitation?: No Counseling given: No Desire information about substance/drug rehabilitation?: No Counseling given: No Adopted: No Caregiver/support person: No Lives independently: Yes Household members: family Housing: House Marital status: / Number of children: 5 service: No Current occupational status: employed 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
[2022-04-08] MEDS: sodium chloride 0.9% 1,000 ML 30 ML IV (07:25)
--- NOTE | 2022-04-08 08:54 | W.PM.OPSUD ---
Surgery/Procedure H&P Update DATE OF PROCEDURE: April 08, 2022 DATE H&P PERFORMED: 03/21/22 CHANGES TO PREVIOUS DOCUMENTATION: NONE PREOP DIAGNOSIS: LUNG MALIGNANCY PRIMARY INDICATION FOR PROCEDURE: ?CTA 02/14/2022 showed there is mass in the right thoracic hilum suspicious for malignancy and there is mediastinal adenopathy suspicious for metastatic disease.? T Patient has history of stage IIIa squamous cell cancer underwent radiation and chemotherapy and currently on maintenance immunotherapy with durvalumab. The concern for reappearing right hilar mass is if it is the same primary or is it metastatic from her adenocarcinoma of descending colon PLANNED PROCEDURE: Operation Date: 04/08/22 08:35 Proposed Procedures p Ebus(Not Applicable) - Mohamud Sr MD Related Problem List Diagnoses (1) Right upper lobe consolidation: ?CTA 02/14/2022 showed there is mass in the right thoracic hilum suspicious for malignancy and there is mediastinal adenopathy suspicious for metastatic disease.? T Patient has history of stage IIIa squamous cell cancer underwent radiation and chemotherapy and currently on maintenance immunotherapy with durvalumab. The concern for reappearing right hilar mass is if it is the same primary or is it metastatic from her adenocarcinoma of descending colon Today although bronchoscopic evaluation and obtain right hilar mass samples with EBUS
[2022-04-08] MEDS: EPINEPHrine 1 mg/mL INJ XX (09:29)
[2022-04-08] MEDS: lidocaine 1% INJ 20 mL XX (10:13)
--- NOTE | 2022-04-08 10:16 | XR_ITS ---
WS: [id number] PORTABLE CHEST HISTORY: POST BRONCHOSCOPY COMPARISON: 05/17/2022 There is now dense consolidation in the RIGHT upper lung field which has progressed since the prior s tudy. As discussed with Dr. Sr this is related to bleeding during the procedure and postprocedure treatment. The RIGHT lower lobe well-aerated. LEFT lung is clear. No pleural effusion or pneumothora x. Cardiac size: Normal. Mediastinum/Aorta: Normal mediastinum. No osseous abnormality seen. LEFT subclavian Port-A-Cath. XR/XR chest 1V portable [id number] IMPRESSION: Increase in consolidation in the RIGHT upper lobe since the prior examination. Consistent with post procedure bleeding with treatment. Dr. Sr is aware.
--- NOTE | 2022-04-08 10:16 | P.OP_ITS ---
Operative Report Date of procedure: April 08, 2022 Pre-op diagnosis: Preop Diagnosis LUNG MALIGNANCY Brief History: Brief History: 51-year-old female Ms. 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 This mass is suspicious for malignancy and there is mediastinal adenopathy suspicious for metastatic disease.?The concern for right hilar mass is if it is the same primary or is it metastatic from her adenocarcinoma of descending colon Today scheduled for bronchoscopic evaluation of right upper lobe mass for possible endobronchial biopsies, possible endobronchial ultrasound-guided biopsies of mediastinal and hilar lesions Procedure: Name of the procedure: 85488:Dx Bronchoscope w/Washings or airway inspection 12669:Dx Bronchoscope w/BAL of right upper lobe 00440:Dx Bronchoscopy w/Bronchial or Endobronchial biopsy(s), single or multiple sites 65964:EBUS Sampling >=3 nodes Indication: CTA 02/14/2022-showing right upper lobe consolidation suspicious for postobstructive pneumonia versus worsening right upper lobe malignancy Anesthesia: General anesthesia. Local anesthesia: The aniya in the right and left mainstem bronchi were anesthetized with 1% lidocaine, 3 mL. Description of the procedure: The procedure was explained to the patient and the consent was obtained.? The patient was brought to the OR.? The patient underwent LMA placement for general anesthesia.? Following induction of general anesthesia, the bronchoscope was advanced through the LMA.? Normal glottis with mobile vocal cords noted.? 1 mL 1% lidocaine instilled.? Bronchoscope was advanced through the glottis and 1 mL 1% lidocaine instilled in the trachea.? The trachea appeared normal mucosa with no endotracheal lesions.? The aniya was sharp.? The aniya, the right and left mainstem bronchi are anesthetized with 1% lidocaine.? In a systematic manner bilateral bronchial tree was then examined.? The bronchoscope was advanced into the left mainstem bronchus. The left upper lobe, lingula and left lower lobe bronchi were examined up to the third subsegmental level and no abnormalities were identified.? There is no endobronchial lesion, active bleeding or mucous plug throughout the left endobronchial tree.? The bronchoscope was then introduced into the right mainstem bronchus.? The opening of right upper lobe is occluded with extrinsic compression and there are some endobronchial lesions. The scope was then advanced into bronchus intermedius and evaluated right middle lobe and right lower lobe bronchi were examined up to the third subsegmental level.? The right lower lobe subsegment all appeared edematous with no definitive endobronchial lesion. Initially took 1 endobronchial biopsy from the right upper lobe.? Pathology did DAMIEN and reported malignant cells.? But as patient was actively bleeding, I have to to instill epinephrine and cold saline to control bleeding.? At this point I decided to inspect with endobronchial ultrasound and So bronchoscope was retracted and Endobronchial ultrasound was introduced through L MA.? Transbronchial needle aspiration performed at station 7, station 11 R, station 4R. I retracted EBUS and introduced bronchoscope and instilled a cold saline and epinephrine in right upper lobe entrance to control the bleeding. After making sure bleeding is well controlled, removed bronchoscope and terminated the procedure. Also obtained BAL from right upper lobe and sent for cultures and cytology Samples: 1.? Bronchoalveolar lavage specimen from right upper lobe was sent for cell count and differential,? Gram stain and culture, fungal cultures, AFB cultures, 2.? The endobronchial biopsies from right upper lobe are sent for histopathology. 3. EBUS guided TB NA samples from station 7 4. EBUS guided TB NA samples from station 11 R 5. EBUS guided TB NA samples from 4R Complications: There was bleeding from right upper lobe endobronchial area which was controlled with cold saline and instillation of epinephrine..? Postprocedure fluoroscopy did not reveal any pneumothorax.? The patient was extubated and brought to the PACU in stable condition. Chest x-ray: No pneumothorax Disposition: Patient is stable for discharge and updated in the next of kin patient's daughter to follow-up in clinic for path results next week.
--- NOTE | 2022-04-08 13:15 | ANE.PACU2 ---
Inpatient post-anesthesia follow up: Airway intact: Yes Vital signs: Temperature 98.0 F Pulse Rate 99 Respiratory Rate 14 Blood Pressure 97/60 Pulse Oximetry 90 Oxygen Delivery Me thod Room Air Oxygen Flow Rate 2 Fraction of Inspir ed Oxygen Hydration adequate: Yes Nausea and vomiting: No Pain level: 1 Mental status: Baseline
[2022-04-08 13:54] LABS: Apprearance, Bronch Wash Bloody (CLEAR); Color, Bronc Wash Slight Pink; Total Cells Counted Bronch 300
[2022-04-09 10:16] LABS: Cyto Order Verification Order Verified
== END 2022-04-08 12:37 | disposition home or self-care (01) ==
PROVIDERS: PCP Nurse Practitioner; Visit Provider Internal Medicine Pulmonary Disease
PROC: BB4BZZZ Ultrasonography of Pleura (ICD-10-PCS; principal; 2022-04-08 08:25)
PROC: 0BJ08ZZ Inspection of Tracheobronchial Tree, Via Natural or Artificial Opening Endoscopic (ICD-10-PCS; CPT 31622; 2022-04-08 08:25)
DX: C34.90 Malignant neoplasm of unspecified part of unspecified bronchus or lung (principal); J18.1 Lobar pneumonia, unspecified organism; J44.9 Chronic obstructive pulmonary disease, unspecified; Z99.81 Dependence on supplemental oxygen; K21.9 Gastro-esophageal reflux disease without esophagitis; Z85.038 Personal history of other malignant neoplasm of large intestine; Z79.82 Long term (current) use of aspirin; E55.9 Vitamin D deficiency, unspecified; F17.210 Nicotine dependence, cigarettes, uncomplicated
CPT/HCPCS: 31624; 31625; 31653; 71045; 80503; 87015; 87070; 87102; 87116; 87205; 87206; 87801; 88108; 88305; 88309; 89050; J0171; J2704; J7030

== ENCOUNTER 2022-05-07 08:16 | Oncology outpatient (recurring) (ONCR) | payer MEDICAID, SELFPAY ==
[2022-05-07] MEDS: alteplase 1 mg/mL SDV 2 mL 2 MG INTRACATH (08:45)
[2022-05-07 09:14] LABS: Basophils % 0.3 %; Eosinophils # 0.1 10^3/uL (0.0-0.8); Eosinophils % 1.6 %; Hematocrit 33.8 % (37.0-47.0); Lymphocytes # 1.1 10^3/uL (0.8-4.8); Lymphocytes % 16.1 %; Mean Corpuscular HGB Conc 29.6 g/dL (30.0-36.0); Mean Corpuscular Volume 87.8 fl (81-99); Mean Platelet Volume 9.3 fL (7.4-10.4); Monocytes # 0.5 10^3/uL (0.2-0.9); Monocytes % 7.7 %; Neutrophils % 73.7 %; Nucleated Red Blood Cells % 0 %; Platelet Count 400 10^3/cmm (130-400); Red Blood Count 3.85 10^6/uL (4.1-5.3); Red Cell Distribution Width 16.4 % (12.1-15.1); White Blood Count 6.8 10^3/uL (4.0-10.0)
[2022-05-07 09:49] LABS: Alanine Aminotransferase < 5 U/L (0-33); Alkaline Phosphatase 94 U/L (35-105); Anion Gap 12.6 (5-19); Aspartate Amino Transferase 9 U/L (0-32); Blood Urea Nitrogen 14 mg/dL (6-20); Calcium 11.9 mg/dL (8.5-10.5); Carbon Dioxide 33 mmol/L (22-29); Chloride 94 mmol/L (98-107); Globulin 3.9 g/dL (1.3-4.6); Glomerular Filtration Rate 87.9 mL/min (90-130); Glucose 95 mg/dL (65-115); Osmolality Calculated 282 mOsm/kg (285-295); Potassium 3.6 mmol/L (3.5-5.1); Sodium 136 mmol/L (136-145); Thyroid Stimulating Hormone 3.53 uIU/mL (0.27-4.20); Total Bilirubin 0.3 mg/dL (0.15-1.2); Total Protein 6.9 g/dL (6.6-8.7)
[2022-05-07] MEDS: durvalumab 1,500 MG in sodium chloride 0.9% 250 ML 280 MG IV (11:52)
[2022-05-07 12:52] VITALS: BP 108/74; PULSE 95; RESP 16; TEMP 36.8; O2SAT 98
== END 2022-05-16 23:59 | disposition home or self-care (01) ==
PROVIDERS: PCP Nurse Practitioner; Visit Provider Nurse Practitioner
DX: Z51.12 Encounter for antineoplastic immunotherapy (principal); R91.8 Other nonspecific abnormal finding of lung field; C54.1 Malignant neoplasm of endometrium; Z79.899 Other long term (current) drug therapy; C34.11 Malignant neoplasm of upper lobe, right bronchus or lung
CPT/HCPCS: 80053; 84443; 85025; 96413; J2997; J7050; J9173

== ENCOUNTER 2022-05-09 08:12 | Outpatient (CLI) | payer MEDICAID, SELFPAY ==
--- NOTE | 2022-05-09 08:00 | CT_ITS ---
WS: [id number] CT CHEST, ABDOMEN AND PELVIS WITH CONTRAST HISTORY: Restaging colon cancer. TECHNIQUE: Contiguous 5 mm axial imaging performed through the chest, abdomen and pelvis with IV cont rast, oral contrast has been provided. Coronal and sagittal reformats chest. Coronal and sagittal ref ormats through the abdomen and pelvis. All CT scans at [facility] use at least one of these d ose optimization techniques: automated exposure control; mA and/or kV adjustment per patient size (in cludes targeted exams where dose is matched to clinical indication); or iterative reconstruction. CONTRAST: Omnipaque 350; 95 mL IV. DLP: 1244.77 mGy.cm COMPARISON: 02/14/2022, 12/05/[address]: Increase in size of the RIGHT apical mass with encasement obstruction of the RIGHT upper lo be bronchus. There is also mild atelectasis due to the bronchial obstruction. The mass now measures 1 3.5 x 8.1 cm and extends over length of 8.4 cm. Mass begins at the level of the apex and extends into the RIGHT paratracheal space and continues inferiorly to encase the RIGHT hilar structures. There is partial encasement of the SVC. No obstruction. No additional pulmonary masses or nodules. Benign vaishali cified granuloma LEFT upper lobe. There is mild peripheral interstitial thickening. Very small RIGHT pleural effusion. Heart is normal size with a small pericardial effusion measuring up to 4 mm. No definite progression of lymph nodes in the hilar or mediastinal regions. LEFT subclavian Port-A-Cath. Abdomen CT: Normal size liver. Low-attenuation masses within the liver. One of these lesions measures 15 mm along the falciform ligament. In the sagrario hepatis is an additional low-attenuation mass measu ring 17 x 11 mm. These are both in areas in focal steatosis is commonly seen. No bile duct dilatation . Gallbladder is negative. Splenic granuloma but no increase in size. Normal pancreas. Normal adrenal glands. No renal obstruction. No solid mass within either kidney. There is mild atherosclerosis aort a. No ascites or adenopathy. Moderately well distended stomach. Gastric varices. No small bowel obstruction. Normal appendix. Anas tomotic sutures are noted at the splenic flexure. No mass or obstruction. 9 mm lymph node just medial to the surgical anastomotic sutures. Additional small retroperitoneal lymph nodes are identified. Pelvic CT: Well-distended urinary bladder. No free fluid or adenopathy in the pelvis. Prior hysterect farhan. L5 anterolisthesis by 13 mm with bilateral L5 pars defects. CT/CT chest abd pel w con* IMPRESSION: 1. Progression of soft tissue mass at the RIGHT lung apex with volume loss and encasement of the proximal RIGHT upper lobe bronchi. Patient has known lung ca ncer. Mass now measures 13.5 x 8.1 x 8.4 cm. 2. No significant change of the lymph node burden in the mediastinum or hilar regions. 3. Low-attenuation lesions within the liver along the falciform ligament and i n the sagrario hepatis. Typical locations for regions of focal hepatic steatosis. Early metastatic sites should also be included. Recommend follow-up CT of the a bdomen with IV and oral contrast in 3 months. 4. Anastomotic sutures at the splenic flexure are reidentified. There is a sin gle 9 mm adjacent lymph node. This can also be followed up in [address] 5. No adrenal mass. 6. No significant retroperitoneal adenopathy.
[2022-05-09] MEDS: iohexol 350 mg/mL 100 mL Btl PO (09:46)
[2022-05-09] MEDS: iohexol 350 mg/mL 100 mL Btl IV (09:47)
== END 2022-05-09 08:13 | disposition home or self-care (01) ==
LOC: RAD 08:13
PROVIDERS: PCP Nurse Practitioner; Visit Provider Internal Medicine Medical Oncology
DX: C18.6 Malignant neoplasm of descending colon (principal); C34.11 Malignant neoplasm of upper lobe, right bronchus or lung
CPT/HCPCS: 71260; 74177

== ENCOUNTER 2022-05-28 11:31 | Outpatient (CLI) | payer MEDICAID, SELFPAY ==
[2022-05-26 11:52] VITALS: BMI 22.6
[2022-05-28] VITALS (7 sets, daily range): BP systolic 100–114; BP diastolic 63–71; PULSE 97–102; RESP 14–20; TEMP 36.1–36.3; O2SAT 95–100
[2022-05-28] MEDS: sodium chloride 0.9% 1,000 ML 30 ML IV (11:45)
[2022-05-28 12:35] LABS: INR 0.98 (0.8-1.2)
--- NOTE | 2022-05-28 13:00 | CT_ITS ---
WS: [id number] LUNG BIOPSY CLINICAL INFORMATION: Right upper lobe mass COMPARISON: May 09, 2022 DLP: [id number] TECHNIQUE: The procedure including risk, benefits, and complications were discussed with the patient who agreed to proceed. Using sterile technique, the patient was prepped and draped in the usual steri le fashion. Patient was positioned CAMPBELL-and CT images were obtained through the RIGHT lung. The RIGHT upper lobe mass was selected. After 1% lidocaine using fluoroscopic guidance, a 19-gauge coaxial need le was advanced into the RIGHT lung mass. Approximately 4 samples were obtained. No visualized pneumo thorax. No immediate complications. CT/CT biopsy lung [id number] IMPRESSION: 1. Multiple 20-gauge core samples were obtained of the RIGHT lung mass. No imm ediate complications. 2. 60 minute chest x-ray demonstrates no pneumothorax. 3. Patient was discharged 2 hours postprocedure in stable condition.
[2022-05-28] MEDS: midazolam 1 mg/mL INJ 2 mL IVP (13:42)
[2022-05-28] MEDS: fentaNYL 50 mcg/mL INJ 2mL 25 MCG IVP (13:42)
--- NOTE | 2022-05-28 14:15 | XR_ITS ---
WS: [id number] Portable AP upright chest, 05/28/2022 Clinical Data: post op for 1500 Comparison: Portable chest, 04/08/2022. Findings: The right upper lobe opacification remains the same. Again this is probably a combination o f atelectasis and tumor mass. The left lung is normal. The lower right lung shows no abnormalities. T here are no effusions. The heart size is normal. The pulmonary vascularity is not increased. There is an infusion catheter in the left axilla ending in the junction of the left subclavian vein and super ior vena cava. XR/XR chest 1V portable [id number] Impression: 1. Dense opacification in right upper lung unchanged. 2. No change in position of left subclavian catheter
[2022-06-04 13:06] LABS: PD-L1 (Clone 22C3) by IHC BBPL See Report
== END 2022-05-28 16:00 | disposition home or self-care (01) ==
PROVIDERS: Radiology Neuroradiology; PCP Nurse Practitioner; Visit Provider Internal Medicine Pulmonary Disease
DX: R91.8 Other nonspecific abnormal finding of lung field (principal)
CPT/HCPCS: 32408; 36415; 71045; 77012; 85610; 88307; 88341; 88342; 96374; 96375; 99152; J2250; J3010; J7030

== ENCOUNTER 2022-06-04 08:52 | Oncology outpatient (recurring) (ONCR) | payer MEDICAID, SELFPAY ==
[2022-06-04] MEDS: alteplase 1 mg/mL SDV 2 mL 2 MG INTRACATH (09:29)
[2022-06-04 09:48] LABS: Basophils % 0.5 %; Eosinophils # 0.1 10^3/uL (0.0-0.8); Eosinophils % 1.5 %; Hematocrit 35.5 % (37.0-47.0); Lymphocytes # 0.8 10^3/uL (0.8-4.8); Lymphocytes % 13.4 %; Mean Corpuscular Hemoglobin 26.3 pg (28.0-34.0); Mean Corpuscular Volume 84.7 fl (81-99); Mean Platelet Volume 9.8 fL (7.4-10.4); Monocytes # 0.5 10^3/uL (0.2-0.9); Monocytes % 8.8 %; Neutrophils # 4.62 10^3/uL (1.8-7.7); Neutrophils % 75.1 %; Nucleated Red Blood Cells % 0 %; Platelet Count 419 10^3/cmm (130-400); Red Blood Count 4.19 10^6/uL (4.1-5.3); Red Cell Distribution Width 16.6 % (12.1-15.1); White Blood Count 6.1 10^3/uL (4.0-10.0)
[2022-06-04 10:14] LABS: Alanine Aminotransferase < 5 U/L (0-33); Albumin Level 3.4 g/dL (3.5-5.2); Alkaline Phosphatase 89 U/L (35-105); Blood Urea Nitrogen 18 mg/dL (6-20); Calcium 12.9 mg/dL (8.5-10.5); Carbon Dioxide 34 mmol/L (22-29); Chloride 87 mmol/L (98-107); Globulin 4.2 g/dL (1.3-4.6); Glomerular Filtration Rate 87.9 mL/min (90-130); Glucose 93 mg/dL (65-115); Osmolality Calculated 274 mOsm/kg (285-295); Sodium 131 mmol/L (136-145); Thyroid Stimulating Hormone 2.68 uIU/mL (0.27-4.20); Total Bilirubin 0.3 mg/dL (0.15-1.2); Total Protein 7.6 g/dL (6.6-8.7)
[2022-06-04 10:16] LABS: Anion Gap 13.4 (5-19); Aspartate Amino Transferase 6 U/L (0-32); Potassium 3.4 mmol/L (3.5-5.1)
== END 2022-06-16 23:59 | disposition home or self-care (01) ==
PROVIDERS: PCP Nurse Practitioner; Visit Provider Nurse Practitioner
DX: C34.11 Malignant neoplasm of upper lobe, right bronchus or lung
CPT/HCPCS: 36591; 36593; 80053; 84443; 85025; J2997

== ENCOUNTER 2022-06-25 13:00 | Oncology outpatient (recurring) (ONCR) | payer MEDICAID, SELFPAY ==
[2022-06-18 09:15] VITALS: BMI 21.6
[2022-06-18 09:38] LABS: Basophils % 0.3 %; Eosinophils % 0.4 %; Hematocrit 29.2 % (37.0-47.0); Lymphocytes % 9.3 %; Mean Corpuscular HGB Conc 30.8 g/dL (30.0-36.0); Mean Corpuscular Hemoglobin 26.9 pg (28.0-34.0); Mean Corpuscular Volume 87.4 fl (81-99); Mean Platelet Volume 9.5 fL (7.4-10.4); Monocytes # 0.5 10^3/uL (0.2-0.9); Monocytes % 4.7 %; Neutrophils # 8.86 10^3/uL (1.8-7.7); Neutrophils % 84.7 %; Nucleated Red Blood Cells % 0 %; Platelet Count 334 10^3/cmm (130-400); Red Blood Count 3.34 10^6/uL (4.1-5.3); Red Cell Distribution Width 17.8 % (12.1-15.1); White Blood Count 10.5 10^3/uL (4.0-10.0)
[2022-06-18 10:01] LABS: Alanine Aminotransferase 8 U/L (0-33); Albumin Level 3.5 g/dL (3.5-5.2); Alkaline Phosphatase 108 U/L (35-105); Anion Gap 11.9 (5-19); Aspartate Amino Transferase 8 U/L (0-32); Blood Urea Nitrogen 27 mg/dL (6-20); Calcium 9.5 mg/dL (8.5-10.5); Carbon Dioxide 28 mmol/L (22-29); Chloride 101 mmol/L (98-107); Globulin 3.1 g/dL (1.3-4.6); Glomerular Filtration Rate 129.6 mL/min (90-130); Glucose 90 mg/dL (65-115); Osmolality Calculated 289 mOsm/kg (285-295); Potassium 3.9 mmol/L (3.5-5.1); Sodium 137 mmol/L (136-145); Total Bilirubin 0.2 mg/dL (0.15-1.2); Total Protein 6.6 g/dL (6.6-8.7)
[2022-06-18 10:24] VITALS: BP 92/55; PULSE 90; RESP 18; TEMP 36.6; O2SAT 98
== END 2022-07-16 23:59 | disposition home or self-care (01) ==
PROVIDERS: Internal Medicine Medical Oncology; PCP Nurse Practitioner; Visit Provider Nurse Practitioner
DX: E83.52 Hypercalcemia (principal)
CPT/HCPCS: 36591; 80053; 85025

== ENCOUNTER → 2022-06-30 14:46 | Outpatient (BNVA) | payer MEDICAID, SELFPAY | PROVIDERS: PCP Nurse Practitioner; Visit Provider Nurse Practitioner Family | DX: R50.9 Fever, unspecified (principal); Z20.822 Contact with and (suspected) exposure to COVID-19 | CPT/HCPCS: 87426 ==

== ENCOUNTER → 2022-07-25 11:46 | Outpatient (BNVA) | payer MEDICAID, SELFPAY | PROVIDERS: PCP Nurse Practitioner; Visit Provider Nurse Practitioner | DX: M25.551 Pain in right hip (principal); M25.561 Pain in right knee | CPT/HCPCS: 73502; 73562 ==

== ENCOUNTER 2022-08-12 14:00 | Oncology outpatient (recurring) (ONCR) | payer MEDICAID, SELFPAY ==
[2022-07-22 11:01] LABS: Basophils % 0.2 %; Eosinophils # 0.1 10^3/uL (0.0-0.8); Eosinophils % 0.4 %; Hematocrit 31.9 % (37.0-47.0); Hemoglobin 9.8 g/dL (11.5-15.3); Lymphocytes # 1.4 10^3/uL (0.8-4.8); Lymphocytes % 9.7 %; Mean Corpuscular HGB Conc 30.7 g/dL (30.0-36.0); Mean Corpuscular Hemoglobin 27.6 pg (28.0-34.0); Mean Corpuscular Volume 89.9 fl (81-99); Monocytes # 1.2 10^3/uL (0.2-0.9); Monocytes % 8.4 %; Neutrophils # 11.38 10^3/uL (1.8-7.7); Neutrophils % 80.4 %; Nucleated Red Blood Cells % 0 %; Platelet Count 476 10^3/cmm (130-400); Red Blood Count 3.55 10^6/uL (4.1-5.3); Red Cell Distribution Width 18.8 % (12.1-15.1); White Blood Count 14.2 10^3/uL (4.0-10.0)
[2022-07-22 11:16] VITALS: BP 104/67; PULSE 100; RESP 16; TEMP 37.7; O2SAT 94
[2022-07-22 11:29] LABS: Alanine Aminotransferase 14 U/L (0-33); Albumin Level 3.2 g/dL (3.5-5.2); Alkaline Phosphatase 100 U/L (35-105); Anion Gap 12.2 (5-19); Aspartate Amino Transferase 11 U/L (0-32); Blood Urea Nitrogen 22 mg/dL (6-20); Calcium 10.9 mg/dL (8.5-10.5); Carbon Dioxide 29 mmol/L (22-29); Chloride 95 mmol/L (98-107); Globulin 3.8 g/dL (1.3-4.6); Glomerular Filtration Rate 104.6 mL/min (90-130); Glucose 86 mg/dL (65-115); Osmolality Calculated 277 mOsm/kg (285-295); Potassium 4.2 mmol/L (3.5-5.1); Sodium 132 mmol/L (136-145); Total Bilirubin 0.3 mg/dL (0.15-1.2)
[2022-07-22] MEDS: ipratropium-albuterol 3 mL Neb INHALATION (12:19)
[2022-07-22] MEDS: sodium chloride 0.9% 1,000 ML 999 ML IV (13:40)
[2022-07-22] MEDS: zoledronic acid 4 MG in sodium chloride 0.9% (100 ml) 100 ML 420 MG IV (14:24)
[2022-07-22 14:56] VITALS: BP 95/63; PULSE 112; RESP 16; TEMP 36.8; O2SAT 95
== END 2022-08-16 23:59 | disposition home or self-care (01) ==
PROVIDERS: Internal Medicine Medical Oncology; PCP Nurse Practitioner; Visit Provider Nurse Practitioner
DX: E83.52 Hypercalcemia (principal)
CPT/HCPCS: 80053; 85025; 96365; 96375; J2930; J3489; J7030

== ENCOUNTER 2022-08-31 18:27 | Inpatient (IN) | payer MEDICAID, SELFPAY ==
[2022-08-31] VITALS (10 sets, daily range): BP systolic 95–144; BP diastolic 55–81; PULSE 68–109; RESP 12–25; TEMP 36.4–36.7; O2SAT 88–97
--- NOTE | 2022-08-31 19:11 | XRR_ITS ---
PROCEDURE INFORMATION: Exam: XR Chest Exam date and time: 08/31/2022 7:19 PM Age: 52 years old Clinical indication: Other: Lung CA, fatigue; Prior surgery; Surgery date: 6+ months; Surgery type: Port; Additional info: Lung cancer; Fatigue TECHNIQUE: Imaging protocol: Radiologic exam of the chest. Views: 1 view. COMPARISON: CR XR chest 1V portable [id number] 05/28/2022 3:03 PM FINDINGS: Lungs: There is dense confluent masslike consolidation right upper lobe consistent with history of lung cancer and that appears to progressed from prior study with more ill-defined opacification extending inferiorly into the right mid lung zone. Some of the changes may be due to superimposed pneumonia. There is also opacification of the left apex that has developed that may be due to local extension or metastatic disease. Pleural spaces: Unremarkable. No pleural effusion. No pneumothorax. Heart/Mediastinum: Cardiac silhouette is difficult to adequately assess and obscured by the hemidiaphragms. Bones/joints: Unremarkable for age. XR/XR chest 1V portable [id number] IMPRESSION: Increasing opacification right upper hemithorax with new opacity left lung apex likely in part due to progressive disease the patient with known lung cancer.
--- NOTE | 2022-08-31 19:11 | XRR_ITS ---
PROCEDURE INFORMATION: Exam: XR Abdomen Exam date and time: 08/31/2022 7:19 PM Age: 52 years old Clinical indication: Other: Lung CA, fatigue; Prior surgery; Surgery date: 6+ months; Surgery type: Port; Additional info: Lung cancer; Fatigue TECHNIQUE: Imaging protocol: Radiologic exam of the abdomen. Views: Frontal supine view of the abdomen. 1 View. COMPARISON: CT chest abd pel w con* 05/09/2022 9:39 AM FINDINGS: Gastrointestinal tract: Some retained stool within the left colon otherwise bowel gas pattern is unremarkable. Intraperitoneal space: Multiple surgical clips within the left mid abdomen. No suspicious calcifications. Bones/joints: Unremarkable. Other findings: No suspicous calcifications. XR/XR KUB portable [id number] IMPRESSION: Retained stool left colon otherwise unremarkable bowel gas pattern.
--- NOTE | 2022-08-31 19:14 | ED_ITS ---
HPI - General Adult General: Chief complaint: General Medical Stated complaint: WEAKNESS Time Seen by Provider: 08/31/22 18:37 Source: patient, family and EMS Mode of arrival: EMS Limitations: other (Poor historian) History of Present Illness: See nursing assessment. Patient reportedly has very poor appetite and poor p.o. intake for the past 4 to 5 days according to daughter. Patient states that nothing tastes good and she does not feel like eating or drinking. Patient has a possible history of lung cancer was diagnosed in 2020 and patient initially underwent chemotherapy and radiation treatment after diagnosis. Patient stopped immunotherapy about 6 to 7 months ago. She is presently not on any chemotherapy or any other medications for her lung cancer. She states her oncologist is Dr. Lilly. She denies any nausea vomiting diarrhea or constipation. She denies any fever or chills. She denies any dysuria. She states she has chronic bilateral leg pain. She has had leg pain for months. Associated symptoms: Deny chest pain, dyspnea, headache(s), nausea, rash, palpitations or vomiting Review of Systems Const: Denies: fever(s) or chills Eyes: Denies: change in vision ENMT: Denies: throat pain Card: Denies: chest pain or palpitations Resp: Denies: dyspnea or wheezing GI: Denies: abdominal pain, nausea or vomiting : Denies: flank pain Musc: Reports: other (Bilateral leg pain); Denies: neck pain or back pain Skin/Breast: Denies: rash or pruritus Neuro: Denies: headache(s) or numbness in extremities Psych: Denies: anxiety Saúl/Lymph: Denies: enlarged lymph nodes PFSH ED PFSH: Medical History Adenocarcinoma of descending colon Anxiety and depression COPD (chronic obstructive pulmonary disease) Endometrial carcinoma GERD (gastroesophageal reflux disease) History of hepatitis B Non-small cell lung cancer Vitamin D insufficiency Surgical History History of hysterectomy 2021 History of tubal ligation Port-A-Cath in place Status post laparoscopic colectomy (02/11/22) Laparoscopic left hemicolectomy Family History Sister Diabetes Mother Diabetes Hypertension Stroke Daughter Thyroid disease Denies family history of CAD (coronary artery disease) Clotting disorder Dementia Hyperlipidemia Psychiatric illness Chronic kidney disease (CKD) Suicide Anesthesia complication Bleeding disorder Lung disease Cancer Social History Smoking and tobacco status: current every day smoker (a pack ) cigarettes Packs smoked per day: 1 Years cigarettes smoked: 25 Second hand smoke exposure: Yes Smoking risk assessment/counseling performed?: Yes Alcohol intake: never Desire information about alcohol rehabilitation?: No Counseling given: No Desire information about substance/drug rehabilitation?: No Counseling given: No Adopted: No Caregiver/support person: No Lives independently: Yes Household members: family Housing: House Marital status: / Number of children: 5 service: No Current occupational status: employed 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 Mucous membranes are moderately dry. Eye: COMMON NORMALS: EOMs intact bilaterally Neck/C-Spine: COMMON NORMALS: full ROM, no lymphadenopathy, supple and no meningeal signs GENERAL: Yes normal visual inspection Lymph: LYMPHATIC: no lymphadenopathy noted Chest: COMMONS NORMALS: normal inspection of the chest and normal palpation of entire chest wall CHEST: No Ecchymosis present and No rash OTHER: Port-A-Cath in left lateral chest Resp: COMMON NORMALS: normal respiratory effort, No retractions and clear to auscultation bilaterally EFFORT & INSPECTION: No respiratory distress AUSCULTATION: clear to auscultation bilaterally Cardio: COMMON NORMALS: regular rhythm and Peripheral pulses 2+ throughout JUGULAR VENOUS DISTENTION: no JVD RATE: tachycardic RHYTHM: regular rhythm PERIPHERAL PULSES: Peripheral pulses 2+ throughout OTHER: Capillary refill less than 2 seconds GI: COMMON NORMALS: Normal to inspection, nondistended, normoactive bowel sounds present, Soft to palpation, non-tender, No hepatosplenomegaly present, no masses and no bruits PALPATION: Yes Soft to palpation and Yes No hepatosplenomegaly present : COMMON NORMALS: Yes no CVA tenderness BLADDER/KIDNEY EXAM: Yes no CVA tenderness Back/Pelvis: COMMON NORMALS: no CVA tenderness Extremity: COMMON NORMALS: full ROM and capillary refill normal OTHER: 1+ pitting edema lower extremities bilaterally. Peripheral pulses are normal. Neuro: COMMON NORMALS: patient oriented x3, CN's II-XII intact bilaterally, no focal motor deficits and no sensory deficits noted MENINGEAL SIGNS: Yes no meningeal signs Psych: COMMON NORMALS: mental status grossly normal and Normal thought process present THOUGHT PROCESS: Normal thought process present Skin: COMMON NORMALS: no rashes or lesions noted and no wounds GENERAL SKIN EXAM: no rashes or lesions noted Course Vital Signs: Vital signs: Vital Signs Temperature 97.6 F 08/31/22 18:40 Pulse Rate 100 08/31/22 21:16 Respiratory Rate 20 H 08/31/22 21:16 Blood Pressure 111/65 08/31/22 21:16 Pulse Oximetry 92 08/31/22 21:16 Oxygen Delivery Me thod 08/31/22 21:16 Oxygen Flow Rate 2 08/31/22 19:35 [facility] - General Adult Medical Decision Making Dehydration. Lung cancer history. Anorexia Patient has worsening of right upper lobe lung cancer/mass/consolidation. Patient denies taking [id number] antacid medication or supplemental calcium. She states she does take supplemental potassium medication\ 2048: Discussed with Dr. Ramirez hospitalist. Admit to cardiac stepdown unit. He will see the patient emergency room. Patient has not been discharged. Lab Data 08/31/22 18:55 08/31/22 18:55 Radiology Impressions Chest X-Ray 08/31/22 19:11 IMPRESSION: Increasing opacification right upper hemithorax with new opacity left lung apex likely in part due to progressive disease the patient with known lung cancer. KUB X-Ray 08/31/22 19:11 IMPRESSION: Retained stool left colon otherwise unremarkable bowel gas pattern. Hip/Pelvis X-Ray 08/31/22 21:10 IMPRESSION: 1. No acute abnormality demonstrated. 2. There is no interval change from the prior examination. Laboratory Results WBC 11.8 10^3/uL (4.0-10.0) H 08/31/22 18:55 RBC 3.61 10^6/uL (4.1-5.3) L 08/31/22 18:55 Hgb 9.9 g/dL (11.5-15.3) L 08/31/22 18:55 Hct 32.7 % (37.0-47.0) L 08/31/22 18:55 MCV 90.6 fl (81-99) 08/31/22 18:55 MCH 27.4 pg (28.0-34.0) L 08/31/22 18:55 MCHC 30.3 g/dL (30.0-36.0) 08/31/22 18:55 RDW 16.6 % (12.1-15.1) H 08/31/22 18:55 Plt Count 572 10^3/cmm (130-400) H 08/31/22 18:55 MPV 9.7 fL (7.4-10.4) 08/31/22 18:55 Neut % (Auto) 83.7 % 08/31/22 18:55 Lymph % (Auto) 7.5 % 08/31/22 18:55 Grundy % (Auto) 7.7 % 08/31/22 18:55 Eos % (Auto) 0.3 % 08/31/22 18:55 Baso % (Auto) 0.3 % 08/31/22 18:55 Neut # (Auto) 9.85 10^3/uL (1.8-7.7) H 08/31/22 18:55 Lymph # (Auto) 0.9 10^3/uL (0.8-4.8) 08/31/22 18:55 Grundy # (Auto) 0.9 10^3/uL (0.2-0.9) 08/31/22 18:55 Eos # (Auto) 0.0 10^3/uL (0.0-0.8) 08/31/22 18:55 Baso # (Auto) 0.0 10^3/uL (0.0-0.1) 08/31/22 18:55 Nucleated RBC % (auto) 0 % 08/31/22 18:55 Nucleated RBCs # 0.0 /100WBC 08/31/22 18:55 PT 14.60 SECONDS (12.1-14.9) 08/31/22 21:21 INR 1.10 (0.8-1.2) 08/31/22 21:21 D-Dimer 0.80 ug/mIFEU (0-0.59) H 08/31/22 21:21 Sodium 128 mmol/L (136-145) L 08/31/22 18:55 Potassium 3.6 mmol/L (3.5-5.1) 08/31/22 18:55 Chloride 84 mmol/L (98-107) L 08/31/22 18:55 Carbon Dioxide 31 mmol/L (22-29) H 08/31/22 18:55 Anion Gap 16.6 (5-19) 08/31/22 18:55 BUN 20 mg/dL (6-20) 08/31/22 18:55 Creatinine 0.7 mg/dL (0.5-0.9) 08/31/22 18:55 GFR Calculation 87.5 mL/min (90-130) L 08/31/22 18:55 Glucose 82 mg/dL (65-115) 08/31/22 18:55 Calculated Osmolality 268 mOsm/kg (285-295) L 08/31/22 18:55 Lactic Acid 1.6 mmol/L (0.5-2.2) 08/31/22 19:50 Calcium 15.0 mg/dL (8.5-10.5) H* 08/31/22 18:55 Ionized Calcium Liz 1.9 mmol/L (1.1-1.4) H* 08/31/22 21:21 Magnesium 2.1 mg/dL (1.7-2.3) 08/31/22 18:55 Total Bilirubin 0.7 mg/dL (0.15-1.2) 08/31/22 18:55 AST 15 U/L (0-32) 08/31/22 18:55 ALT < 5 U/L (0-33) 08/31/22 18:55 Alkaline Phosphatase 77 U/L (35-105) 08/31/22 18:55 Troponin T Baseline 17 ng/L (0-10) H 08/31/22 18:55 C-Reactive Protein Cancelled 08/31/22 21:21 NT-Pro-B Natriuret Pep Cancelled 08/31/22 21:21 Total Protein 7.5 g/dL (6.6-8.7) 08/31/22 18:55 Albumin 3.2 g/dL (3.5-5.2) L 08/31/22 18:55 Globulin 4.3 g/dL (1.3-4.6) 08/31/22 18:55 Procalcitonin Cancelled 08/31/22 21:21 TSH 2.71 uIU/mL (0.27-4.20) 08/31/22 18:55 Imaging Data KUB: Radiologist's impression: PROCEDURE INFORMATION: Exam: XR Abdomen Exam date and time: 08/31/2022 7:19 PM Age: 52 years old Clinical indication: Other: Lung CA, fatigue; Prior surgery; Surgery date: 6+ months; Surgery type: Port; Additional info: Lung cancer; Fatigue TECHNIQUE: Imaging protocol: Radiologic exam of the abdomen. Views: Frontal supine view of the abdomen. 1 View. COMPARISON: CT chest abd pel w con* 05/09/2022 9:39 AM FINDINGS: Gastrointestinal tract: Some retained stool within the left colon otherwise bowel gas pattern is unremarkable. Intraperitoneal space: Multiple surgical clips within the left mid abdomen. No suspicious calcifications. Bones/joints: Unremarkable. Other findings: No suspicous calcifications. XR/XR KUB portable [id number] IMPRESSION: Retained stool left colon otherwise unremarkable bowel gas pattern. ? Dictated By: Edilberto Cano MD Signed By: Edilberto Cano MD Signed Date/Time: 08/31/221948 CXR: Radiologist's impression: PROCEDURE INFORMATION: Exam: XR Chest Exam date and time: 08/31/2022 7:19 PM Age: 52 years old Clinical indication: Other: Lung CA, fatigue; Prior surgery; Surgery date: 6+ months; Surgery type: Port; Additional info: Lung cancer; Fatigue TECHNIQUE: Imaging protocol: Radiologic exam of the chest. Views: 1 view. COMPARISON: CR XR chest 1V portable [id number] 05/28/2022 3:03 PM FINDINGS: Lungs: There is dense confluent masslike consolidation right upper lobe consistent with history of lung cancer and that appears to progressed from prior study with more ill-defined opacification extending inferiorly into the right mid lung zone. Some of the changes may be due to superimposed pneumonia. There is also opacification of the left apex that has developed that may be due to local extension or metastatic disease. Pleural spaces: Unremarkable. No pleural effusion. No pneumothorax. Heart/Mediastinum: Cardiac silhouette is difficult to adequately assess and obscured by the hemidiaphragms. Bones/joints: Unremarkable for age. XR/XR chest 1V portable [id number] IMPRESSION: Increasing opacification right upper hemithorax with new opacity left lung apex likely in part due to progressive disease the patient with known lung cancer. ? Dictated By: Edilberto Cano MD Signed By: Edilberto Cano MD Signed Date/Time: 08/31/221951 Other Xray: Radiologist's impression: PROCEDURE INFORMATION: Exam: XR Bilateral Hips Exam date and time: 08/31/2022 9:39 PM Age: 52 years old Clinical indication: Hip pain; Bilateral TECHNIQUE: Imaging protocol: Radiologic exam of the bilateral hips. Views: 2 views of hips with pelvis when performed. COMPARISON: CR XR hip RT 2-3V wo/w pel* [id number] 07/25/2022 11:52 AM FINDINGS: Bones/joints: No acute fracture or other acute osseous abnormality. No acute joint abnormality demonstrated. Soft tissues: The soft tissues are unremarkable as demonstrated. XR/XR hip BI 2V wo/w pel [id number] IMPRESSION: 1. No acute abnormality demonstrated. 2. There is no interval change from the prior examination. ? Dictated By: Melquiades Guerrero MD Signed By: Melquiades Guerrero MD Signed Date/Time: 08/31/222155 EKG Data EKG 1: I personally reviewed and interpreted this EKG as follows: EKG interpretation date: 08/31/22 EKG interpretation time: 19:27 Prior EKG tracings: available for review (Right atrial enlargement has increased since 02/14/2022.) Interpretation: Sinus tachycardia with heart rate 105. Right atrial enlargement. Normal axis. Nonspecific ST-T changes. Normal WI interval, normal QT interval. Normal QRS. Computer generated interpretation: Chest X-Ray 08/31/22 19:11 IMPRESSION: Increasing opacification right upper hemithorax with new opacity left lung apex likely in part due to progressive disease the patient with known lung cancer. KUB X-Ray 08/31/22 19:11 IMPRESSION: Retained stool left colon otherwise unremarkable bowel gas pattern. Hip/Pelvis X-Ray 08/31/22 21:10 IMPRESSION: 1. No acute abnormality demonstrated. 2. There is no interval change from the prior examination. EKG 2: I personally reviewed and interpreted this EKG as follows: EKG interpretation date: 08/31/22 EKG interpretation time: 20:56 Prior EKG tracings: available for review (No change from previous EKG.) Interpretation: Impression sinus tachycardia with heart rate of 103. Normal axis. Right atrial enlargement unchanged. Normal WI interval, normal QT interval. Normal axis. Normal ST segment. Normal T waves. No change from previous EKG. Computer generated interpretation: Chest X-Ray 08/31/22 19:11 IMPRESSION: Increasing opacification right upper hemithorax with new opacity left lung apex likely in part due to progressive disease the patient with known lung cancer. KUB X-Ray 08/31/22 19:11 IMPRESSION: Retained stool left colon otherwise unremarkable bowel gas pattern. Hip/Pelvis X-Ray 08/31/22 21:10 IMPRESSION: 1. No acute abnormality demonstrated. 2. There is no interval change from the prior examination. Critical Care Time Critical Care Time: Critical Care Time: Yes Total Critical Care Time: 70 Attestation: See orders. Discussed with hospitalist. Discharge Plan Discharge Patient Disposition: Admitted As Inpatient Admit Provider: Chip Ramirez Clinical Impression: Hypercalcemia of malignancy, Acute dehydration, Hyponatremia Lung cancer, upper lobe Qualifiers: Laterality: right Qualified Code(s): C34.11 - Malignant neoplasm of upper lobe, right bronchus or lung Condition: Stable Coding Level of Care Code ED Sleeping Room Cleaner for Chg Fwd History Comprehensive Exam Comprehensive Medical Decision Making High Complexity
[2022-08-31 19:24] LABS: Basophils % 0.3 %; Eosinophils % 0.3 %; Hematocrit 32.7 % (37.0-47.0); Hemoglobin 9.9 g/dL (11.5-15.3); Lymphocytes # 0.9 10^3/uL (0.8-4.8); Lymphocytes % 7.5 %; Mean Corpuscular HGB Conc 30.3 g/dL (30.0-36.0); Mean Corpuscular Hemoglobin 27.4 pg (28.0-34.0); Mean Corpuscular Volume 90.6 fl (81-99); Mean Platelet Volume 9.7 fL (7.4-10.4); Monocytes # 0.9 10^3/uL (0.2-0.9); Monocytes % 7.7 %; Neutrophils # 9.85 10^3/uL (1.8-7.7); Neutrophils % 83.7 %; Nucleated Red Blood Cells % 0 %; Platelet Count 572 10^3/cmm (130-400); Red Blood Count 3.61 10^6/uL (4.1-5.3); Red Cell Distribution Width 16.6 % (12.1-15.1); White Blood Count 11.8 10^3/uL (4.0-10.0)
--- NOTE | 2022-08-31 19:25 | ECG_ITS ---
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 Measurements Intervals Ruby Rate: 105 P: 78 AL: 165 QRS: 72 QRSD: 88 T: 71 QT: 416 QTc: 551 Interpretive Statements SINUS TACHYCARDIA RIGHT ATRIAL ENLARGEMENT [0.3mV P-WAVE] NONSPECIFIC ST & T-WAVE ABNORMALITY Compared to ECG 02/14/2022 12:53:58 Atrial abnormality now present T-wave abnormality now present Electronically Signed On 09-01-2022 7:09:53 MISSILEMAN by Abdiel Romero M.D. [id number]
[2022-08-31] MEDS: sodium chloride 0.9% 1,000 ML 999 ML IV (19:34)
[2022-08-31 19:45] LABS: Alanine Aminotransferase < 5 U/L (0-33); Albumin Level 3.2 g/dL (3.5-5.2); Alkaline Phosphatase 77 U/L (35-105); Blood Urea Nitrogen 20 mg/dL (6-20); Carbon Dioxide 31 mmol/L (22-29); Chloride 84 mmol/L (98-107); Globulin 4.3 g/dL (1.3-4.6); Glomerular Filtration Rate 87.5 mL/min (90-130); Glucose 82 mg/dL (65-115); Magnesium 2.1 mg/dL (1.7-2.3); Osmolality Calculated 268 mOsm/kg (285-295); Sodium 128 mmol/L (136-145); Thyroid Stimulating Hormone 2.71 uIU/mL (0.27-4.20); Total Bilirubin 0.7 mg/dL (0.15-1.2); Total Protein 7.5 g/dL (6.6-8.7)
[2022-08-31 19:48] LABS: Anion Gap 16.6 (5-19); Aspartate Amino Transferase 15 U/L (0-32); Potassium 3.6 mmol/L (3.5-5.1)
[2022-08-31 20:27] LABS: Lactic Sepsis W/Reflex 1.6 mmol/L (0.5-2.2)
--- NOTE | 2022-08-31 20:47 | ECG_ITS ---
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 Measurements Intervals [place] Rate: 103 P: 76 SC: 172 QRS: 73 QRSD: 88 T: 73 QT: 422 QTc: 553 Interpretive Statements SINUS TACHYCARDIA POSSIBLE RIGHT ATRIAL ENLARGEMENT [0.25mV P-WAVE] NONSPECIFIC ST & T-WAVE ABNORMALITY ABNORMAL RHYTHM ECG Compared to ECG 08/31/2022 19:25:25 No significant changes Electronically Signed On 09-01-2022 7:11:44 HEAD NECK SURGEON by Abdiel Romero M.D. [id number]
--- NOTE | 2022-08-31 21:10 | XRR_ITS ---
PROCEDURE INFORMATION: Exam: XR Bilateral Hips Exam date and time: 08/31/2022 9:39 PM Age: 52 years old Clinical indication: Hip pain; Bilateral TECHNIQUE: Imaging protocol: Radiologic exam of the bilateral hips. Views: 2 views of hips with pelvis when performed. COMPARISON: CR XR hip RT 2-3V wo/w pel* [id number] 07/25/2022 11:52 AM FINDINGS: Bones/joints: No acute fracture or other acute osseous abnormality. No acute joint abnormality demonstrated. Soft tissues: The soft tissues are unremarkable as demonstrated. XR/XR hip BI 2V wo/w pel [id number] IMPRESSION: 1. No acute abnormality demonstrated. 2. There is no interval change from the prior examination.
--- NOTE | 2022-08-31 21:10 | CTR_ITS ---
PROCEDURE INFORMATION: Exam: CTA Chest With Contrast Exam date and time: 08/31/2022 10:37 PM Age: 52 years old Clinical indication: Other: Abd pain; Abdominal pain; Generalized; Shortness of breath; Chest pressure; Patient HX: HX lung CA and descending colon CA; Additional info: SOB TECHNIQUE: Imaging protocol: Computed tomographic angiography of the chest with contrast. 3D rendering (Not supervised by radiologist): MIP and/or 3D reconstructed images were created by the technologist. Radiation optimization: All CT scans at this facility use at least one of these dose optimization techniques: automated exposure control; mA and/or kV adjustment per patient size (includes targeted exams where dose is matched to clinical indication); or iterative reconstruction. Contrast material: OMNI 350; Contrast volume: 75 ml; Contrast route: INTRAVENOUS (IV); COMPARISON: CT angio chest PE protcl [id number] 02/14/2022 2:06 PM RADIATION DOSE METRICS: Total DLP (mGy-cm): 580.49 FINDINGS: Tubes, catheters and devices: Left-sided infusion port noted. Pulmonary arteries: Pulmonary arteries are normal in caliber. No filling defects are demonstrated. No evidence of pulmonary embolism. Aorta: Atherosclerosis of the thoracic aorta. Ascending aorta measures 3.1 cm in transverse diameter. No aortic dissection. Lungs: Complete consolidation/atelectasis of the right upper lobe. The right upper lobe bronchus is completely occluded proximally. There are no air bronchograms within the consolidated/atelectatic right upper lobe. Centrilobular emphysema noted bilaterally. Airspace disease noted in the superior segment of the right lower lobe. Pleural spaces: No pleural effusion. No pneumothorax. Heart: No cardiomegaly demonstrated. There is no significant pericardial effusion present. Coronary arteries: The coronary arteries demonstrate atherosclerotic calcifications. Lymph nodes: There is mediastinal adenopathy demonstrated. Enlarged nodes are seen in the precarinal, subcarinal, and right paratracheal areas, measuring up to 19 mm short axis. Bones/joints: Degenerative thoracic spine changes. No acute osseous abnormality. No left-sided pulmonary infiltrates. Soft tissues: Unremarkable. COMMENTS: In the absence of a history or active diagnosis of lung cancer, it is recommended that this patient with emphysema be evaluated for enrollment in a low dose CT lung cancer screening program. PROCEDURE INFORMATION: Exam: CT Abdomen And Pelvis With Contrast Exam date and time: 08/31/2022 10:37 PM Age: 52 years old Clinical indication: Other: Abd pain; Abdominal pain; Generalized; Shortness of breath; Chest pressure; Patient HX: HX lung CA and descending colon CA; Additional info: SOB TECHNIQUE: Imaging protocol: Computed tomography of the abdomen and pelvis with contrast. Radiation optimization: All CT scans at this facility use at least one of these dose optimization techniques: automated exposure control; mA and/or kV adjustment per patient size (includes targeted exams where dose is matched to clinical indication); or iterative reconstruction. Contrast material: OMNI 350; Contrast volume: 75 ml; Contrast route: INTRAVENOUS (IV); COMPARISON: CT chest abd pel w con* 05/09/2022 9:39 AM RADIATION DOSE METRICS: Total DLP (mGy-cm): 580.49 FINDINGS: Liver: Unremarkable. No mass. Gallbladder and bile ducts: Suspect sludge versus noncalcified gallstones in the gallbladder. There are no secondary signs of cholecystitis. Pancreas: The pancreas is normal in appearance. No pancreatic duct dilatation. Spleen: Mild splenomegaly. Calcified granuloma in the spleen. Adrenal glands: The adrenal glands appear within normal limits. Kidneys and ureters: The kidneys are normal in morphology. No hydronephrosis. No solid mass. Stomach and bowel: No acute gastric abnormality demonstrated. The small bowel is unremarkable as demonstrated. Postop change of the descending colon. Diverticulosis of the descending and sigmoid portions of the colon. No evidence of acute diverticulitis. Appendix: The appendix is normal in appearance. No evidence of appendicitis. Intraperitoneal space: No pneumoperitoneum. No significant fluid collection. Vasculature: The aorta is atherosclerotic. No aortic aneurysm. Lymph nodes: No pathologically enlarged lymph nodes. Urinary bladder: Unremarkable as visualized. Reproductive: Status post hysterectomy. Bones/joints: Bilateral L5 spondylolysis, associated with grade I L5-S1 spondylolisthesis. Advanced L5-S1 disc degeneration also noted. Soft tissues: Unremarkable. CT/CT angio chest w abd pel w con IMPRESSION: 1. No evidence of pulmonary embolism. 2. Complete consolidation/atelectasis of the right upper lobe. The right upper lobe bronchus is completely occluded proximally. There are no air bronchograms within the consolidated/atelectatic right upper lobe. These findings have worsened when compared to 02/14/2022. 3. Airspace disease noted in the superior segment of the right lower lobe. This is new when compared to 02/14/2022. 4. Centrilobular emphysema noted bilaterally. 5. Degenerative thoracic spine changes. No acute osseous abnormality. No left-sided pulmonary infiltrates. 6. There is mediastinal adenopathy demonstrated. Enlarged nodes are seen in the precarinal, subcarinal, and right paratracheal areas, measuring up to 19 mm short axis. IMPRESSION: 1. Suspect sludge versus noncalcified gallstones in the gallbladder. There are no secondary signs of cholecystitis. 2. Postop change of the descending colon. Diverticulosis of the descending and sigmoid portions of the colon. No evidence of acute diverticulitis. 3. No acute abnormality demonstrated in the abdomen and pelvis.
[2022-08-31] MEDS: calcitonin,salmon 200 unit/mL SDV 2mL 100 UNIT SUBCUT (21:12)
[2022-08-31 21:16] LABS: Troponin(5th) Baseline 17 ng/L (0-10)
--- NOTE | 2022-08-31 21:19 | PM.HP ---
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 Currently patient is alert to person, place, not to time she can follow commands but is quite drowsy, her only complaint is feeling unwell, lightheaded, dizzy, feeling nauseous and having a poor appetite. Her daughter at bedside tells me that she has remained bedbound, she is felt weak, she has had poor appetite, she has been increasingly confused for the last few days. Patient denies any cough, no fevers, no shortness of breath. No chest pain. She has a nodule or density or mass in the right upper quadrant that bothers her sometimes. She also is having severe lower back pain, pain in both legs of both calves. No falls, no injuries. Review of Systems Const: Denies: fever(s) or chills Eyes: Denies: change in vision ENMT: Denies: throat pain Card: Denies: chest pain Resp: Reports: dyspnea GI: Reports: abdominal pain : Denies: flank pain or difficulty voiding Musc: Reports: back pain and extremity pain Neuro: Denies: headache(s) Medications/Allergies Home Medications Medication Instructions Recorded Confirmed Last Taken Type aspirin 325 mg tablet,delayed 325 mg PO DAILY #30 tabs 01/27/20 07/25/22 04/07/22 Rx release albuterol sulfate 2.5 mg/3 mL 2.5 mg inhalation Q6H PRN 06/10/21 07/25/22 06/09/21 History (0.083 %) solution for nebulization Shortness Of Breath nebulizers #1 ea 08/15/21 07/25/22 Unknown Rx benzonatate 200 mg capsule 200 mg PO TID PRN cough 11/13/21 07/25/22 04/07/22 History ipratropium 0.5 mg-albuterol 3 mg 3 ml inhalation Q6H PRN wheezing 04/03/22 07/25/22 Unknown Rx (2.5 mg base)/3 mL nebulization #90 mL soln DME: Walker #1 ea 06/02/22 07/25/22 Unknown Rx Disposable nebulizer circuit #1 ea 06/02/22 07/25/22 Unknown Rx citalopram 20 mg tablet 20 mg PO DAILY #90 tabs 06/02/22 07/25/22 Unknown Rx furosemide 20 mg tablet (Lasix) 20 mg PO DAILY edema #90 tabs 06/02/22 07/25/22 Unknown Rx potassium chloride 10 mEq 10 meq PO DAILY #90 caps 06/02/22 07/25/22 Unknown Rx capsule,extended release prednisone 10 mg tablet 10 mg PO BID #60 tabs 06/04/22 07/25/22 Unknown Rx fluticasone 500 mcg-salmeterol 50 1 inh inhalation BID #60 ea 06/24/22 07/25/22 Unknown Rx mcg/dose blistr powdr for inhalation (Advair Diskus) tiotropium bromide 2.5 2 puff inhalation DAILY #4 grams 06/24/22 07/25/22 Unknown Rx mcg/actuation mist for inhalation (Spiriva Respimat) lorazepam 1 mg tablet 0.5 - 1 mg PO Q6H PRN Severe 07/15/22 07/25/22 Unknown Rx Nausea #30 tabs prochlorperazine maleate 10 mg 10 mg PO Q4H PRN Mild Nausea #30 07/15/22 07/25/22 Unknown Rx tablet (Compazine) tabs hydrocodone 5 mg-acetaminophen 325 1 tab PO Q6H PRN pain 30 days #60 07/22/22 07/25/22 Unknown Rx mg tablet tabs cholecalciferol (vitamin D3) 125 125 mcg PO DAILY #30 caps 07/28/22 Unknown Rx mcg (5,000 unit) capsule omeprazole 20 mg capsule,delayed 20 mg PO DAILY #90 caps 08/02/22 Unknown Rx release Allergies Allergy/AdvReac Type Severity Reaction Status Date / Time codeine Allergy Unknown Verified 07/25/22 11:05 Sulfa (Sulfonamide Allergy Unknown Verified 07/25/22 11:05 Antibiotics) PFSH Acute PFSH: Medical History Adenocarcinoma of descending colon Anxiety and depression COPD (chronic obstructive pulmonary disease) Endometrial carcinoma GERD (gastroesophageal reflux disease) History of hepatitis B Non-small cell lung cancer Vitamin D insufficiency Surgical History History of hysterectomy 2021 History of tubal ligation Port-A-Cath in place Status post laparoscopic colectomy (02/11/22) Laparoscopic left hemicolectomy Family History Sister Diabetes Mother Diabetes Hypertension Stroke Daughter Thyroid disease Denies family history of CAD (coronary artery disease) Clotting disorder Dementia Hyperlipidemia Psychiatric illness Chronic kidney disease (CKD) Suicide Anesthesia complication Bleeding disorder Lung disease Cancer Social History Smoking and tobacco status: current every day smoker (a pack ) cigarettes Packs smoked per day: 1 Years cigarettes smoked: 25 Second hand smoke exposure: Yes Smoking risk assessment/counseling performed?: Yes Alcohol intake: never Desire information about alcohol rehabilitation?: No Counseling given: No Desire information about substance/drug rehabilitation?: No Counseling given: No Adopted: No Caregiver/support person: No Lives independently: Yes Household members: family Housing: House Marital status: / Number of children: 5 service: No Current occupational status: employed 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 History of recent travel: No Current gender identity: Female Vitals/I&O/Wt Last Vital Signs Temp 97.6 F 08/31/22 18:40 Pulse 100 08/31/22 21:16 Resp 20 H 08/31/22 21:16 BP 111/65 08/31/22 21:16 Pulse Ox 92 08/31/22 21:16 O2 Del Method 08/31/22 21:16 O2 Flow Rate 2 08/31/22 19:35 Physical Exam Const: COMMON NORMALS: no acute distress EXAM LIMITATIONS: altered mental status ORIENTATION/CONSCIOUSNESS: Yes awake, Yes oriented to person, Yes oriented to place and Yes confused; not oriented to time HENMT: COMMON NORMALS: normocephalic HEAD & SCALP: normocephalic Eye: COMMON NORMALS: Equal, round and reactive pupils present and EOMs intact bilaterally Neck/C-Spine: COMMON NORMALS: no JVD Chest: COMMONS NORMALS: normal inspection of the chest Resp: COMMON NORMALS: normal respiratory effort, No retractions, No use of accessory muscles and clear to auscultation bilaterally AUSCULTATION: clear to auscultation bilaterally Cardio: COMMON NORMALS: regular rate, regular rhythm, S1 normal heart sound present and S2 normal heart sound present RATE: regular rate RHYTHM: regular rhythm HEART SOUNDS: S1 normal heart sound present and S2 normal heart sound present GI: COMMON NORMALS: Normal to inspection, nondistended, normoactive bowel sounds present, Soft to palpation and non-tender OTHER: Right upper quadrant, masslike density associated with the rib Extremity: COMMON NORMALS: no pedal edema Neuro: COMMON NORMALS: CN's II-XII intact bilaterally and moves all extremities OTHER: Difficult to do neurologic testing Data 08/31/22 18:55 08/31/22 18:55 Micro: Microbiology 08/31/22 20:00 Blood Culture - Preliminary Blood SPECIMEN COLLECTED 08/31/22 20:00 Blood Culture - Preliminary Blood SPECIMEN COLLECTED A&P Assessment and plan (1) Acute encephalopathy: (2) Hyponatremia: (3) Hypercalcemia of malignancy: (4) COPD (chronic obstructive pulmonary disease): Qualifiers: COPD type: emphysema Emphysema type: centrilobular Qualified Code(s): J43.2 - Centrilobular emphysema (5) Abdominal wall mass: (6) Anxiety and depression: (7) Malignant neoplasm of upper lobe, right bronchus or lung: (8) Severe muscle deconditioning: (9) Protein calorie malnutrition: (10) Goals of care, counseling/discussion: Plan Hypercalcemia of malignancy -Patient had mild hypercalcemia during her last visit with Dr. Lilly, she was supposed to get zoledronic acid she is not sure if she got it as she has not seen Dr. Lilly since then -PTH, PTH RP, vitamin D, TSH -Has received fluid boluses -Has received calcitonin -Has received zoledronic acid -Continue prednisone -Monitor serum calciums, ionized calcium every 4 hours -Neurochecks, aspiration precautions Hyponatremia -IV fluids, likely secondary dehydration Dehydration, IV fluids Acute encephalopathy, likely secondary to to hypercalcemia malignancy, hyponatremia, UA pending Requiring 2 L, shortness of breath complaints, history of right upper lung lung cancer, will do CT of the chest D-dimer, troponin series Right upper quadrant abdominal wall mass, associated with the rib and the liver, will do CT scan Severe pain, cancer related pain pain control morphine Back pain, hip pain, will do x-rays, CT Bilateral lower extremity pain, calf pain, lower extremity ultrasound for DVT Protocol malnutrition, consult dietary Physical deconditioning, PT OT Acute on chronic anemia, iron studies, Hemoccult stool Attestations Medical Necessity Statement*: Patient requires hospitalization inpatient, greater than 2 midnights, for acute encephalopathy, hypercalcemia, deconditioning, protein calorie malnutrition, hyponatremia, anemia Coding Level of Care Code Acute Code for Chg Fwd Diagnoses Acute encephalopathy G93.40 Hyponatremia E87.1 Hypercalcemia of malignancy E83.52 COPD (chronic obstructive pulmonary disease) J43.2 COPD type: emphysema Emphysema type: centrilobular Abdominal wall mass R22.2 Anxiety and depression F41.9; F32.9 Malignant neoplasm of upper lobe, right bronchus or lung C34.11 Severe muscle deconditioning R29.898 Protein calorie malnutrition E46 Goals of care, counseling/discussion Z71.89
[2022-08-31 21:48] LABS: Ionized Calcium 1.9 mmol/L (1.1-1.4)
[2022-08-31] MEDS: iohexol 350 mg/mL 500 mL Btl (per mL) IV (22:28)
--- NOTE | 2022-08-31 22:55 | PC.NURSE ---
Pt arrived from ER via stretcher, on continuos monitoring, @ 2255. Continuos monitoring continued. Skin tears noted on bilateral forearms. Pt unable to answer many of the admission questions d/t AMS and lethargy. Admission assessment retimed to 0900.
[2022-08-31] MEDS: sodium chloride 0.9% 1,000 ML 100 ML IV (23:23)
[2022-08-31] MEDS: enoxaparin 40 mg/0.4 mL Syringe SUBCUT (23:26)
[2022-08-31] MEDS: pantoprazole 40 mg SDV IVP (23:39)
[2022-09-01] VITALS (57 sets, daily range): BP systolic 86–132; BP diastolic 56–81; PULSE 88–142; RESP 15–30; TEMP 36.8–37.1; O2SAT 93–98
[2022-09-01 00:39] LABS: Bilirubin Urine Neg (Negative); Blood Urine Neg (Negative); Glucose Urine UA Norm (Normal); Ketones Urine 1+ (Negative); Leukocyte Esterase Urine Negative (Negative); Nitrate Urine Negative (Negative); Protein Urine Neg (Negative); Specific Gravity, Urine 1.025 (1.005-1.030); Urine Appearance Clear (CLEAR); Urine Color Yellow (Yellow); Urobilinogen Urine Neg (Negative); pH Urine 5 (5-7)
[2022-09-01 00:40] LABS: RBC Urine 0-4 /hpf (0-2); WBC Urine 0-4 /hpf (0-5)
[2022-09-01 00:41] LABS: Add Urine Culture? No; Bacteria Urine 1+ /hpf; Mucus Urine TRACE /hpf; Squamous Epithelial Cell Urine 0-4 /hpf (0-5)
[2022-09-01 01:39] LABS: Ionized Calcium 1.7 mmol/L (1.1-1.4)
[2022-09-01 02:02] LABS: Basophils % 0.3 %; Eosinophils % 0.3 %; Hematocrit 30.8 % (37.0-47.0); Hemoglobin 9.3 g/dL (11.5-15.3); Lymphocytes # 0.8 10^3/uL (0.8-4.8); Lymphocytes % 6.6 %; Mean Corpuscular HGB Conc 30.2 g/dL (30.0-36.0); Mean Corpuscular Hemoglobin 27.6 pg (28.0-34.0); Mean Corpuscular Volume 91.4 fl (81-99); Mean Platelet Volume 9.3 fL (7.4-10.4); Monocytes # 0.9 10^3/uL (0.2-0.9); Monocytes % 7.5 %; Neutrophils % 84.7 %; Nucleated Red Blood Cells % 0 %; Platelet Count 530 10^3/cmm (130-400); Red Blood Count 3.37 10^6/uL (4.1-5.3); Red Cell Distribution Width 16.5 % (12.1-15.1); White Blood Count 11.6 10^3/uL (4.0-10.0)
[2022-09-01 02:18] LABS: Troponin 5 6HR 16.37 ng/L (0-10)
[2022-09-01 02:21] LABS: Anion Gap 13.9 (5-19); Blood Urea Nitrogen 16 mg/dL (6-20); Calcium 12.6 mg/dL (8.5-10.5); Carbon Dioxide 31 mmol/L (22-29); Chloride 89 mmol/L (98-107); Glomerular Filtration Rate 129.1 mL/min (90-130); Glucose 92 mg/dL (65-115); Osmolality Calculated 273 mOsm/kg (285-295); Sodium 131 mmol/L (136-145)
[2022-09-01 02:23] LABS: Troponin 5 6HR Delta -0.63 ng/L (0-12)
[2022-09-01 02:27] LABS: Potassium 2.9 mmol/L (3.5-5.1)
[2022-09-01 02:37] LABS: Parathyroid Hormone 4.5 pg/mL (15-65)
[2022-09-01 02:47] LABS: 25 Hydroxy Vitamin D 49 ng/mL (30-100); Chol HDL Ratio 5.66 mg/dL (0.0-4.40); Cholesterol 198 mg/dL (0-200); Ferritin 738 ng/mL (15-150); HDL Cholesterol 35 mg/dL (60-100); Iron 31 ug/dL (37-145); LDL Cholesterol Calculated 126 mg/dL (50-129); NT Pro B Type Natriuretic Pept 1811 pg/mL (0-125); Procalcitonin 0.14 ng/mL (0-0.5); Triglycerides 184 mg/dL (0-150)
[2022-09-01] MEDS: lidocaine 1% 5 ML in potassium chloride premix 100 ML 26.25 ML IV (02:48)
[2022-09-01 02:57] LABS: Total Iron Binding Capacity 193 mcg/dl; Unsaturated Iron Binding 162 ug/dL (112-347)
[2022-09-01 02:58] LABS: C Reactive Protein 183.1 mg/L (0.0-4.9)
--- NOTE | 2022-09-01 02:58 | ECG_ITS ---
[facility] Test Date: 2022-09-01 Pat Name: Nita Moore Department: Room: [facility] Gender: Female Prenatal Nurse: : 1970 Requested By: Chip Ramirez Order Number: [id number] Kj MD: Abdiel Romero M.D. Measurements Intervals [place] Rate: 109 P: 70 [place]: 172 QRS: 70 QRSD: 82 T: 72 QT: 394 QTc: 531 Interpretive Statements SINUS TACHYCARDIA POSSIBLE RIGHT ATRIAL ENLARGEMENT [0.25mV P-WAVE] NONSPECIFIC ST & T-WAVE ABNORMALITY ABNORMAL RHYTHM ECG Compared to ECG 08/31/2022 20:54:50 No significant changes Electronically Signed On 09-01-2022 7:17:50 PRINCIPAL BIOSTATISTICIAN by Abdiel Romero M.D. [email or web address]
[2022-09-01 02:59] LABS: Calcium 14.3 mg/dL (8.5-10.5)
[2022-09-01 03:02] LABS: Vitamin B12 386 pg/mL (232-1245)
[2022-09-01 03:16] LABS: Folate Level 7.7 ng/mL (4.8-37.3)
[2022-09-01 05:18] LABS: Ionized Calcium 1.5 mmol/L (1.1-1.4)
[2022-09-01 05:47] LABS: Calcium 12.8 mg/dL (8.5-10.5)
--- NOTE | 2022-09-01 07:56 | PC.PHAR ---
Addendum entered by Roxane Esteban 09/01/22 09:40: still no response from pts family-medications entered are what the [facility] pharmacy states they have filled and what was on previous entered med list notes are made in the pharmacy with last fill dates Addendum entered by Roxane Esteban 09/01/22 08:33: called pts daughter gerardo araujo [phone] states she will try to get ahold of the pts niece and states if not she will go to the pts house around noon and try to get the pts pill bottles Original Note: called pts daughter lion lopez [phone] states the pts niece takes care of the pts medications and lives with her-lion states she will get ahold of the niece and have her call back with the list of the pts medications
[2022-09-01] MEDS: sodium chloride 0.9% 1,000 ML 100 ML IV ×2 (08:48→18:16)
[2022-09-01 09:14] LABS: Ionized Calcium 1.6 mmol/L (1.1-1.4)
[2022-09-01] MEDS: predniSONE 10 mg Tablet PO ×2 (09:44→18:16)
[2022-09-01] MEDS: citalopram 20 mg Tablet PO (09:44)
[2022-09-01] MEDS: aspirin 325 mg EC Tablet PO (09:44)
[2022-09-01] MEDS: pantoprazole 40 mg SDV IVP ×2 (12:11→22:40)
[2022-09-01 13:44] LABS: Ionized Calcium 1.6 mmol/L (1.1-1.4)
[2022-09-01 14:11] LABS: Calcium 11.5 mg/dL (8.5-10.5)
[2022-09-01 17:44] LABS: Calcium 11.7 mg/dL (8.5-10.5)
[2022-09-01] MEDS: calcitonin,salmon 200 unit/mL SDV 2mL SUBCUT (18:18)
--- NOTE | 2022-09-01 20:05 | P.PN_ITS ---
Subjective Subjective: Previously more alert today. Eating breakfast. Tells me she is in the hospital. Currently denies any nausea or vomiting. Denies abdominal pain. No chest pain or trouble breathing. Vitals/I&O/Wt Last Vital Signs Temp 98.4 F 09/01/22 18:00 Pulse 94 09/01/22 19:53 Resp 18 09/01/22 19:53 BP 108/70 09/01/22 18:00 Pulse Ox 97 09/01/22 19:53 O2 Del Method 09/01/22 19:53 O2 Flow Rate 2 09/01/22 08:00 09/01/22 09/01/22 09/01/22 06:59 14:59 22:59 Intake Total 941.667 / 941.667 946.667 / 1888.334 Output Total 300 / 300 300 / 300 1100 / 1400 Balance -300 / 800 641.667 / 641.667 -153.333 / 488.334 Weight last 48 hrs Weight 49.986 kg Physical Exam Const: GENERAL APPEARANCE: cooperative and disheveled ORIENTATION/CONSCIOUSNESS: Yes awake OTHER: Eating breakfast. HENMT: COMMON NORMALS: oropharynx normal Neck/C-Spine: COMMON NORMALS: no JVD Resp: COMMON NORMALS: normal respiratory effort and clear to auscultation b ilaterally AUSCULTATION: clear to auscultation bilaterally Cardio: COMMON NORMALS: no JVD, regular rhythm, S1 normal heart sound present, S2 normal heart sound present and No murmurs present (Cardio) RHYTHM: regular rhythm HEART SOUNDS: S1 normal heart sound present and S2 normal heart sound present GI: COMMON NORMALS: Normal to inspection, nondistended, normoactive bowel sounds present, Soft to palpation and non-tender PALPATION: Yes Soft to palpation Extremity: COMMON NORMALS: no joint enlargement and no pedal edema Neuro: COMMON NORMALS: moves all extremities Skin: COMMON NORMALS: no rashes or lesions noted GENERAL SKIN EXAM: no rashes or lesions noted Data 09/01/22 01:32 09/01/22 01:32 Micro: Microbiology 08/31/22 20:00 Blood Culture - Preliminary Blood NEGATIVE TO DATE 08/31/22 20:00 Blood Culture - Preliminary Blood NEGATIVE TO DATE A&P Assessment and plan (1) Acute encephalopathy: Appears to be improving with improving calcium. (2) Hypercalcemia of malignancy: Continue calcitonin, IVF. Follow-up calcium after zoledronic acid administration. Continue prednisone. (3) Hyponatremia: Slightly better. Follow-up sodium level. (4) COPD (chronic obstructive pulmonary disease): Qualifiers: COPD type: emphysema Emphysema type: centrilobular Qualified Code(s): J43.2 - Centrilobular emphysema (5) Abdominal wall mass: (6) Anxiety and depression: (7) Malignant neoplasm of upper lobe, right bronchus or lung: Pending further evaluation for second line treatment options, although overall prognosis very poor. (8) Severe muscle deconditioning: (9) Protein calorie malnutrition: (10) Goals of care, counseling/discussion: Plan Dehydration, IV fluids. Oral intake as tolerating. Requiring 2 L, shortness of breath complaints, history of right upper lung lung cancer, D-dimer with minimal elevation 0.8. Right upper lobe bronchus occlusion proximally on CT. Airspace disease noted in the superior segment of right lower lobe. Emphysema. Chest vest, 3% saline nebs, Mucinex, flutter valve. Levaquin for suspected pneumonia. Likely postobstructive component with right upper lobe malignancy. With encephalopathy, lower lobe involvement will also obtain ST evaluation. Right upper quadrant abdominal wall mass, associated with the rib and the liver. Severe pain, cancer related pain pain control morphine Back pain, hip pain, will do x-rays, CT Bilateral lower extremity pain, calf pain, lower extremity ultrasound for DVT Protocol malnutrition, consult dietary Sludge versus noncalcified gallstones in the gallbladder. Acute on chronic anemia, iron studies, Hemoccult stool Attestations Medical Necessity Statement*: Continue admission for assessment management of hypercalcemia associated with malignancy, acute encephalopathy, pneumonia with underlying malignancy. Coding Level of Care Code Acute Code for Chg Fwd Diagnoses Acute encephalopathy G93.40 Hypercalcemia of malignancy E83.52 Hyponatremia E87.1 COPD (chronic obstructive pulmonary disease) J43.2 COPD type: emphysema Emphysema type: centrilobular Abdominal wall mass R22.2 Anxiety and depression F41.9; F32.9 Malignant neoplasm of upper lobe, right bronchus or lung C34.11 Severe muscle deconditioning R29.898 Protein calorie malnutrition E46 Goals of care, counseling/discussion Z71.89
[2022-09-01 21:20] LABS: Ionized Calcium 1.4 mmol/L (1.1-1.4)
--- NOTE | 2022-09-01 21:33 | PC.NURSE ---
Dr. Ramirez updates about crackles in pt lungs, fluids running @100ml/hr, and that the pt takes lasix @ home, new order to hold fluids. SpO2 96%, pt is confused but able to follow commands.
[2022-09-01] MEDS: guaiFENesin 600 mg Tablet PO (21:36)
[2022-09-01] MEDS: levofloxacin-dextrose 5 % 750 MG/150 ML PREMIX 100 MG IV (21:36)
[2022-09-01 22:13] LABS: Calcium 12.1 mg/dL (8.5-10.5)
[2022-09-01] MEDS: enoxaparin 40 mg/0.4 mL Syringe SUBCUT (22:38)
[2022-09-02] VITALS (25 sets, daily range): BP systolic 96–119; BP diastolic 54–82; PULSE 88–123; RESP 14–33; TEMP 36.4–36.9; O2SAT 92–100
[2022-09-02 00:57] LABS: Ionized Calcium 1.4 mmol/L (1.1-1.4)
[2022-09-02 01:08] LABS: Basophils % 0.1 %; Eosinophils % 0.1 %; Hematocrit 29.2 % (37.0-47.0); Hemoglobin 8.9 g/dL (11.5-15.3); Lymphocytes # 0.5 10^3/uL (0.8-4.8); Mean Corpuscular HGB Conc 30.5 g/dL (30.0-36.0); Mean Corpuscular Hemoglobin 27.9 pg (28.0-34.0); Mean Corpuscular Volume 91.5 fl (81-99); Mean Platelet Volume 9.2 fL (7.4-10.4); Monocytes # 0.5 10^3/uL (0.2-0.9); Monocytes % 5.3 %; Neutrophils # 8.75 10^3/uL (1.8-7.7); Neutrophils % 88.9 %; Nucleated Red Blood Cells % 0 %; Platelet Count 450 10^3/cmm (130-400); Red Blood Count 3.19 10^6/uL (4.1-5.3); Red Cell Distribution Width 16.6 % (12.1-15.1); White Blood Count 9.8 10^3/uL (4.0-10.0)
[2022-09-02 01:32] LABS: Anion Gap 13.4 (5-19); Blood Urea Nitrogen 13 mg/dL (6-20); Calcium 10.8 mg/dL (8.5-10.5); Carbon Dioxide 30 mmol/L (22-29); Chloride 94 mmol/L (98-107); Glucose 90 mg/dL (65-115); Osmolality Calculated 278 mOsm/kg (285-295); Potassium 3.4 mmol/L (3.5-5.1); Sodium 134 mmol/L (136-145)
--- NOTE | 2022-09-02 03:04 | PC.NURSE ---
Multiple times throughout the night pt has attempted to get out of bed and has been pulling at lines. Pt is unable to answer all orientation questions and frequently responds w/ I don't fucking know , when asked orientation questions. When this RN questions why pt is getting out of bed the pt responds, to get that baby over there or I'm going home weather you fucking like it or not . Bed alarm on and at this time pt is easy to redirect.
[2022-09-02] MEDS: calcitonin,salmon 200 unit/mL SDV 2mL SUBCUT ×2 (06:10→18:28)
[2022-09-02] MEDS: predniSONE 10 mg Tablet PO ×2 (08:19→18:04)
[2022-09-02] MEDS: aspirin 325 mg EC Tablet PO (08:20)
[2022-09-02] MEDS: guaiFENesin 600 mg Tablet PO ×2 (08:20→18:04)
[2022-09-02] MEDS: citalopram 20 mg Tablet PO (08:20)
[2022-09-02] MEDS: sodium chloride 3.5% neb 4 mL Neb INHALATION ×2 (08:32→22:07)
[2022-09-02] MEDS: ipratropium-albuterol 3 mL Neb INHALATION (08:32)
[2022-09-02] MEDS: potassium chloride ER 20 mEq Tablet PO (08:44)
--- NOTE | 2022-09-02 12:27 | PM.PN ---
Subjective Subjective: She states she is feeling better. Denies pain or discomfort. Denies nausea or vomiting or abdominal pain. She is able to tell me she is in [place]. Does not remember the year. Vitals/I&O/Wt Last Vital Signs Temp 98.4 F 09/02/22 07:31 Pulse 104 H 09/02/22 08:33 Resp 18 09/02/22 08:33 BP 99/82 09/02/22 07:31 Pulse Ox 96 09/02/22 08:33 O2 Del Method 09/02/22 08:33 O2 Flow Rate 2 09/01/22 08:00 09/01/22 09/02/22 09/02/22 22:59 06:59 14:59 Intake Total 1270.000 / 2211.667 150 / 2361.667 Output Total 1100 / 1400 1150 / 2550 1350 / 1350 Balance 170.000 / 811.667 -1000 / -188.333 -1350 / -1350 Weight last 48 hrs Weight 49.986 kg Physical Exam Const: COMMON NORMALS: negative for patient oriented x3 GENERAL APPEARANCE: cooperative and disheveled ORIENTATION/CONSCIOUSNESS: Yes awake HENMT: COMMON NORMALS: oropharynx normal Neck/C-Spine: COMMON NORMALS: no JVD Resp: COMMON NORMALS: normal respiratory effort and clear to auscultation bilaterally AUSCULTATION: clear to auscultation bilaterally Cardio: COMMON NORMALS: no JVD, regular rhythm, S1 normal heart sound present, S2 normal heart sound present and No murmurs present (Cardio) RHYTHM: regular rhythm HEART SOUNDS: S1 normal heart sound present and S2 normal heart sound present GI: COMMON NORMALS: Normal to inspection, nondistended, normoactive bowel sounds present, Soft to palpation and non-tender PALPATION: Yes Soft to palpation Extremity: COMMON NORMALS: no joint enlargement and no pedal edema Neuro: COMMON NORMALS: moves all extremities; negative for patient oriented x3 Skin: COMMON NORMALS: no rashes or lesions noted GENERAL SKIN EXAM: no rashes or lesions noted Data 09/02/22 00:51 09/02/22 00:51 Micro: Microbiology 09/02/22 00:10 Occult Blood (FIT) - Final Stool Routine Collection 08/31/22 20:00 Blood Culture - Preliminary Blood NEGATIVE TO DATE 08/31/22 20:00 Blood Culture - Preliminary Blood NEGATIVE TO DATE A&P Assessment and plan (1) Acute encephalopathy: Overall improved, but minimal additional improvement since yesterday. Not oriented to year. Per records of prior discussion with daughter usually oriented. Not clear if still may be lagging metabolic encephalopathy as otherwise calcium appears much better. Continue treatment for hypercalcemia, reassess for continued improvement in mental status. Continue to reorient. Continue PT, OT. Continue Levaquin for pneumonia with as well. To comply. IV fluids stopped. Oral intake as tolerating. (2) Hypercalcemia of malignancy: Continue calcitonin. IVF stopped. Follow-up calcium after zoledronic acid administration. Continue prednisone. (3) Hyponatremia: Slightly better. Follow-up sodium level. (4) COPD (chronic obstructive pulmonary disease): Qualifiers: COPD type: emphysema Emphysema type: centrilobular Qualified Code(s): J43.2 - Centrilobular emphysema (5) Abdominal wall mass: (6) Anxiety and depression: (7) Malignant neoplasm of upper lobe, right bronchus or lung: Pending further evaluation for second line treatment options, although overall prognosis very poor. (8) Severe muscle deconditioning: (9) Protein calorie malnutrition: (10) Goals of care, counseling/discussion: Plan Dehydration, off IV fluids. Oral intake as tolerating. Suspected pneumonia: Continue Levaquin. With possible postobstructive component with right upper quad malignancy. Requiring 2 L, shortness of breath complaints, history of right upper lung lung cancer, D-dimer with minimal elevation 0.8. Right upper lobe bronchus occlusion proximally on CT. Airspace disease noted in the superior segment of right lower lobe. Emphysema. Chest vest, 3% saline nebs, Mucinex, flutter valve. Levaquin for suspected pneumonia. Likely postobstructive component with right upper lobe malignancy. With encephalopathy, lower lobe involvement will also obtain ST evaluation. Right upper quadrant abdominal wall mass, associated with the rib and the liver. Severe pain, cancer related pain pain control morphine Back pain, hip pain, will do x-rays, CT Bilateral lower extremity pain, calf pain, lower extremity ultrasound for DVT Protocol malnutrition, consult dietary Sludge versus noncalcified gallstones in the gallbladder. Acute on chronic anemia, iron studies, Hemoccult stool Attestations Medical Necessity Statement*: Continue admission for assessment management of hypercalcemia associated with malignancy, pneumonia, acute encephalopathy. Coding Level of Care Code Acute Code for Chg Fwd Diagnoses Acute encephalopathy G93.40 Hypercalcemia of malignancy E83.52 Hyponatremia E87.1 COPD (chronic obstructive pulmonary disease) J43.2 COPD type: emphysema Emphysema type: centrilobular Abdominal wall mass R22.2 Anxiety and depression F41.9; F32.9 Malignant neoplasm of upper lobe, right bronchus or lung C34.11 Severe muscle deconditioning R29.898 Protein calorie malnutrition E46 Goals of care, counseling/discussion Z71.89
[2022-09-02] MEDS: pantoprazole 40 mg SDV IVP ×2 (12:59→22:13)
[2022-09-02] MEDS: levofloxacin-dextrose 5 % 750 MG/150 ML PREMIX 100 MG IV (20:12)
[2022-09-02] MEDS: enoxaparin 40 mg/0.4 mL Syringe SUBCUT (22:13)
[2022-09-03] VITALS (9 sets, daily range): BP systolic 95–103; BP diastolic 54–70; PULSE 98–107; RESP 16–19; TEMP 36.4–36.8; O2SAT 94–98
[2022-09-03] MEDS: calcitonin,salmon 200 unit/mL SDV 2mL SUBCUT (05:40)
[2022-09-03 05:55] LABS: Basophils % 0.2 %; Eosinophils % 0.3 %; Lymphocytes # 0.7 10^3/uL (0.8-4.8); Lymphocytes % 6.8 %; Mean Corpuscular Hemoglobin 27.7 pg (28.0-34.0); Mean Corpuscular Volume 89.2 fl (81-99); Mean Platelet Volume 9.3 fL (7.4-10.4); Monocytes # 0.8 10^3/uL (0.2-0.9); Monocytes % 8.3 %; Neutrophils # 8.26 10^3/uL (1.8-7.7); Neutrophils % 83.7 %; Nucleated Red Blood Cells % 0 %; Platelet Count 425 10^3/cmm (130-400); Red Blood Count 3.25 10^6/uL (4.1-5.3); Red Cell Distribution Width 16.5 % (12.1-15.1); White Blood Count 9.9 10^3/uL (4.0-10.0)
[2022-09-03 06:16] LABS: Blood Urea Nitrogen 16 mg/dL (6-20); Calcium 9.8 mg/dL (8.5-10.5); Carbon Dioxide 26 mmol/L (22-29); Chloride 94 mmol/L (98-107); Glomerular Filtration Rate 129.1 mL/min (90-130); Glucose 81 mg/dL (65-115); Osmolality Calculated 272 mOsm/kg (285-295); Sodium 131 mmol/L (136-145)
[2022-09-03 06:19] LABS: Anion Gap 14.7 (5-19); Potassium 3.7 mmol/L (3.5-5.1)
[2022-09-03] MEDS: sodium chloride 3.5% neb 4 mL Neb INHALATION (08:47)
[2022-09-03] MEDS: citalopram 20 mg Tablet PO (09:19)
[2022-09-03] MEDS: predniSONE 10 mg Tablet PO (09:19)
[2022-09-03] MEDS: guaiFENesin 600 mg Tablet PO (09:19)
[2022-09-03] MEDS: aspirin 325 mg EC Tablet PO (09:19)
[2022-09-03] MEDS: pantoprazole 40 mg SDV IVP (11:45)
--- NOTE | 2022-09-03 16:26 | PM.DCS ---
Discharge Providers Date of Admission: 08/31/22 21:25 Date of Discharge: September 03, 2022 Attending Provider at Admission: Chip Ramirez MD Attending Provider at Discharge: Pablo Morgan Primary Care Provider: TAPAN Marcus Diagnoses at Discharge Discharge Diagnosis (1) Acute encephalopathy: Status: Acute (2) Hypercalcemia of malignancy: Status: Acute (3) Hyponatremia: Status: Acute (4) COPD (chronic obstructive pulmonary disease): Status: Chronic Qualifiers: COPD type: emphysema Emphysema type: centrilobular Qualified Code(s): J43.2 - Centrilobular emphysema (5) Abdominal wall mass: Status: Acute (6) Anxiety and depression: Status: Chronic (7) Malignant neoplasm of upper lobe, right bronchus or lung: Status: Chronic (8) Severe muscle deconditioning: Status: Acute (9) Protein calorie malnutrition: Status: Acute (10) Goals of care, counseling/discussion: Status: Acute Reason for Visit Reason for Visit: WEAKNESS Hospital Course Hospital Course 52-year-old lady with underlying 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 Received fluid resuscitation with improvement in sodium, received zoledronic acid, calcitonin, prednisone, IV fluids for hypercalcemia with gradual improvement in calcium level. Empirically treated with Levaquin for possible pneumonia. Initially consideration was given to transfer to outside facility as per family request for consideration of additional therapies due to possible postobstructive pneumonia. Overall her prognosis is poor. She has also missed a number of appointments recently and has not been strong enough to try to consider second line chemotherapy, although this also would have likely smaller chance to succeed. She had also previously already had radiation therapy. Request was made for transfer to [facility] or [facility], however, with weeklong waiting list at [facility], and multi day waiting list at [facility], as well as per discussion with pulmonology on prior bronchoscopy right upper lobe was walled off without an entry point to allow for stent placement, and with prior radiotherapy, currently with improvement in calcium, and doing well on room air, as prescription with family consensus is that she would do best at home spending time with family. Her daughter also does not consider that she would do very well with reinitiation of chemotherapy, given her overall weakened state unfortunately she is likely to tolerate this poorly. They will consider further options. She is asked to follow-up with oncology for reassessment of hypercalcemia of malignancy as well consideration of further treatment of hypercalcemia, and further consideration of goals of care/second line chemotherapy. She is showing improvement, she did walk a short distance yesterday with therapy. Today she is more oriented, she is oriented to year and knows she is in the hospital. She does appear to be gradually coming around in terms of her encephalopathy now that calcium level has improved. Continue discussions regarding goals of care. Physical Exam Const: GENERAL APPEARANCE: cooperative and disheveled ORIENTATION/CONSCIOUSNESS: Yes awake HENMT: COMMON NORMALS: oropharynx normal Neck/C-Spine: COMMON NORMALS: no JVD Resp: COMMON NORMALS: normal respiratory effort and clear to auscultation bilaterally AUSCULTATION: clear to auscultation bilaterally Cardio: COMMON NORMALS: no JVD, regular rhythm, S1 normal heart sound present, S2 normal heart sound present and No murmurs present (Cardio) RHYTHM: regular rhythm HEART SOUNDS: S1 normal heart sound present and S2 normal heart sound present GI: COMMON NORMALS: Normal to inspection, nondistended, normoactive bowel sounds present, Soft to palpation and non-tender PALPATION: Yes Soft to palpation Extremity: COMMON NORMALS: no joint enlargement and no pedal edema Neuro: COMMON NORMALS: moves all extremities Skin: COMMON NORMALS: no rashes or lesions noted GENERAL SKIN EXAM: no rashes or lesions noted Discharge Data Studies Completed and Pending Completed Studies During Hospitalization Category Date Time Status CT angio chest w abd pel w con Stat Cat Scan 08/31/22 21:10 Completed XR KUB portable [id number] Stat Exams 08/31/22 19:11 Completed XR chest 1V portable [id number] Stat Exams 08/31/22 19:11 Completed XR hip BI 2V wo/[place] [id number] Stat Exams 08/31/22 21:10 Completed Pending at discharge Category Date Time Status Basic Metabolic Panel AM LABS Lab 09/04/22 04:00 Ordered Blood Culture Stat Lab 08/31/22 20:00 Results Complete Blood Count w/Auto AM LABS Lab 09/04/22 04:00 Ordered Ionized Calcium Routine Lab 09/01/22 17:02 Received PTH Related Peptide (Protein) Stat Lab 08/31/22 21:21 Received Radiology Impressions Chest X-Ray 08/31/22 19:11 IMPRESSION: Increasing opacification right upper hemithorax with new opacity left lung apex likely in part due to progressive disease the patient with known lung cancer. KUB X-Ray 08/31/22 19:11 IMPRESSION: Retained stool left colon otherwise unremarkable bowel gas pattern. Chest/Abdomen/Pelvis CT 08/31/22 21:10 IMPRESSION: 1. No evidence of pulmonary embolism. 2. Complete consolidation/atelectasis of the right upper lobe. The right upper lobe bronchus is completely occluded proximally. There are no air bronchograms within the consolidated/atelectatic right upper lobe. These findings have worsened when compared to 02/14/2022. 3. Airspace disease noted in the superior segment of the right lower lobe. This is new when compared to 02/14/2022. 4. Centrilobular emphysema noted bilaterally. 5. Degenerative thoracic spine changes. No acute osseous abnormality. No left-sided pulmonary infiltrates. 6. There is mediastinal adenopathy demonstrated. Enlarged nodes are seen in the precarinal, subcarinal, and right paratracheal areas, measuring up to 19 mm short axis. IMPRESSION: 1. Suspect sludge versus noncalcified gallstones in the gallbladder. There are no secondary signs of cholecystitis. 2. Postop change of the descending colon. Diverticulosis of the descending and sigmoid portions of the colon. No evidence of acute diverticulitis. 3. No acute abnormality demonstrated in the abdomen and pelvis. Hip/Pelvis X-Ray 08/31/22 21:10 IMPRESSION: 1. No acute abnormality demonstrated. 2. There is no interval change from the prior examination. Laboratory Results WBC 9.9 10^3/uL (4.0-10.0) 09/03/22 05:31 RBC 3.25 10^6/uL (4.1-5.3) L 09/03/22 05:31 Hgb 9.0 g/dL (11.5-15.3) L 09/03/22 05:31 Hct 29.0 % (37.0-47.0) L 09/03/22 05:31 MCV 89.2 fl (81-99) 09/03/22 05:31 MCH 27.7 pg (28.0-34.0) L 09/03/22 05:31 MCHC 31.0 g/dL (30.0-36.0) 09/03/22 05:31 RDW 16.5 % (12.1-15.1) H 09/03/22 05:31 Plt Count 425 10^3/cmm (130-400) H 09/03/22 05:31 MPV 9.3 fL (7.4-10.4) 09/03/22 05:31 Neut % (Auto) 83.7 % 09/03/22 05:31 Lymph % (Auto) 6.8 % 09/03/22 05:31 [place] % (Auto) 8.3 % 09/03/22 05:31 Eos % (Auto) 0.3 % 09/03/22 05:31 Baso % (Auto) 0.2 % 09/03/22 05:31 Neut # (Auto) 8.26 10^3/uL (1.8-7.7) H 09/03/22 05:31 Lymph # (Auto) 0.7 10^3/uL (0.8-4.8) L 09/03/22 05:31 [place] # (Auto) 0.8 10^3/uL (0.2-0.9) 09/03/22 05:31 Eos # (Auto) 0.0 10^3/uL (0.0-0.8) 09/03/22 05:31 Baso # (Auto) 0.0 10^3/uL (0.0-0.1) 09/03/22 05:31 Nucleated RBC % (auto) 0 % 09/03/22 05:31 Nucleated RBCs # 0.0 /100WBC 09/03/22 05:31 PT 14.60 SECONDS (12.1-14.9) 08/31/22 21:21 INR 1.10 (0.8-1.2) 08/31/22 21:21 D-Dimer 0.80 ug/mIFEU (0-0.59) H 08/31/22 21:21 Sodium 131 mmol/L (136-145) L 09/03/22 05:31 Potassium 3.7 mmol/L (3.5-5.1) 09/03/22 05:31 Chloride 94 mmol/L (98-107) L 09/03/22 05:31 Carbon Dioxide 26 mmol/L (22-29) 09/03/22 05:31 Anion Gap 14.7 (5-19) 09/03/22 05:31 BUN 16 mg/dL (6-20) 09/03/22 05:31 Creatinine 0.5 mg/dL (0.5-0.9) 09/03/22 05:31 GFR Calculation 129.1 mL/min (90-130) 09/03/22 05:31 Glucose 81 mg/dL (65-115) 09/03/22 05:31 Calculated Osmolality 272 mOsm/kg (285-295) L 09/03/22 05:31 Lactic Acid 1.6 mmol/L (0.5-2.2) 08/31/22 19:50 Calcium 9.8 mg/dL (8.5-10.5) 09/03/22 05:31 Ionized Calcium Liz 1.4 mmol/L (1.1-1.4) 09/02/22 01:00 Magnesium 2.1 mg/dL (1.7-2.3) 08/31/22 18:55 Iron 31 ug/dL (37-145) L 08/31/22 18:55 TIBC 193 mcg/dl 08/31/22 18:55 % Saturation 16.0 % (20-50) L 08/31/22 18:55 Unsat Iron Binding 162 ug/dL (112-347) 08/31/22 18:55 Ferritin 738 ng/mL (15-150) H 08/31/22 18:55 Total Bilirubin 0.7 mg/dL (0.15-1.2) 08/31/22 18:55 AST 15 U/L (0-32) 08/31/22 18:55 ALT < 5 U/L (0-33) 08/31/22 18:55 Alkaline Phosphatase 77 U/L (35-105) 08/31/22 18:55 Troponin T Baseline 17 ng/L (0-10) H 08/31/22 18:55 Troponin T Hi Sens 6Hr 16.37 ng/L (0-10) H 09/01/22 01:32 Troponin T Hi Sens 6Hr Delta -0.63 ng/L (0-12) L 09/01/22 01:32 C-Reactive Protein Cancelled 08/31/22 21:21 NT-Pro-B Natriuret Pep Cancelled 08/31/22 21:21 Total Protein 7.5 g/dL (6.6-8.7) 08/31/22 18:55 Albumin 3.2 g/dL (3.5-5.2) L 08/31/22 18:55 Globulin 4.3 g/dL (1.3-4.6) 08/31/22 18:55 Triglycerides 184 mg/dL (0-150) H 08/31/22 18:55 Cholesterol 198 mg/dL (0-200) 08/31/22 18:55 LDL Cholesterol, Calc 126 mg/dL (50-129) 08/31/22 18:55 HDL Cholesterol 35 mg/dL (60-100) L 08/31/22 18:55 LDL/HDL Ratio 3.60 RATIO (0.00-3.22) H 08/31/22 18:55 Cholesterol/HDL Ratio 5.66 mg/dL (0.0-4.40) H 08/31/22 18:55 Vitamin B12 386 pg/mL (232-1245) 08/31/22 18:55 25-OH Vitamin D Total 49 ng/mL (30-100) 08/31/22 18:55 Folate 7.7 ng/mL (4.8-37.3) 08/31/22 20:22 Procalcitonin Cancelled 08/31/22 21:21 TSH 2.71 uIU/mL (0.27-4.20) 08/31/22 18:55 PTH Intact 4.5 pg/mL (15-65) L 08/31/22 21:21 Calcium (PTH Intact) 14.3 mg/dL (8.5-10.5) H* 08/31/22 21:21 Urine Color Yellow (Yellow) 08/31/22 21:57 Urine Appearance Clear (CLEAR) 08/31/22 21:57 Urine pH 5 (5-7) 08/31/22 21:57 Ur Specific [place] 1.025 (1.005-1.030) 08/31/22 21:57 Urine Protein Neg (Negative) 08/31/22 21:57 Urine Glucose (UA) Norm (Normal) 08/31/22 21:57 Urine Ketones 1+ (Negative) H 08/31/22 21:57 Urine Blood Neg (Negative) 08/31/22 21:57 Urine Nitrate Negative (Negative) 08/31/22 21:57 Urine Bilirubin Neg (Negative) 08/31/22 21:57 Urine Urobilinogen Neg mg/dL (Negative) 08/31/22 21:57 Ur Leukocyte Esterase Negative (Negative) 08/31/22 21:57 Urine RBC 0-4 /hpf (0-2) H 08/31/22 21:57 Urine WBC 0-4 /hpf (0-5) H 08/31/22 21:57 Ur Squamous Epith Cells 0-4 /hpf (0-5) H 08/31/22 21:57 Amorphous Sediment Not Reportable 08/31/22 21:57 Urine Bacteria 1+ /hpf (NONE) H 08/31/22 21:57 Urine Mucus Trace /hpf 08/31/22 21:57 Vitals Last Vital Signs Temp 97.5 F L 09/03/22 16:00 Pulse 99 09/03/22 16:00 Resp 16 09/03/22 08:56 BP 103/70 09/03/22 16:00 Pulse Ox 98 09/03/22 16:00 O2 Del Method 09/03/22 08:56 O2 Flow Rate 2 09/01/22 08:00 Discharge Plan Discharge Patient Disposition: Home Condition: Stable Prescriptions: New levofloxacin 750 mg tablet 750 mg PO DAILY 7 Days Qty: 7 0RF Continued benzonatate 200 mg capsule 200 mg PO TID PRN (Reason: cough) aspirin 325 mg tablet,delayed release (DR/EC) 325 mg PO DAILY Qty: 30 0RF Hold Instructions: Resume on 02/05/22. ipratropium-albuterol 0.5 mg-3 mg(2.5 mg base)/3 mL solution for nebulization 3 ml inhalation Q6H PRN (Reason: wheezing) Qty: 90 3RF citalopram 20 mg tablet 20 mg PO DAILY Qty: 90 1RF furosemide [Lasix] 20 mg tablet 20 mg PO DAILY Qty: 90 1RF Hold Instructions: Resume on 08/12/21. potassium chloride 10 mEq capsule, extended release 10 meq PO DAILY Qty: 90 1RF (DME) Disposable nebulizer circuit See Rx Instructions .ROUTE .MEDSUPPLY Qty: 1 2RF Rx Instructions: As directed (DME) DME: Walker Unit See Rx Instructions .ROUTE .MEDSUPPLY Qty: 1 0RF Rx Instructions: Code E0143 and E0156 walker 4 wheels and seat prednisone 10 mg tablet 10 mg PO BID Qty: 60 0RF Rx Instructions: rx last filled 06/04/22 30d/s no refills (DME) nebulizers Misc See Rx Instructions .ROUTE .MEDSUPPLY Qty: 1 0RF Rx Instructions: As directed fluticasone propion-salmeterol [Advair Diskus] 500-50 mcg/dose blister with device 1 inh inhalation BID Qty: 60 5RF Spiriva Respimat 2.5 mcg/actuation mist 2 puff inhalation DAILY Qty: 4 5RF hydrocodone-acetaminophen 5-325 mg tablet 1 tab PO Q6H PRN (Reason: pain) 30 Days Qty: 60 0RF cholecalciferol (vitamin D3) 125 mcg (5,000 unit) capsule 125 mcg PO DAILY Qty: 30 2RF omeprazole 20 mg capsule,delayed release(DR/EC) 20 mg PO DAILY Qty: 90 0RF albuterol sulfate 2.5 mg /3 mL (0.083 %) solution for nebulization 2.5 mg INHALATION Q4H PRN (Reason: Shortness Of Breath) prochlorperazine maleate [Compazine] 10 mg tablet 10 mg PO Q4H PRN (Reason: Mild Nausea) Qty: 30 3RF lorazepam 1 mg tablet 0.5 - 1 mg PO Q6H PRN (Reason: Severe Nausea) Qty: 30 3RF Discharge Orders: Discharge Order (Routine); Ordered 09/03/22 Ordered By: Pablo Morgan Referrals: [facility] [Other] (Your in home services application has been sumbitted, if you have questions please contact them at [phone].) Gerardo Zepeda FNP-C [Primary Care Provider] - 09/12/22 11:20 am Braulio Lilly MD [Hospitalist] - 09/08/22 8:00 am Discharge Diet: As Directed Discharge Activity: Increase activity as tolerated Patient Instructions: COPD, Levofloxacin (By mouth), Encephalopathy (DC), COPD Stoplight, Opioid Safety Activity Restrictions/Additional Instructions: Continue low calcium cardiac diet. Follow-up with Dr. Lilly and your primary doctor for reassessment of calcium and further doses of medication to treat hypercalcemia. Continue consideration of goals of care, if seeking more aggressive management and seeking treatment for cancer discussed with Dr. Lilly second line options for chemotherapy. Otherwise discuss with your primary doctor and your oncologist regarding hospice care. Discharge Attestations Time Spent in Discharge Care*: greater than 30 min Status at Discharge: Cognitive status at discharge: cognitively intact, Behavioral status at discharge: cooperative, Quality Metrics Clinical Quality Measures [ No reported AMI, CVA or VTE this stay] Coding Level of Care Code Acute Chg FW DC note Diagnoses Acute encephalopathy G93.40 Hypercalcemia of malignancy E83.52 Hyponatremia E87.1 COPD (chronic obstructive pulmonary disease) J43.2 COPD type: emphysema Emphysema type: centrilobular Abdominal wall mass R22.2 Anxiety and depression F41.9; F32.9 Malignant neoplasm of upper lobe, right bronchus or lung C34.11 Severe muscle deconditioning R29.898 Protein calorie malnutrition E46 Goals of care, counseling/discussion Z71.89
[2022-09-06 16:25] LABS: PTH Related Peptide (Protein) 26 pg/mL (11-20)
== END 2022-09-03 17:20 | disposition home or self-care (01) | DRG 640 ==
LOC: ER 20:52 → ICU 21:25 → MEDSURG 09-02 16:49
PROVIDERS: Admitting Provider Family Medicine; Emergency Provider Family Medicine; PCP Nurse Practitioner; Visit Provider Internal Medicine
DX: E83.52 Hypercalcemia (principal); E43 Unspecified severe protein-calorie malnutrition; G93.41 Metabolic encephalopathy; J18.9 Pneumonia, unspecified organism; C34.11 Malignant neoplasm of upper lobe, right bronchus or lung; C77.1 Secondary and unspecified malignant neoplasm of intrathoracic lymph nodes; E87.1 Hypo-osmolality and hyponatremia; J43.2 Centrilobular emphysema; R19.09 Other intra-abdominal and pelvic swelling, mass and lump; F41.8 Other specified anxiety disorders; Z68.20 Body mass index [BMI] 20.0-20.9, adult; Z92.21 Personal history of antineoplastic chemotherapy; Z92.25 Personal history of immunosuppression therapy; Z92.3 Personal history of irradiation; E86.0 Dehydration; Z79.52 Long term (current) use of systemic steroids; Z79.891 Long term (current) use of opiate analgesic; Z79.51 Long term (current) use of inhaled steroids; D64.9 Anemia, unspecified; Z88.5 Allergy status to narcotic agent; Z88.2 Allergy status to sulfonamides; G89.3 Neoplasm related pain (acute) (chronic); Z85.038 Personal history of other malignant neoplasm of large intestine; Z85.42 Personal history of malignant neoplasm of other parts of uterus
CPT/HCPCS: 36415; 71045; 71275; 73521; 74018; 74177; 80048; 80053; 80061; 81001; 82274; 82306; 82310; 82330; 82542; 82607; 82728; 82746; 83540; 83550; 83605; 83735; 83880; 83970; 84145; 84443; 84484; 85025; 85378; 85610; 86140; 87040; 92507; 92523; 92610; 93005; 94640; 94664; 94669; 96365; 96372; 97110; 97116; 97161; 97167; 97530; 97535; 99291; 99292; C9113; J0630; J1650; J1956; J3480; J3489; J7030; J7512; Q9967

== ENCOUNTER 2022-09-08 08:08 | Oncology outpatient (recurring) (ONCR) | payer MEDICAID, SELFPAY ==
[2022-09-08] MEDS: alteplase 1 mg/mL SDV 2 mL 2 MG INTRACATH ×2 (08:53→10:02)
[2022-09-08 09:03] VITALS: BMI 19.5
[2022-09-08 09:04] LABS: Basophils % 0.3 %; Eosinophils # 0.1 10^3/uL (0.0-0.8); Eosinophils % 0.9 %; Hematocrit 30.6 % (37.0-47.0); Hemoglobin 9.4 g/dL (11.5-15.3); Lymphocytes # 0.8 10^3/uL (0.8-4.8); Lymphocytes % 8.2 %; Mean Corpuscular HGB Conc 30.7 g/dL (30.0-36.0); Mean Corpuscular Hemoglobin 27.6 pg (28.0-34.0); Mean Corpuscular Volume 89.7 fl (81-99); Mean Platelet Volume 9.3 fL (7.4-10.4); Monocytes # 0.7 10^3/uL (0.2-0.9); Neutrophils # 7.98 10^3/uL (1.8-7.7); Nucleated Red Blood Cells % 0 %; Platelet Count 359 10^3/cmm (130-400); Red Blood Count 3.41 10^6/uL (4.1-5.3); Red Cell Distribution Width 16.9 % (12.1-15.1); White Blood Count 9.6 10^3/uL (4.0-10.0)
[2022-09-08 09:46] LABS: Alanine Aminotransferase < 5 U/L (0-33); Alkaline Phosphatase 87 U/L (35-105); Anion Gap 12.9 (5-19); Aspartate Amino Transferase 13 U/L (0-32); Blood Urea Nitrogen 20 mg/dL (6-20); Calcium 9.5 mg/dL (8.5-10.5); Carbon Dioxide 28 mmol/L (22-29); Chloride 92 mmol/L (98-107); Globulin 3.6 g/dL (1.3-4.6); Glomerular Filtration Rate 129.1 mL/min (90-130); Glucose 107 mg/dL (65-115); Osmolality Calculated 273 mOsm/kg (285-295); Sodium 130 mmol/L (136-145); Thyroid Stimulating Hormone 5.48 uIU/mL (0.27-4.20); Total Bilirubin 0.3 mg/dL (0.15-1.2); Total Protein 6.6 g/dL (6.6-8.7)
[2022-09-08 09:50] LABS: Potassium 2.9 mmol/L (3.5-5.1)
[2022-09-08] MEDS: sodium chlor 0.9% + KCl 40 mEq 40 MEQ/1,000 ML BAG 250 MEQ IV (10:59)
[2022-09-08 14:35] VITALS: BP 92/61; PULSE 102; RESP 20; TEMP 36.5; O2SAT 95
== END 2022-09-16 23:59 | disposition home or self-care (01) ==
PROVIDERS: PCP Nurse Practitioner; Visit Provider Internal Medicine Medical Oncology
DX: C34.11 Malignant neoplasm of upper lobe, right bronchus or lung (principal); C77.8 Secondary and unspecified malignant neoplasm of lymph nodes of multiple regions; E83.52 Hypercalcemia; J98.11 Atelectasis; E87.6 Hypokalemia; Z79.52 Long term (current) use of systemic steroids; Z79.899 Other long term (current) drug therapy; Z92.21 Personal history of antineoplastic chemotherapy; Z92.25 Personal history of immunosuppression therapy; Z92.3 Personal history of irradiation
CPT/HCPCS: 36593; 80053; 84443; 85025; 96365; 96366; J2997

== ENCOUNTER 2022-10-15 20:17 | Inpatient (IN) | payer MEDICAID, SELFPAY ==
[2022-10-15] VITALS (13 sets, daily range): BP systolic 111–121; BP diastolic 69–92; PULSE 101–110; RESP 11–25; TEMP 36.5–36.8; O2SAT 93–95; BMI 19.2; BMI 18.1
--- NOTE | 2022-10-15 20:19 | ED_ITS ---
HPI - Weakness General: Chief complaint: Weakness Stated complaint: WEAKNESS Time Seen by Provider: 10/15/22 20:19 History of Present Illness: Ms. Moore is a 52-year-old lady with complex past medical history including metastatic lung cancer presenting to the emergency department for generalized illness. She reports generally not feeling well however denies any sort of specific new complaints. She endorses chronic back and leg pain which is not worse than normal. No associated falls or infectious symptoms. Intensity symptoms is moderate to severe. No other specific changes in health, exacerbating, or alleviating factors identified. Onset (ago): hour(s) Location: generalized Severity: moderate Exacerbating factors: exertion Review of Systems General: Reports: 10 or more systems reviewed and unremarkable except in HPI and below PFSH ED PFSH: Medical History Adenocarcinoma of descending colon Anxiety and depression COPD (chronic obstructive pulmonary disease) Endometrial carcinoma GERD (gastroesophageal reflux disease) History of hepatitis B Non-small cell lung cancer Vitamin D insufficiency Surgical History History of hysterectomy 2021 History of tubal ligation Port-A-Cath in place Status post laparoscopic colectomy (02/11/22) Laparoscopic left hemicolectomy Family History Sister Diabetes Mother Diabetes Hypertension Stroke Daughter Thyroid disease Denies family history of CAD (coronary artery disease) Clotting disorder Dementia Hyperlipidemia Psychiatric illness Chronic kidney disease (CKD) Suicide Anesthesia complication Bleeding disorder Lung disease Cancer Social History Smoking and tobacco status: current every day smoker (a pack ) cigarettes Packs smoked per day: 1 Years cigarettes smoked: 25 Second hand smoke exposure: Yes Smoking risk assessment/counseling performed?: Yes Alcohol intake: never Desire information about alcohol rehabilitation?: No Counseling given: No Desire information about substance/drug rehabilitation?: No Counseling given: No Adopted: No Caregiver/support person: No Lives independently: Yes Household members: family Housing: House Marital status: / Number of children: 5 service: No Current occupational status: employed 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 Current gender identity: Female Physical Exam Const: COMMON NORMALS: patient oriented x3 and alert GENERAL APPEARANCE: cooperative, well developed and ill appearing HENMT: COMMON NORMALS: normocephalic and atraumatic HEAD & SCALP: norm ocephalic and atraumatic Eye: COMMON NORMALS: conjunctivae normal CONJUNCTIVA: Yes conjunctivae normal SCLERA: sclerae normal Neck/C-Spine: COMMON NORMALS: supple GENERAL: Yes trachea midline Resp: COMMON NORMALS: clear to auscultation bilaterally EFFORT & INSPECTION: Yes able to speak in complete sentences AUSCULTATION: clear to auscultation bilaterally Cardio: COMMON NORMALS: regular rate and regular rhythm RATE: regular rate RHYTHM: regular rhythm GI: COMMON NORMALS: Soft to palpation PALPATION: Yes Soft to palpation and No Tenderness to palpation present (GI) Extremity: GENERAL: Yes normal exam except as noted and No edema Neuro: COMMON NORMALS: patient oriented x3, CN's II-XII intact bilaterally, moves all extremities, no focal motor deficits and no sensory deficits noted SENSORIUM/ORIENTATION: Yes alert and No Orientation impaired Psych: COMMON NORMALS: mental status grossly normal and Normal thought process present THOUGHT PROCESS: Normal thought process present Course Vital Signs: Vital signs: Vital Signs Temperature 97.9 F 10/20/22 11:45 Pulse Rate 107 H 10/20/22 11:45 Respiratory Rate 16 10/20/22 11:45 Blood Pressure 102/61 10/20/22 11:45 Pulse Oximetry 97 10/20/22 11:45 Oxygen Delivery Me thod 10/20/22 11:45 Oxygen Flow Rate 2 10/19/22 15:28 MDM - Weakness Medical Decision Making 52-year-old lady presenting with generalized illness. Nonfocal exam. Patient is ill appearing however nontoxic. EKG demonstrates sinus tachycardia with normal axis and intervals, no STEMI. Labs notable for leukocytosis, normocytic anemia. Metabolic panel grossly samantha tment and dehydration. Calcium is significantly elevated. Negative range 2- hour delta troponin. No UTI. Chest x-ray similar to prior with right upper lobe findings. CT head negative for acute intracranial pathology. Most likely etiology of symptoms is symptomatic hypercalcemia secondary to und erlying malignancy. Patient treated in the emergency department with IV fluids and calcitonin as we ll as antibiotics for pneumonia. The results of ED evaluation were discussed with the patient including plan for admission due to requirement for level of care not available if discharged to prevent significant worsening/deterioration. Patient agreeable with plan. Discussed with hospitalist service who was agreeable to admit patient. Medical Records I reviewed the patient's medical records. Lab Data I reviewed the patient's lab results. 10/18/22 03:30 10/18/22 03:[address] 10/15/22 21:03 IMPRESSION: No acute findings Chest X-Ray 10/15/22 21:57 IMPRESSION: Unchanged large right upper lobe mass with mid lung infiltrates Laboratory Results WBC 14.2 10^3/uL (4.0-10.0) H 10/15/22 21:12 RBC 3.96 10^6/uL (4.1-5.3) L 10/15/22 21:12 Hgb 10.5 g/dL (11.5-15.3) L 10/15/22 21:12 Hct 34.3 % (37.0-47.0) L 10/15/22 21:12 MCV 86.6 fl (81-99) 10/15/22 21:12 MCH 26.5 pg (28.0-34.0) L 10/15/22 21:12 MCHC 30.6 g/dL (30.0-36.0) 10/15/22 21:12 RDW 15.0 % (12.1-15.1) 10/15/22 21:12 Plt Count 518 10^3/cmm (130-400) H 10/15/22 21:12 MPV 8.8 fL (7.4-10.4) 10/15/22 21:12 Neut % (Auto) 87.0 % 10/15/22 21:12 Lymph % (Auto) 6.1 % 10/15/22 21:12 Brown % (Auto) 6.1 % 10/15/22 21:12 Eos % (Auto) 0.1 % 10/15/22 21:12 Baso % (Auto) 0.1 % 10/15/22 21:12 Neut # (Auto) 12.31 10^3/uL (1.8-7.7) H 10/15/22 21:12 Lymph # (Auto) 0.9 10^3/uL (0.8-4.8) 10/15/22 21:12 Brown # (Auto) 0.9 10^3/uL (0.2-0.9) 10/15/22 21:12 Eos # (Auto) 0.0 10^3/uL (0.0-0.8) 10/15/22 21:12 Baso # (Auto) 0.0 10^3/uL (0.0-0.1) 10/15/22 21:12 Nucleated RBC % (auto) 0 % 10/15/22 21:12 Nucleated RBCs # 0.0 /100WBC 10/15/22 21:12 Sodium 132 mmol/L (136-145) L 10/15/22 21:12 Potassium 3.5 mmol/L (3.5-5.1) 10/15/22 21:12 Chloride 89 mmol/L (98-107) L 10/15/22 21:12 Carbon Dioxide 33 mmol/L (22-29) H 10/15/22 21:12 Anion Gap 13.5 (5-19) 10/15/22 21:12 BUN 27 mg/dL (6-20) H 10/15/22 21:12 Creatinine 0.7 mg/dL (0.5-0.9) 10/15/22 21:12 GFR Calculation 87.5 mL/min (90-130) L 10/15/22 21:12 Glucose 97 mg/dL (65-115) 10/15/22 21:12 POC Glucose 105 mg/dL (70-110) 10/15/22 21:12 Calculated Osmolality 279 mOsm/kg (285-295) L 10/15/22 21:12 Lactate 1.7 mmol/L (0.5-2.2) 10/15/22 21:12 Calcium 15.3 mg/dL (8.5-10.5) H* 10/15/22 21:12 Magnesium 2.0 mg/dL (1.7-2.3) 10/15/22 21:12 Total Bilirubin 0.5 mg/dL (0.15-1.2) 10/15/22 21:12 AST 7 U/L (0-32) 10/15/22 21:12 ALT < 5 U/L (0-33) 10/15/22 21:12 Alkaline Phosphatase 82 U/L (35-105) 10/15/22 21:12 Troponin T Baseline 17 ng/L (0-10) H 10/15/22 21:12 Total Protein 6.9 g/dL (6.6-8.7) 10/15/22 21:12 Albumin 3.1 g/dL (3.5-5.2) L 10/15/22 21:12 Globulin 3.8 g/dL (1.3-4.6) 10/15/22 21:12 TSH 1.10 uIU/mL (0.27-4.20) 10/15/22 21:12 Urine Color Colorless (Yellow) 10/15/22 21:43 Urine Appearance Clear (CLEAR) 10/15/22 21:43 Urine pH 6.5 (5-7) 10/15/22 21:43 Ur Specific Paicines 1.015 (1.005-1.030) 10/15/22 21:43 Urine Protein Neg (Negative) 10/15/22 21:43 Urine Glucose (UA) Norm (Normal) 10/15/22 21:43 Urine Ketones 1+ (Negative) H 10/15/22 21:43 Urine Blood Neg (Negative) 10/15/22 21:43 Urine Nitrate Negative (Negative) 10/15/22 21:43 Urine Bilirubin Neg (Negative) 10/15/22 21:43 Urine Urobilinogen Norm mg/dL (Negative) 10/15/22 21:43 Ur Leukocyte Esterase Negative (Negative) 10/15/22 21:43 Discharge Plan Discharge Patient Disposition: Admitted As Inpatient Admit Provider: Servando Yip Clinical Impression: Hypercalcemia, Dehydration, Altered mental status Condition: Stable Discharge Diet: Usual diet Discharge Activity: Resume usual activity Coding Level of Care Code ED Geophysical Support Specialist for Lashawn Hines
--- NOTE | 2022-10-15 20:35 | ECG_ITS ---
[facility] Test Date: 2022-10-15 Pat Name: Nita Moore Department: Room: Gender: Female Spiral Binder: : 1970 Requested By: Dre Méndez Order Number: [id number] Underwood MD: Mitch Corrales M.D. Measurements Intervals [place] Rate: 107 P: 72 NM: 171 QRS: 61 QRSD: 95 T: 72 QT: 407 QTc: 544 Interpretive Statements SINUS TACHYCARDIA RIGHT ATRIAL ENLARGEMENT [0.3mV P-WAVE] POSSIBLE LEFT ATRIAL ENLARGEMENT [-0.1mV P-WAVE IN V1/V2] NONSPECIFIC T-WAVE ABNORMALITY Compared to ECG 09/01/2022 02:58:33 No significant changes Electronically Signed On 10-16-2022 18:05:33 OLIVE PACKER by Mitch Corrales M.D. [id number]
[2022-10-15] MEDS: sodium chloride 0.9% 1,000 ML 999 ML IV (20:45)
--- NOTE | 2022-10-15 21:03 | CTR_ITS ---
PROCEDURE INFORMATION: Exam: CT Head Without Contrast Exam date and time: 10/15/2022 10:06 PM Age: 52 years old Clinical indication: Altered mental status/memory loss; Additional info: AMS TECHNIQUE: Imaging protocol: Computed tomography of the head without contrast. Radiation optimization: All CT scans at this facility use at least one of these dose optimization techniques: automated exposure control; mA and/or kV adjustment per patient size (includes targeted exams where dose is matched to clinical indication); or iterative reconstruction. REPORTING DATA: Count of CT and Cardiac NM exams in prior 12 months: This patient has received 6 known CTs and 0 known cardiac nuclear medicine studies in the 12 months prior to the current study. COMPARISON: MR head wo/w con [id number] 05/24/2021 2:53 PM RADIATION DOSE METRICS: Total DLP (mGy-cm): 973.38 FINDINGS: Brain: No CT evidence for acute ischemia, mass or hemorrhage. No extra-axial fluid collection, midline shift or hydrocephalus. Mild sulcal widening is present. Cerebral ventricles: See Brain finding. Paranasal sinuses: Trace mucosal thickening in the paranasal sinuses. Mastoid air cells: Visualized mastoid air cells are well aerated. Bones/joints: Unremarkable. No acute fracture. Soft tissues: Unremarkable. CT/CT head wo con* [id number] IMPRESSION: No acute findings
[2022-10-15 21:18] LABS: Glucose Point of Care 105 mg/dL (70-110)
[2022-10-15 21:24] LABS: Basophils % 0.1 %; Eosinophils % 0.1 %; Hematocrit 34.3 % (37.0-47.0); Hemoglobin 10.5 g/dL (11.5-15.3); Lymphocytes # 0.9 10^3/uL (0.8-4.8); Lymphocytes % 6.1 %; Mean Corpuscular HGB Conc 30.6 g/dL (30.0-36.0); Mean Corpuscular Hemoglobin 26.5 pg (28.0-34.0); Mean Corpuscular Volume 86.6 fl (81-99); Mean Platelet Volume 8.8 fL (7.4-10.4); Monocytes # 0.9 10^3/uL (0.2-0.9); Monocytes % 6.1 %; Neutrophils # 12.31 10^3/uL (1.8-7.7); Nucleated Red Blood Cells % 0 %; Platelet Count 518 10^3/cmm (130-400); Red Blood Count 3.96 10^6/uL (4.1-5.3); White Blood Count 14.2 10^3/uL (4.0-10.0)
[2022-10-15 21:44] LABS: Lactate (Lactic Acid level) 1.7 mmol/L (0.5-2.2); Troponin(5th) Baseline 17 ng/L (0-10)
[2022-10-15 21:52] LABS: Add Urine Microscopic? NO; Charge for UA Resulting for Rev
[2022-10-15 21:52] LABS: Alanine Aminotransferase < 5 U/L (0-33); Albumin Level 3.1 g/dL (3.5-5.2); Alkaline Phosphatase 82 U/L (35-105); Anion Gap 13.5 (5-19); Aspartate Amino Transferase 7 U/L (0-32); Blood Urea Nitrogen 27 mg/dL (6-20); Carbon Dioxide 33 mmol/L (22-29); Chloride 89 mmol/L (98-107); Globulin 3.8 g/dL (1.3-4.6); Glomerular Filtration Rate 87.5 mL/min (90-130); Glucose 97 mg/dL (65-115); Osmolality Calculated 279 mOsm/kg (285-295); Potassium 3.5 mmol/L (3.5-5.1); Sodium 132 mmol/L (136-145); Total Bilirubin 0.5 mg/dL (0.15-1.2); Total Protein 6.9 g/dL (6.6-8.7)
--- NOTE | 2022-10-15 21:57 | XRR_ITS ---
PROCEDURE INFORMATION: Exam: XR Chest Exam date and time: 10/15/2022 10:37 PM Age: 52 years old Clinical indication: Cough and other: Weakness, generalized illness; Additional info: Generalized illness, cough TECHNIQUE: Imaging protocol: Radiologic exam of the chest. Views: 1 view. COMPARISON: CR (CHEST, ) 08/31/2022 7:19 PM, chest CT from 08/31/2022 FINDINGS: Tubes, catheters and devices: Unchanged left subclavian venous access port. Lungs: There are persisting hazy opacities in the right mid lung near the hilum. Based on the prior CT this is probably due to ongoing pneumonia. The left lung is clear. Pleural spaces: No pneumothorax or pleural fluid collection. Heart/Mediastinum: Unremarkable. No cardiomegaly. Bones/joints: Unremarkable. Soft tissues: There is persisting large mass in the upper half of the right lung, no change since August. XR/XR chest 1V portable [id number] IMPRESSION: Unchanged large right upper lobe mass with mid lung infiltrates
[2022-10-15 21:59] LABS: Calcium 15.3 mg/dL (8.5-10.5)
[2022-10-15 22:32] LABS: Bilirubin Urine Neg (Negative); Blood Urine Neg (Negative); Glucose Urine UA Norm (Normal); Ketones Urine 1+ (Negative); Leukocyte Esterase Urine Negative (Negative); Nitrate Urine Negative (Negative); Protein Urine Neg (Negative); Specific Gravity, Urine 1.015 (1.005-1.030); Urine Appearance Clear (CLEAR); Urine Color Colorless (Yellow); Urobilinogen Urine Norm (Negative); pH Urine 6.5 (5-7)
--- NOTE | 2022-10-15 22:35 | ECG_ITS ---
[facility] Test Date: 2022-10-15 Pat Name: Nita Moore Department: Room: Gender: Female Insurance Application Investigator: : 1970 Requested By: Dre Méndez Order Number: [id number] Underwood MD: Mitch Corrales M.D. Measurements Intervals [place] Rate: 105 P: 71 [place]: 180 QRS: 64 QRSD: 87 T: 71 QT: 415 QTc: 549 Interpretive Statements SINUS TACHYCARDIA RIGHT ATRIAL ENLARGEMENT [0.3mV P-WAVE] LEFT ATRIAL ENLARGEMENT [-0.15mV P-WAVE IN V1/V2] NONSPECIFIC ST & T-WAVE ABNORMALITY Compared to ECG 10/15/2022 21:19:39 No significant changes Electronically Signed On 10-16-2022 18:13:05 PRESSURE SEALER AND TESTER by Mitch Corrales M.D. [id number]
[2022-10-15] MEDS: calcitonin,salmon 200 unit/mL SDV 2mL 190.508 UNIT SUBCUT (22:48)
--- NOTE | 2022-10-15 22:57 | P.HP_ITS ---
Providers/Chief Complaint Admitting Physician: Servando Yip MD Primary Care Provider: SARANYA MarcusC Chief Complaint: WEAKNESS History of Present Illness Nita Moore is a 52 year old female with past medical history of COVID-04 March 2021, anxiety, depression, chronic smoker, COPD, stage III non-small cell lung cancer was on chemoradiation was brought in from home with chief complaint of overall not feeling well and worsening mentation CT head without contrast: Failed to show any acute intra cranial pathology Chest x-ray: Unchanged large right upper lobe mass with mid lung infiltrates Pertinent labs: WBC 14.2, H&H 10.5 34.3,PLT : 518 , serum sodium 132, serum potassium 3.5, BUN:27, SCR: 0.7 , lactic acid 1.7 Serum calcium 15.3, (corrected 16) , Patient was given one-time dose of calcitonin in the ER, she also received one- time dose of ceftriaxone and azithromycin for possible pneumonia in the ER. Review of Systems General: Reports: 10 or more systems reviewed and unremarkable except in HPI and below Const: Denies: body aches or diaphoresis Card: Denies: palpitations or edema Resp: Denies: dyspnea, productive cough, wheezing or pain on inspiration GI: Denies: abdominal pain, nausea, vomiting, diarrhea or constipation Medications/Allergies Home Medications Medication Instructions Recorded Confirmed Last Taken Type aspirin 325 mg tablet,delayed 325 mg PO DAILY #30 tabs 01/27/20 09/12/22 04/07/22 Rx release albuterol sulfate 2.5 mg/3 mL 2.5 mg inhalation Q4H PRN 06/10/21 09/12/22 06/09/21 History (0.083 %) solution for nebulization Shortness Of Breath nebulizers #1 ea 08/15/21 09/12/22 Unknown Rx benzonatate 200 mg capsule 200 mg PO TID PRN cough 11/13/21 09/12/22 04/07/22 History ipratropium 0.5 mg-albuterol 3 mg 3 ml inhalation Q6H PRN wheezing 04/03/22 09/12/22 Unknown Rx (2.5 mg base)/3 mL nebulization #90 mL soln DME: Walker #1 ea 06/02/22 09/12/22 Unknown Rx Disposable nebulizer circuit #1 ea 06/02/22 09/12/22 Unknown Rx citalopram 20 mg tablet 20 mg PO DAILY #90 tabs 06/02/22 09/12/22 Unknown Rx furosemide 20 mg tablet (Lasix) 20 mg PO DAILY edema #90 tabs 06/02/22 09/12/22 Unknown Rx fluticasone 500 mcg-salmeterol 50 1 inh inhalation BID #60 ea 06/24/22 09/12/22 Unknown Rx mcg/dose blistr powdr for inhalation (Advair Diskus) tiotropium bromide 2.5 2 puff inhalation DAILY #4 grams 06/24/22 09/12/22 Unknown Rx mcg/actuation mist for inhalation (Spiriva Respimat) lorazepam 1 mg tablet 0.5 - 1 mg PO Q6H PRN Severe 07/15/22 09/12/22 Unknown Rx Nausea #30 tabs prochlorperazine maleate 10 mg 10 mg PO Q4H PRN Mild Nausea #30 07/15/22 09/12/22 Unknown Rx tablet (Compazine) tabs cholecalciferol (vitamin D3) 125 125 mcg PO DAILY #30 caps 07/28/22 09/12/22 Unknown Rx mcg (5,000 unit) capsule omeprazole 20 mg capsule,delayed 20 mg PO DAILY #90 caps 08/02/22 09/12/22 Unknown Rx release potassium chloride 10 mEq 10 meq PO TID #90 caps 09/08/22 09/12/22 Unknown Rx capsule,extended release prednisone 10 mg tablet 10 mg PO BID #60 tabs 09/08/22 09/12/22 Unknown Rx sodium chloride 1,000 mg soluble 1,000 mg PO BID #60 tabs 09/12/22 09/12/22 Unknown Rx tablet hydrocodone 5 mg-acetaminophen 325 1 tab PO Q6H PRN pain 30 days #60 10/13/22 Unknown Rx mg tablet tabs Allergies Allergy/AdvReac Type Severity Reaction Status Date / Time codeine Allergy Unknown Verified 10/15/22 20:28 Sulfa (Sulfonamide Allergy Unknown Verified 10/15/22 20:28 Antibiotics) PFSH Acute PFSH: Medical History Adenocarcinoma of descending colon Anxiety and depression COPD (chronic obstructive pulmonary disease) Endometrial carcinoma GERD (gastroesophageal reflux disease) History of hepatitis B Non-small cell lung cancer Vitamin D insufficiency Surgical History History of hysterectomy 2021 History of tubal ligation Port-A-Cath in place Status post laparoscopic colectomy (02/11/22) Laparoscopic left hemicolectomy Family History Sister Diabetes Mother Diabetes Hypertension Stroke Daughter Thyroid disease Denies family history of CAD (coronary artery disease) Clotting disorder Dementia Hyperlipidemia Psychiatric illness Chronic kidney disease (CKD) Suicide Anesthesia complication Bleeding disorder Lung disease Cancer Social History Smoking and tobacco status: current every day smoker (a pack ) cigarettes Packs smoked per day: 1 Years cigarettes smoked: 25 Second hand smoke exposure: Yes Smoking risk assessment/counseling performed?: Yes Alcohol intake: never Desire information about alcohol rehabilitation?: No Counseling given: No Desire information about substance/drug rehabilitation?: No Counseling given: No Adopted: No Caregiver/support person: No Lives independently: Yes Household members: family Housing: House Marital status: / Number of children: 5 service: No Current occupational status: employed 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 Current gender identity: Female Vitals/I&O/Wt Last Vital Signs Temp 98.3 F 10/15/22 20:23 Pulse 103 H 10/15/22 21:46 Resp 14 10/15/22 21:46 BP 115/72 10/15/22 21:46 Pulse Ox 93 10/15/22 21:46 O2 Del Method 10/15/22 21:46 10/15/22 10/15/22 10/15/22 06:59 14:59 22:59 Intake Total 1000 / 1000 Balance 1000 / 1000 Weight last 48 hrs Weight 47.627 kg Physical Exam HENMT: COMMON NORMALS: normocephalic and atraumatic Resp: COMMON NORMALS: normal respiratory effort and clear to auscultation bilaterally AUSCULTATION: clear to auscultation bilaterally OTHER: Diminished air entry B/L Cardio: COMMON NORMALS: regular rate, regular rhythm, S1 normal heart sound present, S2 normal heart sound present, No gallops present (Cardio), No murmurs present (Cardio), No rub (Cardio) and Peripheral pulses 2+ throughout RATE: regular rate RHYTHM: regular rhythm HEART SOUNDS: S1 normal heart sound present and S2 normal heart sound present PERIPHERAL PULSES: Peripheral pulses 2+ throughout GI: COMMON NORMALS: Normal to inspection, nondistended, normoactive bowel sounds present, Soft to palpation, non-tender, No hepatosplenomegaly present and no masses AUSCULTATION: Yes normoactive bowel sounds PALPATION: Yes Soft to palpation and Yes No hepatosplenomegaly present RECTAL EXAM: deferred Extremity: COMMON NORMALS: no clubbing, cyanosis or edema and no pedal edema Data 10/15/22 21:12 10/15/22 21:12 A&P Assessment and plan (1) Dehydration: (2) Altered mental status: (3) Lung cancer, upper lobe: Qualifiers: Laterality: right Qualified Code(s): C34.11 - Malignant neoplasm of upper lobe, right bronchus or lung (4) Hyponatremia: (5) Hypercalcemia of malignancy: (6) COPD (chronic obstructive pulmonary disease): Qualifiers: COPD type: emphysema Emphysema type: centrilobular Qualified Code(s): J43.2 - Centrilobular emphysema (7) Anemia: Plan 52 year old female with past medical history of COVID-04 March 2021, anxiety, depression, chronic smoker, COPD, stage III non-small cell lung cancer was on chemoradiation was brought in from home with chief complaint of overall not feeling well and worsening mentation. Altered mental status secondary to hypercalcemia of malignancy. CT head without contrast: Failed to show any acute intra cranial pathology Chest x-ray: Unchanged large right upper lobe mass with mid lung infiltrates. Urinalysis is clean. Serum lactate is normal. Follow blood culture Patient has received one-time dose of calcitonin, it can be repeated over the next 48 hours as needed. He has also received 1 dose of zoledronic acid If needed she can be a candidate for denosumab Continue IV hydration with normal saline at 150 cc an hour Monitor intake output charting Continue prednisone Monitor serum calcium Severe symptomatic hypercalcemia: Plan as above Possible pneumonia: Possibly a postobstructive pneumonia cannot be conclusively ruled out. Follow sputum Gram stain and culture Currently she has been empirically kept on ceftriaxone and azithromycin History of CA lung: No acute intervention needed at this time Hypovolemic hyponatremia: Continue IV hydration with normal saline Monitor serum sodium History of COPD: Continue DuoNebs Home inhalers Supplemental oxygen as needed Normocytic anemia: Possibly anemia of chronic disease Monitors H&H Transfuse to maintain hemoglobin greater than 7 May need extensive anemia work-up as outpatient, PCP can do that CODE STATUS: Full code DVT prophylaxis: Attestations Medical Necessity Statement*: Patient is in hospital for management of severe symptomatic hypercalcemia.Anticipated length of stay greater than 2 midnights. Coding Level of Care Code Critical Care >/= 30 minutes Diagnoses Dehydration E86.0 Altered mental status R41.82 Lung cancer, upper lobe C34.11 Laterality: right Hyponatremia E87.1 Hypercalcemia of malignancy E83.52 COPD (chronic obstructive pulmonary disease) J43.2 COPD type: emphysema Emphysema type: centrilobular Anemia D64.9
[2022-10-16] VITALS (66 sets, daily range): BP systolic 99–119; BP diastolic 63–81; PULSE 88–110; RESP 15–29; TEMP 36.4–36.6; O2SAT 89–100; BMI 18.1
[2022-10-16 00:54] LABS: Troponin 5 2HR 16.93 ng/L (0-10)
[2022-10-16 01:06] LABS: Troponin 5 2HR Delta -0.07 ABS# (0-10)
[2022-10-16] MEDS: dextrose 5%-sod chloride 0.9% 1,000 ML 150 ML IV (01:25)
[2022-10-16] MEDS: cefTRIAXone 1,000 MG in sodium chloride 0.9% (plus) 50 ML 100 MG IV ×2 (01:31→08:32)
[2022-10-16] MEDS: doxycycline 100 MG in sodium chloride 0.9% (plus) 100 ML IV (02:01)
[2022-10-16] MEDS: enoxaparin 40 mg/0.4 mL Syringe SUBCUT ×2 (02:08→22:28)
[2022-10-16] MEDS: zoledronic acid 4 MG in sodium chloride 0.9% (100 ml) 100 ML 420 MG IV (02:09)
--- NOTE | 2022-10-16 02:35 | ECG_ITS ---
[facility] Test Date: 2022-10-16 Pat Name: Nita Moore Department: Room: ICU09 Gender: Female Sole Inker: : 1970 Requested By: Dre Méndez Order Number: [id number] MD: Mitch Corrales M.D. Measurements Intervals [place] Rate: 96 P: 69 [place]: 197 QRS: 67 QRSD: 85 T: 66 QT: 254 QTc: 321 Interpretive Statements SINUS RHYTHM RIGHT ATRIAL ENLARGEMENT [0.3mV P-WAVE] NONSPECIFIC T-WAVE ABNORMALITY Compared to ECG 10/15/2022 22:44:07 Sinus tachycardia no longer present T-wave abnormality still present Electronically Signed On 10-16-2022 18:12:42 SOCIAL INSURANCE ANALYST by Mitch Corrales M.D. [id number]
[2022-10-16 03:05] LABS: Basophils % 0.1 %; Eosinophils % 0.3 %; Hematocrit 32.5 % (37.0-47.0); Hemoglobin 9.7 g/dL (11.5-15.3); Lymphocytes # 1.3 10^3/uL (0.8-4.8); Lymphocytes % 9.1 %; Mean Corpuscular HGB Conc 29.8 g/dL (30.0-36.0); Mean Corpuscular Hemoglobin 26.1 pg (28.0-34.0); Mean Corpuscular Volume 87.4 fl (81-99); Mean Platelet Volume 9.3 fL (7.4-10.4); Monocytes # 1.1 10^3/uL (0.2-0.9); Monocytes % 7.9 %; Neutrophils # 11.28 10^3/uL (1.8-7.7); Nucleated Red Blood Cells % 0 %; Platelet Count 509 10^3/cmm (130-400); Red Blood Count 3.72 10^6/uL (4.1-5.3); Red Cell Distribution Width 15.3 % (12.1-15.1); White Blood Count 13.7 10^3/uL (4.0-10.0)
[2022-10-16 03:19] LABS: Troponin 5 6HR 16.07 ng/L (0-10); Troponin 5 6HR Delta -0.93 ng/L (0-12)
[2022-10-16 03:30] LABS: Alanine Aminotransferase < 5 U/L (0-33); Albumin Level 2.9 g/dL (3.5-5.2); Alkaline Phosphatase 78 U/L (35-105); Anion Gap 12.8 (5-19); Aspartate Amino Transferase 8 U/L (0-32); Blood Urea Nitrogen 24 mg/dL (6-20); Calcium 13.2 mg/dL (8.5-10.5); Carbon Dioxide 33 mmol/L (22-29); Chloride 93 mmol/L (98-107); Globulin 3.5 g/dL (1.3-4.6); Glomerular Filtration Rate 104.6 mL/min (90-130); Glucose 122 mg/dL (65-115); Magnesium 1.8 mg/dL (1.7-2.3); Osmolality Calculated 287 mOsm/kg (285-295); Sodium 136 mmol/L (136-145); Total Bilirubin 0.2 mg/dL (0.15-1.2); Total Protein 6.4 g/dL (6.6-8.7)
[2022-10-16 03:39] LABS: Potassium 2.8 mmol/L (3.5-5.1)
[2022-10-16] MEDS: lidocaine 1% 5 ML in potassium chloride premix 100 ML 26.25 ML IV ×2 (04:20→08:32)
[2022-10-16] MEDS: albuterol 2.5 mg/3 mL Neb INHALATION ×4 (08:29→21:04)
[2022-10-16] MEDS: budesonide 0.5 mg/2 mL Neb INHALATION ×2 (08:29→21:05)
[2022-10-16] MEDS: ipratropium 0.5 mg/2.5 mL Neb INHALATION ×4 (08:29→21:05)
[2022-10-16] MEDS: azithromycin 500 MG in sodium chloride 0.9% 250 ML 250 MG IV (08:31)
[2022-10-16] MEDS: cholecalciferol (vitamin D3) 1,000 unit Tablet 1000 UNIT PO (08:32)
[2022-10-16] MEDS: predniSONE 10 mg Tablet PO (08:32)
[2022-10-16] MEDS: pantoprazole DR 40 mg Tablet PO (08:32)
[2022-10-16] MEDS: citalopram 20 mg Tablet PO (08:32)
--- NOTE | 2022-10-16 09:17 | PC.PHAR ---
pt and pts family chavo [phone] verified pts medications-states the pt uses inhalers prn-notes are made in the pharmacy comments
[2022-10-16 11:31] LABS: Anion Gap 14.2 (5-19); Blood Urea Nitrogen 20 mg/dL (6-20); Calcium 12.5 mg/dL (8.5-10.5); Carbon Dioxide 31 mmol/L (22-29); Chloride 97 mmol/L (98-107); Glomerular Filtration Rate 129.1 mL/min (90-130); Glucose 97 mg/dL (65-115); Osmolality Calculated 289 mOsm/kg (285-295); Potassium 4.2 mmol/L (3.5-5.1); Sodium 138 mmol/L (136-145)
--- NOTE | 2022-10-16 12:25 | PM.PN ---
Subjective Subjective: Overnight events H&P noted Morning patient is awake and alert Able to give history She is stating that she is done with chemo because of her debilitating physical deconditioning Goals of care discussed with the patient she is stating that she does not want chest compressions or intubation Asked ICU nurse to change CODE STATUS to DNR/DNI ICU nurse was present in the room Patient was wide-awake and alert able to answer questions appropriately Patient is stating that because of change of her taste of mouth she has not eaten well Vitals/I&O/Wt Last Vital Signs Temp 97.9 F 10/16/22 00:05 Pulse 101 H 10/16/22 12:00 Resp 19 H 10/16/22 12:00 BP 111/74 10/16/22 12:00 Pulse Ox 91 10/16/22 12:00 O2 Del Method 10/16/22 11:15 O2 Flow Rate 2 10/16/22 11:15 10/15/22 10/16/22 10/16/22 22:59 06:59 14:59 Intake Total 1000 / 1000 105 / 105 Balance 1000 / 1000 105 / 105 Weight last 48 hrs Weight 44.951 kg Weight 44.951 kg Weight 47.627 kg Physical Exam Narrative: Cachectic, malnourished Dehydrated Awake and alert GCS 15 Nonfocal neuro exam Fatigued and lethargic Dry mucous membranes Dental caries Lower extremity no edema Abdomen flat Muscle mass loss Able to comprehend Appropriately answering my questions GCS 15 Oertli on 2 L of oxygen Data 10/16/22 02:50 10/16/22 11:08 Micro: Microbiology 10/15/22 01:23 Blood Culture - Preliminary Blood SPECIMEN COLLECTED 10/15/22 22:55 Blood Culture - Preliminary Blood SPECIMEN COLLECTED A&P Assessment and plan (1) Anemia: (2) Hypercalcemia: (3) Dehydration: (4) Altered mental status: (5) Goals of care, counseling/discussion: (6) Protein calorie malnutrition: (7) Severe muscle deconditioning: (8) Acute encephalopathy: (9) Acute dehydration: (10) Lung cancer, upper lobe: Qualifiers: Laterality: right Qualified Code(s): C34.11 - Malignant neoplasm of upper lobe, right bronchus or lung (11) Hyponatremia: (12) Hypercalcemia of malignancy: (13) COPD (chronic obstructive pulmonary disease): Qualifiers: COPD type: emphysema Emphysema type: centrilobular Qualified Code(s): J43.2 - Centrilobular emphysema (14) Vitamin D insufficiency: (15) Personal history of smoking: Plan Hypercalcemia Symptomatic Multifactorial related to cancer and dehydration Calcium improving with IV fluid hydration Hold off on calcitonin for now He was given 1 dose of zoledronic acid Continue IV fluids Metabolic encephalopathy related to hypocalcemia: Resolved Severe dehydration: Continue IV fluid hydration Severe protein calorie malnourishment Request dietitian Patient is endorsing change in taste in her mouth No oral thrush Poor dentition, dental caries present Postobstructive pneumonia concern patient immunocompromise I will escalate antibiotics No fever however significant leukocytosis noted COPD, not oxygen dependent, currently on 2 L of oxygen Normocytic anemia: Stable for now Hypovolemic hyponatremia: Continue IV fluid hydration Patient lives with her daughter Goals of care discussed with the patient she is DNI/DNI She might be a candidate of palliative/hospice care, will discuss with her daughter Soft mechanical diet Attestations Medical Necessity Statement*: Can be transferred out of ICU Diagnoses Anemia D64.9 Hypercalcemia E83.52 Dehydration E86.0 Altered mental status R41.82 Goals of care, counseling/discussion Z71.89 Protein calorie malnutrition E46 Severe muscle deconditioning R29.898 Acute encephalopathy G93.40 Acute dehydration E86.0 Lung cancer, upper lobe C34.11 Laterality: right Hyponatremia E87.1 Hypercalcemia of malignancy E83.52 COPD (chronic obstructive pulmonary disease) J43.2 COPD type: emphysema Emphysema type: centrilobular Vitamin D insufficiency E55.9 Personal history of smoking Z87.511
[2022-10-16] MEDS: sodium chloride 0.9% 1,000 ML 75 ML IV (13:46)
[2022-10-16] MEDS: cefepime 2,000 MG in sodium chloride 0.9% (plus) 50 ML 100 MG IV (13:59)
[2022-10-16 14:03] LABS: Calcium 12.5 mg/dL (8.5-10.5)
[2022-10-16 14:10] LABS: Parathyroid Hormone 3.4 pg/mL (15-65)
[2022-10-16 14:11] LABS: 25 Hydroxy Vitamin D 58 ng/mL (30-100)
[2022-10-16] MEDS: vancomycin 750 MG in sodium chloride 0.9% 250 ML 250 MG IV (14:30)
[2022-10-16 16:38] LABS: Glucose Point of Care 172 mg/dL (70-110)
[2022-10-16 20:28] LABS: Glucose Point of Care 103 mg/dL (70-110)
[2022-10-17] VITALS (11 sets, daily range): BP systolic 95–100; BP diastolic 58–62; PULSE 95–110; RESP 16–24; TEMP 36.4–36.6; O2SAT 98–100
[2022-10-17] MEDS: cefepime 2,000 MG in sodium chloride 0.9% (plus) 50 ML 100 MG IV ×2 (01:39→13:10)
[2022-10-17] MEDS: vancomycin 750 MG in sodium chloride 0.9% 250 ML 250 MG IV ×2 (02:29→14:34)
[2022-10-17 05:37] LABS: Basophils % 0.2 %; Eosinophils # 0.1 10^3/uL (0.0-0.8); Eosinophils % 0.5 %; Hematocrit 30.2 % (37.0-47.0); Hemoglobin 8.9 g/dL (11.5-15.3); Lymphocytes # 0.9 10^3/uL (0.8-4.8); Lymphocytes % 7.6 %; Mean Corpuscular HGB Conc 29.5 g/dL (30.0-36.0); Mean Corpuscular Hemoglobin 26.3 pg (28.0-34.0); Mean Corpuscular Volume 89.3 fl (81-99); Mean Platelet Volume 8.9 fL (7.4-10.4); Monocytes # 0.8 10^3/uL (0.2-0.9); Neutrophils # 10.01 10^3/uL (1.8-7.7); Neutrophils % 84.1 %; Nucleated Red Blood Cells % 0 %; Platelet Count 397 10^3/cmm (130-400); Red Blood Count 3.38 10^6/uL (4.1-5.3); Red Cell Distribution Width 15.4 % (12.1-15.1); White Blood Count 11.9 10^3/uL (4.0-10.0)
[2022-10-17 06:00] LABS: Alanine Aminotransferase < 5 U/L (0-33); Albumin Level 2.7 g/dL (3.5-5.2); Alkaline Phosphatase 71 U/L (35-105); Anion Gap 13.5 (5-19); Aspartate Amino Transferase 9 U/L (0-32); Blood Urea Nitrogen 13 mg/dL (6-20); Calcium 11.3 mg/dL (8.5-10.5); Carbon Dioxide 29 mmol/L (22-29); Chloride 97 mmol/L (98-107); Globulin 3.4 g/dL (1.3-4.6); Glomerular Filtration Rate 129.1 mL/min (90-130); Glucose 90 mg/dL (65-115); Osmolality Calculated 282 mOsm/kg (285-295); Potassium 3.5 mmol/L (3.5-5.1); Sodium 136 mmol/L (136-145); Total Bilirubin 0.3 mg/dL (0.15-1.2); Total Protein 6.1 g/dL (6.6-8.7)
[2022-10-17 06:41] LABS: Glucose Point of Care 101 mg/dL (70-110)
[2022-10-17] MEDS: albuterol 2.5 mg/3 mL Neb INHALATION ×2 (08:05→21:04)
[2022-10-17] MEDS: ipratropium 0.5 mg/2.5 mL Neb INHALATION ×2 (08:06→21:04)
[2022-10-17] MEDS: budesonide 0.5 mg/2 mL Neb INHALATION ×2 (08:06→21:04)
[2022-10-17] MEDS: HYDROcodone-acetaminophen 5-325 mg Tablet 1 TAB PO (08:37)
[2022-10-17] MEDS: pantoprazole DR 40 mg Tablet PO (08:38)
[2022-10-17] MEDS: citalopram 20 mg Tablet PO (08:38)
[2022-10-17] MEDS: sodium chloride 0.9% 1,000 ML 75 ML IV ×2 (08:38→22:57)
[2022-10-17 11:50] LABS: Glucose Point of Care 124 mg/dL (70-110)
--- NOTE | 2022-10-17 16:58 | PM.PN ---
Subjective Subjective: Patient is extremely lethargic and somnolent today. She is able to wake up and tell me her name but unable to participate in any meaningful conversation. Appears ill, chronically. Calcium is corrected to 11.6. Medications: Reviewed: Yes Vitals/I&O/Wt Last Vital Signs Temp 97.8 F 10/17/22 15:47 Pulse 95 10/17/22 15:47 Resp 16 10/17/22 15:47 BP 95/58 10/17/22 15:47 Pulse Ox 100 10/17/22 15:47 O2 Del Method 10/17/22 15:47 O2 Flow Rate 1.5 10/17/22 15:47 10/17/22 10/17/22 10/17/22 06:59 14:59 22:59 Intake Total 1030 / 3095 675 / 675 250 / 925 Balance 1030 / 3095 675 / 675 250 / 925 Weight last 48 hrs Weight 48.081 kg Weight 44.951 kg Weight 44.951 kg Weight 47.627 kg Physical Exam Narrative: General: Chronically ill-appearing cachectic lady lying in bed, very lethargic. HEENT: PERRLA, pupils bilaterally equal and reactive, pallors not present Chest: Normal vesicular breath sounds, no added sounds, equal good air entry bilaterally CVS: S1-S2 regular, no murmurs, no tachycardia, no gallops, no rubs Abdomen: Soft, nontender, no organomegaly, bowel sounds present Neuro: No focal deficits, moving all extremities in bed, however too lethargic to follow commands. Data 10/17/22 05:25 10/17/22 05:25 Micro: Microbiology 10/15/22 01:23 Blood Culture - Preliminary Blood NEGATIVE TO DATE 10/15/22 22:55 Blood Culture - Preliminary Blood NEGATIVE TO DATE A&P Assessment and plan (1) Anemia: (2) Hypercalcemia: (3) Dehydration: (4) Altered mental status: (5) Goals of care, counseling/discussion: (6) Protein calorie malnutrition: (7) Severe muscle deconditioning: (8) Acute encephalopathy: (9) Acute dehydration: (10) Lung cancer, upper lobe: Qualifiers: Laterality: right Qualified Code(s): C34.11 - Malignant neoplasm of upper lobe, right bronchus or lung (11) Hyponatremia: (12) Hypercalcemia of malignancy: (13) COPD (chronic obstructive pulmonary disease): Qualifiers: COPD type: emphysema Emphysema type: centrilobular Qualified Code(s): J43.2 - Centrilobular emphysema (14) Vitamin D insufficiency: (15) Personal history of smoking: Plan # Hypercalcemia Numbers are improving with calcium down to 11.6 today. Multifactorial related to cancer and dehydration Calcium improving with IV fluid hydration # Metabolic encephalopathy, multifactorial related to hypercalcemia and advanced cancer. Patient is extremely lethargic and somnolent. She is able to wake up tell me her name and whereabouts, however unable to participate in any prolonged conversation. I have discussed with her daughter Jazmine today, this appears to be patient's recent baseline. # Postobstructive pneumonia in the setting of large cancer. Patient on antibiotics right now, however on likely to provide any meaningful benefit given presence of a large mass which is not currently amenable to any treatment options. Can continue cefepime and vancomycin for now, however discussion would be more towards palliative and hospice medicine. Extensive discussion with patient's daughter Jazmine today. Her daughter reports that patient has had a gradual decline over the past 2 to 3 months. She was recently evaluated by oncology on September 08 where her cancer has advanced in spite of multiple lines of chemotherapy that she has had. Furthermore her course has been complicated by recurrent hypercalcemia, poor performance status. Per oncology notes, further chemotherapy is highly unlikely to be of any meaningful benefit to her. Also possible that she will suffer significant systemic toxicity without gaining much in terms of cancer treatment. Patient's daughters have been having similar conversations more recently within the family and are expressing interest in transitioning to palliative/hospice care management. Patient's family currently includes 4 daughters, 1 of whom resides within the house with her. Her daughters Noris, Jazmine and Sera are involved in her care. She does have another elder daughter who was not actively involved in her care or decision making. Patient's 's 8 years ago. Her other surviving relative is a stepfather. We could attempt to have this conversation with the patient but given her lethargy and overall poor health I am not convinced she has a true understanding of what is being discussed here at this time. We will ask for palliative consult, family is interested in exploring options and trying to understand what palliative care would look like for them # COPD, not oxygen dependent, currently on 2 L of oxygen Normocytic anemia: Stable for now Hypovolemic hyponatremia: Continue IV fluid hydration Goals of care discussed with the patient she is DNI/DNI Soft mechanical diet Attestations Medical Necessity Statement*: Ongoing need for IV hydration, goals of care discussion, likely transition to palliative/hospice care Coding Level of Care Code 09430 High Time for a total of 60 minutes, includes reviewing past or interval history, examining/interviewing patient, placing orders, counseling patient/family/other support, updating patient/family/other support, discussing plan of care with staff, documenting encounter and coordinating care Other Coding Information Prolonged care (total time indicated above or notated here) and Other care Extensive goals of care discussion with patient's family, transition of care to likely palliative. Diagnoses Anemia D64.9 Hypercalcemia E83.52 Dehydration E86.0 Altered mental status R41.82 Goals of care, counseling/discussion Z71.89 Protein calorie malnutrition E46 Severe muscle deconditioning R29.898 Acute encephalopathy G93.40 Acute dehydration E86.0 Lung cancer, upper lobe C34.11 Laterality: right Hyponatremia E87.1 Hypercalcemia of malignancy E83.52 COPD (chronic obstructive pulmonary disease) J43.2 COPD type: emphysema Emphysema type: centrilobular Vitamin D insufficiency E55.9 Personal history of smoking Z87.891
[2022-10-17 20:37] LABS: Glucose Point of Care 100 mg/dL (70-110)
[2022-10-17] MEDS: enoxaparin 40 mg/0.4 mL Syringe SUBCUT (22:57)
[2022-10-18] VITALS (12 sets, daily range): BP systolic 94–110; BP diastolic 51–67; PULSE 102–121; RESP 16–23; TEMP 36.4–37.6; O2SAT 92–100
[2022-10-18] MEDS: cefepime 2,000 MG in sodium chloride 0.9% (plus) 50 ML 100 MG IV ×2 (01:37→14:16)
[2022-10-18] MEDS: vancomycin 750 MG in sodium chloride 0.9% 250 ML 250 MG IV (03:01)
[2022-10-18 03:12] LABS: Vancomycin Trough 13.1 ug/mL (10-15)
[2022-10-18 04:22] LABS: Basophils % 0.2 %; Eosinophils # 0.1 10^3/uL (0.0-0.8); Eosinophils % 0.6 %; Hematocrit 30.7 % (37.0-47.0); Hemoglobin 9.3 g/dL (11.5-15.3); Lymphocytes # 0.9 10^3/uL (0.8-4.8); Lymphocytes % 7.5 %; Mean Corpuscular HGB Conc 30.3 g/dL (30.0-36.0); Mean Corpuscular Hemoglobin 26.9 pg (28.0-34.0); Mean Corpuscular Volume 88.7 fl (81-99); Mean Platelet Volume 9.4 fL (7.4-10.4); Monocytes # 0.8 10^3/uL (0.2-0.9); Monocytes % 6.7 %; Neutrophils # 9.74 10^3/uL (1.8-7.7); Neutrophils % 84.4 %; Nucleated Red Blood Cells % 0 %; Platelet Count 395 10^3/cmm (130-400); Red Blood Count 3.46 10^6/uL (4.1-5.3); Red Cell Distribution Width 15.4 % (12.1-15.1); White Blood Count 11.5 10^3/uL (4.0-10.0)
[2022-10-18 04:41] LABS: Alanine Aminotransferase < 5 U/L (0-33); Albumin Level 2.7 g/dL (3.5-5.2); Alkaline Phosphatase 73 U/L (35-105); Aspartate Amino Transferase 10 U/L (0-32); Blood Urea Nitrogen 12 mg/dL (6-20); Calcium 10.6 mg/dL (8.5-10.5); Carbon Dioxide 27 mmol/L (22-29); Chloride 96 mmol/L (98-107); Globulin 3.3 g/dL (1.3-4.6); Glucose 84 mg/dL (65-115); Osmolality Calculated 277 mOsm/kg (285-295); Sodium 134 mmol/L (136-145); Total Bilirubin 0.3 mg/dL (0.15-1.2)
[2022-10-18] MEDS: HYDROcodone-acetaminophen 5-325 mg Tablet 1 TAB PO (06:29)
[2022-10-18 07:01] LABS: Glucose Point of Care 94 mg/dL (70-110)
[2022-10-18] MEDS: ipratropium 0.5 mg/2.5 mL Neb INHALATION ×3 (07:57→19:59)
[2022-10-18] MEDS: albuterol 2.5 mg/3 mL Neb INHALATION ×3 (07:57→19:59)
[2022-10-18] MEDS: budesonide 0.5 mg/2 mL Neb INHALATION ×2 (07:57→19:59)
[2022-10-18] MEDS: pantoprazole DR 40 mg Tablet PO (08:40)
[2022-10-18] MEDS: citalopram 20 mg Tablet PO (08:40)
[2022-10-18] MEDS: vancomycin 500 MG in sodium chloride 0.9% (plus) 100 ML 200 MG IV (12:09)
[2022-10-18] MEDS: sodium chloride 0.9% 1,000 ML 75 ML IV (14:16)
--- NOTE | 2022-10-18 14:49 | PM.PN ---
Subjective Subjective: no new complaints today, asleep currently at time of rounds. Per discussion with RN she was earlier awake, oriented, sat up in chair, ate breakfast and lunch. Has been minimally conversant. worked with PT today, noted to be much improved on their assessment Medications: Reviewed: Yes Vitals/I&O/Wt Last Vital Signs Temp 98.2 F 10/18/22 07:47 Pulse 116 H 10/18/22 11:35 Resp 16 10/18/22 11:31 BP 110/63 10/18/22 07:47 Pulse Ox 98 10/18/22 11:31 O2 Del Method 10/18/22 11:31 O2 Flow Rate 1.5 10/18/22 08:15 10/17/22 10/18/22 10/18/22 22:59 06:59 14:59 Intake Total 1201.25 / 1876.25 601.25 / 2477.50 1148.75 / 1148.75 Output Total 200 / 200 Balance 1201.25 / 1876.25 401.25 / 2277.50 1148.75 / 1148.75 Weight last 48 hrs Weight 44.815 kg Weight 48.081 kg Physical Exam Narrative: General: Chronically ill-appearing lady lying in bed, no acute distress, appears better hydrated today, answers question sbut then wishes to go back to sleep HEENT: PERRLA, pupils bilaterally equal and reactive, pallors not present Chest: Normal vesicular breath sounds, no added sounds, equal good air entry bilaterally CVS: S1-S2 regular, no murmurs, no tachycardia, no gallops, no rubs Abdomen: Soft, nontender, no organomegaly, bowel sounds present Neuro: No focal deficits, moving all extremities in bed Data 10/18/22 03:30 10/18/22 03:30 A&P Assessment and plan (1) Anemia: (2) Hypercalcemia: (3) Dehydration: (4) Altered mental status: (5) Goals of care, counseling/discussion: (6) Protein calorie malnutrition: (7) Severe muscle deconditioning: (8) Acute encephalopathy: (9) Acute dehydration: (10) Lung cancer, upper lobe: Qualifiers: Laterality: right Qualified Code(s): C34.11 - Malignant neoplasm of upper lobe, right bronchus or lung (11) Hyponatremia: (12) Hypercalcemia of malignancy: (13) COPD (chronic obstructive pulmonary disease): Qualifiers: COPD type: emphysema Emphysema type: centrilobular Qualified Code(s): J43.2 - Centrilobular emphysema (14) Vitamin D insufficiency: (15) Personal history of smoking: Plan # Hypercalcemia Improved to 10.6 today. Multifactorial related to cancer and dehydration Calcium improving with IV fluid hydration # Metabolic encephalopathy, multifactorial related to hypercalcemia and advanced cancer. Slightly improved today. Still conversing minimally but answers simple questions appropriately. # Postobstructive pneumonia in the setting of large lung cancer. Patient on antibiotics right now, however not likely to provide any meaningful benefit given presence of a large mass Can continue cefepime and vancomycin for now, however discussion would be more towards palliative and hospice medicine. # progressive lung cancer: Discussion with palliative care and family today # COPD, not oxygen dependent, currently on 2 L of oxygen Normocytic anemia: Stable for now Hypovolemic hyponatremia: Continue IV fluid hydration Goals of care discussed with the patient she is DNI/DNI Soft mechanical diet Attestations Medical Necessity Statement*: pending discussions regarding GOC, transition possibly to pallitaive/hospice medicine Coding Level of Care Code Acute Code for Chg Fwd Straight Forward/Low MDM includes number and complexity of problems actively addressed during encounter, amount and/or complexity of data reviewed/ordered and described risk of complication, morbidity or mortality of management as documented Diagnoses Anemia D64.9 Hypercalcemia E83.52 Dehydration E86.0 Altered mental status R41.82 Goals of care, counseling/discussion Z71.89 Protein calorie malnutrition E46 Severe muscle deconditioning R29.898 Acute encephalopathy G93.40 Acute dehydration E86.0 Lung cancer, upper lobe C34.11 Laterality: right Hyponatremia E87.1 Hypercalcemia of malignancy E83.52 COPD (chronic obstructive pulmonary disease) J43.2 COPD type: emphysema Emphysema type: centrilobular Vitamin D insufficiency E55.9 Personal history of smoking Z87.891
--- NOTE | 2022-10-18 16:24 | PC.NURSE ---
Dr. Uribe speaking with patient and her daughters at bedside on the I pad a this time. Patient and family decided on hospice but have not picked a company yet.
--- NOTE | 2022-10-18 16:51 | P.CONIM_ITS ---
Providers/Reason For Consult Consulting Physician/Specialty*: Palliative Medicine Reason for Consult*: goals of care discussion and palliative and hospice services information Requesting Physician: Dr. Sevilla Attending Physician: Heaven Sevilla MD Primary Care Provider: TAPAN Marcus History of Present Illness History of Present Illness Nita Moore is a 52 year old female with locally advanced squamous cell lung cancer. Interestingly she also recently had endometrial cancer and colon cancer. Recently she has been suffering with severe lethargy and confusion caused by severe hypercalcemia. She stares at me during the video conference. She answers most questions with I don't know or [facility] . Daughers mostly ask her questions with limited answers. Daughters report significant pain in legs and in tailbone. They feel her pain is not controlled. They report shortness of breath however pt won't wear oxygen at home and when she is able patient still smokes. Daughters state she has never wanted to come to hospital. This current admission they said she was so bad (incoherent) that she didn't refuse transport. Review of Systems Narrative: Daughters report fatigue, excessive sleepiness, poor appetie, confusion, forgetting to take medication, shortness of breath, pain as above and being confined to bed. It has been about a month since last hospitalization and she took a turn for worse in last 2 weeks. Medications/Allergies Home Medications Medication Instructions Recorded Confirmed Last Taken Type nebulizers #1 ea 08/15/21 10/16/22 Unknown Rx ipratropium 0.5 mg-albuterol 3 mg 3 ml inhalation Q6H PRN wheezing 04/03/22 Unknown Rx (2.5 mg base)/3 mL nebulization #90 mL soln DME: Pedro #1 ea 06/02/22 10/16/22 Unknown Rx Disposable nebulizer circuit #1 ea 06/02/22 10/16/22 Unknown Rx cholecalciferol (vitamin D3) 125 125 mcg PO DAILY #30 caps 07/28/22 10/16/22 Unknown Rx mcg (5,000 unit) capsule omeprazole 20 mg capsule,delayed 20 mg PO DAILY #90 caps 08/02/22 10/16/22 Unknown Rx release prednisone 10 mg tablet 10 mg PO BID #60 tabs 09/08/22 10/16/22 Unknown Rx hydrocodone 5 mg-acetaminophen 325 1 tab PO Q6H PRN pain 30 days #60 10/13/22 10/16/22 Unknown Rx mg tablet tabs albuterol sulfate 90 mcg/actuation 2 puff inhalation QID PRN 10/16/22 10/16/22 Unknown History aerosol inhaler Shortness Of Breath aspirin 325 mg tablet,delayed 325 mg PO QAM 10/16/22 10/16/22 Unknown History release citalopram 20 mg tablet 20 mg PO QAM 10/16/22 10/16/22 Unknown History fluticasone 500 mcg-salmeterol 50 1 inh inhalation BID PRN unknown 10/16/22 10/16/22 Unknown History mcg/dose blistr powdr for inhalation (Advair Diskus) furosemide 20 mg tablet (Lasix) 20 mg PO QAM edema 10/16/22 10/16/22 Unknown History potassium chloride 10 mEq 10 meq PO QAM 10/16/22 10/16/22 Unknown History capsule,extended release tiotropium bromide 2.5 2 puff inhalation DAILY PRN unknown 10/16/22 10/16/22 Unknown History mcg/actuation mist for inhalation (Spiriva Respimat) Allergies Allergy/AdvReac Type Severity Reaction Status Date / Time codeine Allergy Unknown Verified 10/15/22 20:28 Sulfa (Sulfonamide Allergy Unknown Verified 10/15/22 20:28 Antibiotics) Current Medications Generic Name Dose Route Start Last Admin Trade Name Freq PRN Reason Stop Dose Admin Hydrocodone Bitart/Acetaminophen 1 tab 10/15/22 23:40 10/18/22 06:29 Hydrocodone-Acetaminophen 5-325 Mg Tablet PO 1 tab Q6H PRN Administration pain Albuterol Sulfate 2.5 mg 10/16/22 08:00 10/18/22 16:00 Albuterol 2.5 Mg/3 Ml Neb INHALATION Not Given QID.RESPIRATORY ROSSANA Budesonide 0.5 mg 10/16/22 08:00 10/18/22 07:57 Budesonide 0.5 Mg/2 Ml Neb INHALATION 0.5 mg BID.RESPIRATORY ROSSANA Administration Citalopram Hydrobromide 20 mg 10/16/22 09:00 10/18/22 08:40 Citalopram 20 Mg Tablet PO 20 mg DAILY ROSSANA Administration Enoxaparin Sodium 40 mg 10/15/22 23:00 10/17/22 22:57 Enoxaparin 40 Mg/0.4 Ml Syringe SUBCUT 40 mg Q24H ROSSANA Administration Cefepime HCl 2,000 mg/ Sodium 50 mls @ 100 mls/hr 10/16/22 13:30 10/18/22 14:16 Chloride IV 100 mls/hr Q12H ROSSANA Administration Protocol Sodium Chloride 1,000 mls @ 75 mls/hr 10/16/22 12:45 10/18/22 14:16 Sodium Chloride 0.9% IV 75 mls/hr .[id number] ROSSANA Administration Vancomycin HCl 500 mg/ Sodium 100 mls @ 200 mls/hr 10/18/22 11:00 10/18/22 12:39 Chloride IV Infused Q8H ROSSANA Infusion Ipratropium Gaylord 0.5 mg 10/16/22 08:00 10/18/22 16:00 Ipratropium 0.5 Mg/2.5 Ml Neb INHALATION Not Given QID.RESPIRATORY ROSSANA Pantoprazole Sodium 40 mg 10/16/22 09:00 10/18/22 08:[address] 40 Mg Tablet PO 40 mg DAILY ROSSANA Administration Prednisone 10 mg 10/16/22 09:00 10/16/22 08:32 Prednisone 10 Mg Tablet PO 10 mg BID ROSSANA Administration PFSH Acute PFSH: Medical History Adenocarcinoma of descending colon Anxiety and depression COPD (chronic obstructive pulmonary disease) Endometrial carcinoma GERD (gastroesophageal reflux disease) History of hepatitis B Non-small cell lung cancer Vitamin D insufficiency Surgical History History of hysterectomy 2021 History of tubal ligation Port-A-Cath in place Status post laparoscopic colectomy (02/11/22) Laparoscopic left hemicolectomy Family History Sister Diabetes Mother Diabetes Hypertension Stroke Daughter Thyroid disease Denies family history of CAD (coronary artery disease) Clotting disorder Dementia Hyperlipidemia Psychiatric illness Chronic kidney disease (CKD) Suicide Anesthesia complication Bleeding disorder Lung disease Cancer Social History Smoking and tobacco status: current every day smoker (a pack ) cigarettes Packs smoked per day: 1 Years cigarettes smoked: 25 Second hand smoke exposure: Yes Smoking risk assessment/counseling performed?: Yes Alcohol intake: never Desire information about alcohol rehabilitation?: No Counseling given: No Desire information about substance/drug rehabilitation?: No Counseling given: No Adopted: No Caregiver/support person: No Lives independently: Yes Household members: family Housing: House Marital status: / Number of children: 5 service: No Current occupational status: employed Current occupation: [employer] st[employer] Current gender identity: Female Vitals/I&O/Wt Last Vital Signs Temp 98.2 F 10/18/22 07:47 Pulse 116 H 10/18/22 11:35 Resp 16 10/18/22 11:31 BP 110/63 10/18/22 07:47 Pulse Ox 98 10/18/22 11:31 O2 Del Method 10/18/22 11:31 O2 Flow Rate 1.5 10/18/22 08:15 10/18/22 10/18/22 10/18/22 06:59 14:59 22:59 Intake Total 601.25 / 2477.50 1148.75 / 1148.75 Output Total 200 / 200 Balance 401.25 / 2277.50 1148.75 / 1148.75 Weight last 48 hrs Weight 44.815 kg Weight 48.081 kg Physical Exam Narrative: appears older than stated age of 52 yrs old. NAD. Has a blank stare. poor insight. mental slowness. observed walking with walker to bathroom with standby assist. Data 10/18/22 03:30 10/18/22 03:30 A&P Assessment and plan (1) Lethargy: (2) Confusion: (3) Goals of care, counseling/discussion: (4) Hypercalcemia of malignancy: (5) COPD (chronic obstructive pulmonary disease): Qualifiers: COPD type: emphysema Emphysema type: centrilobular Qualified Code(s): J43.2 - Centrilobular emphysema (6) Pain: (7) Smoker: (8) Malignant neoplasm of upper lobe, right bronchus or lung: Plan Met with patient and 3 daughters, Jazmine, Sera and Melissa. We discussed diagnosis, prognosis and wishes as disease progresses. They understand their mother has a terminal cancer and that the hypercalcemia is only temporarily treatable and will progress. Treatment is possible with iv intervention and return to clinic or hospital. My impression is that patient is having trouble with processing and making decisions. She said she both would want treatment and come back to hospital and also would want hospice and stay at home. I advised [facility] with support to help transition to hospice. However, the daughters all agree that when patient worsens again they understand to call infant childcare provider for assistance and to provide comfort. Choice was provided and they are going to speak with CM tomorrow for final decision of hospice agency. For symptoms management: * will order roxanol and ativan prn pain, SOB or anxiety * agree with stopping antibiotics as futile * recommend stopping hydration * researched an oral bisphosphonate and found ibandronate (Boniva) as an orally available option . It still carries significant side effects and has stringent protocol for oral usage.. Called Jazmine to discuss use and she is concerned her mother couldn't stay awake and upright for long enough. * stop home vit d * consider stopping lasix so as not to cause dehydration making hypercalcemia worse. * hospice services Updated Dr. Sevilla. Thank you for allowing me to participate in the care of this patient and family. Consult Attestations Medical Necessity Statement: see attending note Coding Level of Care Code Acute Code for Chg Fwd Diagnoses Lethargy R53.83 Confusion R41.0 Goals of care, counseling/discussion Z71.89 Hypercalcemia of malignancy E83.52 COPD (chronic obstructive pulmonary disease) J43.2 COPD type: emphysema Emphysema type: centrilobular Pain R52 Smoker F17.200 Malignant neoplasm of upper lobe, right bronchus or lung C34.11
[2022-10-18] MEDS: methylphenidate 10 mg Tablet 5 MG PO (19:01)
[2022-10-19] VITALS (13 sets, daily range): BP systolic 91–99; BP diastolic 53–67; PULSE 102–119; RESP 12–18; TEMP 36.4–37.4; O2SAT 94–99
[2022-10-19] MEDS: ipratropium 0.5 mg/2.5 mL Neb INHALATION ×3 (07:23→20:24)
[2022-10-19] MEDS: albuterol 2.5 mg/3 mL Neb INHALATION ×3 (07:23→20:26)
[2022-10-19] MEDS: budesonide 0.5 mg/2 mL Neb INHALATION ×2 (07:23→20:24)
[2022-10-19] MEDS: predniSONE 10 mg Tablet 20 MG PO (08:29)
[2022-10-19] MEDS: methylphenidate 10 mg Tablet 5 MG PO ×2 (08:29→17:31)
[2022-10-19] MEDS: pantoprazole DR 40 mg Tablet PO (08:29)
[2022-10-19] MEDS: citalopram 20 mg Tablet PO (08:29)
--- NOTE | 2022-10-19 14:07 | PM.PN ---
Subjective Subjective: Patient has been transitioned to hospice care after discussion with palliative/hospice team. Goals are going to be focus on patient comfort. Medications: Reviewed: Yes Vitals/I&O/Wt Last Vital Signs Temp 97.8 F 10/19/22 08:00 Pulse 108 H 10/19/22 11:19 Resp 17 10/19/22 11:19 BP 95/56 10/19/22 08:00 Pulse Ox 96 10/19/22 11:19 O2 Del Method 10/19/22 12:00 O2 Flow Rate 2 10/18/22 20:00 10/18/22 10/19/22 10/19/22 22:59 06:59 14:59 Intake Total 500 / 1648.75 Balance 500 / 1648.75 Weight last 48 hrs Weight 42.638 kg Weight 44.815 kg Physical Exam Narrative: General: No acute distress, AO x3 Not examined today in keeping with patient;s goals of care Data 10/18/22 03:30 10/18/22 03:30 A&P Assessment and plan (1) Anemia: (2) Hypercalcemia: (3) Dehydration: (4) Altered mental status: (5) Goals of care, counseling/discussion: (6) Protein calorie malnutrition: (7) Severe muscle deconditioning: (8) Acute encephalopathy: (9) Acute dehydration: (10) Lung cancer, upper lobe: Qualifiers: Laterality: right Qualified Code(s): C34.11 - Malignant neoplasm of upper lobe, right bronchus or lung (11) Hyponatremia: (12) Hypercalcemia of malignancy: (13) COPD (chronic obstructive pulmonary disease): Qualifiers: COPD type: emphysema Emphysema type: centrilobular Qualified Code(s): J43.2 - Centrilobular emphysema (14) Vitamin D insufficiency: (15) Personal history of smoking: Plan # Hypercalcemia Improved # Metabolic encephalopathy, improved # Postobstructive pneumonia in the setting of large lung cancer. s/p abx # progressive lung cancer: Discussion with palliative care and family , transitioned to hospice # COPD, not oxygen dependent, currently on 2 L of oxygen Normocytic anemia: Stable for now Goals of care discussed with the patient and family: transition to home hospice Soft mechanical diet Attestations Medical Necessity Statement*: planned transition to hospice care, anticipate discharge tomorrow Coding Level of Care Code Acute Code for Chg Fwd Diagnoses Anemia D64.9 Hypercalcemia E83.52 Dehydration E86.0 Altered mental status R41.82 Goals of care, counseling/discussion Z71.89 Protein calorie malnutrition E46 Severe muscle deconditioning R29.898 Acute encephalopathy G93.40 Acute dehydration E86.0 Lung cancer, upper lobe C34.11 Laterality: right Hyponatremia E87.1 Hypercalcemia of malignancy E83.52 COPD (chronic obstructive pulmonary disease) J43.2 COPD type: emphysema Emphysema type: centrilobular Vitamin D insufficiency E55.9 Personal history of smoking Z87.891
[2022-10-19] MEDS: acetaminophen 325 mg Tablet 650 MG PO (15:51)
[2022-10-19 23:00] LABS: Glucose Point of Care 113 mg/dL (70-110)
[2022-10-20] VITALS (8 sets, daily range): BP systolic 98–104; BP diastolic 61–66; PULSE 105–119; RESP 16–22; TEMP 36.6–36.8; O2SAT 97–98
[2022-10-20 07:25] LABS: Glucose Point of Care 89 mg/dL (70-110)
[2022-10-20] MEDS: albuterol 2.5 mg/3 mL Neb INHALATION ×2 (08:03→11:17)
[2022-10-20] MEDS: ipratropium 0.5 mg/2.5 mL Neb INHALATION ×2 (08:03→11:17)
[2022-10-20] MEDS: budesonide 0.5 mg/2 mL Neb INHALATION (08:03)
--- NOTE | 2022-10-20 08:22 | PM.DCS ---
Discharge Providers Date of Admission: 10/15/22 22:35 Date of Discharge: October 20, 2022 Attending Provider at Admission: Servando Yip MD Attending Provider at Discharge: Jamie Martines MD Consults: Palliative: Dr. Rosen Primary Care Provider: TAPAN Marcus Diagnoses at Discharge Discharge Diagnosis (1) Anemia: Status: Acute (2) Hypercalcemia: Status: Acute (3) Dehydration: Status: Acute (4) Altered mental status: Status: Acute (5) Goals of care, counseling/discussion: Status: Acute (6) Protein calorie malnutrition: Status: Acute (7) Severe muscle deconditioning: Status: Acute (8) Acute encephalopathy: Status: Acute (9) Acute dehydration: Status: Acute (10) Lung cancer, upper lobe: Status: Acute Qualifiers: Laterality: right Qualified Code(s): C34.11 - Malignant neoplasm of upper lobe, right bronchus or lung (11) Hyponatremia: Status: Acute (12) Hypercalcemia of malignancy: Status: Acute (13) COPD (chronic obstructive pulmonary disease): Status: Chronic Qualifiers: COPD type: emphysema Emphysema type: centrilobular Qualified Code(s): J43.2 - Centrilobular emphysema (14) Vitamin D insufficiency: Status: Chronic (15) Personal history of smoking: Status: Chronic Reason for Visit Reason for Visit: WEAKNESS Hospital Course Hospital Course Nita Moore is a 52 year old female? with past medical history of anxiety, depression, chronic smoker, COPD, advancing non-small cell lung cancer was on chemoradiation was brought in from home with chief complaint of overall not feeling well and worsening mentation. She was found to have hypercalcemia of malignancy for which she was treated with IV fluids and zoledronic acid upon admission. HEr ca improved to ~10.5. She aslo had post obstructive pneumonia which was treated with iv abx. Her daughter reported that patient has had a gradual decline over the past 2 to 3 months.? She was recently evaluated by oncology on September 08 where her cancer has advanced in spite of multiple lines of chemotherapy and radiation that she has had.? Furthermore her course has been complicated by recurrent hypercalcemia, poor performance status.? Per oncology notes, further chemotherapy is highly unlikely to be of any meaningful benefit to her.? Also possible that she will suffer significant systemic toxicity without gaining much in terms of cancer treatment. Patient's daughters have been having similar conversations more recently within the family and are expressed interest in transitioning to palliative/hospice care management. Palliative consult was obtained with Dr. rosen and after extensive C discussion, decision was made to transition to hospice care with focus on patient comfort. She is being discharged today in stable condition with home hospice. Physical Exam Narrative: General: No acute distress, AO x3, chronically ill appearing lady in no acute distress. HEENT: PERRLA, pupils bilaterally equal and reactive Chest: Normal vesicular breath sounds, no added sounds, equal good air entry bilaterally CVS: S1-S2 regular, no murmurs, no tachycardia, no gallops, no rubs Abdomen: Soft, nontender, no organomegaly, bowel sounds present Neuro: No focal deficits, no facial deformity, AO x3, power 5/5 in all limbs Discharge Data Studies Completed and Pending Completed Studies During Hospitalization Category Date Time Status CT head wo con* [id number] Stat Cat Scan 10/15/22 21:03 Completed XR chest 1V portable [id number] Stat Exams 10/15/22 21:57 Completed Pending at discharge Category Date Time Status Blood Culture Stat Lab 10/15/22 01:23 Results Radiology Impressions Head CT 10/15/22 21:03 IMPRESSION: No acute findings Chest X-Ray 10/15/22 21:57 IMPRESSION: Unchanged large right upper lobe mass with mid lung infiltrates Laboratory Results WBC 11.5 10^3/uL (4.0-10.0) H 10/18/22 03:30 RBC 3.46 10^6/uL (4.1-5.3) L 10/18/22 03:30 Hgb 9.3 g/dL (11.5-15.3) L 10/18/22 03:30 Hct 30.7 % (37.0-47.0) L 10/18/22 03:30 MCV 88.7 fl (81-99) 10/18/22 03:30 MCH 26.9 pg (28.0-34.0) L 10/18/22 03:30 MCHC 30.3 g/dL (30.0-36.0) 10/18/22 03:30 RDW 15.4 % (12.1-15.1) H 10/18/22 03:30 Plt Count 395 10^3/cmm (130-400) 10/18/22 03:30 MPV 9.4 fL (7.4-10.4) 10/18/22 03:30 Neut % (Auto) 84.4 % 10/18/22 03:30 Lymph % (Auto) 7.5 % 10/18/22 03:30 [place] % (Auto) 6.7 % 10/18/22 03:30 Eos % (Auto) 0.6 % 10/18/22 03:30 Baso % (Auto) 0.2 % 10/18/22 03:30 Neut # (Auto) 9.74 10^3/uL (1.8-7.7) H 10/18/22 03:30 Lymph # (Auto) 0.9 10^3/uL (0.8-4.8) 10/18/22 03:30 [place] # (Auto) 0.8 10^3/uL (0.2-0.9) 10/18/22 03:30 Eos # (Auto) 0.1 10^3/uL (0.0-0.8) 10/18/22 03:30 Baso # (Auto) 0.0 10^3/uL (0.0-0.1) 10/18/22 03:30 Nucleated RBC % (auto) 0 % 10/18/22 03:30 Nucleated RBCs # 0.0 /100WBC 10/18/22 03:30 Sodium 134 mmol/L (136-145) L 10/18/22 03:30 Potassium 3.0 mmol/L (3.5-5.1) L 10/18/22 03:30 Chloride 96 mmol/L (98-107) L 10/18/22 03:30 Carbon Dioxide 27 mmol/L (22-29) 10/18/22 03:30 Anion Gap 14.0 (5-19) 10/18/22 03:30 BUN 12 mg/dL (6-20) 10/18/22 03:30 Creatinine 0.4 mg/dL (0.5-0.9) L 10/18/22 03:30 GFR Calculation 167.0 mL/min (90-130) H 10/18/22 03:30 Glucose 84 mg/dL (65-115) 10/18/22 03:30 POC Glucose 89 mg/dL (70-110) 10/20/22 07:03 Calculated Osmolality 277 mOsm/kg (285-295) L 10/18/22 03:30 Lactate 1.7 mmol/L (0.5-2.2) 10/15/22 21:12 Calcium 10.6 mg/dL (8.5-10.5) H 10/18/22 03:30 Magnesium 1.8 mg/dL (1.7-2.3) 10/16/22 02:50 Total Bilirubin 0.3 mg/dL (0.15-1.2) 10/18/22 03:30 AST 10 U/L (0-32) 10/18/22 03:30 ALT < 5 U/L (0-33) 10/18/22 03:30 Alkaline Phosphatase 73 U/L (35-105) 10/18/22 03:30 Troponin T Baseline 17 ng/L (0-10) H 10/15/22 21:12 Troponin T 120 Minute 16.93 ng/L (0-10) H 10/15/22 22:55 Delta Troponin T -0.07 ABS# (0-10) L 10/15/22 22:55 Troponin T Hi Sens 6Hr 16.07 ng/L (0-10) H 10/16/22 02:50 Troponin T Hi Sens 6Hr Delta -0.93 ng/L (0-12) L 10/16/22 02:50 Total Protein 6.0 g/dL (6.6-8.7) L 10/18/22 03:30 Albumin 2.7 g/dL (3.5-5.2) L 10/18/22 03:30 Globulin 3.3 g/dL (1.3-4.6) 10/18/22 03:30 25-OH Vitamin D Total 58 ng/mL (30-100) 10/16/22 13:22 TSH 1.10 uIU/mL (0.27-4.20) 10/15/22 21:12 PTH Intact 3.4 pg/mL (15-65) L 10/16/22 13:22 Calcium (PTH Intact) 12.5 mg/dL (8.5-10.5) H 10/16/22 13:22 Urine Color Colorless (Yellow) 10/15/22 21:43 Urine Appearance Clear (CLEAR) 10/15/22 21:43 Urine pH 6.5 (5-7) 10/15/22 21:43 Ur Specific [place] 1.015 (1.005-1.030) 10/15/22 21:43 Urine Protein Neg (Negative) 10/15/22 21:43 Urine Glucose (UA) Norm (Normal) 10/15/22 21:43 Urine Ketones 1+ (Negative) H 10/15/22 21:43 Urine Blood Neg (Negative) 10/15/22 21:43 Urine Nitrate Negative (Negative) 10/15/22 21:43 Urine Bilirubin Neg (Negative) 10/15/22 21:43 Urine Urobilinogen Norm mg/dL (Negative) 10/15/22 21:43 Ur Leukocyte Esterase Negative (Negative) 10/15/22 21:43 Vancomycin Trough 13.1 ug/mL (10-15) 10/18/22 02:00 Vitals Last Vital Signs Temp 98.2 F 10/20/22 04:00 Pulse 119 H 10/20/22 08:10 Resp 16 10/20/22 08:04 BP 104/66 10/20/22 04:00 Pulse Ox 98 10/20/22 08:04 O2 Del Method 10/20/22 08:04 O2 Flow Rate 2 10/19/22 15:28 Discharge Plan Discharge Patient Disposition: Hospice - Home Condition: Stable Prescriptions: New methylphenidate HCl 10 mg Tablet 5 mg PO BID 30 Days Qty: 30 0RF morphine concentrate 10 mg/0.5 mL Syringe 5 mg PO Q2H PRN (Reason: Pain) 7 Days Qty: 10 0RF Continued ipratropium-albuterol 0.5 mg-3 mg(2.5 mg base)/3 mL solution for nebulization 3 ml inhalation Q6H PRN (Reason: wheezing) Qty: 90 3RF (DME) Disposable nebulizer circuit See Rx Instructions .ROUTE .MEDSUPPLY Qty: 1 2RF Rx Instructions: As directed (DME) DME: Walker Unit See Rx Instructions .ROUTE .MEDSUPPLY Qty: 1 0RF Rx Instructions: Code E0143 and E0156 walker 4 wheels and seat (DME) nebulizers Misc See Rx Instructions .ROUTE .MEDSUPPLY Qty: 1 0RF Rx Instructions: As directed omeprazole 20 mg capsule,delayed release(DR/EC) 20 mg PO DAILY Qty: 90 0RF hydrocodone-acetaminophen 5-325 mg tablet 1 tab PO Q6H PRN (Reason: pain) 30 Days Qty: 60 0RF morphine concentrate 100 mg/5 mL (20 mg/mL) solution 20 mg sublingual DIRECTED PRN (Reason: Pain/SOB) 14 Days Qty: 30 0RF Rx Instructions: 0.25ml-1ml q1H PRN may increase to 0.5ml-1ml Q1H PRN bisacodyl 10 mg suppository 10 mg KS DAILY PRN (Reason: constipation) Qty: 5 0RF Rx Instructions: 1 suppository per rectum every day PRN for constipation. atropine 1 % drops 4 drp sublingual Q4H PRN (Reason: secretions) Qty: 5 0RF Rx Instructions: 4 drops SL q 4 hours PRN for terminal congestion/excessive secretions. ondansetron 4 mg tablet,disintegrating 4 mg translingual Q4H PRN (Reason: nausea) Qty: 5 0RF Rx Instructions: Dissolve 1 tablet under tongue every 4 hours PRN for nausea lorazepam 2 mg/mL concentrate 2 mg sublingual Q4H PRN (Reason: Anxiety/Seizure) Qty: 30 0RF Rx Instructions: 0.25ml-1ml q4H PRN Anxiety/Seizure Start 0.25ml may increase to 0.5ml-1ml q4H citalopram 20 mg tablet 20 mg PO QAM Advair Diskus 500-50 mcg/dose blister with device 1 inh INHALATION BID PRN (Reason: unknown) albuterol sulfate 90 mcg/actuation Hfa Aerosol Inhaler 2 puff INHALATION QID PRN (Reason: Shortness Of Breath) Spiriva Respimat 2.5 mcg/actuation mist 2 puff INHALATION DAILY PRN (Reason: unknown) Changed prednisone 10 mg tablet 20 mg PO DAILY Qty: 60 2RF Discontinued cholecalciferol (vitamin D3) 125 mcg (5,000 unit) capsule 125 mcg PO DAILY Qty: 30 2RF potassium chloride 10 mEq capsule, extended release 10 meq PO QAM aspirin 325 mg tablet,delayed release (DR/EC) 325 mg PO QAM furosemide [Lasix] 20 mg tablet 20 mg PO QAM Discharge Orders: Discharge Order (Routine); Ordered 10/20/22 Ordered By: Jamie Martines Referrals: [facility] ([facility]) [Outside] Gerardo Zepeda, [employer] [facility] [Primary Care Provider] - 10/23/22 8:00 am Discharge Diet: Usual diet Discharge Activity: Resume usual activity Patient Instructions: Morphine, Rapid Release (By mouth), Methylphenidate, Biphasic (By mouth), Hospice Care, Opioid Safety Activity Restrictions/Additional Instructions: Home hospice Discharge Attestations Time Spent in Discharge Care*: greater than 30 min Specific Discharge Activities: educating patient, educating and/or supporting family/caregiver, discussing with pcp/other providers, discussing with manager case/social workers/dc planners, documenting/other paperwork and evaluating patient/reviewing data Status at Discharge: Cognitive status at discharge: cognitively intact, Behavioral status at discharge: cooperative, Overall status at discharge: patient has a new baseline Quality Metrics Clinical Quality Measures [ No reported AMI, CVA or VTE this stay] Coding Level of Care Code 46330 Total time (in minutes) for Discharge: 40 Diagnoses Anemia D64.9 Hypercalcemia E83.52 Dehydration E86.0 Altered mental status R41.82 Goals of care, counseling/discussion Z71.89 Protein calorie malnutrition E46 Severe muscle deconditioning R29.898 Acute encephalopathy G93.40 Acute dehydration E86.0 Lung cancer, upper lobe C34.11 Laterality: right Hyponatremia E87.1 Hypercalcemia of malignancy E83.52 COPD (chronic obstructive pulmonary disease) J43.2 COPD type: emphysema Emphysema type: centrilobular Vitamin D insufficiency E55.9 Personal history of smoking Z87.891
[2022-10-20] MEDS: methylphenidate 10 mg Tablet 5 MG PO (08:33)
[2022-10-20] MEDS: acetaminophen 325 mg Tablet 650 MG PO (08:33)
[2022-10-20] MEDS: citalopram 20 mg Tablet PO (08:33)
[2022-10-20] MEDS: predniSONE 10 mg Tablet 20 MG PO (08:33)
[2022-10-20] MEDS: pantoprazole DR 40 mg Tablet PO (08:33)
== END 2022-10-20 13:20 | disposition hospice, home (50) | DRG 180 ==
LOC: ER 22:34 → ICU 22:55 → MEDSURG 10-16 15:56
PROVIDERS: Internal Medicine; Student in an Organized Health Care Education/Training Program; Admitting Provider Internal Medicine; Emergency Provider Emergency Medicine; PCP Nurse Practitioner; Visit Provider Student in an Organized Health Care Education/Training Program
DX: C34.11 Malignant neoplasm of upper lobe, right bronchus or lung (principal); E43 Unspecified severe protein-calorie malnutrition; J18.9 Pneumonia, unspecified organism; G93.41 Metabolic encephalopathy; Z68.1 Body mass index [BMI] 19.9 or less, adult; E87.1 Hypo-osmolality and hyponatremia; F41.9 Anxiety disorder, unspecified; F32.A Depression, unspecified; F17.210 Nicotine dependence, cigarettes, uncomplicated; J43.2 Centrilobular emphysema; Z92.21 Personal history of antineoplastic chemotherapy; Z92.3 Personal history of irradiation; Z79.891 Long term (current) use of opiate analgesic; Z79.51 Long term (current) use of inhaled steroids; Z86.16 Personal history of COVID-19; Z85.038 Personal history of other malignant neoplasm of large intestine; Z85.42 Personal history of malignant neoplasm of other parts of uterus; K21.9 Gastro-esophageal reflux disease without esophagitis; Z86.19 Personal history of other infectious and parasitic diseases; Z90.49 Acquired absence of other specified parts of digestive tract; Z90.710 Acquired absence of both cervix and uterus; Z51.5 Encounter for palliative care; Z66 Do not resuscitate; D63.8 Anemia in other chronic diseases classified elsewhere; E83.52 Hypercalcemia; E86.0 Dehydration
CPT/HCPCS: 36415; 36416; 51701; 70450; 71045; 80048; 80053; 80202; 81003; 82306; 82310; 82962; 83605; 83735; 83970; 84443; 84484; 85025; 87040; 93005; 94640; 96365; 96372; 96375; 97110; 97116; 97161; 97530; 99285; J0456; J0630; J0692; J0696; J1650; J3370; J3480; J3489; J3490; J7030; J7042; J7050; J7512; J7613; J7626; J7644